=== PATIENT | female | born 1955 | race Caucasian/White ===

== ENCOUNTER → 2017-03-02 | Day surgery (SDC) | payer OTHER ==
[2017-02-10 14:48] VITALS: Ht 156.2 cm; Wt 67.7 kg
[~2017-03-02] VITALS: Ht 156.2 cm; Wt 67.7 kg
[~2017-03-02] MED LIST: ACETAMINOPHEN 325 MG TAB PO PRN; AMVISC PLUS 0.8ML SYRINGE INT OCU ONE; ASPI81TA28 PO; ATROPINE SULFATE 0.1 MG/ML 5ML SYR IV PRN; BUPR-79 PO; CALC625T13 PO; CYAN10005 PO; DEXTROSE 50% 50 ML SYR IV ONE; DONE1TAB11 PO; DTR5 PO; EpHEDrine SULFATE INJ 50 MG/ML AMP IV PRN; EpINEphrine INJ 1MG/ML AMP 1 MG/ML AMP ONE; INSU100I2 SC; INSU3INJ3 PO; LACTATED RINGER'S 1000ML 500 ML IV SCH; LEVO100T PO; LIDOCAINE 3.5% OPH GEL PER APPLICATION CHARGE ONE; LIDOCAINE HCL 1% MPF 2 ML VIAL ONE; LISI-729 PO; METF1TAB53 PO; METO25TA3 PO; MIDAZOLAM HCL 1 MG/ML 2ML VIAL ONE; MULT-580 PO; OCUCOAT 1 ML SOLN IO ONE; POVIDONE-IODINE OP SOLN 30 ML BTL ONE; PRAM1TAB6 PO; PROPARACAINE 0.5% OP SOLN PER DROP CHARGE OPL SCH; PSYL58.618 PO; SIMV10TA2 PO; STERILE IRRIGATING SOLUTION (BSS) 15ML OPL ONE; TOBRAMYCIN/DEXAMETHASONE OPH OINT PER APPLN CHARGE ONE
[2017-03-02] MEDS: PHENYLEPHRINE HCL 2.5% OP SOLN PER DROP CHARGE OPL SCH ×2 (06:34→06:42)
[2017-03-02] MEDS: TROPICAMIDE 1% OP SOLN PER DROP CHARGE OPL SCH ×2 (06:35→06:43)
[2017-03-02] MEDS: CYCLOPENTOLATE HCL 1% OP SOLN PER DROP CHARGE OPL SCH ×2 (06:36→06:44)
[2017-03-02] MEDS: KETOROLAC 0.5% OP SOLN PER DROP CHARGE OPL SCH ×2 (06:37→06:45)
[2017-03-02] MEDS: GATIFLOXACIN OP SOLN PER DROP CHARGE OPL SCH ×2 (06:38→06:53)
--- NOTE | 2017-03-02 07:00 | History & Physical Bridge - [place] ---
H&P Re-Evaluation Bridge Note: I have examined the patient, reviewed the History & Physical and in the interval since the performance of the History & Physical I have noted the following changes of clinical significance: Diagnosis: Left Cataract Procedure: Left Cataract Removal with Lens Implant No changes noted
[2017-03-02 07:22] VITALS: TEMP 36.8
--- NOTE | 2017-03-02 07:22 | Discharge Instructions-SurgCtr ---
Discharge Instructions Date of Service Mar 02, 2017. Visit Reason for Visit: Cataract Left Eye Discharge Discharge Diagnosis / Problem: cataract Discharge Goals Goal(s): Improve function Activity Recommendations Activity Limitations: per Instructions/Follow-up section Anesthesia . Post Anesthesia Instructions: If you have had General Anesthesia or IV Sedation: * Do not drive today. * Resume driving when surgeon permits. * Do not make important decisions or sign legal documents today. * Call surgeon for: 1. Temperature elevations greater than 101 degrees F. 2. Uncontrollable pain. 3. Excessive bleeding. 4. Persistent nausea and vomiting. 5. Medication intolerance (nausea, vomiting or rash). * For nausea and vomiting use only clear liquids such as: tea, soda, bouillon until nausea subsides, then gradually increase diet as tolerated. * If you have any concerns or questions, call your surgeon's office. If physician is unavailable and it is an emergency, call 911 or go to the nearest emergency room. . Instructions / Follow-Up Instructions / Follow-Up ACTIVITY RECOMMENDATIONS: * No strenuous lifting, jogging or running for 4 days * No swimming or yard work for 1 week. * Limited bending is permitted, such as putting on shoes. RETURN TO SCHOOL/WORK: No work until seen by physician in office. MEDICATIONS: Resume previous medications unless instructed otherwise by your surgeon. This includes eye drops for glaucoma. Zymaxid/Gatifloxacin (lin cap) - one drop every 2 hours until bedtime Nevanac/Ilevro/Prolensa/Ketorolac (fabian cap) - one drop every 4 hours until bedtime Prednisolone (white/pink cap, SHAKE WELL) - one drop every 2 hours until bedtime Starting tomorrow - all 3 drops every 4 hours until seen in the office Optive drops - as needed for discomfort SPECIAL CARE INSTRUCTIONS: * Wear eyeshield when sleeping, for four nights. * You may wear your own glasses or sunglasses while awake. * You may read or watch TV * You may shower and wash your face, but be gentle around the eye and pat dry. * Blurry vision and mild irritation are normal. * Call office if pain is more severe or vision becomes dark at . FOLLOW UP VISIT: Follow-up with Dr Mast tomorrow. Diet Recommendations Home Diet: resume previous diet Procedures Procedures Performed: Left Cataract Phacoemulsification With Intraocular Lens Implant Pending Studies Studies pending at discharge: no Medical Emergencies . Who to Call and When: Medical Emergencies: If at any time you feel your situation is an emergency, please call 911 immediately. . Non-Emergent Contact Non-Emergency issues call your: Content Specialist . . "Provider Documentation" section prepared by Jacoby Mast. .
--- NOTE | 2017-03-02 07:23 | [facility] Operative Report ---
Operative Report Date of Service Mar 02, 2017. Operative Report 1. PREOPERATIVE DIAGNOSIS: Cataract of the left eye. 2. POSTOPERATIVE DIAGNOSIS: Same. 3. PROCEDURE: Phacoemulsification with intraocular lens implantation of the left eye. SURGEON: Dr. Jacoby Mast. ANESTHESIA: Topical Lidocaine gel, 1% Non- Preserved intracameral Lidocaine, and monitored intravenous sedation. INDICATIONS FOR THE PROCEDURE: The patient is a 61 - year-old female with a history of cataract of the left eye causing significant visual impairment. The details of the proposed procedure were explained to the patient who asked appropriate questions and following discussion of all risks, benefits and alternatives agreed to have the procedure done. 4. OPERATION AND FINDINGS: DESCRIPTION OF PROCEDURE: After informed consent was obtained, the patient was brought to the Operating Room at the [facility]. The patient was placed in a supine position and then the left eye was prepped and draped in the usual sterile fashion for intraocular surgery. A drop of topical Lidocaine gel was placed in the operative eye. A wire lid speculum was then placed in the fornices. A corneal paracentesis was then created temporally. The Non-Preserved Lidocaine was then instilled into the anterior chamber. The anterior chamber was then pressurized with viscoelastic. A 2.0 mm clear corneal incision was then created temporally. A cystotome was inserted into the anterior chamber and used to create a tear in the anterior lens capsule. This capsular tear was then used to create a small flap and the flap was dragged in a counterclockwise direction in order to create a continuous curvilinear capsulorrhexis. Hydrodissection was accomplished with balanced salt solution. Phacoemulsification of the lens nucleus was then performed in a standard [id number] technique. The phaco time was 20 seconds with an average power of 6 %. The remaining cortical material was removed using irrigation aspiration. The capsular bag was then filled with viscoelastic. A [employer] MI60L +20.0 diopters lens was then loaded into the injector and injected into the capsular bag. The remaining viscoelastic was removed with the irrigation aspiration handpiece. The wound was hydrated and then checked and found to be watertight. The intraocular pressure was checked and found to be adequate. The wire lid speculum was removed and the patient's face was cleaned and dried. TobraDex ointment was placed in the inferior fornix. The patient was discharged to the Recovery Room having tolerated the procedure well. There were no complications. The patient will be seen tomorrow in the office for follow-up. I attest to the content of the Intraoperative Record and any orders documented therein. Any exceptions are noted below.
[2017-03-02 07:42] VITALS: BP 148/71; PULSE 74; O2SAT 99
--- NOTE | 2017-03-02 07:42 | Anesthesia Progress Nt - [facility] ---
Anesthesia Post Op Note Date & Time Mar 02, 2017 at 07:42 Vital Signs Pain Intensity: 0 Vital Signs Past 12 Hours Date Time Temp Pulse Resp B/P (MAP) Pulse Ox O2 Delivery O2 Flow Rate FiO2 03/02/17 07:22 36.8 71 16 136/79 (98) 99 Room Air 03/02/17 06:28 36.8 74 16 150/71 (97) 98 Room Air Notes Mental Status: alert / awake / arousable, participated in evaluation Pt Amnestic to Procedure: Yes Nausea / Vomiting: adequately controlled Pain: adequately controlled Airway Patency, RR, SpO2: stable & adequate BP & HR: stable & adequate Hydration State: stable & adequate Anesthetic Complications: no major complications apparent
== END | disposition home or self-care (01) ==
LOC: X.SURG 06:08
PROVIDERS: ATTEND Ophthalmology
DX: H26.9 Unspecified cataract (principal); I25.10 Atherosclerotic heart disease of native coronary artery without angina pectoris; I25.2 Old myocardial infarction; E11.40 Type 2 diabetes mellitus with diabetic neuropathy, unspecified; E03.9 Hypothyroidism, unspecified; K76.0 Fatty (change of) liver, not elsewhere classified; E83.42 Hypomagnesemia; Z79.4 Long term (current) use of insulin; Z79.82 Long term (current) use of aspirin; Z79.899 Other long term (current) drug therapy

== ENCOUNTER 2017-03-05 19:52 | Emergency (ER) | payer OTHER ==
[~2017-03-05] VITALS: Ht 154.9 cm; Wt 72.0 kg
[~2017-03-05 19:52] MED LIST changes: -ACETAMINOPHEN 325 MG TAB PO PRN; -AMVISC PLUS 0.8ML SYRINGE INT OCU ONE; -ATROPINE SULFATE 0.1 MG/ML 5ML SYR IV PRN; -DEXTROSE 50% 50 ML SYR IV ONE; -EpHEDrine SULFATE INJ 50 MG/ML AMP IV PRN; -EpINEphrine INJ 1MG/ML AMP 1 MG/ML AMP ONE; -LACTATED RINGER'S 1000ML 500 ML IV SCH; -LIDOCAINE 3.5% OPH GEL PER APPLICATION CHARGE ONE; -LIDOCAINE HCL 1% MPF 2 ML VIAL ONE; -MIDAZOLAM HCL 1 MG/ML 2ML VIAL ONE; -OCUCOAT 1 ML SOLN IO ONE; -POVIDONE-IODINE OP SOLN 30 ML BTL ONE; -PROPARACAINE 0.5% OP SOLN PER DROP CHARGE OPL SCH; -STERILE IRRIGATING SOLUTION (BSS) 15ML OPL ONE; -TOBRAMYCIN/DEXAMETHASONE OPH OINT PER APPLN CHARGE ONE
[2017-03-05 20:00] VITALS: TEMP 36.5; Ht 154.9 cm; Wt 72.0 kg
[2017-03-05] MEDS ORDERED: SODIUM CHLORIDE 0.9% 1000ML 1,000 ML IV STA (20:54)
[2017-03-05 21:06] LABS: BASO % 0.3 %; BASO ABS # 0.03 K/uL (0-0.2); COMPLETE YES; EOS % 2.2 %; HEMATOCRIT 46.9 % (37-47); IG% 0.3 %; LYMPH % 18.5 %; LYMPH ABS # 1.93 K/uL (1.2-3.4); MEAN CELL VOLUME 99.4 fL (80-100); MEAN CORPUSCULAR HGB CONC 32.2 g/dl (32-36); MEAN PLATELET VOLUME 10.2 fL (7.4-10.4); MONO % 4.9 %; NEUT % 73.8 %; PLATELET COUNT 241 K/uL (130-400); RED BLOOD COUNT 4.72 M/uL (4.2-5.4); WHITE BLOOD COUNT 10.42 K/uL (4.8-10.8)
[2017-03-05] MEDS ORDERED: ONDANSETRON INJ 2 MG/ML 2 ML VIAL ONE (21:08)
[2017-03-05 21:15] LABS: PROTHROMBIN TIME (PATIENT) 11.2 SECONDS (9.0-12.0)
[2017-03-05 21:18] LABS: ALT/SGPT 56 U/L (12-78); AST/SGOT 47 U/L (15-37); BLOOD UREA NITROGEN 11 mg/dl (7-18); CALCIUM 9.4 mg/dl (8.5-10.1); CARBON DIOXIDE 28 mmol/L (21-32); CHLORIDE 103 mmol/L (98-107); CREATININE 0.75 mg/dl (0.60-1.20); GLUCOSE 105 mg/dl (70-99); SODIUM 141 mmol/L (136-145)
[2017-03-05 21:28] LABS: ALKALINE PHOSPHATASE 93 U/L (45-117)
[2017-03-05 21:45] LABS: URINE APPEARANCE CLEAR (CLEAR); URINE BILIRUBIN NEG (NEG); URINE COLOR YELLOW; URINE EPITHELIAL CELL AUTO >30 /lpf (0-5); URINE NITRITE NEG (NEG); URINE PH 5.5 (4.5-7.5); URINE SPECIFIC GRAVITY 1.007 (1.000-1.030); UROBILINOGEN NEG (NEG)
[2017-03-05 21:57] LABS: MANUAL MICROSCOPIC REQUIRED? NO; REVIEW REQ? NO
[2017-03-05 23:09] VITALS: BP 138/86; PULSE 70; O2SAT 96
--- NOTE | 2017-03-06 00:40 | EMERGENCY ROOM VISIT NOTE ---
History Report prepared by Braxton: Papi Yan Under the Supervision of: Dr. Luis Miguel Guillen M.D. First contact with patient: 19:58 Chief Complaint: HYPOGLYCEMIA Stated Complaint: HYPOGLYCEMIA History of Present Illness The patient is a 61 year old female who presents to the Emergency Room with complaints hypoglycemia starting earlier today. The patient reports that the last two days she has been feeling nauseous, fatigued, and hasn't been eating normally. The patient is accompanied by her son who states that he woke up to find her confused, cold, diaphoretic, and slurring her speech earlier today. The patient states that she is Type 2 diabetic on insulin and usually doesn't feel well when her glucose levels reach 100 mg. Her son reports that she has not been eating today except for a little bit of watermelon. She is currently out of her glucose test strips and he was concerned that she was hypoglycemic. He was unable to test. He states that he gave her glucose and some chicken. When EMS arrived her blood sugar was 72 further measurements and her symptoms were dramatically improved. They did give her oral glucose. She was back to normal. When she arrived in the emergency department her blood glucose was over 106. She states that she recently had a cataract taken out on her left side which caused her left hand to swell. The patient admits the swelling has gone down since. The patient currently complains of cramping in her right leg. The patient denies LOC, headache, fevers, visual changes, neck pain, chest pain , breathing difficulties, vomiting, abdominal pain, back pain, melena, hematochezia, urinary symptoms, numbness, weakness, lymphadenopathy, rash, or other complaints. Source of History: patient, family (son) Onset: earlier today Position: other (global) Timing: worsening Modifying Factors (Relieving): other (glucose) Associated Symptoms: + chills, + diaphoresis, + fatigue Review of Systems See HPI for pertinent positives and negatives. A total of ten systems were reviewed and were otherwise negative. Past Medical & Surgical Medical Problems: (1) Diabetes (2) Hypertension Nos (3) Hypothyroidism Nos (4) Neuropathy In Diabetes Family History FH: HTN (hypertension) FHx: diabetes mellitus Social History Smoking Status: Current Every Day Smoker Alcohol Use: none Marital Status: Housing Status: lives alone Occupation Status: disabled Current/Historical Medications Scheduled Aspirin (Aspirin Ec), 81 MG PO HS Bupropion (Wellbutrin Sr), 150 MG PO BID Calcium Polycarbophil (Fiber Tabs), 1 TAB PO QAM Cyanocobalamin (Vitamin B-12), 1,000 MCG PO QAM Donepezil Hydrochloride (Donepezil Hcl), 1 TAB PO HS Insulin Detemir (Levemir Flextouch), 64 UNITS PO HS Insulin Lispro (Human) (Humalog Kwikpen), 30 UNITS SC TIDM Levothyroxine Sodium (Synthroid), 100 MCG PO QAM Lisinopril (Zestril), 2.5 MG PO QAM Metformin Hcl (Glucophage Ext Rel), 1,000 MG PO BID Metoprolol Succ (Toprol Xl) (Toprol-Xl), 25 MG PO QAM Multiple Vitamins W/ Minerals (Hair/Skin/Nails), 1 TAB PO QAM Oxybutynin Chloride (Oxybutynin Chloride), 1 TAB PO HS Pramipexole Dihydrochloride (Pramipexole Dihydrochlori), 1 TAB PO HS Psyllium (Metamucil [facility] Fib), 1 TSP PO TID Simvastatin (Zocor), 10 MG PO HS Allergies Coded Allergies: No Known Allergies (Unverified , NONE, 03/02/17) Physical Exam Vital Signs Date Time Temp Pulse Resp B/P (MAP) Pulse Ox O2 Delivery O2 Flow Rate FiO2 03/05/17 23:09 70 19 138/86 96 Room Air 03/05/17 21:31 72 17 123/64 93 Room Air 03/05/17 20:00 36.5 72 14 150/71 98 Room Air 03/05/17 19:59 73 Physical Exam GENERAL: Tired appearing, alert, in no distress HENT: Normocephalic, atraumatic. Oropharynx unremarkable. EYES: Normal conjunctiva. Sclera non-icteric. PERRLA. EOMI. NECK: Supple. No nuchal rigidity. FROM. No JVD. RESPIRATORY: Clear to auscultation. CARDIAC: Regular rate, normal rhythm. Extremities warm and well perfused. Pulses equal. ABDOMEN: Soft, non-distended. No tenderness to palpation. No rebound or guarding. No masses. RECTAL: Deferred. MUSCULOSKELETAL: Chest examination reveals no tenderness. The back is symmetrical on inspection without obvious abnormality. There is no CVA tenderness to palpation. No joint edema. LOWER EXTREMITIES: Calves are equal size bilaterally and non-tender. No edema. No discoloration. NEURO: GCS of 15 Normal sensorium. No sensory or motor deficits noted. SKIN: No rash or jaundice noted. Medical Decision & Procedures Laboratory Results 03/05/17 19:39 Red Blood Count 4.72, Mean Corpuscular Volume 99.4, Mean Corpuscular Hemoglobin 32.0, Mean Corpuscular Hemoglobin Concent 32.2, Mean Platelet Volume 10.2, Neutrophils (%) (Auto) 73.8, Lymphocytes (%) (Auto) 18.5, Monocytes (%) (Auto) 4.9, Eosinophils (%) (Auto) 2.2, Basophils (%) (Auto) 0.3, Neutrophils # (Auto) 7.69, Lymphocytes # (Auto) 1.93, Monocytes # (Auto) 0.51, Eosinophils # (Auto) 0.23, Basophils # (Auto) 0.03 03/05/17 19:39 Test 03/05/17 19:39 03/05/17 21:25 03/05/17 22:39 White Blood Count 10.42 K/uL (4.8-10.8) Red Blood Count 4.72 M/uL (4.2-5.4) Hemoglobin 15.1 g/dL (12.0-16.0) Hematocrit 46.9 % (37-47) Mean Corpuscular Volume 99.4 fL (80-100) Mean Corpuscular Hemoglobin 32.0 pg (25-34) Mean Corpuscular Hemoglobin Concent 32.2 g/dl (32-36) Platelet Count 241 K/uL (130-400) Mean Platelet Volume 10.2 fL (7.4-10.4) Neutrophils (%) (Auto) 73.8 % Lymphocytes (%) (Auto) 18.5 % Monocytes (%) (Auto) 4.9 % Eosinophils (%) (Auto) 2.2 % Basophils (%) (Auto) 0.3 % Neutrophils # (Auto) 7.69 K/uL (1.4-6.5) Lymphocytes # (Auto) 1.93 K/uL (1.2-3.4) Monocytes # (Auto) 0.51 K/uL (0.11-0.59) Eosinophils # (Auto) 0.23 K/uL (0-0.5) Basophils # (Auto) 0.03 K/uL (0-0.2) RDW Standard Deviation 48.2 fL (36.4-46.3) RDW Coefficient of Variation 13.2 % (11.5-14.5) Immature Granulocyte % (Auto) 0.3 % Immature Granulocyte # (Auto) 0.03 K/uL (0.00-0.02) Prothrombin Time 11.2 SECONDS (9.0-12.0) Prothromb Time International Ratio 1.0 (0.9-1.1) Activated Partial Thromboplast Time 27.0 SECONDS (21.0-31.0) Partial Thromboplastin Ratio 1.0 Anion Gap 10.0 mmol/L (3-11) Est Creatinine Clear Calc Drug Dose 73.3 ml/min Estimated GFR () 101.1 Estimated GFR (Non- 87.2 BUN/Creatinine Ratio 14.0 (10-20) Calcium Level 9.4 mg/dl (8.5-10.1) Magnesium Level 2.0 mg/dl (1.8-2.4) Total Bilirubin 0.4 mg/dl (0.2-1) Direct Bilirubin 0.1 mg/dl (0-0.2) Aspartate Amino Transf (AST/SGOT) 47 U/L (15-37) Alanine Aminotransferase (ALT/SGPT) 56 U/L (12-78) Alkaline Phosphatase 93 U/L (45-117) Total Creatine Kinase 122 U/L (26-192) Creatine Kinase MB 2.4 ng/ml (0.5-3.6) Creatine Kinase MB Ratio 2.0 (0-3.0) Troponin I < 0.015 ng/ml (0-0.045) Total Protein 8.3 gm/dl (6.4-8.2) Albumin 4.0 gm/dl (3.4-5.0) Thyroid Stimulating Hormone (TSH) 2.610 uIu/ml (0.300-4.500) Urine Color YELLOW Urine Appearance CLEAR (CLEAR) Urine pH 5.5 (4.5-7.5) Urine Specific [place] 1.007 (1.000-1.030) Urine Protein NEG (NEG) Urine Glucose (UA) 2+ (NEG) Urine Ketones NEG (NEG) Urine Occult Blood NEG (NEG) Urine Nitrite NEG (NEG) Urine Bilirubin NEG (NEG) Urine Urobilinogen NEG (NEG) Urine Leukocyte Esterase SMALL (NEG) Urine WBC (Auto) 5-10 /hpf (0-5) Urine RBC (Auto) 0-4 /hpf (0-4) Urine Hyaline Casts (Auto) 0 /lpf (0-5) Urine Epithelial Cells (Auto) >30 /lpf (0-5) Urine Bacteria (Auto) 1+ (NEG) Bedside Glucose 117 mg/dl (70-90) Laboratory results reviewed by me Medications Administered Medications (Trade) Dose Ordered Sig/Gabe Route Start Time Stop Time Status Last Admin Dose Admin Sodium Chloride 1,000 ml @ 125 mls/hr Q8H STAT IV 03/05/17 20:54 03/05/17 23:41 DC 03/05/17 21:23 125 MLS/HR Ondansetron HCl (Zofran Inj) 4 mg STK-MED ONCE .ROUTE 03/05/17 21:08 03/05/17 21:09 DC 03/05/17 21:23 4 MG ECG Indication: other (hypoglycemia) Rate (beats per minute): 73 Rhythm: normal sinus Findings: no acute ischemic change, left axis deviation, no ectopy, other ( poor R wave progression) Comparison ECG Date: 03/04/15 Change: Poor R wave progression is new compared to March 04, 2015, but is similar to February 19, 2015. ED Course Medication Reconciliation: I attest that I have personally reviewed the patient' s current medication list. Patient was found to have a slightly elevated blood pressure due to circumstances. I do not believe that the patient requires hypertension monitoring. 2002: The patient was evaluated in room C01. A complete history and physical exam was performed. 2053: Sodium Chloride 1000 ml @ 125 mls/hr IV. 2107: Zofran Injection 4 mg IV. 2149: I reevaluated the patient and she is doing much better after administration of medication. Her bed side glucose levels showed 117 mg. 2244: I reevaluated the patient. Discussed results and discharge instructions: She verbalized understanding and agreement. The patient is ready for discharge. Medical Decision Triage Nursing notes reviewed. The patient's presentation and history were concerning for altered mental status and probable hypoglycemia. Etiologies such as metabolic, infection, hypo/hyperglycemia, electrolyte abnormalities, cardiac sources, intracerebral event, toxicologic, neurologic, as well as others were entertained. The patient was evaluated. Clinically she was doing well. The patient and family note that she does not do well when her blood sugar gets lower than 120. She starts to feel symptomatic significantly below 100. The patient was acting like hypoglycemia. Her son is EMS. He was unable to test her blood sugar but treated her with sugary grape juice. When EMS arrived the patient was 30 feeling better and her sugar had a measurement of 72. I suspect that as she corrected her altered mental status with oral intake and had a measurement of 72 from EMS that hypoglycemia was a likely cause. The patient had blood work obtained. She had an unremarkable CBC and chemistry panel. Her potassium and magnesium were unremarkable. The patient had negative cardiac markers. The patient's TSH is normal. Urinalysis did not reveal any convincing signs of infection. On reassessment the patient was given completely normal. She was interacting with family. She was working on her Smart phone. The patient was given food and observed. Her ECG was not 100% normal but was not significantly different than prior ECGs. The patient has absolutely no symptoms at this time and has a normal blood glucose. As the history supports hypoglycemia and her other diagnostics are unremarkable, I believe that this is the main issue. I discussed conservative management with the patient and family and they were in agreement. The patient's son was able to obtain some test strips to hold the patient over until her supply arise male which should be any day now. The patient will follow-up closely with her primary physician. If she worsens in any way she will be back.I gave my usual and customary discussion regarding this issue. Impression Primary Impression: Hypoglycemia Additional Impression: Altered mental status Scribe Attestation The scribe's documentation has been prepared under my direction and personally reviewed by me in its entirety. I confirm that the note above accurately reflects all work, treatment, procedures, and medical decision making performed by me. Departure Information Dispostion Home / Self-Care Referrals Jacoby Mast M.D. (PCP) Forms HOME CARE DOCUMENTATION FORM, IMPORTANT VISIT INFORMATION, WORK / SCHOOL INSTRUCTIONS Patient Instructions My [facility] Additional Instructions Continue current medications. Eat a meal when you return home. Monitor blood glucose at least 4 times a day and take these measurements to your follow-up appointment. Follow-up with PCP this week. Return to the ER for worsening sugar problems, any chest pain, difficulty breathing, fevers, vomiting, worsening of your condition, or as needed. Problem Qualifiers
== END 2017-03-05 23:09 | disposition home or self-care (01) ==
LOC: C.EDC 19:52
DX: E11.65 Type 2 diabetes mellitus with hyperglycemia (principal); R41.82 Altered mental status, unspecified; E03.9 Hypothyroidism, unspecified; I10 Essential (primary) hypertension; E11.40 Type 2 diabetes mellitus with diabetic neuropathy, unspecified; F17.200 Nicotine dependence, unspecified, uncomplicated; Z82.49 Family history of ischemic heart disease and other diseases of the circulatory system; Z83.3 Family history of diabetes mellitus; Z79.4 Long term (current) use of insulin; Z79.82 Long term (current) use of aspirin; Z79.84 Long term (current) use of oral hypoglycemic drugs; Z79.899 Other long term (current) drug therapy

== ENCOUNTER → 2017-04-06 | Day surgery (SDC) | payer OTHER ==
[2017-03-15 11:17] VITALS: Ht 156.2 cm; Wt 67.7 kg
[~2017-04-06] VITALS: Ht 156.2 cm; Wt 67.7 kg
[~2017-04-06] MED LIST changes: +500ML BSS 0.3ML EPI 1:1000PF IRRIG ONE; +ACETAMINOPHEN 325 MG TAB PO PRN; +AMVISC PLUS 0.8ML SYRINGE INT OCU ONE; +ATROPINE SULFATE 0.1 MG/ML 5ML SYR IV PRN; +BSS FLUSH ONE; +EpHEDrine SULFATE INJ 50 MG/ML AMP IV PRN; +EpINEphrine INJ 1MG/ML AMP 1 MG/ML AMP ONE; +LACTATED RINGER'S 1000ML 500 ML IV SCH; +LIDOCAINE 3.5% OPH GEL PER APPLICATION CHARGE ONE; +LIDOCAINE HCL 1% MPF 2 ML VIAL ONE; +MIDAZOLAM HCL 1 MG/ML 2ML VIAL ONE; +OCUCOAT 1 ML SOLN IO ONE; +ONDANSETRON INJ 2 MG/ML 2 ML VIAL IV PRN; +POVIDONE-IODINE OP SOLN 30 ML BTL ONE; +PROPARACAINE 0.5% OP SOLN PER DROP CHARGE OPR SCH; +TOBRAMYCIN/DEXAMETHASONE OPH OINT PER APPLN CHARGE ONE
[2017-04-06] MEDS: PHENYLEPHRINE HCL 2.5% OP SOLN PER DROP CHARGE OPR SCH ×2 (09:09→09:14)
[2017-04-06] MEDS: TROPICAMIDE 1% OP SOLN PER DROP CHARGE OPR SCH ×2 (09:10→09:15)
[2017-04-06] MEDS: CYCLOPENTOLATE HCL 1% OP SOLN PER DROP CHARGE OPR SCH ×2 (09:11→09:16)
[2017-04-06] MEDS: KETOROLAC 0.5% OP SOLN PER DROP CHARGE OPR SCH ×2 (09:12→09:17)
[2017-04-06] MEDS: GATIFLOXACIN OP SOLN PER DROP CHARGE OPR SCH ×2 (09:13→09:23)
--- NOTE | 2017-04-06 09:39 | History & Physical Bridge - [place] ---
H&P Re-Evaluation Bridge Note: I have examined the patient, reviewed the History & Physical and in the interval since the performance of the History & Physical I have noted the following changes of clinical significance: No changes noted
--- NOTE | 2017-04-06 10:18 | Discharge Instructions-SurgCtr ---
Discharge Instructions Date of Service Apr 06, 2017. Visit Reason for Visit: Cataract Right Eye Discharge Discharge Diagnosis / Problem: cataract Discharge Goals Goal(s): Improve function Activity Recommendations Activity Limitations: per Instructions/Follow-up section Anesthesia . Post Anesthesia Instructions: If you have had General Anesthesia or IV Sedation: * Do not drive today. * Resume driving when surgeon permits. * Do not make important decisions or sign legal documents today. * Call surgeon for: 1. Temperature elevations greater than 101 degrees F. 2. Uncontrollable pain. 3. Excessive bleeding. 4. Persistent nausea and vomiting. 5. Medication intolerance (nausea, vomiting or rash). * For nausea and vomiting use only clear liquids such as: tea, soda, bouillon until nausea subsides, then gradually increase diet as tolerated. * If you have any concerns or questions, call your surgeon's office. If physician is unavailable and it is an emergency, call 911 or go to the nearest emergency room. . Instructions / Follow-Up Instructions / Follow-Up ACTIVITY RECOMMENDATIONS: * No strenuous lifting, jogging or running for 4 days * No swimming or yard work for 1 week. * Limited bending is permitted, such as putting on shoes. RETURN TO SCHOOL/WORK: No work until seen by physician in office. MEDICATIONS: Resume previous medications unless instructed otherwise by your surgeon. This includes eye drops for glaucoma. Zymaxid/Gatifloxacin (lin cap) - one drop every 2 hours until bedtime Nevanac/Ilevro/Prolensa/Ketorolac (fabian cap) - one drop every 4 hours until bedtime Prednisolone/Durezol (white/pink cap, SHAKE WELL) - one drop every 2 hours until bedtime Starting tomorrow - all 3 drops every 4 hours until seen in the office Optive drops - as needed for discomfort SPECIAL CARE INSTRUCTIONS: * Wear eyeshield when sleeping, for four nights. * You may wear your own glasses or sunglasses while awake. * You may read or watch TV * You may shower and wash your face, but be gentle around the eye and pat dry. * Blurry vision and mild irritation are normal. * Call office if pain is more severe or vision becomes dark at . FOLLOW UP VISIT: Follow-up with Dr Mast tomorrow. Diet Recommendations Home Diet: resume previous diet Procedures Procedures Performed: Right Cataract Phacoemulsification With Intraocular Lens Implant Pending Studies Studies pending at discharge: no Medical Emergencies . Who to Call and When: Medical Emergencies: If at any time you feel your situation is an emergency, please call 911 immediately. . Non-Emergent Contact Non-Emergency issues call your: Veneer Jointer Operator . . "Provider Documentation" section prepared by Jacoby Mast. .
[2017-04-06 10:19] VITALS: TEMP 36.1
--- NOTE | 2017-04-06 10:19 | [facility] Operative Report ---
Operative Report Date of Service Apr 06, 2017. Operative Report 1. PREOPERATIVE DIAGNOSIS: Cataract of the right eye. 2. POSTOPERATIVE DIAGNOSIS: Same. 3. PROCEDURE: Phacoemulsification with intraocular lens implantation of the right eye. SURGEON: Dr. Jacoby Mast. ANESTHESIA: Topical Lidocaine gel, 1% Non- Preserved intracameral Lidocaine, and monitored intravenous sedation. INDICATIONS FOR THE PROCEDURE: The patient is a 61 - year-old female with a history of cataract of the right eye causing significant visual impairment. The details of the proposed procedure were explained to the patient who asked appropriate questions and following discussion of all risks, benefits and alternatives agreed to have the procedure done. 4. OPERATION AND FINDINGS: DESCRIPTION OF PROCEDURE: After informed consent was obtained, the patient was brought to the Operating Room at the [facility]. The patient was placed in a supine position and then the right eye was prepped and draped in the usual sterile fashion for intraocular surgery. A drop of topical Lidocaine gel was placed in the operative eye. A wire lid speculum was then placed in the fornices. A corneal paracentesis was then created temporally. The Non-Preserved Lidocaine was then instilled into the anterior chamber. The anterior chamber was then pressurized with viscoelastic. A 2.0 mm clear corneal incision was then created temporally. A cystotome was inserted into the anterior chamber and used to create a tear in the anterior lens capsule. This capsular tear was then used to create a small flap and the flap was dragged in a counterclockwise direction in order to create a continuous curvilinear capsulorrhexis. Hydrodissection was accomplished with balanced salt solution. Phacoemulsification of the lens nucleus was then performed in a standard [id number] technique. The phaco time was 17 seconds with an average power of 7 %. The remaining cortical material was removed using irrigation aspiration. The capsular bag was then filled with viscoelastic. A [employer] MI60L +21.0 diopters lens was then loaded into the injector and injected into the capsular bag. The remaining viscoelastic was removed with the irrigation aspiration handpiece. The wound was hydrated and then checked and found to be watertight. The intraocular pressure was checked and found to be adequate. The wire lid speculum was removed and the patient's face was cleaned and dried. TobraDex ointment was placed in the inferior fornix. The patient was discharged to the Recovery Room having tolerated the procedure well. There were no complications. The patient will be seen tomorrow in the office for follow-up. I attest to the content of the Intraoperative Record and any orders documented therein. Any exceptions are noted below.
[2017-04-06 10:42] VITALS: BP 133/71; PULSE 76; O2SAT 97
--- NOTE | 2017-04-06 10:50 | Anesthesia Progress Nt - [facility] ---
Anesthesia Post Op Note Date & Time Apr 06, 2017 at 10:50 Vital Signs Pain Intensity: 0 Vital Signs Past 12 Hours Date Time Temp Pulse Resp B/P (MAP) Pulse Ox O2 Delivery O2 Flow Rate FiO2 04/06/17 10:42 76 16 133/71 (91) 97 Room Air 04/06/17 10:19 36.1 70 18 138/77 (97) 99 Room Air 04/06/17 09:02 36.5 71 16 135/72 (93) 95 Room Air Notes Mental Status: alert / awake / arousable, participated in evaluation Pt Amnestic to Procedure: Yes Nausea / Vomiting: adequately controlled Pain: adequately controlled Airway Patency, RR, SpO2: stable & adequate BP & HR: stable & adequate Hydration State: stable & adequate Anesthetic Complications: no major complications apparent
== END | disposition home or self-care (01) ==
LOC: X.SURG 08:22
PROVIDERS: ATTEND Ophthalmology
DX: H26.9 Unspecified cataract (principal); I25.10 Atherosclerotic heart disease of native coronary artery without angina pectoris; M48.06 Spinal stenosis, lumbar region; E03.9 Hypothyroidism, unspecified; E11.9 Type 2 diabetes mellitus without complications; I10 Essential (primary) hypertension; Z82.49 Family history of ischemic heart disease and other diseases of the circulatory system; Z83.3 Family history of diabetes mellitus

== ENCOUNTER → 2017-05-15 | Outpatient (CLI) | payer OTHER ==
[~2017-05-15] MED LIST changes: -500ML BSS 0.3ML EPI 1:1000PF IRRIG ONE; -ACETAMINOPHEN 325 MG TAB PO PRN; -AMVISC PLUS 0.8ML SYRINGE INT OCU ONE; -ATROPINE SULFATE 0.1 MG/ML 5ML SYR IV PRN; -BSS FLUSH ONE; -EpHEDrine SULFATE INJ 50 MG/ML AMP IV PRN; -EpINEphrine INJ 1MG/ML AMP 1 MG/ML AMP ONE; -LACTATED RINGER'S 1000ML 500 ML IV SCH; -LIDOCAINE 3.5% OPH GEL PER APPLICATION CHARGE ONE; -LIDOCAINE HCL 1% MPF 2 ML VIAL ONE; -MIDAZOLAM HCL 1 MG/ML 2ML VIAL ONE; -OCUCOAT 1 ML SOLN IO ONE; -ONDANSETRON INJ 2 MG/ML 2 ML VIAL IV PRN; -POVIDONE-IODINE OP SOLN 30 ML BTL ONE; -PROPARACAINE 0.5% OP SOLN PER DROP CHARGE OPR SCH; -TOBRAMYCIN/DEXAMETHASONE OPH OINT PER APPLN CHARGE ONE
[2017-05-16 15:03] LABS: HEPATITIS B AB NEG
== END | disposition home or self-care (01) ==
LOC: C.LABSPEC 13:36
PROVIDERS: ATTEND Physician Assistant
DX: R79.89 Other specified abnormal findings of blood chemistry (principal)

== ENCOUNTER → 2017-06-01 | Outpatient (CLI) | payer OTHER | END | disposition home or self-care (01) | LOC: C.LABSPEC 16:33 | PROVIDERS: ATTEND Nurse Practitioner Family | DX: R35.0 Frequency of micturition (principal); R39.15 Urgency of urination ==

== ENCOUNTER → 2017-07-04 | Outpatient (CLI) | payer OTHER ==
[2017-07-04 15:48] LABS: ALT/SGPT 60 U/L (12-78); BLOOD UREA NITROGEN 10 mg/dl (7-18); BUN/CREATININE RATIO 16.9 (10-20); CALCIUM 9.9 mg/dl (8.5-10.1); CARBON DIOXIDE 29 mmol/L (21-32); CHLORIDE 105 mmol/L (98-107); CHOLESTEROL 136 mg/dl (0-200); CREATININE 0.59 mg/dl (0.60-1.20); GLUCOSE 196 mg/dl (70-99); POTASSIUM 4.1 mmol/L (3.5-5.1); SODIUM 141 mmol/L (136-145)
[2017-07-04 15:59] LABS: ALKALINE PHOSPHATASE 109 U/L (45-117); AST/SGOT 54 U/L (15-37); CHOLESTEROL/HDL RATIO 2.5; HDL CHOLESTEROL 55 mg/dl; LDL CHOLESTEROL CALCULATED 56 mg/dl; THYROID STIMULATING HORMONE 0.063 uIu/ml (0.300-4.500); TRIGLYCERIDES 123 mg/dl (0-150); VERY LOW DENSITY LIPOPROT CALC 25 mg/dl
[2017-07-04 16:18] LABS: RATIO 22.1 mcg/mg (0-30.0)
[2017-07-05 07:33] LABS: ESTIMATED AVERAGE GLUCOSE 180 mg/dl; HA1C FLAG Normal (Normal)
== END | disposition home or self-care (01) ==
LOC: C.LAB1850 14:00
PROVIDERS: ATTEND Nurse Practitioner Adult Health
DX: I10 Essential (primary) hypertension (principal); E78.00 Pure hypercholesterolemia, unspecified; E03.9 Hypothyroidism, unspecified; E66.3 Overweight; E11.49 Type 2 diabetes mellitus with other diabetic neurological complication

== ENCOUNTER → 2017-11-06 | Outpatient (CLI) | payer OTHER ==
[~2017-11-06] MED LIST changes: -DONE1TAB11 PO; +DONE5TAB26 PO; +PRAM1TAB10 PO; -PRAM1TAB6 PO
--- NOTE | 2017-11-07 12:57 | MAMMOGRAPHY REPORT ---
BILATERAL DIGITAL SCREENING MAMMOGRAM TOMOSYNTHESIS WITH CAD: 11/06/2017 CLINICAL HISTORY: Routine screening. Patient has no complaints. TECHNIQUE: Breast tomosynthesis in addition to standard 2D mammography was performed. Current study was also evaluated with a Computer Aided Detection (CAD) system. COMPARISON: Comparison is made to exams dated: 04/26/2016 mammogram, 11/28/2013 mammogram, 11/28/2011 mamm ogram, 04/01/2010 mammogram - [facility], 09/19/2008, and 05/04/2016 mammogram - [facility]. BREAST COMPOSITION: There are scattered areas of fibroglandular density in both breasts. FINDINGS: There are linear microcalcifications in the 12:00 to 1:00 posterior right breast, warranti ng additional spot magnification views. There are stable postbiopsy changes in the lower inner quadrant of the left breast, with dumbbell-sha ped metallic biopsy marker in place. Other benign-appearing coarse calcifications are scattered bila terally. No other suspicious mass, architectural distortion or cluster of microcalcifications is seen . IMPRESSION: ACR BI-RADS CATEGORY 0: INCOMPLETE EVALUATION: NEED ADDITIONAL IMAGING EVALUATION The linear microcalcifications in the 12:00 to 1:00 right breast need additional evaluation. The patient will be called to schedule an appointment. Approximately 10% of breast cancers are not detected with mammography. A negative mammographic report should not delay biopsy if a clinically suggestive mass is present. Lisa Kim M.D. ay/:11/06/2017 16:09:07 Photographic Spotter: María DUMONT(Laura)(Babak), [facility] letter sent: Addl Imaging 0 BI-RADS Code: ACR BI-RADS Category 0: Incomplete Evaluation: Need Additional Imaging Evaluation
== END | disposition home or self-care (01) ==
LOC: C.MAMM 14:31
PROVIDERS: ATTEND Physician Assistant
DX: Z12.31 Encounter for screening mammogram for malignant neoplasm of breast (principal); R92.0 Mammographic microcalcification found on diagnostic imaging of breast

== ENCOUNTER → 2017-11-21 | Outpatient (CLI) | payer OTHER ==
[~2017-11-21] MED LIST changes: +CHOL100010 PO; +CLBPO15 TOP; +[UNRECOGNIZED DRUG - REMARK] PO
--- NOTE | 2017-11-21 15:16 | MAMMOGRAPHY REPORT ---
UNILATERAL RIGHT DIGITAL DIAGNOSTIC MAMMOGRAM: 11/21/2017 CLINICAL HISTORY: 62-year-old woman called back from screening mammography for microcalcifications in the 12:00 to 1:00 right breast. The patient has a history of left breast stereotactic guided biopsy performed in April 2016 which yielded benign pathology results. TECHNIQUE: Spot magnification right CC and ML views were obtained. COMPARISON: Comparison is made to exams dated: 11/06/2017 mammogram, 05/13/2016 stereotactic biopsy, mammogram, 04/26/2016 mammogram, 11/28/2011 mammogram - [facility], and 2007. BREAST COMPOSITION: There are scattered areas of fibroglandular density in the right breast. FINDINGS: There are grouped rodlike calcifications in the upper inner posterior right breast, extend ing approximately 2 cm in AP dimension. No associated asymmetry, mass or architectural distortion. There are other clearly benign thick rodlike calcifications elsewhere in the right breast. These ninfa rocalcifications appear somewhat similar dating back to at least 2009 although there are minimally in creased in number. Given that length of stability this suggests they represent benign secretory calc ifications although given the slight interval change, a short interval follow-up is recommended to en sure stability and/or coarsening. IMPRESSION: ACR-BI-RADS CATEGORY 3: PROBABLY BENIGN There are linear versus rodlike calcifications extending over 2 cm in the upper inner posterior right breast. Many of the calcifications have been present on prior mammograms dating back to at least 20 10 suggesting benignity, possibly secretory calcifications. These calcifications in the right breast are a different in morphology from the biopsied benign cluster in the posterior left breast. Option s of tissue sampling with a stereotactic biopsy versus close follow-up imaging were discussed with th e patient and we will opt to follow up given the mammographic stability. These results and recommendations were discussed with the patient at the time of the exam. She tenta tively scheduled a follow-up appointment prior to leaving our department. Approximately 10% of breast cancers are not detected with mammography. A negative mammographic report should not delay biopsy if a clinically suggestive mass is present. Lisa Kim M.D. ay/:11/21/2017 11:45:26 Validation Scientist: Sherita DUMONT(Laura)(Babak), [facility] letter sent: Follow Up Recommended 3 BI-RADS Code: ACR-BI-RADS Category 3: Probably Benign
== END | disposition home or self-care (01) ==
LOC: C.MAMM 10:38
PROVIDERS: ATTEND Physician Assistant
DX: R92.0 Mammographic microcalcification found on diagnostic imaging of breast (principal)

== ENCOUNTER 2017-11-26 14:41 | Emergency (ER) | payer OTHER ==
[~2017-11-26] VITALS: Ht 154.9 cm; Wt 71.7 kg
[~2017-11-26 14:41] MED LIST changes: -ASPI81TA28 PO; -BUPR-79 PO; -CHOL100010 PO; -CLBPO15 TOP; -DONE5TAB26 PO; -INSU100I2 SC; -INSU3INJ3 PO; -LISI-729 PO; -METF1TAB53 PO; -METO25TA3 PO; -MULT-580 PO; -PRAM1TAB10 PO; -SIMV10TA2 PO; -[UNRECOGNIZED DRUG - REMARK] PO
[2017-11-26] MEDS ORDERED: MULT-580 PO ×2 (14:43→16:29)
[2017-11-26] MEDS ORDERED: PRAM1TAB10 PO (14:43)
[2017-11-26] MEDS ORDERED: DONE5TAB26 PO (14:43)
[2017-11-26] MEDS ORDERED: METO25TA3 PO (14:43)
[2017-11-26] MEDS ORDERED: LISI-729 PO (14:43)
[2017-11-26] MEDS ORDERED: INSU3INJ3 PO (14:44)
[2017-11-26] MEDS ORDERED: INSU100I2 SC (14:44)
[2017-11-26 14:54] VITALS: TEMP 34.4
[2017-11-26 15:15] LABS: BASO % 0.2 %; BASO ABS # 0.02 K/uL (0-0.2); EOS % 1.8 %; EOS ABS # 0.15 K/uL (0-0.5); HEMATOCRIT 41.4 % (37-47); HEMOGLOBIN 14.5 g/dL (12.0-16.0); IG# 0.02 K/uL (0.00-0.02); LYMPH % 18.1 %; LYMPH ABS # 1.52 K/uL (1.2-3.4); MEAN CELL VOLUME 96.5 fL (80-100); MEAN CORPUSCULAR HEMOGLOBIN 33.8 pg (25-34); MEAN PLATELET VOLUME 9.5 fL (7.4-10.4); MONO % 7.8 %; MONO ABS # 0.65 K/uL (0.11-0.59); NEUT % 71.9 %; NEUT ABS # 6.02 K/uL (1.4-6.5); PLATELET COUNT 157 K/uL (130-400); RED CELL DISTRIBUTION WIDTH CV 13.2 % (11.5-14.5); WHITE BLOOD COUNT 8.38 K/uL (4.8-10.8)
--- NOTE | 2017-11-26 15:26 | EMERGENCY ROOM VISIT NOTE ---
History Report prepared by Braxton: Sylvester Gonzales Under the Supervision of: Dr. Luis Lopez D.O. First contact with patient: 14:38 Stated Complaint: AMS/CONFUSED/ LOW SUGAR History of Present Illness The patient is a 62 year old female who presents to the Emergency Room with complaints of constant altered mental status starting this morning. The patient states that she also has felt like she has had the flu for the past couple days , and her nose is congested. She also notes that she vomited a few days ago. Per the nursing staff, the patient's sugar was 55, and she was answering appropriately but slowly. She was given 250 of D10, and her blood sugar has gone up to 128. The patient states that she ate breakfast this morning, and she took her insulin at 0800. She takes 68 units at night, and she takes 20 units prior to eating, and she has not had any medication changes recently. The patient also has a history of hyperlipidemia, hypothyroid, hypertension, and RLS. The patient denies any chest pain, and she states that she is not currently on blood thinners. Source of History: patient, nursing staff Onset: this morning Position: other (global) Quality: other (confusion) Timing: constant Associated Symptoms: + vomiting, No chest pain Note: Associated symptoms: congested Review of Systems See HPI for pertinent positives & negatives. A total of 10 systems reviewed and were otherwise negative. Past Medical & Surgical Medical Problems: (1) Diabetes (2) Hypertension Nos (3) Hypothyroidism Nos (4) Neuropathy In Diabetes Family History FH: HTN (hypertension) FHx: diabetes mellitus Social History Smoking Status: Current Every Day Smoker Alcohol Use: none Marital Status: Housing Status: lives alone Occupation Status: disabled Current/Historical Medications Scheduled Aspirin (Aspirin Ec), 81 MG PO HS Bupropion (Wellbutrin Sr), 150 MG PO BID Cholecalciferol (Vitamin D), 1 DOSE PO DAILY Cyanocobalamin (Vitamin B-12), 1,000 MCG PO QAM Donepezil Hydrochloride (Donepezil Hcl), 1 TAB PO HS Insulin Detemir (Levemir Flextouch), 68 UNITS PO HS Insulin Lispro (Human) (Humalog Kwikpen), 30 UNITS SC TIDM Levothyroxine Sodium (Synthroid), 100 MCG PO QAM Lisinopril (Zestril), 5 MG PO QAM Metformin Hcl (Glucophage Ext Rel), 1,000 MG PO BID Metoprolol Succ (Toprol Xl) (Toprol-Xl), 25 MG PO QAM Multiple Vitamins W/ Minerals (Hair/Skin/Nails), 1 TAB PO QAM Multiple Vitamins W/ Minerals (Hair/Skin/Nails), 1 TAB PO DAILY Pramipexole Dihydrochloride (Pramipexole Dihydrochlori), 1 TAB PO HS Psyllium (Metamucil [facility] Fib), 1 DOSE PO PRN UD Simvastatin (Zocor), 10 MG PO HS [New Bladder Med], 1 TAB PO DAILY Scheduled PRN Clobetasol Propionate (Clobetasol Propionate), 1 APPLN TOP DAILY PRN for BREAK OUT Allergies Coded Allergies: No Known Allergies (Unverified , NONE, 04/06/17) Physical Exam Vital Signs Date Time Temp Pulse Resp B/P (MAP) Pulse Ox O2 Delivery O2 Flow Rate FiO2 11/26/17 16:54 77 18 122/69 95 Room Air 11/26/17 16:13 80 11/26/17 15:37 96 Room Air 11/26/17 15:00 96 Room Air 11/26/17 14:54 34.4 80 20 134/73 96 Room Air Physical Exam GENERAL: Patient is awake, alert, and in no acute distress. Patient is resting comfortably and showing no signs of anxiety EYES: The conjunctivae are clear. The pupils are round and reactive. EARS, NOSE, MOUTH AND THROAT: The nose is without any evidence of any deformity. Mucous membranes are moist tongue is midline NECK: The neck is nontender and supple. RESPIRATORY: Normal respiratory effort is noted there is no evidence of wheezing rhonchi or rales CARDIOVASCULAR: Regular rate and rhythm noted there no murmurs rubs or gallops normal S1 normal S2 GASTROINTESTINAL: The abdomen is soft. Bowel sounds are present in all quadrants. Abdomen is nontender MUSCULOSKELETAL/EXTREMITIES: There is no evidence of gross deformity full range of motion is noted in the hips and shoulders SKIN: There is trace pedal edema bilaterally. NEUROLOGIC: Patient is awake alert and oriented x3 strength is symmetric patellar reflexes are 2+ bilaterally Medical Decision & Procedures ER Provider Diagnostic Interpretation: Radiology results as stated below per my review and radiologist interpretation: SINGLE VIEW CHEST CLINICAL HISTORY: Weakness. Change in mental status. FINDINGS: An AP, portable, upright chest radiograph is compared to study dated 03/02/2015. The examination is degraded by portable technique and patient rotation. The cardiomediastinal silhouette is unremarkable. There is mild atherosclerotic calcification of the thoracic aorta. The lungs and pleural spaces are clear. No pneumothorax is seen. The skeletal structures are osteopenic. The bony thorax is grossly intact. IMPRESSION: No active disease in the chest. Electronically signed by: Kristofer Wheeler M.D. 11/26/2017 3:34 PM Dictated Date/Time: 11/26/2017 3:33 PM Laboratory Results 11/26/17 15:05 Red Blood Count 4.29, Mean Corpuscular Volume 96.5, Mean Corpuscular Hemoglobin 33.8, Mean Corpuscular Hemoglobin Concent 35.0, Mean Platelet Volume 9.5, Neutrophils (%) (Auto) 71.9, Lymphocytes (%) (Auto) 18.1, Monocytes (%) (Auto) 7.8, Eosinophils (%) (Auto) 1.8, Basophils (%) (Auto) 0.2, Neutrophils # (Auto) 6.02, Lymphocytes # (Auto) 1.52, Monocytes # (Auto) 0.65, Eosinophils # (Auto) 0.15, Basophils # (Auto) 0.02 11/26/17 15:05 Test 11/26/17 15:05 11/26/17 15:40 White Blood Count 8.38 K/uL (4.8-10.8) Red Blood Count 4.29 M/uL (4.2-5.4) Hemoglobin 14.5 g/dL (12.0-16.0) Hematocrit 41.4 % (37-47) Mean Corpuscular Volume 96.5 fL (80-100) Mean Corpuscular Hemoglobin 33.8 pg (25-34) Mean Corpuscular Hemoglobin Concent 35.0 g/dl (32-36) Platelet Count 157 K/uL (130-400) Mean Platelet Volume 9.5 fL (7.4-10.4) Neutrophils (%) (Auto) 71.9 % Lymphocytes (%) (Auto) 18.1 % Monocytes (%) (Auto) 7.8 % Eosinophils (%) (Auto) 1.8 % Basophils (%) (Auto) 0.2 % Neutrophils # (Auto) 6.02 K/uL (1.4-6.5) Lymphocytes # (Auto) 1.52 K/uL (1.2-3.4) Monocytes # (Auto) 0.65 K/uL (0.11-0.59) Eosinophils # (Auto) 0.15 K/uL (0-0.5) Basophils # (Auto) 0.02 K/uL (0-0.2) RDW Standard Deviation 46.0 fL (36.4-46.3) RDW Coefficient of Variation 13.2 % (11.5-14.5) Immature Granulocyte % (Auto) 0.2 % Immature Granulocyte # (Auto) 0.02 K/uL (0.00-0.02) Anion Gap 8.0 mmol/L (3-11) Est Creatinine Clear Calc Drug Dose 79.6 ml/min Estimated GFR () 110.2 Estimated GFR (Non- 95.1 BUN/Creatinine Ratio 17.2 (10-20) Calcium Level 8.8 mg/dl (8.5-10.1) Magnesium Level 1.5 mg/dl (1.8-2.4) Total Bilirubin 0.3 mg/dl (0.2-1) Direct Bilirubin 0.1 mg/dl (0-0.2) Aspartate Amino Transf (AST/SGOT) 42 U/L (15-37) Alanine Aminotransferase (ALT/SGPT) 48 U/L (12-78) Alkaline Phosphatase 98 U/L (45-117) Troponin I < 0.015 ng/ml (0-0.045) Total Protein 7.3 gm/dl (6.4-8.2) Albumin 3.5 gm/dl (3.4-5.0) Thyroid Stimulating Hormone (TSH) 0.930 uIu/ml (0.300-4.500) Influenza Type A Antigen Neg for Influ A (NEG) Influenza Type B Antigen Neg for Influ B (NEG) Laboratory results per my review. Medications Administered Medications (Trade) Dose Ordered Sig/Gabe Route Start Time Stop Time Status Last Admin Dose Admin Magnesium Sulfate (Magnesium Sulfate) 2 gm NOW STAT IV 11/26/17 15:37 11/26/17 15:39 DC 11/26/17 15:55 2 GM Potassium Chloride (Klor-Con M10) 20 meq STK-MED ONCE .ROUTE 11/26/17 15:52 11/26/17 15:53 DC 11/26/17 15:55 20 MEQ ECG Per My Interpretation Indication: altered mental status Rate (beats per minute): 80 Rhythm: normal sinus Findings: other (No PVC. Poor R wave progression noted. Low voltage throughout. ) Comparison ECG Date: 03/05/17 Change: no significant change ED Course 1438: The patient was evaluated in room B9. A complete history and physical examination were performed. 1537: Magnesium Sulfate 2gm IV 1552: Potassium Chloride 20meq PO 1649: Upon reevaluation, the patient is doing well. I discussed the results and treatment plan with her. She verbalized agreement of the treatment plan. She was discharged home. Medical Decision Differential diagnosis: Etiologies such as metabolic, infection, hypoglycemia, electrolyte abnormalities , cardiac sources, intracerebral event, toxicologic, neurologic, as well as others were entertained. Nursing notes reviewed. Additional history is obtained from the patient's family members. The patient is a 62-year-old insulin-dependent diabetic who presented to the emergency department after having hypoglycemia. The patient was treated with oral glucose as well as IV glucose. Upon arrival she was awake alert although her temperature was low. The patient was treated with heated blankets as well as magnesium and potassium replacement in the emergency department. I discussed patient's laboratory and radiographic studies with her. On final reevaluation she was feeling much better. She was encouraged to continue all medications and follow-up with her primary care physician this week. Otherwise she was encouraged to return to the emergency department immediately if symptoms change worsen or the need arises. Medication Reconcilliation Current Medication List: was personally reviewed by me Blood Pressure Screening Patient's blood pressure: Normal blood pressure Impression Primary Impression: Hypoglycemia Additional Impressions: Hypomagnesemia Hypokalemia Altered mental status Scribe Attestation The scribe's documentation has been prepared under my direction and personally reviewed by me in its entirety. I confirm that the note above accurately reflects all work, treatment, procedures, and medical decision making performed by me. Departure Information Dispostion Home / Self-Care Referrals Kelle Carson PA-C (PCP) Forms HOME CARE DOCUMENTATION FORM, IMPORTANT VISIT INFORMATION, WORK / SCHOOL INSTRUCTIONS Patient Instructions Hypoglycemia, My [facility] Additional Instructions Continue all medications as prescribed. Call your family doctor to schedule a follow-up appointment. Continue to monitor your blood sugar. Return to the emergency department immediately if symptoms change worsen or the need arises. Problem Qualifiers Additional Impressions: Altered mental status Altered mental status type: unspecified Qualified Codes: R41.82 - Altered mental status, unspecified
[2017-11-26] MEDS ORDERED: METF1TAB53 PO (15:30)
[2017-11-26 15:34] LABS: ALBUMIN 3.5 gm/dl (3.4-5.0); ALT/SGPT 48 U/L (12-78); BLOOD UREA NITROGEN 12 mg/dl (7-18); CALCIUM 8.8 mg/dl (8.5-10.1); CARBON DIOXIDE 28 mmol/L (21-32); CREATININE 0.68 mg/dl (0.60-1.20); GLUCOSE 93 mg/dl (70-99); POTASSIUM 3.3 mmol/L (3.5-5.1); SODIUM 141 mmol/L (136-145)
[2017-11-26 15:36] VITALS: Ht 154.9 cm; Wt 71.7 kg
--- NOTE | 2017-11-26 15:36 | DIAGNOSTIC IMAGING REPORT ---
SINGLE VIEW CHEST CLINICAL HISTORY: Weakness. Change in mental status. FINDINGS: An AP, portable, upright chest radiograph is compared to study dated 03/02/2015. The examination is degraded by portable technique and patient rotation. The cardiomediastinal silhouette is unremarkable. There is mild atherosclerotic calcification of the thoracic aorta. The lungs and pleural spaces are clear. No pneumothorax is seen. The skeletal structures are osteopenic. The bony thorax is grossly intact. IMPRESSION: No active disease in the chest. Electronically signed by: Kristofer Wheeler M.D. 11/26/2017 3:34 PM Dictated Date/Time: 11/26/2017 3:33 PM
[2017-11-26 15:37] VITALS: O2SAT 96
[2017-11-26] MEDS ORDERED: MAGNESIUM SULFATE 1GM / D5W 1 GM BAG IV STA (15:37)
[2017-11-26] MEDS ORDERED: POTASSIUM CHLORIDE 20 MEQ TABCR PO STA (15:37)
[2017-11-26 15:45] LABS: ALKALINE PHOSPHATASE 98 U/L (45-117); AST/SGOT 42 U/L (15-37); TOTAL PROTEIN 7.3 gm/dl (6.4-8.2)
[2017-11-26] MEDS ORDERED: SIMV10TA2 PO (15:45)
[2017-11-26] MEDS ORDERED: POTASSIUM CHLORIDE 10 MEQ TABCR ONE (15:52)
[2017-11-26] MEDS ORDERED: BUPR-79 PO (15:59)
[2017-11-26] MEDS ORDERED: ASPI81TA28 PO (16:00)
[2017-11-26 16:14] LABS: INFLUENZA B ANTIGEN Neg for Influ B (NEG)
[2017-11-26] MEDS ORDERED: CLBPO15 TOP (16:29)
[2017-11-26] MEDS ORDERED: [UNRECOGNIZED DRUG - REMARK] PO (16:29)
[2017-11-26] MEDS ORDERED: CHOL100010 PO (16:31)
[2017-11-26 18:57] VITALS: BP 128/66; PULSE 68; O2SAT 96
== END 2017-11-26 19:00 | disposition home or self-care (01) ==
LOC: EDBD 14:41 → C.EDB 14:42
DX: E11.649 Type 2 diabetes mellitus with hypoglycemia without coma (principal); E83.42 Hypomagnesemia; E87.6 Hypokalemia; R41.82 Altered mental status, unspecified; I10 Essential (primary) hypertension; E78.5 Hyperlipidemia, unspecified; E03.9 Hypothyroidism, unspecified; E11.40 Type 2 diabetes mellitus with diabetic neuropathy, unspecified; F17.200 Nicotine dependence, unspecified, uncomplicated; Z82.49 Family history of ischemic heart disease and other diseases of the circulatory system; Z83.3 Family history of diabetes mellitus; Z79.4 Long term (current) use of insulin; Z79.82 Long term (current) use of aspirin; Z79.84 Long term (current) use of oral hypoglycemic drugs

== ENCOUNTER 2017-12-01 23:53 | Inpatient (IN) | payer OTHER ==
[~2017-12-01] VITALS: Ht 154.9 cm; Wt 65.8 kg
[~2017-12-01 23:53] MED LIST changes: +ASPI81TA28 PO; +BUPR-79 PO; -CALC625T13 PO; +CHOL100010 PO; +CLBPO15 TOP; +DONE5TAB26 PO; -DTR5 PO; +INSU100I2 SC; +INSU3INJ3 PO; +LISI-729 PO; +METF1TAB53 PO; +METO25TA3 PO; +MULT-580 PO; +PRAM1TAB10 PO; +SIMV10TA2 PO; +[UNRECOGNIZED DRUG - REMARK] PO
--- NOTE | 2017-12-02 00:14 | EMERGENCY ROOM VISIT NOTE ---
History Report prepared by Braxton: Collin Lau Under the Supervision of: Dr. Alonzo Akhtar M.D. First contact with patient: 00:04 Chief Complaint: HYPOGLYCEMIA Stated Complaint: HYPOGLYCEMIA Nursing Triage Summary: Pt presents als for evaluation of hypoglycemia. Pt was found in her car unresponsive. BSG of 25. D25 given IV. History of Present Illness The patient is a 62 year old female who presents to the Emergency Room with complaints of altered mental status that began prior to arrival. The patient went shopping, forgot to eat dinner, and woke up in her car. Per EMS, she was found to be hypoglycemic, unresponsive, and was given D25 IV. She states she has the chills. Her insulin medication was recently changed. She denies any headaches and nausea. 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 A total of 10 systems reviewed and were otherwise negative. Past Medical & Surgical Medical Problems: (1) Cerebrovascular accident (CVA) (2) Diabetes (3) Hypertension Nos (4) Hypothyroidism Nos (5) Neuropathy In Diabetes Family History FH: HTN (hypertension) FHx: diabetes mellitus Social History Smoking Status: Former Smoker Alcohol Use: none Marital Status: Housing Status: lives alone Occupation Status: disabled Current/Historical Medications Scheduled Aspirin (Aspirin Ec), 81 MG PO HS Bupropion (Wellbutrin Sr), 150 MG PO BID Cholecalciferol (Vitamin D), 500 UNIT PO DAILY Cyanocobalamin (Vitamin B-12), 1,000 MCG PO QAM Donepezil Hydrochloride (Donepezil Hcl), 1 TAB PO HS Fesoterodine Fumarate (Toviaz), 8 MG PO DAILY Insulin Detemir (Levemir Flextouch), 68 UNITS PO HS Insulin Lispro (Human) (Humalog Kwikpen), 30 UNITS SC TIDM Levothyroxine Sodium (Levothyroxine Sodium), 88 MCG PO DAILY Lisinopril (Zestril), 5 MG PO QAM Metformin Hcl (Glucophage Ext Rel), 1,000 MG PO BID Metoprolol Succ (Toprol Xl) (Toprol-Xl), 25 MG PO QAM Multiple Vitamins W/ Minerals (Hair/Skin/Nails), 1 TAB PO DAILY Oxybutynin Chloride (Oxybutynin Chloride), 10 MG PO DAILY Pramipexole Dihydrochloride (Pramipexole Dihydrochlori), 1 TAB PO HS Simvastatin (Zocor), 10 MG PO HS Allergies Coded Allergies: No Known Allergies (Unverified , NONE, 12/02/17) Physical Exam Vital Signs Date Time Temp Pulse Resp B/P (MAP) Pulse Ox O2 Delivery O2 Flow Rate FiO2 12/02/17 04:52 76 16 126/79 98 12/02/17 04:16 73 16 120/78 98 Room Air 12/02/17 03:09 71 12/02/17 02:16 36.3 74 18 123/79 99 12/01/17 23:59 75 18 130/63 99 Room Air Physical Exam GENERAL: Patient is tremulous appearing and in no acute distress. EYES: No scleral icterus, unremarkable pupils. ENT: Mucous membranes moist, no nasal congestion. NECK: No masses appreciated, no meningismus, trachea is midline. RESPIRATORY: No dyspnea. Clear to auscultation and equal bilaterally. No wheeze , no rhonchi. CARDIOVASCULAR: Regular rate and rhythm. No murmurs, rubs, gallops appreciated. GASTROINTESTINAL: Abdomen soft, nontender, no peritonitis. Bowel sounds positive. No masses appreciated. BACK: No midline tenderness, no CVA tenderness EXTREMITIES: Normal motion all extremities, no cyanosis, no edema. NEUROLOGIC: Alert and oriented, no acute motor or sensory deficits, no focal weakness, cranial nerves grossly intact. SKIN: No rash, no jaundice, no diaphoresis. Medical Decision & Procedures ER Provider Diagnostic Interpretation: Stat Rad Read: Imaging and Read reviewed by me: CT HEAD: Compared to CT of 03/30/09 and MRI of 06/19/15 1 cm subcortical density to the posterior right frontal lobe as seen on series 2 , image 15. This was not clearly present on prior CT. It also does not have a clear correlate on the MRI either. Possibility of a small infarct in the proper clinical setting. MRI could further assess if warranted. No intracranial hemorrhage or mass effect. Radiologist: Lele Purdy M.D. Laboratory Results 12/02/17 00:15 Red Blood Count 4.43, Mean Corpuscular Volume 97.7, Mean Corpuscular Hemoglobin 34.1, Mean Corpuscular Hemoglobin Concent 34.9, Mean Platelet Volume 10.0, Neutrophils (%) (Auto) 70.2, Lymphocytes (%) (Auto) 20.3, Monocytes (%) (Auto) 7.2, Eosinophils (%) (Auto) 1.9, Basophils (%) (Auto) 0.3, Neutrophils # (Auto) 5.42, Lymphocytes # (Auto) 1.57, Monocytes # (Auto) 0.56, Eosinophils # (Auto) 0.15, Basophils # (Auto) 0.02 12/02/17 00:15 Test 12/02/17 00:15 12/02/17 01:30 12/02/17 02:27 12/02/17 04:44 White Blood Count 7.73 K/uL (4.8-10.8) Red Blood Count 4.43 M/uL (4.2-5.4) Hemoglobin 15.1 g/dL (12.0-16.0) Hematocrit 43.3 % (37-47) Mean Corpuscular Volume 97.7 fL (80-100) Mean Corpuscular Hemoglobin 34.1 pg (25-34) Mean Corpuscular Hemoglobin Concent 34.9 g/dl (32-36) Platelet Count 189 K/uL (130-400) Mean Platelet Volume 10.0 fL (7.4-10.4) Neutrophils (%) (Auto) 70.2 % Lymphocytes (%) (Auto) 20.3 % Monocytes (%) (Auto) 7.2 % Eosinophils (%) (Auto) 1.9 % Basophils (%) (Auto) 0.3 % Neutrophils # (Auto) 5.42 K/uL (1.4-6.5) Lymphocytes # (Auto) 1.57 K/uL (1.2-3.4) Monocytes # (Auto) 0.56 K/uL (0.11-0.59) Eosinophils # (Auto) 0.15 K/uL (0-0.5) Basophils # (Auto) 0.02 K/uL (0-0.2) RDW Standard Deviation 46.3 fL (36.4-46.3) RDW Coefficient of Variation 13.0 % (11.5-14.5) Immature Granulocyte % (Auto) 0.1 % Immature Granulocyte # (Auto) 0.01 K/uL (0.00-0.02) Anion Gap 6.0 mmol/L (3-11) Est Creatinine Clear Calc Drug Dose 77.9 ml/min Estimated GFR () 111.8 Estimated GFR (Non- 96.5 BUN/Creatinine Ratio 16.6 (10-20) Calcium Level 9.5 mg/dl (8.5-10.1) Magnesium Level 1.9 mg/dl (1.8-2.4) Troponin I < 0.015 ng/ml (0-0.045) Chemistry Specimen Hemolysis Urine Color YELLOW Urine Appearance CLEAR (CLEAR) Urine pH 7.0 (4.5-7.5) Urine Specific [place] 1.010 (1.000-1.030) Urine Protein NEG (NEG) Urine Glucose (UA) 1+ (NEG) Urine Ketones NEG (NEG) Urine Occult Blood NEG (NEG) Urine Nitrite NEG (NEG) Urine Bilirubin NEG (NEG) Urine Urobilinogen NEG (NEG) Urine Leukocyte Esterase TRACE (NEG) Urine WBC (Auto) 1-5 /hpf (0-5) Urine RBC (Auto) 0-4 /hpf (0-4) Urine Hyaline Casts (Auto) 1-5 /lpf (0-5) Urine Epithelial Cells (Auto) 20-30 /lpf (0-5) Urine Bacteria (Auto) NEG (NEG) Bedside Glucose 92 mg/dl (70-90) Laboratory results as reviewed by me. Medications Administered Medications (Trade) Dose Ordered Sig/Gabe Route Start Time Stop Time Status Last Admin Dose Admin Dextrose (Dextrose 50% 50ML Syringe) 50 ml [facility] .ROUTE 12/02/17 01:17 12/02/17 01:18 DC 12/02/17 01:17 50 ML ED Course 0004: The patient was evaluated in room B5. A complete history and physical exam was performed. 0120: I checked on the patient and she became further somnolent while eating. Her blood sugar was at 38 and given Dextrose 50%, 50 ml. 0125: I spoke with the patients son, Jacoby, who says the patient has early onset dementia. He notes worsening dementia and confusion over past few weeks. He would like a CT and overnight observation. I discussed the possibility of an MRI. 0251: I checked on the patient and she is still sleepy. Her blood sugar is at 95. Her son notes this is not her normal appearance. 0300: I discussed the patient's case with Dr. Coreas. The patient will be evaluated for further treatment and disposition. 0315: Upon reevaluation, the patient is doing well. Discussed results and treatment plan with the patient. She verbalized understanding and agreement with the treatment plan. The patient will be evaluated for further management. Medical Decision Differential: Toxicological, Infectious, Stroke, SAH, Trauma, Electrolyte Abnormality, Hypoglycemia, Alcohol Intoxication, Drug Intoxication, Cardiac Abnormality, Sepsis, Meningitis/Encephalitis, Trauma, Excited Delirium, Serotonin Syndrome, Psychiatric, amongst other pathologies entertained. 62 yr old female arrives for second time this week with hypoglycemia. Son arrives and notes this is highly unusual for her and she had been good about sugars until just recently when confusion and spacing out episodes started. Today her BSG is in 30s and required several rounds d50 as she is falling asleep just trying to eat. CT head reveal infarct of uncertain age though clearly new compared to previous and I suspect that this is cause of her confusion recently. She was not a TPA candidate given improvement in mental status with D50 and no neuro deficits and length of symptoms. She has no evidence infectious, cardiac, nor other electrolyte abnormalities. Hospitalist consulted for further management. Medication Reconcilliation Current Medication List: was personally reviewed by me Blood Pressure Screening Patient's blood pressure: Normal blood pressure Blood pressure disposition: Did not require urgent referral Consults Time Called: 0250 Consulting Physician: Dr. Coreas Returned Call: 0300 Discussed the patient's case. The patient will be evaluated for further treatment and disposition. Impression Primary Impression: Adult onset persistent hyperinsulinemic hypoglycemia without insulinoma Additional Impressions: Confusion CVA (cerebral vascular accident) Scribe Attestation The scribe's documentation has been prepared under my direction and personally reviewed by me in its entirety. I confirm that the note above accurately reflects all work, treatment, procedures, and medical decision making performed by me. Departure Information Referrals Kelle Carson PA-C (PCP) Patient Instructions My [facility] Stroke History Time Last Known Well Several Weeks ago Stroke t-PA Criteria Reviewed Does NOT meet criteria for t-PA Reason t-PA Not Given Treatment not indicated Strict Exclusion Criteria Normal neurologic examination (other than some somnolence) Problem Qualifiers
[2017-12-02 00:24] LABS: BASO % 0.3 %; BASO ABS # 0.02 K/uL (0-0.2); EOS % 1.9 %; EOS ABS # 0.15 K/uL (0-0.5); HEMATOCRIT 43.3 % (37-47); HEMOGLOBIN 15.1 g/dL (12.0-16.0); IG# 0.01 K/uL (0.00-0.02); LYMPH % 20.3 %; LYMPH ABS # 1.57 K/uL (1.2-3.4); MEAN CELL VOLUME 97.7 fL (80-100); MEAN CORPUSCULAR HEMOGLOBIN 34.1 pg (25-34); MEAN CORPUSCULAR HGB CONC 34.9 g/dl (32-36); MONO % 7.2 %; MONO ABS # 0.56 K/uL (0.11-0.59); NEUT % 70.2 %; NEUT ABS # 5.42 K/uL (1.4-6.5); PLATELET COUNT 189 K/uL (130-400); RED CELL DISTRIBUTION WIDTH SD 46.3 fL (36.4-46.3); WHITE BLOOD COUNT 7.73 K/uL (4.8-10.8)
[2017-12-02] MEDS ORDERED: DTR5 PO (00:42)
[2017-12-02] MEDS ORDERED: LEVO88TA3 PO (00:45)
[2017-12-02] MEDS ORDERED: FESO8TAB PO (00:45)
[2017-12-02] MEDS ORDERED: ERGO500037 PO (00:56)
[2017-12-02] MEDS ORDERED: CHOL1TAB42 PO (00:57)
[2017-12-02 01:04] LABS: BLOOD UREA NITROGEN 11 mg/dl (7-18); CALCIUM 9.5 mg/dl (8.5-10.1); CARBON DIOXIDE 31 mmol/L (21-32); CREATININE 0.65 mg/dl (0.60-1.20); GLUCOSE 79 mg/dl (70-99); POTASSIUM 3.7 mmol/L (3.5-5.1); SODIUM 140 mmol/L (136-145)
[2017-12-02] MEDS ORDERED: DEXTROSE 50% 50 ML SYR IV STA (01:16)
[2017-12-02] MEDS ORDERED: DEXTROSE 50% 50 ML SYR ONE (01:17)
[2017-12-02] MEDS ORDERED: ONDANSETRON INJ 2 MG/ML 2 ML VIAL IV PRN (04:15)
[2017-12-02] MEDS ORDERED: MAGNESIUM HYDROXIDE SUSP 30 ML UDC PO PRN (04:15)
[2017-12-02] MEDS ORDERED: POLYETHYLENE (MIRALAX) 17 GM PACK PO PRN (04:15)
[2017-12-02] MEDS ORDERED: ACETAMINOPHEN 325 MG TAB PO PRN (04:15)
[2017-12-02] MEDS ORDERED: NITROGLYCERIN 0.4 MG SL PER TAB CHARGE SL PRN (04:15)
[2017-12-02] MEDS ORDERED: ALUMINUM/MAGNESIUM/SIMETH (MAALOX MAX) 30 ML UDC PO PRN (04:15)
[2017-12-02] MEDS ORDERED: PHARMACIST DISCHARGE MED REC CONSULT PRN (04:30)
[2017-12-02] MEDS ORDERED: GLUCOSE 10 TABS/TUBE PO PRN (05:00)
[2017-12-02] MEDS ORDERED: GLUCAGON FOR INJ 1 MG VIAL SQ PRN (05:00)
[2017-12-02] MEDS ORDERED: DEXTROSE 50% 50 ML SYR IV PRN (05:00)
[2017-12-02] MEDS ORDERED: GLUCOSE 40% GEL 15 GM TUBE PO PRN (05:00)
[2017-12-02 05:25] VITALS: BP 158/97; PULSE 80; TEMP 36.3; O2SAT 98; Ht 154.9 cm; Wt 65.8 kg
--- NOTE | 2017-12-02 05:50 | DIAGNOSTIC IMAGING REPORT ---
HEAD WITHOUT CONTRAST (CT) CLINICAL HISTORY: 62 years-old Female with Worsening confusion. Acute confusion TECHNIQUE: Multiple axial CT images of the head were obtained without contrast. A dose lowering technique was utilized adhering to the principles of ALARA. CT DOSE: 460.70 mGy.cm COMPARISON: Head CT 03/30/2009, brain MRI 05/28/2013 FINDINGS: No acute intracranial hemorrhage, midline shift, intracranial mass, hydrocephalus, territorial ischemia or abnormal extra-axial collection. Ill-defined areas of low-attenuation within the periventricular and subcortical white matter are again noted suggesting chronic microvascular ischemic changes. The calvarium is intact. The paranasal sinuses, mastoid air cells, and middle ear cavities are clear. IMPRESSION: No acute intracranial abnormality. The above report was generated using voice recognition software. It may contain grammatical, syntax or spelling errors. Electronically signed by: Ronaldo Yin M.D. 12/02/2017 5:49 AM Dictated Date/Time: 12/02/2017 5:47 AM
[2017-12-02] MEDS ORDERED: LEVOTHYROXINE 88 MCG TAB PO SCH (06:00)
--- NOTE | 2017-12-02 06:02 | History and Physical ---
History & Physical Date & Time of Service: Dec 02, 2017 at 05:43 Chief Complaint: Hypoglycemia Primary Care Physician: Kelle Carson PA-C History of Present Illness Source: patient, family (son) This is a pleasant 62 year old female with a history of CAD, DM2, HTN, HLD, HTN , SATINDER, hypothyroidism, Restless Leg Syndrome and Depression who presents to the ED with hypoglycemia. The patient was out shopping. She notes taking her Insulin this morning, but did not eat lunch or dinner. EMS found her in her car in an altered state and provided her with dextrose. This is her second episode of hypoglycemia in one week, which she attributes to not eating her meals. Her son who accompanies her today notes that it not in keeping with her personality to not be on top of her blood sugar measurements. Given her second visit of hypoglycemia, he request imaging be done and a CT of the brain did appear to show a right frontal lobe CVA of indeterminate age, though not present on previous. Her son does note that for the past week she has seemed much more sluggish mentally. Her affect is much flatter and she takes much longer to process thoughts and answer questions which is very unusual. She denies any focal weakness. No difficulty with swallowing. She has occasionally blurring vision though she cannot state if this new or old. No hearing changes. No headaches. No seizures. Currently, her son feels that she is improved from her state on initial arrival to the ED and that she is close to her baseline. Past Medical/Surgical History CAD HTN Type 2 DM HLD Hypothyroid SATINDER Depression Overactive Bladder Restless Syndrome Surgeries - Cataracts, bilateral Family History FH: HTN (hypertension) FHx: diabetes mellitus Social History Smoking Status: Former Smoker Smokeless Tobacco Use: Yes (vaping) Alcohol Use: none Drug Use: none Marital Status: Housing status: lives alone Occupational Status: disabled Immunizations History of Influenza Vaccine: Unknown History of Tetanus Vaccine?: Unknown History of Pneumococcal: Unknown History of Hepatitis B Vaccine: Unknown Multi-Drug Resistant Organisms History of MDRO: No Allergies Coded Allergies: No Known Allergies (Unverified , NONE, 12/02/17) Home Medications Scheduled Bupropion (Wellbutrin Sr), 150 MG PO BID Cholecalciferol (Vitamin D), 500 UNIT PO DAILY Clopidogrel (Plavix), 75 MG PO DAILY Cyanocobalamin (Vitamin B-12), 1,000 MCG PO QAM Donepezil Hydrochloride (Donepezil Hcl), 1 TAB PO HS Fesoterodine Fumarate (Toviaz), 8 MG PO DAILY Insulin Detemir (Levemir), 34 UNIT SQ HS Insulin Human Lispro (Insulin Humalog Pump ), 15 UNIT SQ TIDM Levothyroxine Sodium (Levothyroxine Sodium), 88 MCG PO DAILY Lisinopril (Zestril), 5 MG PO QAM Metformin Hcl (Glucophage Ext Rel), 1,000 MG PO BID Metoprolol Succ (Toprol Xl) (Toprol-Xl), 25 MG PO QAM Multiple Vitamins W/ Minerals (Hair/Skin/Nails), 1 TAB PO DAILY Oxybutynin Chloride (Oxybutynin Chloride), 10 MG PO DAILY Pramipexole Dihydrochloride (Pramipexole Dihydrochlori), 1 TAB PO HS Simvastatin (Zocor), 10 MG PO HS Review of Systems A 10 point review of systems was negative unless stated above. Physical Exam Vital Signs Date Time Temp Pulse Resp B/P (MAP) Pulse Ox O2 Delivery O2 Flow Rate FiO2 12/02/17 04:52 76 16 126/79 98 12/02/17 04:16 73 16 120/78 98 Room Air 12/02/17 03:09 71 12/02/17 02:16 36.3 74 18 123/79 99 12/01/17 23:59 75 18 130/63 99 Room Air General Appearance: WD/WN, no apparent distress Head: normocephalic, atraumatic Eyes: normal inspection, EOMI ENT: hearing grossly normal, pharynx normal Neck: supple, no adenopathy, no JVD Respiratory/Chest: lungs clear, no respiratory distress Cardiovascular: regular rate, rhythm, no gallop, no murmur Abdomen/GI: normal bowel sounds, non tender, soft Extremities/Musculoskelatal: no calf tenderness, no pedal edema 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, no motor/sensory deficits, normal mood/affect, oriented x 3 Skin: normal color, warm/dry, no rash Lymphatic: no adenopathy Diagnostics Laboratory Results Results Past 24 Hours Test 12/02/17 00:05 12/02/17 00:15 12/02/17 01:15 12/02/17 01:30 Range/Units Bedside Glucose 116 38 70-90 mg/dl White Blood Count 7.73 4.8-10.8 K/uL Red Blood Count 4.43 4.2-5.4 M/uL Hemoglobin 15.1 12.0-16.0 g/dL Hematocrit 43.3 37-47 % Mean Corpuscular Volume 97.7 80-100 fL Mean Corpuscular Hemoglobin 34.1 25-34 pg Mean Corpuscular Hemoglobin Concent 34.9 32-36 g/dl Platelet Count 189 130-400 K/uL Mean Platelet Volume 10.0 7.4-10.4 fL Neutrophils (%) (Auto) 70.2 % Lymphocytes (%) (Auto) 20.3 % Monocytes (%) (Auto) 7.2 % Eosinophils (%) (Auto) 1.9 % Basophils (%) (Auto) 0.3 % Neutrophils # (Auto) 5.42 1.4-6.5 K/uL Lymphocytes # (Auto) 1.57 1.2-3.4 K/uL Monocytes # (Auto) 0.56 0.11-0.59 K/uL Eosinophils # (Auto) 0.15 0-0.5 K/uL Basophils # (Auto) 0.02 0-0.2 K/uL RDW Standard Deviation 46.3 36.4-46.3 fL RDW Coefficient of Variation 13.0 11.5-14.5 % Immature Granulocyte % (Auto) 0.1 % Immature Granulocyte # (Auto) 0.01 0.00-0.02 K/uL Sodium Level 140 136-145 mmol/L Potassium Level 3.7 3.5-5.1 mmol/L Chloride Level 103 98-107 mmol/L Carbon Dioxide Level 31 21-32 mmol/L Anion Gap 6.0 3-11 mmol/L Blood Urea Nitrogen 11 7-18 mg/dl Creatinine 0.65 0.60-1.20 mg/dl Est Creatinine Clear Calc Drug Dose 77.9 ml/min Estimated GFR () 111.8 Estimated GFR (Non- 96.5 BUN/Creatinine Ratio 16.6 10-20 Random Glucose 79 70-99 mg/dl Calcium Level 9.5 8.5-10.1 mg/dl Magnesium Level 1.9 1.8-2.4 mg/dl Troponin I < 0.015 0-0.045 ng/ml Chemistry Specimen Hemolysis Urine Color YELLOW Urine Appearance CLEAR CLEAR Urine pH 7.0 4.5-7.5 Urine Specific [place] 1.010 1.000-1.030 Urine Protein NEG NEG Urine Glucose (UA) 1+ NEG Urine Ketones NEG NEG Urine Occult Blood NEG NEG Urine Nitrite NEG NEG Urine Bilirubin NEG NEG Urine Urobilinogen NEG NEG Urine Leukocyte Esterase TRACE NEG Urine WBC (Auto) 1-5 0-5 /hpf Urine RBC (Auto) 0-4 0-4 /hpf Urine Hyaline Casts (Auto) 1-5 0-5 /lpf Urine Epithelial Cells (Auto) 20-30 0-5 /lpf Urine Bacteria (Auto) NEG NEG Test 12/02/17 02:27 12/02/17 04:44 Range/Units Bedside Glucose 92 70-90 mg/dl Diagnostic Radiology Stat Rad reports indicates 1 cm subcortical density on right posterior frontal lobe. EKG Normal sinus rhythm Left axis deviation Low voltage QRS Possible Anterolateral infarct (cited on or before 05-MAR-2017) Abnormal ECG When compared with ECG of 26-NOV-2017 14:53, No significant change was found Impression Assessment and Plan 62 year old female with second episode of hypoglycemia in one week and collateral history noting change in personality. She is being admitted for evaluation of stroke based on CT scan demonstrating new finding in the right frontal lobe in the setting changes in neurological status. Our plan is as follows: Right Frontal CVA - Per overnight stat rad report - Admit to telemetry - MRI brain combo, MRA head without contrast, MRA neck with and without - Consult neurology - Continue ASA; decision to change to alternate per outcome of work-up - Stating changed to Atorvastatin 40 mg Hypoglycemia in the setting of type 2 diabetes - Likely due to taking insulin without adequate intake to counteract - Re-start home Lantus at 30 U HS - Sliding scale AC/HS CAD, with RFs of HTN, Type 2 Diabetes, HLD - Continue ASA, Lisinopril and Metoprolol - Statin increased to Atorvastatin 40 mg SATINDER - Previously on CPAP at home but has not been compliant - CPAP set-up ordered Hypothyroidism - Continue Levothyroxine Depression - Continue Wellbutrin Overactive Bladder - Continue Oxybutynin Restless Leg Syndrome - Continue Pramipexole Dementia - Continue Donezepil DVT Prophylaxis - SCD Knee, [place] Hose - Lovenox 40 mg s.c. daily Code Status - Level I Full Code Disposition - Telemetry - OT and PT evaluations Attending addendum: I have physically seen this patient, have supervised the medical residents activities, and agree with the H&P unless as otherwise noted. Assessment and Plan: Possible right frontal CVA noted on CT/altered mental status-- The patient will be admitted to telemetry for serial cardiac enzymes, serial EKG's, cardiac rhythm monitoring and a 2-D echocardiogram with Dopplers. Order MRI brain combo, MRA neck combo, MRA of head without contrast. Continue aspirin 20 mg daily, if CVA is confirmed, would change to clopidogrel. Consult neurology. Severe recurrent hypoglycemia-- Current insulin dosing for her is excessive based on oral intake. No Lantus tonight, then cut the Lantus 30 units subcu at bedtime beginning tomorrow night. Placed on Accu-Cheks before meals and at bedtime with NovoLog coverage per scale. Other plans as above. Level of Care Telemetry Advanced Directives Existing Advance Directive: No Existing Living Will: No Existing Power of [place]li[place] Mechanic: No Resuscitation Status FULL RESUSCITATION VTE Prophylaxis VTE Risk Assessment Done? Y/N: Yes Risk Level: Moderate Given or contraindicated: Enoxaparin (Lovenox)SQ
[2017-12-02 07:27] LABS: PTT PATIENT 25.4 SECONDS (21.0-31.0)
[2017-12-02 07:47] VITALS: BP 135/72; PULSE 78; TEMP 36.3; O2SAT 96
[2017-12-02] MEDS: INSULIN ASPART 100 UNITS/ML 3 ML PEN SC SCH ×3 (07:48→16:15)
[2017-12-02] MEDS: TOVIAZ - ORDER AWAITING ACTION SCH ×2 (07:49→16:00)
[2017-12-02 08:00] VITALS: O2SAT 97
[2017-12-02] MEDS ORDERED: CHOLECALCIFEROL 1000 INTER.UNIT TAB PO SCH (09:00)
[2017-12-02] MEDS ORDERED: LISINOPRIL 5 MG TAB PO SCH (09:00)
[2017-12-02] MEDS ORDERED: METOPROLOL SUCC 25MG EXT REL TAB PO SCH (09:00)
[2017-12-02] MEDS ORDERED: CEROVITE ADV FORMULA TAB PO SCH (09:00)
[2017-12-02] MEDS ORDERED: OXYBUTYNIN CHLORIDE 5 MG TAB PO SCH (09:00)
[2017-12-02] MEDS ORDERED: ATORVASTATIN 40 MG TAB PO SCH (09:00)
[2017-12-02] MEDS ORDERED: ENOXAPARIN 40 MG/0.4 ML SYR SC SCH (09:00)
[2017-12-02] MEDS ORDERED: CYANOCOBALAMIN 500 MCG TAB (VIT B-12) PO SCH (09:00)
[2017-12-02] MEDS ORDERED: BuPROPion SR 150 MG TABCR PO SCH (09:00)
--- NOTE | 2017-12-02 11:19 | DIAGNOSTIC IMAGING REPORT ---
BRAIN WITHOUT CONTRAST HISTORY: 62 years-old Female reassess hypodenisty read by stat rad acute confusion with concern for possible acute stroke COMPARISON: Head CT of same day, CT head 03/30/2009, brain MRI 04/18/2015 TECHNIQUE: Multiplanar multisequence MRI of the brain was obtained without contrast. FINDINGS: There is no restricted diffusion to suggest acute or subacute infarction. The midline structures including the corpus callosum, brainstem, optic chiasm, pituitary and pineal glands are unremarkable on the sagittal T1 series. No cerebellar tonsillar herniation identified. Degenerative changes are noted involving the imaged cervical spine. There is no acute intracranial hemorrhage, midline shift, abnormal extra-axial collections or hydrocephalus or intracranial mass identified. Scattered multifocal areas of increased T2/FLAIR signal again noted within the subcortical, deep and periventricular white matter of the cerebral hemispheres bilaterally, progressively worsened from study dated 06/19/2015. The major flow voids at the level of the skull base appear patent. Bilateral orbits are unremarkable. Mastoid air cells are clear. Minimal mucosal thickening of the maxillary and ethmoid sinuses. The scalp, calvarium and soft tissues are unremarkable. No pathologic blooming artifact on the T2 star series. IMPRESSION: 1. No acute intracranial abnormality identified, specifically no acute or subacute infarction. 2. Multifocal areas of increased T2/FLAIR signal again noted within the subcortical, deep and periventricular white matter of the cerebral hemispheres bilaterally, progressively worsened from study dated 06/19/2015 suggesting chronic microvascular ischemic changes. The above report was generated using voice recognition software. It may contain grammatical, syntax or spelling errors. Electronically signed by: Ronaldo Yin M.D. 12/02/2017 11:17 AM Dictated Date/Time: 12/02/2017 11:08 AM
[2017-12-02 11:25] VITALS: BP 111/57; PULSE 80; TEMP 36.8; O2SAT 97
--- NOTE | 2017-12-02 12:19 | Neurology Consultation ---
Neurology Consultation Date of Consultation: Dec 02, 2017. Attending Physician: Martín Coreas M.D. Primary Care Physician: Kelle Carson PA-C Reason for Consultation: Consultation for possible frontal stroke History of Present Illness Source: patient, clinic records, hospital records This is a 62-year-old female who presents after being found unresponsive in her car with hypoglycemia. Patient reports that yesterday she had left her friend' s house at about 3 PM. She went shopping and then went to the gas station. She started to feel not well. Mccall dizzy lightheaded, blurred vision, etc. No focal symptoms. Denies any changes with her speech or memory. Denies any focal weakness or numbness. Patient reports that at baseline she is able to manage her own finances and do her own activities of daily living. She reports driving without any incident. Per ER notes there is some concern by her son about her memory progressively getting worse. Patient had been seen in neurology clinic by Dr. Link Gibson R physician education administrative assistant in 2015 and at that time was diagnosed with mild cognitive impairment and put on a low-dose of Aricept. Was also noted at that time to have cerebral small vessel ischemic disease on MRI in 2014 and in 2008 which were unchanged. Patient also had an EEG in [address] of the head due to family concerns about cognition was done in the emergency room and apparently on initial preliminary read there was concern for possible Frontal stroke. Per my review of the images the patient has signs of small vessel ischemic disease but nothing specific for stroke. Patient feels that she is at her neurological baseline this morning. MRI of the brain report and images reviewed by myself. Patient again has signs of subcortical cerebral small vessel ischemic disease. Per my review seems similar to 2015 but may be slightly progressed. No acute or chronic strokes. 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 Reports that she is independent in her activities of daily living. Reports that she is driving without incident. Former tobacco use. Smokeless Tobacco Use: Yes (vaping) Alcohol Use: none Drug Use: none Marital Status: Housing Status: lives alone Occupation Status: disabled Allergies Coded Allergies: No Known Allergies (Unverified , NONE, 12/02/17) Current Inpatient Medications Current Inpatient Medications Medications (Trade) Dose Ordered Sig/Gabe Route Start Time Stop Time Status Last Admin Dose Admin Enoxaparin Sodium (Lovenox Inj) 40 mg Q24H SC 12/02/17 09:00 01/01/18 08:59 12/02/17 08:39 40 MG Acetaminophen (Tylenol Tab) 650 mg Q4H PRN PO 12/02/17 04:15 01/01/18 04:14 Al Hydrox/Mg Hydrox/Simethicone (Maalox Max Susp) 15 ml Q4H PRN PO 12/02/17 04:15 01/01/18 04:14 Magnesium Hydroxide (Milk Of Magnesia Susp) 30 ml Q12H PRN PO 12/02/17 04:15 01/01/18 04:14 Ondansetron HCl (Zofran Inj) 4 mg Q6H PRN IV 12/02/17 04:15 01/01/18 04:14 Nitroglycerin (Nitrostat Tab) 0.4 mg UD PRN SL 12/02/17 04:15 01/01/18 04:14 Polyethylene (Miralax Powder Packet) 17 gm DAILY PRN PO 12/02/17 04:15 01/01/18 04:14 Atorvastatin Calcium (Lipitor Tab) 40 mg QAM PO 12/02/17 09:00 01/01/18 08:59 12/02/17 07:50 40 MG Miscellaneous Information (Pharmacist Discharge Med Rec Consult) 1 ea UD PRN N/A 12/02/17 04:30 01/01/18 04:29 Aspirin (Ecotrin Tab) 81 mg HS PO 12/02/17 21:00 01/01/18 20:59 Bupropion HCl (Wellbutrin-Sr Tab) 150 mg BID PO 12/02/17 09:00 01/01/18 08:59 12/02/17 07:52 150 MG Cyanocobalamin (Vitamin B-12 Tab) 1,000 mcg QAM PO 12/02/17 09:00 01/01/18 08:59 12/02/17 07:51 1,000 MCG Donepezil HCl (Aricept Tab) 5 mg HS PO 12/02/17 21:00 01/01/18 20:59 Insulin Detemir (Levemir Flexpen/ FlexTouch) 30 units HS SQ 12/02/17 21:00 01/01/18 20:59 Insulin Aspart (novoLOG ASPART) ACHS SC 12/02/17 07:00 01/01/18 06:59 12/02/17 11:46 3 UNITS Levothyroxine Sodium (Synthroid Tab) 88 mcg DAILYBB PO 12/02/17 06:00 01/01/18 06:59 12/02/17 06:51 88 MCG Lisinopril (Zestril Tab) 5 mg QAM PO 12/02/17 09:00 01/01/18 08:59 12/02/17 07:53 5 MG Metoprolol Succinate (Toprol Xl Tab) 25 mg QAM PO 12/02/17 09:00 01/01/18 08:59 12/02/17 07:52 25 MG Multivitamins/ Minerals (Multivitamin W/ Minerals Tab) 1 tab DAILY PO 12/02/17 09:00 01/01/18 08:59 12/02/17 07:52 1 TAB Oxybutynin Chloride (Ditropan Tab) 10 mg DAILY PO 12/02/17 09:00 01/01/18 08:59 12/02/17 07:50 10 MG Cholecalciferol (Vitamin D Tab) 500 inter.unit DAILY PO 12/02/17 09:00 01/01/18 08:59 12/02/17 07:51 500 INTER.UNIT Miscellaneous Information (Order Awaiting Action) 1 ea QS N/A 12/02/17 08:00 01/01/18 07:59 Pramipexole Dihydrochloride (miraPEX TAB) 1 mg HS PO 12/02/17 21:00 01/01/18 20:59 Glucose (Glucose 40% Gel) 15-30 GRAMS 15 GRAMS... UD PRN PO 12/02/17 05:00 01/01/18 04:59 Glucose (Glucose Chew Tab) 4-8 Tablets 4 Tabl... UD PRN PO 12/02/17 05:00 01/01/18 04:59 Dextrose (Dextrose 50% 50ML Syringe) 25-50ML OF 50% DW IV FOR... UD PRN IV 12/02/17 05:00 01/01/18 04:59 Glucagon (Glucagon Inj) 1 mg UD PRN SQ 12/02/17 05:00 01/01/18 04:59 Review of Systems Complete review of systems otherwise negative except for the above-noted in HPI Physical Exam Vital Signs (Past 24 Hrs): Date Time Temp Pulse Resp B/P (MAP) Pulse Ox O2 Delivery O2 Flow Rate FiO2 12/02/17 11:25 36.8 80 18 111/57 (75) 97 Room Air 12/02/17 08:00 97 Room Air 12/02/17 07:47 36.3 78 18 135/72 (93) 96 Room Air 12/02/17 05:25 36.3 80 19 158/97 98 Room Air 12/02/17 04:52 76 16 126/79 98 12/02/17 04:16 73 16 120/78 98 Room Air 12/02/17 03:09 71 12/02/17 02:16 36.3 74 18 123/79 99 12/01/17 23:59 75 18 130/63 99 Room Air Gen.: Patient is alert and sitting in bed, in no acute distress. HEENT: Normocephalic /atraumatic, no scleral icterus Heart: Regular rate and rhythm Extremities: No gross deformities or rashes noted Neurological examination: Mental status: Patient is alert and oriented x3. Attention and concentration normal for the situation. Good fund of knowledge. Remote and recent memory intact. Speech is fluent without any dysarthria or aphasia noted Cranial nerve: Funduscopic examination was unremarkable. No papilledema. Pupils equally round and reactive to light. Extraocular muscles intact without nystagmus. No facial asymmetry noted. Facial sensation intact. Tongue is midline. Good palatal elevation. Good shoulder shrug bilaterally. Hearing grossly intact to voice. Strength: 5/5 both proximal and distally in all extremities. There is no arm drift. Tone is normal. Sensation: Grossly intact to light touch in all extremities. Deep tendon reflexes: +1 in bilateral biceps, brachioradialis and patellar. Toes were downgoing to plantar stimulation Coordination: Patient had good finger to nose without dysmetria Station within the bed was normal Laboratory Results Past 24 Hours: 12/02/17 00:15 Red Blood Count 4.43, Mean Corpuscular Volume 97.7, Mean Corpuscular Hemoglobin 34.1, Mean Corpuscular Hemoglobin Concent 34.9, Mean Platelet Volume 10.0, Neutrophils (%) (Auto) 70.2, Lymphocytes (%) (Auto) 20.3, Monocytes (%) (Auto) 7.2, Eosinophils (%) (Auto) 1.9, Basophils (%) (Auto) 0.3, Neutrophils # (Auto) 5.42, Lymphocytes # (Auto) 1.57, Monocytes # (Auto) 0.56, Eosinophils # (Auto) 0.15, Basophils # (Auto) 0.02 12/02/17 00:15 Test 12/02/17 00:15 12/02/17 01:30 12/02/17 06:51 12/02/17 11:14 White Blood Count 7.73 K/uL (4.8-10.8) Red Blood Count 4.43 M/uL (4.2-5.4) Hemoglobin 15.1 g/dL (12.0-16.0) Hematocrit 43.3 % (37-47) Mean Corpuscular Volume 97.7 fL (80-100) Mean Corpuscular Hemoglobin 34.1 pg (25-34) Mean Corpuscular Hemoglobin Concent 34.9 g/dl (32-36) Platelet Count 189 K/uL (130-400) Mean Platelet Volume 10.0 fL (7.4-10.4) Neutrophils (%) (Auto) 70.2 % Lymphocytes (%) (Auto) 20.3 % Monocytes (%) (Auto) 7.2 % Eosinophils (%) (Auto) 1.9 % Basophils (%) (Auto) 0.3 % Neutrophils # (Auto) 5.42 K/uL (1.4-6.5) Lymphocytes # (Auto) 1.57 K/uL (1.2-3.4) Monocytes # (Auto) 0.56 K/uL (0.11-0.59) Eosinophils # (Auto) 0.15 K/uL (0-0.5) Basophils # (Auto) 0.02 K/uL (0-0.2) RDW Standard Deviation 46.3 fL (36.4-46.3) RDW Coefficient of Variation 13.0 % (11.5-14.5) Immature Granulocyte % (Auto) 0.1 % Immature Granulocyte # (Auto) 0.01 K/uL (0.00-0.02) Anion Gap 6.0 mmol/L (3-11) Est Creatinine Clear Calc Drug Dose 77.9 ml/min Estimated GFR () 111.8 Estimated GFR (Non- 96.5 BUN/Creatinine Ratio 16.6 (10-20) Calcium Level 9.5 mg/dl (8.5-10.1) Magnesium Level 1.9 mg/dl (1.8-2.4) Troponin I < 0.015 ng/ml (0-0.045) Chemistry Specimen Hemolysis Urine Color YELLOW Urine Appearance CLEAR (CLEAR) Urine pH 7.0 (4.5-7.5) Urine Specific Center 1.010 (1.000-1.030) Urine Protein NEG (NEG) Urine Glucose (UA) 1+ (NEG) Urine Ketones NEG (NEG) Urine Occult Blood NEG (NEG) Urine Nitrite NEG (NEG) Urine Bilirubin NEG (NEG) Urine Urobilinogen NEG (NEG) Urine Leukocyte Esterase TRACE (NEG) Urine WBC (Auto) 1-5 /hpf (0-5) Urine RBC (Auto) 0-4 /hpf (0-4) Urine Hyaline Casts (Auto) 1-5 /lpf (0-5) Urine Epithelial Cells (Auto) 20-30 /lpf (0-5) Urine Bacteria (Auto) NEG (NEG) Prothrombin Time 10.9 SECONDS (9.0-12.0) Prothromb Time International Ratio 1.0 (0.9-1.1) Activated Partial Thromboplast Time 25.4 SECONDS (21.0-31.0) Partial Thromboplastin Ratio 1.0 Hepatitis C Antibody Screen NEG (NEG) Bedside Glucose 166 mg/dl (70-90) Imaging As noted above in HPI Impression This is a 62-year-old female who presented with symptoms of dizziness, not feeling well, and unresponsiveness that appears to be attributed to hypoglycemia. There is no acute or chronic stroke on MRI. Patient does have some mild progression of cerebral small vessel ischemic disease on MRI compared to 2015 MRI. This could cause mild worsening of cognition. Risk factors for progressive cerebral small vessel ischemic disease include diabetes, hypertension, and dyslipidemia. Plan Recommend switching aspirin to Plavix 75 mg daily due to signs of progressive cerebral small vessel ischemic disease on MRI. Stroke risk factor modifications and recommendations: Blood pressure recommendations 130/80-110/70 Total cholesterol goal 100- 200 and LDL goal less than 70 Hemoglobin A1c goal less than 7 Encourage cardiovascular exercise at least 3 times a week for 30 minutes. Thank you for allowing me to participate in this patient's care. If there is any questions or concerns, feel free to call/page me. If there is any desire for cognitive re-evaluation, can follow-up in neurology clinic.
[2017-12-02] MEDS ORDERED: CLOP1TAB15 PO (13:46)
--- NOTE | 2017-12-02 14:01 | Discharge Instructions ---
Discharge Instructions Date of Service Dec 02, 2017. Admission Reason for Admission: Cva, Hypoglycemia Discharge Discharge Diagnosis / Problem: Hypoglycemia Discharge Goals Goal(s): Improve disease control, Diagnostic testing, Therapeutic intervention Activity Recommendations Activity Limitations: resume your previous activity . Instructions / Follow-Up Instructions / Follow-Up You were admitted to the hospital for the evaluation of your significantly low and recurrent blood sugars as well as changes on the CT head which were inconclusive for changes concerning for a stroke. We completed and MRI of the brain in order to truly assess for any changes that would be reflective of an acute/ subacute stroke. There was no changes on the MRI which showed signs of an "acute" stroke however there was progressive CHRONIC changes in the MRI reflecting microvascular changes. As discussed by the neurologist Dr Rajan the best thing to do to prevent progression is optimizing lifestyle changes such as good control of your sugar ( low or high), better cholesterol control, healthy food choices ( lots of fruits and veggies!) as well as trying to keep up at least 30 minutes of exercise most days of the week.... Keep up the good work walking a mile a day and keep working toward your goal of 2 miles! Part of lifestyle changes is remembering to remember about your mental health as well! It can be difficult with the transition of having your son live with you to being alone and learning how to cook for one. Keep working on new recipes and maybe making a specific night a week your "night" to have dinner together. We worry about your sugars because you were eating more regularly since you were cooking for your son but if you are skipping meals you may need to lower insulin doses while you creat a new schedule/ flow for your daily life. We recommend: 1. Please start Plavix INSTEAD of aspirin for prevention of stroke 2. We recommend a follow up with your PCP in the next week to revisit sugars/ cholesterol medication/ mood 3. Decrease your levemir dose to 34 units at night time 4. Decrease your dose of Humalog to 15 units with large meals, if you are not eating DO NOT USE 5. REMEMBER, if you are feeling depressed/ sad to discuss with your PCP We wish you beck Shaffer Current Hospital Diet Patient's current hospital diet: AHA Diet (Heart Healthy), Diabetes Type 2 Diet Discharge Diet Recommended Diet: Diabetes Type 2 Diet Pending Studies Studies pending at discharge: no Laboratory Results Results Past 24 Hours Test 12/02/17 00:05 12/02/17 00:15 12/02/17 01:15 12/02/17 01:30 Range/Units Bedside Glucose 116 38 70-90 mg/dl White Blood Count 7.73 4.8-10.8 K/uL Red Blood Count 4.43 4.2-5.4 M/uL Hemoglobin 15.1 12.0-16.0 g/dL Hematocrit 43.3 37-47 % Mean Corpuscular Volume 97.7 80-100 fL Mean Corpuscular Hemoglobin 34.1 25-34 pg Mean Corpuscular Hemoglobin Concent 34.9 32-36 g/dl Platelet Count 189 130-400 K/uL Mean Platelet Volume 10.0 7.4-10.4 fL Neutrophils (%) (Auto) 70.2 % Lymphocytes (%) (Auto) 20.3 % Monocytes (%) (Auto) 7.2 % Eosinophils (%) (Auto) 1.9 % Basophils (%) (Auto) 0.3 % Neutrophils # (Auto) 5.42 1.4-6.5 K/uL Lymphocytes # (Auto) 1.57 1.2-3.4 K/uL Monocytes # (Auto) 0.56 0.11-0.59 K/uL Eosinophils # (Auto) 0.15 0-0.5 K/uL Basophils # (Auto) 0.02 0-0.2 K/uL RDW Standard Deviation 46.3 36.4-46.3 fL RDW Coefficient of Variation 13.0 11.5-14.5 % Immature Granulocyte % (Auto) 0.1 % Immature Granulocyte # (Auto) 0.01 0.00-0.02 K/uL Sodium Level 140 136-145 mmol/L Potassium Level 3.7 3.5-5.1 mmol/L Chloride Level 103 98-107 mmol/L Carbon Dioxide Level 31 21-32 mmol/L Anion Gap 6.0 3-11 mmol/L Blood Urea Nitrogen 11 7-18 mg/dl Creatinine 0.65 0.60-1.20 mg/dl Est Creatinine Clear Calc Drug Dose 77.9 ml/min Estimated GFR () 111.8 Estimated GFR (Non- 96.5 BUN/Creatinine Ratio 16.6 10-20 Random Glucose 79 70-99 mg/dl Calcium Level 9.5 8.5-10.1 mg/dl Magnesium Level 1.9 1.8-2.4 mg/dl Troponin I < 0.015 0-0.045 ng/ml Chemistry Specimen Hemolysis Urine Color YELLOW Urine Appearance CLEAR CLEAR Urine pH 7.0 4.5-7.5 Urine Specific [place] 1.010 1.000-1.030 Urine Protein NEG NEG Urine Glucose (UA) 1+ NEG Urine Ketones NEG NEG Urine Occult Blood NEG NEG Urine Nitrite NEG NEG Urine Bilirubin NEG NEG Urine Urobilinogen NEG NEG Urine Leukocyte Esterase TRACE NEG Urine WBC (Auto) 1-5 0-5 /hpf Urine RBC (Auto) 0-4 0-4 /hpf Urine Hyaline Casts (Auto) 1-5 0-5 /lpf Urine Epithelial Cells (Auto) 20-30 0-5 /lpf Urine Bacteria (Auto) NEG NEG Test 12/02/17 02:27 12/02/17 06:10 12/02/17 06:51 12/02/17 11:14 Range/Units Bedside Glucose 92 103 166 70-90 mg/dl Prothrombin Time 10.9 9.0-12.0 SECONDS Prothromb Time International Ratio 1.0 0.9-1.1 Activated Partial Thromboplast Time 25.4 21.0-31.0 SECONDS Partial Thromboplastin Ratio 1.0 Hepatitis C Antibody Screen NEG NEG Medical Emergencies . Who to Call and When: Medical Emergencies: If at any time you feel your situation is an emergency, please call 911 immediately. . Non-Emergent Contact Non-Emergency issues call your: Primary Care Provider . . "Provider Documentation" section prepared by Nancy Shaffer. .
--- NOTE | 2017-12-02 14:13 | Discharge Summary ---
Discharge Summary Date of Service Dec 02, 2017. Discharge Summary Admission Date: Dec 02, 2017 at 04:20 Discharge Date: Dec 02, 2017 Discharge Disposition: Home Principal Diagnosis: Hypoglycemia Problems/Secondary Diagnoses: DMII Neurogenic bladder mild cognitive decline RLS HLD HTN Chronic microvascular changes MRI SATINDER Hypothyroidism Depression Consultations: Dr Fisher Medication Reconciliation New Medications: Clopidogrel (Plavix) 75 Mg Tab 75 MG PO DAILY for 30 Days, #30 TAB Continued Medications: Bupropion (Wellbutrin Sr) 150 Mg Ertab 150 MG PO BID, TAB Cholecalciferol (Vitamin D) 5,000 Unit Tab 500 UNIT PO DAILY Cyanocobalamin (Vitamin B-12) 1,000 Mcg Tab 1000 MCG PO QAM Donepezil Hydrochloride (Donepezil Hcl) 5 Mg Tab 1 TAB PO HS Fesoterodine Fumarate (Toviaz) 8 Mg Tab 8 MG PO DAILY Levothyroxine Sodium (Levothyroxine Sodium) 88 Mcg Tab 88 MCG PO DAILY Lisinopril (Zestril) 5 Mg Tab 5 MG PO QAM Metformin Hcl (Glucophage Ext Rel) 1,000 Mg Tab 1000 MG PO BID Metoprolol Succ (Toprol Xl) (Toprol-Xl) 25 Mg Tabcr 25 MG PO QAM Multiple Vitamins W/ Minerals (Hair/Skin/Nails) 1 Tab Tab 1 TAB PO DAILY Oxybutynin Chloride (Oxybutynin Chloride) 5 Mg Tab 10 MG PO DAILY Pramipexole Dihydrochloride (Pramipexole Dihydrochlori) 1 Mg Tab 1 TAB PO HS Simvastatin (Zocor) 10 Mg Tab 10 MG PO HS Discontinued Medications: Aspirin (Aspirin Ec) 81 Mg Tab 81 MG PO HS Insulin Detemir (Levemir Flextouch) 100 Unit/Ml Inj 68 UNITS PO HS Insulin Lispro (Human) (Humalog Kwikpen) 100 Unit/Ml Inj 30 UNITS SC TIDM Discharge Exam Patient states that her son had moved out approx 2-3 months prior and she has had a hard time transitioning and is skipping multiple meals because she is not cooking for someone regularly. She did get quite tearful when we discussed this but denies a depressed mood, "Im just lonely" Review of Systems: Constitutional: No fever, No chills, No sweats Eyes: No worsening of vision ENT: No hearing loss Respiratory: No cough, No sputum, No wheezing, No shortness of breath, No dyspnea on exertion, No dyspnea at rest Cardiovascular: No chest pain Abdomen: No pain, No nausea, No vomiting, No diarrhea, No constipation Musculoskeletal: No joint pain, No muscle pain Genitourinary - Female: No dysuria, No hematuria Neurologic: No weakness, No numbness/tingling, No balance problems Psychiatric: + depression symptoms, No anxiety Endocrine: No fatigue Hematologic / Lymphatic: No abnormal bleeding/bruising Integumentary: No rash Physical Exam: General Appearance: no apparent distress Eyes: normal inspection ENT: normal ENT inspection Neck: supple Respiratory/Chest: normal breath sounds, no respiratory distress, no accessory muscle use Cardiovascular: regular rate, rhythm, no murmur, normal peripheral pulses Abdomen / GI: normal bowel sounds, non tender, soft Extremities: no calf tenderness, no pedal edema, normal range of motion Neurologic/Psychiatric: cloud security architect II-XII nml as tested, no motor/sensory deficits , alert, normal mood/affect, normal reflexes, oriented x 3 Skin: normal color, warm/dry, no rash Lymphatic: no adenopathy Hospital Course 62 year old female with second episode of hypoglycemia in one week and during a CT head in the ED there was concern for a hypodense region per stat rad however the radiologist in house did not note this. Patient was admitted for stroke rule out and MRI brain was completed. No sign of acute/subacute stroke only chronic microvascular changes. Neurology recommendations for switching ASA to plavix and then to optimize lifestyle modifications. The patient had a recent change in her life at home and she is still adjusting to this change, her insulin most likely needs to follow this change and she is most likely hypoglycemic because her needs are different. Insulin was adjusted with close follow up with PCP. Hypoglycemia most likely secondary to decreased need/ change in lifestyle in DMII - Very low insulin requirement in the hospital - Levemir decreased to 34 Units HS and Humalog 15 units only WITH meals, to not administer if she is skipping a meal - follow up with PCP in one week Chronic microvascular changes MRI head - no FLP/ HBA1C in house completed, recommend repeat - ASA changed to plavix 75 mg daily - continued Simvastatin 10 mg daily however with DM and microvascular changes at least a mod- high intensity statin would be recommended if tolerated SATINDER - Has not been compliant with CPAP at home DVT Prophylaxis - SCD Knee, MADISON Hose - Lovenox 40 mg s.c. daily Code Status - Level I Full Code Resident Physician Supervision Note: I interviewed and examined the patient. Discussed with Dr. Shaffer and agree with findings and plan as documented in the note. Any exceptions or clarifications are listed here: None Patient presented in altered state hypoglycemic, initial CT was read by Grace to be concern for possible changes in the brain, it was reread by our in-house radiologist as not containing any acute changes. An MRI of the brain was pursued and also reconfirmed there were no acute changes on MRI of the brain. Patient did discuss that she frequently has not been eating as of recent changes in her home lifestyle despite this fact she has been taking her usual insulin dosing Dr. Shaffer and I spent time with the patient and educated her on her chest upcoming changes in her insulin regimen and encourage her to have close outpatient follow-up with her family physician she understands these changes in voice them back to us She is awake alert appropriate no focal deficits seen on neurological testing of facial droops ulnar drift or weakness of arms or legs her glucose this morning is 103 her vital signs are stable 36 3 pulse 80 respiration 19 BP 150/97 Patient be discharged home after having some somatic hypoglycemia from taking insulin and not eating her insulin doses are amended as listed above she will close follow-up with her family physician maintaining medications for secondary risk prevention for cerebrovascular disease as there was some concern of microvascular change which could only be slowed by aggressive attention to secondary risk prevention and lifestyle modification Documented By: Lex Yanes Total Time Spent: Greater than 30 minutes This includes examination of the patient, discharge planning, medication reconciliation, and communication with other providers. Discharge Instructions Please refer to the electronic Patient Visit Report (Discharge Instructions) for additional information. Additional Copies To Kelle Carson PA-C
[2017-12-02] MEDS ORDERED: LVMI SQ (14:34)
[2017-12-02] MEDS ORDERED: INSPMPHMLG SQ (14:34)
[2017-12-02 14:42] VITALS: BP 111/57; PULSE 80; TEMP 36.8; O2SAT 97
[2017-12-02] MEDS ORDERED: DONEPEZIL HCL 5 MG TAB PO SCH (21:00)
[2017-12-02] MEDS ORDERED: INSULIN DETEMIR FLEXPEN/FLEX TOUCH 100 UNITS/ML 3ML SQ SCH (21:00)
[2017-12-02] MEDS ORDERED: ASPIRIN 81 MG ECTAB PO SCH (21:00)
[2017-12-02] MEDS ORDERED: PRAMIPEXOLE DIHYDROCHLORIDE 0.5 MG TAB PO SCH (21:00)
== END 2017-12-02 17:01 | disposition home or self-care (01) | DRG 639 ==
LOC: EDBD 23:53 → C.EDB 23:54 → C.2E 12-02 04:20 → EDBEDREQ 12-02 04:23 → ENRESERV 12-02 04:34
PROVIDERS: ADMIT Student in an Organized Health Care Education/Training Program; ATTEND Hospitalist
DX: E11.649 Type 2 diabetes mellitus with hypoglycemia without coma (principal); I67.82 Cerebral ischemia; R41.81 Age-related cognitive decline; E11.40 Type 2 diabetes mellitus with diabetic neuropathy, unspecified; I11.9 Hypertensive heart disease without heart failure; I25.10 Atherosclerotic heart disease of native coronary artery without angina pectoris; E03.9 Hypothyroidism, unspecified; G25.81 Restless legs syndrome; N32.81 Overactive bladder; F32.9 Major depressive disorder, single episode, unspecified; G47.33 Obstructive sleep apnea (adult) (pediatric); E78.5 Hyperlipidemia, unspecified; F03.90 Unspecified dementia, unspecified severity, without behavioral disturbance, psychotic disturbance, mood disturbance, and anxiety; F17.290 Nicotine dependence, other tobacco product, uncomplicated; Z51.81 Encounter for therapeutic drug level monitoring; Z79.899 Other long term (current) drug therapy; Z79.4 Long term (current) use of insulin; Z79.82 Long term (current) use of aspirin; Z87.891 Personal history of nicotine dependence; Z83.3 Family history of diabetes mellitus; Z82.49 Family history of ischemic heart disease and other diseases of the circulatory system

== ENCOUNTER → 2018-01-08 | Outpatient (CLI) | payer OTHER ==
[~2018-01-08] MED LIST changes: -ASPI81TA28 PO; -CHOL100010 PO; +CHOL1TAB42 PO; -CLBPO15 TOP; +DTR5 PO; +FESO8TAB PO; -INSU100I2 SC; -INSU3INJ3 PO; -LEVO100T PO; +LEVO88TA3 PO; +LVMI SQ; -PSYL58.618 PO; -[UNRECOGNIZED DRUG - REMARK] PO
[2018-01-09 05:57] LABS: HEMOGLOBIN A1C 7.7 % (4.5-5.6)
== END | disposition home or self-care (01) ==
LOC: C.LAB1850 14:18
PROVIDERS: ATTEND Nurse Practitioner Adult Health
DX: E03.9 Hypothyroidism, unspecified (principal); E11.49 Type 2 diabetes mellitus with other diabetic neurological complication; E55.9 Vitamin D deficiency, unspecified

== ENCOUNTER → 2018-05-09 | Outpatient (CLI) | payer OTHER ==
--- NOTE | 2018-05-09 14:58 | DIAGNOSTIC IMAGING REPORT ---
CT LUNG SCREENING CHEST, LOW DOSE WITH COMPUTER-AIDED DETECTION (CAD) CLINICAL HISTORY: 62 years-old Female presenting with nicotine dependence, lung cancer screening, history of smoking now stopped. CT DOSE (mGy.cm): The estimated cumulative dose is 69.36 mGy.cm. TECHNIQUE: Multidetector CT imaging of the chest was performed without the use of intravenous contrast. IV contrast: None. A dose lowering technique was used consistent with the principles of ALARA (as low as reasonably achievable). Additional postprocessing was performed on a separate [employer] workstation by the radiologist for computer-aided detection and 3-D volumetric segmentation of pulmonary nodules. COMPARISON: None. FINDINGS: Strap Maker topogram: Unremarkable. On soft tissue windows, normal thyroid and thoracic inlet. No axillary, supraclavicular, or mediastinal lymphadenopathy. Evaluation of the josh limited without intravenous contrast. Atherosclerosis of the aorta. Normal heart size. Mild three-vessel coronary artery calcification. No pericardial or pleural effusion. Upper abdomen normal. On lung windows, no focal infiltrate or nodule. Airways patent. No pneumothorax. On bone windows, normal osseous structures. CAD FINDINGS: Overall Lung RADS Category: 1 Lung RADS Management Recommendation: Continue annual lung cancer screening. Lung RADS Follow Up Date: 2019-05-09 Lung RADS Nodule ID: IMPRESSION: 1. No pulmonary nodule. Continue annual lung cancer screening. Electronically signed by: Riaz Vidal M.D. 05/09/2018 2:56 PM Dictated Date/Time: 05/09/2018 2:48 PM
== END | disposition home or self-care (01) ==
LOC: C.CTS 13:28
PROVIDERS: ATTEND Physician Assistant
DX: Z87.891 Personal history of nicotine dependence (principal); Z12.2 Encounter for screening for malignant neoplasm of respiratory organs

== ENCOUNTER 2022-03-31 03:57 | Observation (INO) ==
--- NOTE | 2022-03-31 04:14 | Emergency Department Note ---
History of Present Illness General Chief complaint: Hypoglycemia Time Seen by Provider: 03/31/22 03:58 History of Present Illness This 66-year-old type II diabetic presents to the ER complaining of hypoglycemic episode Location: Generalized Quality: Altered Severity: Moderate Duration: Tonight Timing: Tonight Context: Son checked on his mother and noticed the blood sugar was low and summoned EMS Modifying factors: better with dextrose; worse with nothing Patient states she is unsure of how much insulin she took yesterday. Patient states she seems somewhat confused yesterday. Patient denies chest pain, dyspnea, fevers, flulike illness. Home Medications Medication Instructions Recorded Confirmed Type clopidogrel 75 mg tablet 75 mg PO DAILY tab 05/24/19 06/16/21 History lisinopril 10 mg tablet 10 mg PO DAILY #30 tab 05/24/19 06/16/21 History metoprolol succinate 25 mg 25 mg PO DAILY tab 05/24/19 06/16/21 History tablet,extended release 24 hr atorvastatin 20 mg tablet 20 mg PO DAILY 07/26/19 06/16/21 History pen needle, diabetic 31 gauge x #360 ea 12/24/19 06/16/21 Rx 1/4" (Comfort EZ Pen [place]) levothyroxine 88 mcg tablet See Rx Instructions .ROUTE 02/20/20 06/16/21 Rx .COMPLEX #100 tablet blood sugar diagnostic (OneTouch #10 ea 02/15/21 06/16/21 History Verio test strips) hydrochlorothiazide 12.5 mg tablet 12.5 mg PO DAILY 02/15/21 06/16/21 History insulin aspart U-100 100 unit/mL 40 unit SQ TID ml 02/15/21 06/16/21 History subcutaneous solution (Novolog U-100 Insulin aspart) solifenacin 5 mg tablet 5 mg PO DAILY 02/15/21 06/16/21 History dulaglutide 0.75 mg/0.5 mL 0.75 mg SUBCUT .weekly ml 03/16/21 06/16/21 History subcutaneous pen injector (Trulicity) donepezil 5 mg tablet (Aricept) 5 mg PO HS #90 tab 06/16/21 06/16/21 Rx pramipexole 1 mg tablet 1 mg PO .COMPLEX #90 tab 06/16/21 06/16/21 Rx pregabalin 75 mg capsule (Lyrica) 75 mg PO BID 30 Days #60 cap 06/16/21 06/16/21 Rx Allergies Allergy/AdvReac Type Severity Reaction Status Date / Time No Known Drug Allergies Allergy Verified 06/16/21 14:50 Past Med/Surg History Medical History Alzheimer disease Degenerative disc disease Depression Diabetes mellitus, type 2 Fatty liver disease, nonalcoholic Heartburn OCC WITH CERTAIN DIETARY INTAKE/DENIES REFLUX/NO MEDS Hyperlipidemia Hypertension Hypothyroidism Lichen sclerosus Myocardial Infarction 2014--"mild heart attack" 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 2014--per pt reason for plavix Syncope Surgical History History of bilateral cataract extraction History of carpal tunnel release bilt History of colonoscopy History of colonoscopy with polypectomy History of dilatation and curettage History of left breast biopsy benign History of right breast biopsy BENIGN History of surgical procedure on eye proper using laser right and left History of tooth extraction wisdom teeth History of tooth extraction all upper teeth Family History Father Family history of diabetes mellitus Brother Family history of diabetes mellitus 2 Mother Family history of diabetes mellitus Family history of breast cancer Social History Smoking Status: Current some day smoker Tobacco Type: Cigarettes Cigarettes Per Day: 40; Second Hand Exposure: Yes; Hx Alcohol Use: No Hx Substance Use: No Preferred Language: Dominican Communication Ability: Effective Zinc Chloride Operator Required: No Beliefs That Will Affect Care: None Current Living Situation: Alone Feels Safe at Home: Yes Assistive Devices: None Review of Systems A total of 10 systems reviewed and were otherwise negative Physical Exam Vital Signs Vital Signs - 24 hr 03/31/22 04:21 03/31/22 04:23 03/31/22 04:26 Temperature 34.0 C L 34.0 C L Temperature Source Rectal Rectal Pulse Rate 87 77 Pulse Rate [Apical] 87 Pulse Rhythm Regular Regular Pulse Rhythm [Apical] Regular Pulse Strength Normal Pulse Strength [Apical] Normal Respiratory Rate 20 20 18 Respiratory Effort / Characteristics Non-Labored Spontaneous Non-Labored Spontaneous Respiratory Depth Normal Normal Respiratory Pattern Regular Regular Blood Pressure 141/91 H Blood Pressure [Right Arm] 141/91 H Blood Pressure Mean 107 Blood Pressure Mean [Right Arm] 107 Blood Pressure Position Semi-fowlers Blood Pressure Position [Right Arm] Lying Pulse Oximetry 98 98 96 Oxygen Delivery Method Room Air Room Air Room Air Sepsis Recent Fever Within 48 Hours No Sepsis New/Unexplained Change in Mental Status No Sepsis Action Taken by Nursing No Action Required 03/31/22 06:00 03/31/22 06:20 03/31/22 06:50 Temperature 34.9 C L 34.9 C L Temperature Source Rectal Rectal Pulse Rate 77 Pulse Rate [Apical] 79 Pulse Rhythm Pulse Rhythm [Apical] Regular Pulse Strength Pulse Strength [Apical] Normal Respiratory Rate 18 16 Respiratory Effort / Characteristics Non-Labored Spontaneous Respiratory Depth Normal Respiratory Pattern Regular Blood Pressure 113/61 Blood Pressure [Right Arm] 128/74 Blood Pressure Mean Blood Pressure Mean [Right Arm] 92 Blood Pressure Position Blood Pressure Position [Right Arm] Semi-fowlers Pulse Oximetry 96 95 Oxygen Delivery Method Room Air Room Air Sepsis Recent Fever Within 48 Hours Sepsis New/Unexplained Change in Mental Status Sepsis Action Taken by Nursing VITALS: Vitals are noted on the nurse's note and reviewed by myself. Vital signs were reviewed and bear hugger was placed GENERAL: Pleasant female slow to respond to answers, in no acute distress, nondiaphoretic, well-developed well-nourished. SKIN: The skin was without rashes, erythema, edema, or bruising. There is no tenting of the skin. Capillary reflex less than 2 seconds. HEAD: Normocephalic atraumatic. EARS: External auditory canals clear, tympanic membranes pearly fabian without erythema or effusion bilaterally. EYES: Pupils equal round and reactive to light and accommodation. Conjunctivae without injection, sclerae without icterus. Extraocular movements intact. NOSE: Patent, turbinates without inflammation or discharge. MOUTH: Mucous membranes moist. Pharynx without erythema or exudate. Uvula midline. Airway patent. Tongue does not deviate. NECK: Supple without nuchal rigidity. No lymphadenopathy. No thyromegaly. Cervical spine is nontender. No JVD. HEART: Regular rate and rhythm LUNGS: Clear to auscultation bilaterally without wheezes, rales or rhonchi. No retractions or accessory muscle use. ABDOMEN: Positive bowel sounds x 4. Normal tympanic percussion. Soft, nontender, without masses or organomegaly. Forman sign negative. No guarding or rebound tenderness. No CVA tenderness MUSCULOSKELETAL: No muscle atrophy, erythema, or edema noted. NEURO: Patient was alert and oriented to person place and time. Normal sensation to light and sharp touch. No focal neurological deficits. Course Administered Medications Discontinued Medications Dextrose (Dextrose 50% 50 Ml Syringe) 25 ml IV NOW ONE Stop: 03/31/22 06:18 Last Admin: 03/31/22 06:23 Dose: 25 ml Documented by: [id number] Sodium Chloride (Nss) 500 mls @ 999 mls/hr IV .Q31M MARVIN Stop: 03/31/22 04:45 Last Admin: 03/31/22 05:34 Dose: 999 mls/hr Documented by: [id number] Potassium Chloride (Potassium Chloride Crtab 20 Meq Tabcr) 40 meq PO NOW STA Stop: 03/31/22 05:44 Last Admin: 03/31/22 05:56 Dose: 40 meq Documented by: [id number] Medical Decision Making Medical Records Attestation: I reviewed the patient's medical records. Home Medications Current Medication List: was personally reviewed by me Laboratory Data Attestation: I reviewed the patient's lab results. Result diagrams: 03/31/22 04:23 03/31/22 04:23 Lab Results 03/31/22 03/31/22 03/31/22 Range/Units 04:07 04:23 04:23 WBC 8.36 (4.8-10.8) K/ul RBC 4.29 (3.93-5.22) M/uL Hgb 14.4 (12.0-16.0) g/dl Hct 41.0 (34.1-44.9) % MCV 95.6 (80.0-100.0) fL MCH 33.6 (25.0-34.0) pg MCHC 35.1 (32.0-36.0) g/dL RDW Std Deviation 45.4 (36.4-46.3) fL RDW Coeff of Leny 13.1 (11.5-14.5) % Plt Count 225 (130-400) K/uL MPV 9.4 (9.4-12.3) fL Immature Gran % (Auto) 0.4 % Neut % (Auto) 74.4 % Lymph % (Auto) 16.3 % [place] % (Auto) 7.5 % Eos % (Auto) 0.8 % Baso % (Auto) 0.6 % Neut # (Auto) 6.22 (1.4-6.5) K/uL Lymph # (Auto) 1.36 (1.2-3.4) K/uL [place] # (Auto) 0.63 (0.24-0.82) K/uL Eos # (Auto) 0.07 (0-0.50) K/uL Baso # (Auto) 0.05 (0-0.2) K/uL Immature Gran # (Auto) 0.03 H (0.00-0.02) K/uL Sodium 141 (136-145) mmol/L Potassium 3.3 L (3.5-5.1) mmol/L Chloride 106 (98-107) mmol/L Carbon Dioxide 26 (21-32) mmol/L Anion Gap 9 (3-11) BUN 19 (6-23) mg/dl Creatinine 0.65 (0.6-1.2) mg/dl Est Cr Clr Drug Dosing 73.8 ml/min Est GFR ( Amer) 108.7 ml/min Est GFR (Non-Af Amer) 93.8 ml/min BUN/Creatinine Ratio 29.2 H (10-20) Glucose 91 (70-99(Fasting)) mg/dl POC Glucose 117 H (70-99) mg/dl Lactate (0.4-2.0) mmol/L Calcium 9.6 (8.5-10.1) mg/dl Magnesium 1.7 (1.7-2.4) mg/dl Total Bilirubin 0.5 (0.2-1.0) mg/dl AST 20 (13-39) U/L ALT 20 (7-52) U/L Alkaline Phosphatase 99 (34-104) U/L Troponin I High Sens 3.7 (0-14) pg/ml Total Protein 6.9 (6.0-8.3) gm/dl Albumin 4.0 (3.4-5.0) gm/dl Globulin 2.9 (2.5-4.0) gm/dl Albumin/Globulin Ratio 1.4 (0.9-2) Procalcitonin (0-0.5) ng/ml TSH (0.300-4.500) uIu/ml SARS-CoV-2, RNA, NAAT (NEGATIVE) 03/31/22 03/31/22 03/31/22 Range/Units 04:23 04:23 04:50 WBC (4.8-10.8) K/ul RBC (3.93-5.22) M/uL Hgb (12.0-16.0) g/dl Hct (34.1-44.9) % MCV (80.0-100.0) fL MCH (25.0-34.0) pg MCHC (32.0-36.0) g/dL RDW Std Deviation (36.4-46.3) fL RDW Coeff of Leny (11.5-14.5) % Plt Count (130-400) K/uL MPV (9.4-12.3) fL Immature Gran % (Auto) % Neut % (Auto) % Lymph % (Auto) % [place] % (Auto) % Eos % (Auto) % Baso % (Auto) % Neut # (Auto) (1.4-6.5) K/uL Lymph # (Auto) (1.2-3.4) K/uL [place] # (Auto) (0.24-0.82) K/uL Eos # (Auto) (0-0.50) K/uL Baso # (Auto) (0-0.2) K/uL Immature Gran # (Auto) (0.00-0.02) K/uL Sodium (136-145) mmol/L Potassium (3.5-5.1) mmol/L Chloride (98-107) mmol/L Carbon Dioxide (21-32) mmol/L Anion Gap (3-11) BUN (6-23) mg/dl Creatinine (0.6-1.2) mg/dl Est Cr Clr Drug Dosing ml/min Est GFR ( Amer) ml/min Est GFR (Non-Af Amer) ml/min BUN/Creatinine Ratio (10-20) Glucose (70-99(Fasting)) mg/dl POC Glucose (70-99) mg/dl Lactate (0.4-2.0) mmol/L Calcium (8.5-10.1) mg/dl Magnesium (1.7-2.4) mg/dl Total Bilirubin (0.2-1.0) mg/dl AST (13-39) U/L ALT (7-52) U/L Alkaline Phosphatase (34-104) U/L Troponin I High Sens (0-14) pg/ml Total Protein (6.0-8.3) gm/dl Albumin (3.4-5.0) gm/dl Globulin (2.5-4.0) gm/dl Albumin/Globulin Ratio (0.9-2) Procalcitonin < 0.05 (0-0.5) ng/ml TSH 0.699 (0.300-4.500) uIu/ml SARS-CoV-2, RNA, NAAT NEGATIVE (NEGATIVE) 03/31/22 03/31/22 03/31/22 Range/Units 05:22 06:16 06:40 WBC (4.8-10.8) K/ul RBC (3.93-5.22) M/uL Hgb (12.0-16.0) g/dl Hct (34.1-44.9) % MCV (80.0-100.0) fL MCH (25.0-34.0) pg MCHC (32.0-36.0) g/dL RDW Std Deviation (36.4-46.3) fL RDW Coeff of Leny (11.5-14.5) % Plt Count (130-400) K/uL MPV (9.4-12.3) fL Immature Gran % (Auto) % Neut % (Auto) % Lymph % (Auto) % [place] % (Auto) % Eos % (Auto) % Baso % (Auto) % Neut # (Auto) (1.4-6.5) K/uL Lymph # (Auto) (1.2-3.4) K/uL [place] # (Auto) (0.24-0.82) K/uL Eos # (Auto) (0-0.50) K/uL Baso # (Auto) (0-0.2) K/uL Immature Gran # (Auto) (0.00-0.02) K/uL Sodium (136-145) mmol/L Potassium (3.5-5.1) mmol/L Chloride (98-107) mmol/L Carbon Dioxide (21-32) mmol/L Anion Gap (3-11) BUN (6-23) mg/dl Creatinine (0.6-1.2) mg/dl Est Cr Clr Drug Dosing ml/min Est GFR ( Amer) ml/min Est GFR (Non-Af Amer) ml/min BUN/Creatinine Ratio (10-20) Glucose (70-99(Fasting)) mg/dl POC Glucose 58 L* 135 H (70-99) mg/dl Lactate 1.7 (0.4-2.0) mmol/L Calcium (8.5-10.1) mg/dl Magnesium (1.7-2.4) mg/dl Total Bilirubin (0.2-1.0) mg/dl AST (13-39) U/L ALT (7-52) U/L Alkaline Phosphatase (34-104) U/L Troponin I High Sens (0-14) pg/ml Total Protein (6.0-8.3) gm/dl Albumin (3.4-5.0) gm/dl Globulin (2.5-4.0) gm/dl Albumin/Globulin Ratio (0.9-2) Procalcitonin (0-0.5) ng/ml TSH (0.300-4.500) uIu/ml SARS-CoV-2, RNA, NAAT (NEGATIVE) Imaging Data Attestation: I personally reviewed and interpreted this imaging study as follows: MDM Narrative Prior records/ancillary studies reviewed and summarized above. Nursing notes reviewed. Additional history obtained from EMS and family The patient's history was concerning for hypoglycemic episode. Differential diagnosis: Etiologies such as metabolic, infection, hypo/hyperglycemia, electrolyte abnormalities, cardiac sources, intracerebral event, toxicologic, neurologic, as well as others were entertained. Physical examination: As above. ER treatment provided: IV Lock An order was placed for continuous cardiac monitoring. The monitor shows a rate of 60-1 50 with a sinus rhythm. IV fluids yoli hugger for hypothermia was placed On reassessment the patient felt better. Diagnostics interpretation by me: ECG: Ordered for weakness EKG: Poor baseline, normal sinus, left axis, Q waves in inferior leads. Impression normal sinus rhythm with a left axis interpreted by myself I think arrhythmia is unlikely. EKG shows normal sinus rhythm with no interval abnormalities such as QT prolongation or WPW. There are no findings to suggest Brugada syndrome. Cardiac monitoring in the emergency department reveals no tachycardic or bradycardic dysrhythmia. Hypertrophic cardiomyopathy was considered but there are no clear historical elements pointing toward this. EKG is not suggestive. The QRS voltage is not extremely large The labs revealed euthyroid No worrisome leukocytosis Imaging studies: Chest x-ray with no acute consolidation, pneumothorax or free air interpretation Preliminary Findings Only See Final Report For Complete Findings CT HEAD: No acute intracranial hemorrhage. No midline shift or mass effect. The territorial fabian-white matter differentiation is maintained throughout. Age-related cerebral volume loss. Periventricular and subcortical white matter hypoattenuation, consistent with chronic microangiopathy. Radiologist: Anton Paredes MD Consultation: A consultation was placed with the hospitalist. The case was discussed and d iagnostics were reviewed. The patient was evaluated in the ER for further treatment. Exam and history seem consistent with hypoglycemic episode with hypothermia Patient states she feels confused with her medications she is taking. She is unsure of how much insulin she should take. EMS gave dextrose. Her blood sugar was less than 20. Repeat is improved. Medicine was consulted. She will be evaluated for admission. By the evaluation outlined above emergent etiologies such as infection, electrolyte abnormalities, cardiac sources, intracerebral event, toxologic, neurologic, metabolic, as well as others were deemed relatively unlikely. The pt informed about the findings as listed above. All questions were answered and pleased with the treatment. The chart was completed utilizing [employer] Speech voice recognition software. Grammatical errors, random word insertions, pronoun errors, and incomplete sentences are an occassional consequence of this system due to software limitations, ambient noise, and hardware issues. Any formal questions or concerns about the content, text, or information contained within the body of this dictation should be directly addressed to the physician delivery assistant for clarification. Impression & Plan Hypoglycemia, Hypothermia Discharge Plan Visit Data Chief Complaint: Hypoglycemia ED Provider: Saleem Noel ED Midlevel Provider: Molly Rahman Discharge Problem: Hypoglycemia, Hypothermia Patient Disposition: Being Evaluated by Hospitalist Condition: Good Discharge Instructions Interventions: ED Discharge Assessment Last Done: 03/31/22 06:50 Forms Stand Alone Forms: [email or web address] Prescriptions Prescriptions: No Action levothyroxine 88 mcg tablet See Rx Instructions .ROUTE .COMPLEX Qty: 100 RF: 3 solifenacin 5 mg tablet 5 mg PO DAILY RF: 0 hydrochlorothiazide 12.5 mg tablet 12.5 mg PO DAILY RF: 0 (DME) OneTouch Verio test strips Strip See Rx Instructions .ROUTE .MEDSUPPLY Qty: 10 RF: 0 Trulicity 0.75 mg/0.5 mL pen injector 0.75 mg subcut .weekly RF: 0 lisinopril 10 mg tablet 10 mg PO DAILY Qty: 30 RF: 0 Novolog U-100 Insulin aspart 100 unit/mL solution 40 unit SQ TID RF: 0 atorvastatin 20 mg tablet 20 mg PO DAILY RF: 0 (DME) pen needle, diabetic [Comfort EZ Pen [place]] 31 gauge x 1/4" needle See Rx Instructions .ROUTE .MEDSUPPLY Qty: 360 RF: 3 pregabalin [Lyrica] 75 mg capsule 75 mg PO BID 30 Days Qty: 60 RF: 5 donepezil [Aricept] 5 mg tablet 5 mg PO HS Qty: 90 RF: 3 pramipexole 1 mg tablet 1 mg PO .COMPLEX Qty: 90 RF: 3 clopidogrel 75 mg tablet 75 mg PO DAILY RF: 0 metoprolol succinate 25 mg tablet extended release 24 hr 25 mg PO DAILY RF: 0 Referrals Referrals: Asuncion Suarez DO [Primary Care Provider] -
[2022-03-31] MEDS ORDERED: SODIUM CHLORIDE 0.9% 500 ML IV SCH (04:15)
[2022-03-31 05:02] LABS: Basophils # (auto) 0.05 K/uL (0-0.2); Basophils % (auto) 0.6 %; Eosinophils # (auto) 0.07 K/uL (0-0.50); Eosinophils % (auto) 0.8 %; Hemoglobin 14.4 g/dl (12.0-16.0); Immature Granulocytes # (auto) 0.03 K/uL (0.00-0.02); Immature Granulocytes % (auto) 0.4 %; Lymphocytes # (auto) 1.36 K/uL (1.2-3.4); Lymphocytes % (auto) 16.3 %; Mean Corpuscular Hemoglobin 33.6 pg (25.0-34.0); Mean Corpuscular Hgb Conc 35.1 g/dL (32.0-36.0); Mean Corpuscular Volume 95.6 fL (80.0-100.0); Mean Platelet Volume 9.4 fL (9.4-12.3); Monocytes # (auto) 0.63 K/uL (0.24-0.82); Monocytes % (auto) 7.5 %; Neutrophils # (auto) 6.22 K/uL (1.4-6.5); Neutrophils % (auto) 74.4 %; Platelet Count 225 K/uL (130-400); RDW Coefficient of Variation 13.1 % (11.5-14.5); RDW Standard Deviation 45.4 fL (36.4-46.3); Red Blood Count 4.29 M/uL (3.93-5.22); White Blood Count 8.36 K/ul (4.8-10.8)
--- NOTE | 2022-03-31 05:35 | History & Physical Report ---
Date of Service March 31, 2022 Assessment & Plan (1) Hypoglycemia: Plan: Suboptimal control as of recent outpatient hemoglobin A1c of 9.8 last October 2021 Patient noncompliant with regimen prescribed by outpatient providers. Patient stopped Levemir 3 months ago. Has been using NovoLog TID with meals have a goals she determined on her own for blood sugar control hx CAD as per records hypertension, slight elevated hypothyroidism, euthyroid as of today's TSH mild cognitive impairment as per records ongoing tobacco abuse OBS Medical telemetry Accu-Cheks every 2 hours until BSG greater than 140, hypoglycemia protocol [place] insulin sliding scale and some basal insulin once BSG greater than 140 Update hemoglobin A1c May benefit from pharmacy glycemic control consultation DM education PT OT eval Nicotine replacement therapy. DVT prophylaxis. Lovenox subcu Full code Patient son requesting updates from providers. Mr. Jacoby Loja, contact #[phone]. Text document was generated using [employer] voice recognition software. It may contain grammatical or spelling errors. Kindly contact undersigned for clarification of any documentation item in question. History of Present Illness Chief Complaint: Hypoglycemia, unresponsiveness Primary Care Provider: Asuncion Suarez, History obtained from patient, family, and records. Medical history significant for CAD as per records, hypertension, hyperlipidemia, DM2 insulin requiring, hypothyroidism, neurogenic bladder as per records, mild cognitive impairment as per records, ongoing tobacco abuse. Last 2017 for hypoglycemia. 3 months ago, patient stopped her Levemir because she felt she was taking too much insulin. Patient using NovoLog 40 units 3 times daily with meals to control her blood sugars. Outpatient providers and patient's family not notified of change. Blood sugars well controlled at home with range between 100-200s as per patient. After washing dishes last night, patient decided to lie down on a recliner at home. Patient found unresponsive by family in early a.m. Diaphoretic, shallow breathing. No witnessed seizures. Patient's son who happens to be an EMT checked her blood sugar. BSG noted to be less than 20. EMS alerted. Patient subsequently given D10 infusion. Patient subsequently woke up. Denies headache, chest pain, shortness of breath, abdominal pain. Patient brought to the ER for evaluation. Medical History as above Surgical History : Carpal tunnel surgery, D&C, bladder cyst removal, left breast biopsy, eye surgeries, dental surgery Family History : Breast cancer, DM, heart disease Personal/Social history : E-cigarette today, no EtOH intake, retired [employer] Allergies Allergy/AdvReac Type Severity Reaction Status Date / Time No Known Drug Allergies Allergy Verified 06/16/21 14:50 Home Medications Medication Instructions Recorded Confirmed Type clopidogrel 75 mg tablet 75 mg PO DAILY tab 05/24/19 06/16/21 History lisinopril 10 mg tablet 10 mg PO DAILY #30 tab 05/24/19 06/16/21 History metoprolol succinate 25 mg 25 mg PO DAILY tab 05/24/19 06/16/21 History tablet,extended release 24 hr atorvastatin 20 mg tablet 20 mg PO DAILY 07/26/19 06/16/21 History pen needle, diabetic 31 gauge x #360 ea 12/24/19 06/16/21 Rx 1/" (Comfort EZ Pen Donnellson) levothyroxine 88 mcg tablet See Rx Instructions .ROUTE 02/20/20 06/16/21 Rx .COMPLEX #100 tablet blood sugar diagnostic (OneTouch #10 ea 02/15/21 06/16/21 History Verio test strips) hydrochlorothiazide 12.5 mg tablet 12.5 mg PO DAILY 02/15/21 06/16/21 History insulin aspart U-100 100 unit/mL 40 unit SQ TID ml 02/15/21 06/16/21 History subcutaneous solution (Novolog U-100 Insulin aspart) solifenacin 5 mg tablet 5 mg PO DAILY 02/15/21 06/16/21 History dulaglutide 0.75 mg/0.5 mL 0.75 mg SUBCUT .weekly ml 03/16/21 06/16/21 History subcutaneous pen injector (Trulicity) donepezil 5 mg tablet (Aricept) 5 mg PO HS #90 tab 06/16/21 06/16/21 Rx pramipexole 1 mg tablet 1 mg PO .COMPLEX #90 tab 06/16/21 06/16/21 Rx pregabalin 75 mg capsule (Lyrica) 75 mg PO BID 30 Days #60 cap 06/16/21 06/16/21 Rx Past Med/Surg History Medical History Alzheimer disease Degenerative disc disease Depression Diabetes mellitus, type 2 Fatty liver disease, nonalcoholic Heartburn OCC WITH CERTAIN DIETARY INTAKE/DENIES REFLUX/NO MEDS Hyperlipidemia Hypertension Hypothyroidism Lichen sclerosus Myocardial Infarction 2014--"mild heart attack" no recovery assistant On anticoagulant therapy on plavix Restless leg syndrome Sleep apnea cpap--was not using, planning to re-start use Stroke ? 2014--per pt reason for plavix Syncope Surgical History History of bilateral cataract extraction History of carpal tunnel release bilt History of colonoscopy History of colonoscopy with polypectomy History of dilatation and curettage History of left breast biopsy benign History of right breast biopsy BENIGN History of surgical procedure on eye proper using laser right and left History of tooth extraction wisdom teeth History of tooth extraction all upper teeth Family History Father Family history of diabetes mellitus Brother Family history of diabetes mellitus 2 Mother Family history of diabetes mellitus Family history of breast cancer Social History Smoking Status: Current every day smoker Tobacco Type: Cigarettes Cigarettes Per Day: 4; Second Hand Exposure: Yes; Hx Alcohol Use: No Hx Substance Use: No Preferred Language: Guamanian Communication Ability: Effective Bell Clerk Required: No Beliefs That Will Affect Care: None Current Living Situation: Family Other Information That Helps Us Care for You: No Feels Safe at Home: Yes Safety Concerns: Feels Safe At This Time Assistive Devices: Denture - Upper Review of Systems Review of Systems: As per HPI, all other systems reviewed and negative Physical Exam Physical Exam: GENERAL: Comfortable, pleasant, no respiratory distress SKIN: Normal color, warm HEENT: [place] palpebral conjunctivae, no ptosis, dry buccal mucosa NECK : Supple, no tenderness CHEST : CTA, no tenderness HEART : RRR, no obvious murmurs ABDOMEN: Some distention, nontender EXTREMITIES : No LE swelling/tenderness, no other conspicuous deformities noted NEUROLOGIC : Coherent, no facial asymmetry, no other gross focality Results & Data Results & Data ([facility]) Vital Signs (Past 12 Hours) Vital Signs Temp Pulse Pulse Resp BP BP Pulse Ox 03/31/22 04:26 34.0 C L 77 18 141/91 H 96 03/31/22 04:23 34.0 C L 87 20 141/91 H 98 07/07/22 04:21 87 20 98 Laboratory Results Laboratory Results WBC 8.36 K/ul (4.8-10.8) 03/31/22 04:23 RBC 4.29 M/uL (3.93-5.22) 03/31/22 04:23 Hgb 14.4 g/dl (12.0-16.0) 03/31/22 04:23 Hct 41.0 % (34.1-44.9) 03/31/22 04:23 MCV 95.6 fL (80.0-100.0) 03/31/22 04:23 MCH 33.6 pg (25.0-34.0) 03/31/22 04:23 MCHC 35.1 g/dL (32.0-36.0) 03/31/22 04:23 RDW Std Deviation 45.4 fL (36.4-46.3) 03/31/22 04:23 RDW Coeff of Leny 13.1 % (11.5-14.5) 03/31/22 04:23 Plt Count 225 K/uL (130-400) 03/31/22 04:23 MPV 9.4 fL (9.4-12.3) 03/31/22 04:23 Immature Gran % (Auto) 0.4 % 03/31/22 04:23 Neut % (Auto) 74.4 % 03/31/22 04:23 Lymph % (Auto) 16.3 % 03/31/22 04:23 [place] % (Auto) 7.5 % 03/31/22 04:23 Eos % (Auto) 0.8 % 03/31/22 04:23 Baso % (Auto) 0.6 % 03/31/22 04:23 Neut # (Auto) 6.22 K/uL (1.4-6.5) 03/31/22 04:23 Lymph # (Auto) 1.36 K/uL (1.2-3.4) 03/31/22 04:23 [place] # (Auto) 0.63 K/uL (0.24-0.82) 03/31/22 04:23 Eos # (Auto) 0.07 K/uL (0-0.50) 03/31/22 04:23 Baso # (Auto) 0.05 K/uL (0-0.2) 03/31/22 04:23 Immature Gran # (Auto) 0.03 K/uL (0.00-0.02) H 03/31/22 04:23 POC Glucose 117 mg/dl (70-99) H 03/31/22 04:07 SARS-CoV-2, RNA, NAAT NEGATIVE (NEGATIVE) 03/31/22 04:50 Diagnostic Findings Laboratory Results WBC 8.36 K/ul (4.8-10.8) 03/31/22 04:23 RBC 4.29 M/uL (3.93-5.22) 03/31/22 04:23 Hgb 14.4 g/dl (12.0-16.0) 03/31/22 04:23 Hct 41.0 % (34.1-44.9) 03/31/22 04:23 MCV 95.6 fL (80.0-100.0) 03/31/22 04:23 MCH 33.6 pg (25.0-34.0) 03/31/22 04:23 MCHC 35.1 g/dL (32.0-36.0) 03/31/22 04:23 RDW Std Deviation 45.4 fL (36.4-46.3) 03/31/22 04:23 RDW Coeff of Leny 13.1 % (11.5-14.5) 03/31/22 04:23 Plt Count 225 K/uL (130-400) 03/31/22 04:23 MPV 9.4 fL (9.4-12.3) 03/31/22 04:23 Immature Gran % (Auto) 0.4 % 03/31/22 04:23 Neut % (Auto) 74.4 % 03/31/22 04:23 Lymph % (Auto) 16.3 % 03/31/22 04:23 [place] % (Auto) 7.5 % 03/31/22 04:23 Eos % (Auto) 0.8 % 03/31/22 04:23 Baso % (Auto) 0.6 % 03/31/22 04:23 Neut # (Auto) 6.22 K/uL (1.4-6.5) 03/31/22 04:23 Lymph # (Auto) 1.36 K/uL (1.2-3.4) 03/31/22 04:23 [place] # (Auto) 0.63 K/uL (0.24-0.82) 03/31/22 04:23 Eos # (Auto) 0.07 K/uL (0-0.50) 03/31/22 04:23 Baso # (Auto) 0.05 K/uL (0-0.2) 03/31/22 04:23 Immature Gran # (Auto) 0.03 K/uL (0.00-0.02) H 03/31/22 04:23 Sodium 141 mmol/L (136-145) 03/31/22 04:23 Potassium 3.3 mmol/L (3.5-5.1) L 03/31/22 04:23 Chloride 106 mmol/L (98-107) 03/31/22 04:23 Carbon Dioxide 26 mmol/L (21-32) 03/31/22 04:23 Anion Gap 9 (3-11) 03/31/22 04:23 BUN 19 mg/dl (6-23) 03/31/22 04:23 Creatinine 0.65 mg/dl (0.6-1.2) 03/31/22 04:23 Est Cr Clr Drug Dosing 73.8 ml/min 03/31/22 04:23 Est GFR ( Amer) 108.7 ml/min 03/31/22 04:23 Est GFR (Non-Af Amer) 93.8 ml/min 03/31/22 04:23 BUN/Creatinine Ratio 29.2 (10-20) H 03/31/22 04:23 Glucose 91 mg/dl (70-99(Fasting)) 03/31/22 04:23 POC Glucose 93 mg/dl (70-99) 03/31/22 07:59 Estimat Average Glucose 200 mg/dl 03/31/22 04:23 Hemoglobin A1c 8.6 % (4.5-5.6) H 03/31/22 04:23 Lactate 1.7 mmol/L (0.4-2.0) 03/31/22 05:22 Calcium 9.6 mg/dl (8.5-10.1) 03/31/22 04:23 Magnesium 1.7 mg/dl (1.7-2.4) 03/31/22 04:23 Total Bilirubin 0.5 mg/dl (0.2-1.0) 03/31/22 04:23 AST 20 U/L (13-39) 03/31/22 04:23 ALT 20 U/L (7-52) 03/31/22 04:23 Alkaline Phosphatase 99 U/L (34-104) 03/31/22 04:23 Troponin I High Sens 3.7 pg/ml (0-14) 03/31/22 04:23 Total Protein 6.9 gm/dl (6.0-8.3) 03/31/22 04:23 Albumin 4.0 gm/dl (3.4-5.0) 03/31/22 04:23 Globulin 2.9 gm/dl (2.5-4.0) 03/31/22 04:23 Albumin/Globulin Ratio 1.4 (0.9-2) 03/31/22 04:23 Procalcitonin < 0.05 ng/ml (0-0.5) 03/31/22 04:23 TSH 0.699 uIu/ml (0.300-4.500) 03/31/22 04:23 SARS-CoV-2, RNA, NAAT NEGATIVE (NEGATIVE) 03/31/22 04:50 Impressions Chest X-Ray 03/31/22 04:07 XR chest 1V portable HISTORY: 66 years-old Female weakness acute weakness COMPARISON: CT abdomen pelvis 04/14/2021, thoracic spine radiographs 04/27/2021 TECHNIQUE: Portable AP view of the chest FINDINGS: Cardiomediastinal and hilar silhouettes are within normal limits. Atherosclerosis of the thoracic aorta. No pneumothorax, pleural effusion, airspace consolidation or overt pulmonary edema. Probable chronic nondisplaced fracture of the posterior medial right third rib. Degenerative changes of the shoulders and spine. IMPRESSION: No acute process. ACT 112: Negative or not required by law. The above report was generated using voice recognition software. It may contain grammatical, syntax or spelling errors. Electronically signed by: Christian Yin M.D. 03/31/2022 7:[address] 03/31/22 04:[address] DOSE: 537.48 mGy.cm HISTORY: confusion TECHNIQUE: Multiaxial CT images of the head were performed without the use of intravenous contrast. Automated exposure control was utilized for this study. A dose lowering technique was utilized adhering to the principles of ALARA. Comparison: Head CT 04/14/2021. Findings: The paranasal sinuses and mastoid air cells are clear. The calvarium and skull base are intact. There is no mass, hematoma, midline shift, acute infarct. White matter hypodensity is nonspecific but suggestive of microvascular ischemic change. The ventricles and sulci demonstrate mild age-related involutional changes. Impression: No significant change compared to the prior study. No acute intracranial abnormality. ACT 112: Negative or not required by law. Electronically signed by: Juno Greenberg M.D. 03/31/2022 7:08 AM Medications Administered EKG as per my interpretation: Rate 85, NSR, LAD, LAFB, T wave flattening inferior leads
[2022-03-31 05:40] LABS: Albumin Globulin Ratio 1.4 (0.9-2); BUN Creatinine Ratio 29.2 (10-20); Bilirubin,Total 0.5 mg/dl (0.2-1.0); Calcium 9.6 mg/dl (8.5-10.1); Creatinine Clr Calc Pharmacy 73.8 ml/min; Est GFR (African American) 108.7 ml/min; Est GFR (Non-African American) 93.8 ml/min; Globulin 2.9 gm/dl (2.5-4.0); Magnesium 1.7 mg/dl (1.7-2.4); Potassium 3.3 mmol/L (3.5-5.1); Total Protein 6.9 gm/dl (6.0-8.3)
[2022-03-31] MEDS ORDERED: PROMETHAZINE HCL 12.5 MG in SODIUM CHLORIDE 0.9% 50 ML IV PRN (05:41)
[2022-03-31 05:42] LABS: Troponin I High Sensitivity 3.7 pg/ml (0-14)
[2022-03-31] MEDS ORDERED: POTASSIUM CHLORIDE CRTAB 20 MEQ TABCR PO STA (05:43)
[2022-03-31] MEDS ORDERED: DEXTROSE 50% 50 ML SYRINGE IV ONE (06:17)
--- NOTE | 2022-03-31 07:10 | CT Scan Report ---
HEAD CT NONCONTRAST CT DOSE: 537.48 mGy.cm HISTORY: confusion TECHNIQUE: Multiaxial CT images of the head were performed without the use of intravenous contrast. A utomated exposure control was utilized for this study. A dose lowering technique was utilized adheri ng to the principles of ALARA. Comparison: Head CT 04/14/2021. Findings: The paranasal sinuses and mastoid air cells are clear. The calvarium and skull base are int act. There is no mass, hematoma, midline shift, acute infarct. White matter hypodensity is nonspecifi c but suggestive of microvascular ischemic change. The ventricles and sulci demonstrate mild age-rela erin involutional changes. Impression: No significant change compared to the prior study. No acute intracranial abnormality. ACT 112: Negative or not required by law. Electronically signed by: Juno Greenberg M.D. 03/31/2022 7:08 AM
[2022-03-31] MEDS ORDERED: GLUCOSE 40% GEL 15 GM TUBE PO PRN ×2 (07:23→11:21)
[2022-03-31] MEDS ORDERED: DEXTROSE 50% 50 ML SYRINGE IV PRN ×2 (07:23→11:21)
[2022-03-31] MEDS ORDERED: ACETAMINOPHEN 325 MG TAB PO PRN (07:23)
[2022-03-31] MEDS ORDERED: GLUCOSE 10 TABS/TUBE PO PRN ×2 (07:23→11:21)
[2022-03-31] MEDS ORDERED: GLUCAGON FOR INJ 1 MG VIAL SQ PRN ×2 (07:23→11:21)
--- NOTE | 2022-03-31 07:29 | XRay Report ---
XR chest 1V portable HISTORY: 66 years-old Female weakness acute weakness COMPARISON: CT abdomen pelvis 04/14/2021, thoracic spine radiographs 04/27/2021 TECHNIQUE: Portable AP view of the chest FINDINGS: Cardiomediastinal and hilar silhouettes are within normal limits. Atherosclerosis of the thoracic aor ta. No pneumothorax, pleural effusion, airspace consolidation or overt pulmonary edema. Probable rewards consultant samantha nondisplaced fracture of the posterior medial right third rib. Degenerative changes of the should ers and spine. IMPRESSION: No acute process. ACT 112: Negative or not required by law. The above report was generated using voice recognition software. It may contain grammatical, syntax o r spelling errors. Electronically signed by: Christian Yin M.D. 03/31/2022 7:28 AM
[2022-03-31] MEDS ORDERED: CARBOHYDRATES FOR HYPOGLYCEMIA PO PRN ×2 (07:30→11:21)
[2022-03-31 07:37] LABS: Estimated Average Glucose 200 mg/dl; Hemoglobin A1C 8.6 % (4.5-5.6)
[2022-03-31] MEDS ORDERED: CLOPIDOGREL BISULFATE 75 MG TAB PO SCH (09:00)
[2022-03-31] MEDS ORDERED: ATORVASTATIN 20 MG TAB PO SCH (09:00)
[2022-03-31] MEDS ORDERED: ENOXAPARIN INJ 40 MG/0.4 ML SYR SQ SCH (09:00)
[2022-03-31] MEDS ORDERED: METOPROLOL SUCC 25MG EXT REL TAB PO SCH (09:00)
[2022-03-31] MEDS ORDERED: PANTOprazole 40 MG TAB PO SCH (09:00)
[2022-03-31] MEDS ORDERED: LEVOTHYROXINE SODIUM 88 MCG TABLET PO SCH (09:00)
[2022-03-31] MEDS ORDERED: lisinopril 10 MG TAB PO SCH (09:00)
[2022-03-31] MEDS ORDERED: ERGOCALCIFEROL 50,000 UNITS 1250 MCG CAP PO SCH (11:30)
[2022-03-31] MEDS ORDERED: INSULIN ASPART PER UNIT SC SCH (11:30)
--- NOTE | 2022-03-31 15:40 | Discharge Summary ---
Date of Service March 31, 2022 Admission HPI Per Admitting Provider History obtained from patient, family, and records. Medical history significant for CAD as per records, hypertension, hyperlipidemia, DM2 insulin requiring, hypothyroidism, neurogenic bladder as per records, mild cognitive impairment as per records, ongoing tobacco abuse. Last confinement 2017 for hypoglycemia. 3 months ago, patient stopped her Levemir because she felt she was taking too much insulin. Patient using NovoLog 40 units 3 times daily with meals to control her blood sugars. Outpatient providers and patient's family not notified of change. Blood sugars well controlled at home with range between 10 0-200s as per patient. After washing dishes last night, patient decided to lie down on a recliner at home. Patient found unresponsive by family in early a.m. Diaphoretic, shallow breathing. No witnessed seizures. Patient's son who happens to be an EMT checked her blood sugar. BSG noted to be less than 20. EMS alerted. Patient subsequently given D10 infusion. Patient subsequently woke up. Denies headache, chest pain, shortness of breath, abdominal pain. Patient brought to the ER for evaluation. 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 Admission Exam Per Admitting Provider GENERAL: Comfortable, pleasant, no respiratory distress SKIN: Normal color, warm HEENT: [place] palpebral conjunctivae, no ptosis, dry buccal mucosa NECK : Supple, no tenderness CHEST : CTA, no tenderness HEART : RRR, no obvious murmurs ABDOMEN: Some distention, nontender EXTREMITIES : No LE swelling/tenderness, no other conspicuous deformities noted NEUROLOGIC : Coherent, no facial asymmetry, no other gross focality Principal Diagnosis Hypoglycemia with unresponsiveness, Insulin dependent diabetes mellitus Discharge Exam General:Sitting comfortably in bed, not in distress, on room air HEENT: EOMI, MATEUSZ, MMM Chest: Clear breath sounds bilaterally, no wheezes or crackles CVS: Regular rate and rhythm, normal heart sounds, no murmur Abdomen: Soft, non tender, not distended, normal bowel sounds Neuro: Awake, alert, oriented, conversing well, non focal Extremities: No cyanosis, clubbing or edema Discharge Data Allergies Allergy/AdvReac Type Severity Reaction Status Date / Time No Known Drug Allergies Allergy Verified 06/16/21 14:50 Consultations 03/31/22 05:43 ED Decision to Admit Stat Ordered Studies 03/31/22 04:14 CT head/brain wo con Stat Laboratory Results WBC 8.36 K/ul (4.8-10.8) 03/31/22 04:23 RBC 4.29 M/uL (3.93-5.22) 03/31/22 04:23 Hgb 14.4 g/dl (12.0-16.0) 03/31/22 04:23 Hct 41.0 % (34.1-44.9) 03/31/22 04:23 MCV 95.6 fL (80.0-100.0) 03/31/22 04:23 MCH 33.6 pg (25.0-34.0) 03/31/22 04:23 MCHC 35.1 g/dL (32.0-36.0) 03/31/22 04:23 RDW Std Deviation 45.4 fL (36.4-46.3) 03/31/22 04:23 RDW Coeff of Leny 13.1 % (11.5-14.5) 03/31/22 04:23 Plt Count 225 K/uL (130-400) 03/31/22 04:23 MPV 9.4 fL (9.4-12.3) 03/31/22 04:23 Immature Gran % (Auto) 0.4 % 03/31/22 04:23 Neut % (Auto) 74.4 % 03/31/22 04:23 Lymph % (Auto) 16.3 % 03/31/22 04:23 Dare % (Auto) 7.5 % 03/31/22 04:23 Eos % (Auto) 0.8 % 03/31/22 04:23 Baso % (Auto) 0.6 % 03/31/22 04:23 Neut # (Auto) 6.22 K/uL (1.4-6.5) 03/31/22 04:23 Lymph # (Auto) 1.36 K/uL (1.2-3.4) 03/31/22 04:23 Dare # (Auto) 0.63 K/uL (0.24-0.82) 03/31/22 04:23 Eos # (Auto) 0.07 K/uL (0-0.50) 03/31/22 04:23 Baso # (Auto) 0.05 K/uL (0-0.2) 03/31/22 04:23 Immature Gran # (Auto) 0.03 K/uL (0.00-0.02) H 03/31/22 04:23 Sodium 141 mmol/L (136-145) 03/31/22 04:23 Potassium 3.3 mmol/L (3.5-5.1) L 03/31/22 04:23 Chloride 106 mmol/L (98-107) 03/31/22 04:23 Carbon Dioxide 26 mmol/L (21-32) 03/31/22 04:23 Anion Gap 9 (3-11) 03/31/22 04:23 BUN 19 mg/dl (6-23) 03/31/22 04:23 Creatinine 0.65 mg/dl (0.6-1.2) 03/31/22 04:23 Est Cr Clr Drug Dosing 73.8 ml/min 03/31/22 04:23 Est GFR ( Amer) 108.7 ml/min 03/31/22 04:23 Est GFR (Non-Af Amer) 93.8 ml/min 03/31/22 04:23 BUN/Creatinine Ratio 29.2 (10-20) H 03/31/22 04:23 Glucose 91 mg/dl (70-99(Fasting)) 03/31/22 04:23 POC Glucose 192 mg/dl (70-99) H 03/31/22 11:47 Estimat Average Glucose 200 mg/dl 03/31/22 04:23 Hemoglobin A1c 8.6 % (4.5-5.6) H 03/31/22 04:23 Lactate 1.7 mmol/L (0.4-2.0) 03/31/22 05:22 Calcium 9.6 mg/dl (8.5-10.1) 03/31/22 04:23 Magnesium 1.7 mg/dl (1.7-2.4) 03/31/22 04:23 Total Bilirubin 0.5 mg/dl (0.2-1.0) 03/31/22 04:23 AST 20 U/L (13-39) 03/31/22 04:23 ALT 20 U/L (7-52) 03/31/22 04:23 Alkaline Phosphatase 99 U/L (34-104) 03/31/22 04:23 Troponin I High Sens 3.7 pg/ml (0-14) 03/31/22 04:23 Total Protein 6.9 gm/dl (6.0-8.3) 03/31/22 04:23 Albumin 4.0 gm/dl (3.4-5.0) 03/31/22 04:23 Globulin 2.9 gm/dl (2.5-4.0) 03/31/22 04:23 Albumin/Globulin Ratio 1.4 (0.9-2) 03/31/22 04:23 Procalcitonin < 0.05 ng/ml (0-0.5) 03/31/22 04:23 TSH 0.699 uIu/ml (0.300-4.500) 03/31/22 04:23 SARS-CoV-2, RNA, NAAT NEGATIVE (NEGATIVE) 03/31/22 04:50 Impressions Chest X-Ray 03/31/22 04:07 XR chest 1V portable HISTORY: 66 years-old Female weakness acute weakness COMPARISON: CT abdomen pelvis 04/14/2021, thoracic spine radiographs 04/27/2021 TECHNIQUE: Portable AP view of the chest FINDINGS: Cardiomediastinal and hilar silhouettes are within normal limits. Atherosclerosis of the thoracic aorta. No pneumothorax, pleural effusion, airspace consolidation or overt pulmonary edema. Probable chronic nondisplaced fracture of the posterior medial right third rib. Degenerative changes of the shoulders and spine. IMPRESSION: No acute process. ACT 112: Negative or not required by law. The above report was generated using voice recognition software. It may contain grammatical, syntax or spelling errors. Electronically signed by: Christian Yin M.D. 03/31/2022 7:[address] 03/31/22 04:[address] DOSE: 537.48 mGy.cm HISTORY: confusion TECHNIQUE: Multiaxial CT images of the head were performed without the use of intravenous contrast. Automated exposure control was utilized for this study. A dose lowering technique was utilized adhering to the principles of ALARA. Comparison: Head CT 04/14/2021. Findings: The paranasal sinuses and mastoid air cells are clear. The calvarium and skull base are intact. There is no mass, hematoma, midline shift, acute infarct. White matter hypodensity is nonspecific but suggestive of microvascular ischemic change. The ventricles and sulci demonstrate mild age-related involutional changes. Impression: No significant change compared to the prior study. No acute intracranial abnormality. ACT 112: Negative or not required by law. Electronically signed by: Juno Greenberg M.D. 03/31/2022 7:08 AM Hospital Course (1) Hypoglycemia: 66 year old female with diabetes mellitus on insulin presented to the ED overnight with hypoglycemia with unresponsiveness. After washing dishes last night, she decided to lie down on a recliner at home and was found unresponsive by her son early am. Her son lives with him. BG was noted to be <20. EMS arrived and was given D10 after which she woke up and was brought to ED for evaluation. A1c 8.6%. Since presentation, she has had no more hypoglycemia. She is AAOx3. She was seen by coil strapper in my presence and we went through her diabetic history and insulin regimen. She takes trulicity 0.75 on and now taking novolog 40 U tid with meals but inconsistent with food intake. She stopped her levemir 3 months back on her own (she was taking 40 U qam in the morning)- she thought she had too much insulin and hence stopped it and increased her novolog on her own. She checks her BG twice daily and denies frequent hypoglycemic episodes but I am concerned she might have hypoglycemia unawareness given the pattern of her insulin and food intake and her not checking BG frequently. Her PCP has been managing her insulin and she does have upcoming appointment with [facility] diabetic pharmacist on 04/12. She feels perfectly fine and is requesting to be discharged. Reviewed in detail regarding the insulin instructions and diabetes management- some of which are stopping novolog, resuming levemir 20 U bid and trulicity, maintaining blood glucose log while checking her BG 4 times a day at least for the next few weeks to know the pattern. Given the concern for hypoglycemia unawareness, will let the blood sugar run high for a while to let her body accustomed to low blood sugar readi ngs, with target of <200 for now for next couple weeks. She will reach out to her family for further instructions based on the blood glucose readings if persistently elevated >250. Also prescribed glucagon kit for emergency use, in case hypoglycemia coma happens in future again. Recommend uptitrating trulicity and levemir as indicated for hyperglycemia while avoiding hypoglycemia- recommend follow up with PCP/[facility] clinic for the same. She is comfortable and stable for discharge. Total Time Total Time Spent Total Time Spent (In Minutes): 50 Discharge Plan Discharge Items Patient Disposition: Home - Self-Care Reason For Visit: UNRESPONSIVENESS, HYPOGLYCEMIA Discharge Diagnosis: Hypoglycemia with unresponsiveness; Insulin dependent diabetes mellitus Condition on Discharge: Good Activity: Resume your previous activity Non-emergency contact: Primary Care Provider Call non-emergency contact if: you have any medication questions and your symptoms worsen Follow-up/Referrals: [facility] [Other] (Date & Time 04/12/2022 2:50 PM Provider [facility], [facility] ) Asuncion Suarez, DO [Primary Care Provider] - (Date & Time 04/06/2022 3:00 PM Provider Adria Danielson MD Department [facility] ) Diet: Carb Consistent or DM2 Addtl Attending Provider Instructions: STOP YOUR NOVOLOG Continue your trulicity. Your doctor may decide to increase the dose of trulicity without need for novolog. Resume levemir 20 U twice daily. If your blood sugar in the morning or at bedtime is <100, skip the subsequent dose of levemir. Continue checking your blood sugar- 4 times a day- before every meals and at bedtime and as needed for signs or symptoms of hypoglycemia- Maintain a blood sugar log and take it to your family doctor or the [facility] pharmacist for them to review for better management of your insulin For now, we would recommend keeping the blood sugar on a higher level 100-200 so that your body develops hypoglycemia awareness. If your blood sugar is consistently >250, call your family doctor for adjustment of your levemir or trulicity If you pass out or become unconscious because of low blood sugar, inject with the glucagon kit. Review the information attached. Pending Studies at Discharge: No Stand-Alone Forms: [employer], Smoking Cessation Medications and DC Order Prescriptions: New Levemir FlexTouch U-100 Insuln 100 unit/mL (3 mL) insulin pen 20 unit subcut BID Qty: 15 RF: 0 glucagon 1 mg/0.2 mL auto-injector 1 mg subcut UD PRN (Reason: hypoglycemic coma/unresponsivenss ) Qty: 0.2 RF: 0 Continued levothyroxine 88 mcg tablet See Rx Instructions .ROUTE .COMPLEX Qty: 100 RF: 3 solifenacin 5 mg tablet 5 mg PO DAILY RF: 0 hydrochlorothiazide 12.5 mg tablet 12.5 mg PO DAILY RF: 0 (DME) OneTouch Verio test strips Strip See Rx Instructions .ROUTE .MEDSUPPLY Qty: 10 RF: 0 Trulicity 0.75 mg/0.5 mL pen injector 0.75 mg subcut .weekly RF: 0 lisinopril 10 mg tablet 10 mg PO DAILY Qty: 30 RF: 0 atorvastatin 20 mg tablet 20 mg PO DAILY RF: 0 (DME) pen needle, diabetic [Comfort EZ Pen [place]] 31 gauge x 1/4" needle See Rx Instructions .ROUTE .MEDSUPPLY Qty: 360 RF: 3 pregabalin [Lyrica] 75 mg capsule 75 mg PO BID 30 Days Qty: 60 RF: 5 donepezil [Aricept] 5 mg tablet 5 mg PO HS Qty: 90 RF: 3 pramipexole 1 mg tablet 1 mg PO .COMPLEX Qty: 90 RF: 3 clopidogrel 75 mg tablet 75 mg PO DAILY RF: 0 metoprolol succinate 25 mg tablet extended release 24 hr 25 mg PO DAILY RF: 0 Discontinued Novolog U-100 Insulin aspart 100 unit/mL solution 40 unit SQ TID RF: 0 Discharge Orders: Discharge Order (Routine); Ordered 03/31/22 Ordered By: Don Zapata/Other Patient Handouts: Hypoglycemia (Low Blood Sugar), Managing Type 2 Diabetes, Diabetes: Activity Tips, Diabetes: Meal Planning, Hypoglycemia Tx Steps Admission Data Admit Date/Time: 03/31/22 05:40 Attending Provider: Don Carter Admit Provider: Myron Pantoja Primary Care Provider: Asuncion Suarez Other Providers: Myron Pantoja
[2022-03-31 16:03] LABS: Appearance Urine Clear (Clear); Bacteria Urine Automated Negative (Negative); Bilirubin Urine Negative (Negative); Blood Urine Negative (Negative); Color Urine Yellow; Glucose Urine UA 3+ (Negative); Ketones Urine Negative (Negative); Leukocyte Esterase Urine 2+ (Negative); Nitrite Urine Negative (Negative); Protein Urine Negative (Negative); RBC Urine Automated 0-4 /hpf (0-4); Urobilinogen Urine Negative (Negative); WBC Urine Automated >30 /hpf (0-5)
[2022-03-31] MEDS ORDERED: PRAMIPEXOLE DIHYDROCHLO 0.5 MG TAB PO SCH (19:00)
[2022-03-31] MEDS ORDERED: LANTUS PER UNIT CHARGE SQ SCH (21:00)
[2022-03-31] MEDS ORDERED: DONEPEZIL HCL 5 MG TAB PO SCH (21:00)
--- NOTE | 2022-04-01 05:52 | Electrocardiogram Report ---
Test Reason : Blood Pressure : / mmHG Vent. Rate : 083 BPM Atrial Rate : 083 BPM P-R Int : 126 ms QRS Dur : 072 ms QT Int : 406 ms P-R-T Axes : 053 -31 010 degrees QTc Int : 477 ms Poor data quality, interpretation may be adversely affected Normal sinus rhythm Left axis deviation Inferior infarct , age undetermined Cannot rule out Anterior infarct (cited on or before 05-MAR-2017) Abnormal ECG When compared with ECG of 14-APR-2021 13:55, Questionable change in initial forces of Lateral leads T wave amplitude has increased in Anterior leads Confirmed by Hardy Su ([id number]) on 04/01/2022 5:52:06 AM Referred By: REFERRED SELF Confirmed By:Hardy Su
[2022-04-03] MEDS ORDERED: LEVOTHYROXINE SODIUM 88 MCG TABLET PO SCH (09:00)
== END 2022-03-31 16:25 | disposition home or self-care (01) ==
LOC: ED 03:57 → 2S 03:57

== ENCOUNTER 2022-07-31 17:12 | Observation (INO) ==
[2022-07-31 18:02] LABS: Basophils # (auto) 0.06 K/uL (0-0.2); Basophils % (auto) 0.6 %; Eosinophils # (auto) 0.27 K/uL (0-0.50); Eosinophils % (auto) 2.9 %; Hematocrit (blood only) 45.3 % (34.1-44.9); Hemoglobin 16.3 g/dl (12.0-16.0); Immature Granulocytes # (auto) 0.03 K/uL (0.00-0.02); Immature Granulocytes % (auto) 0.3 %; Lymphocytes % (auto) 20.2 %; Mean Corpuscular Volume 94.6 fL (80.0-100.0); Monocytes # (auto) 0.65 K/uL (0.24-0.82); Monocytes % (auto) 6.9 %; Neutrophils # (auto) 6.49 K/uL (1.4-6.5); Neutrophils % (auto) 69.1 %; Platelet Count 234 K/uL (130-400); RDW Coefficient of Variation 12.3 % (11.5-14.5); Red Blood Count 4.79 M/uL (3.93-5.22)
--- NOTE | 2022-07-31 18:44 | Emergency Department Note ---
Impression & Plan Spell of altered consciousness, Left arm weakness ED Provider Note Provider: Chapincito Sandoval MD DATE OF SERVICE: 07/31/2022 CHIEF COMPLAINT: Unresponsive episode HISTORY OF PRESENT ILLNESS: Patient is a 66-year-old female history of diabetes, restless leg syndrome, and mild cognitive impairment presenting with family today after an episode at home. Just this afternoon was in the kitchen with family. Suddenly grabbed the stove and stared for about a minute and there was some trembling reported by family. She does not remember this. Does not remove any prodromal symptoms. Family states she then became unsafe and they assisted her to a chair and she was slurring her speech some. Did not notice any facial droop or significant weakness in the arms or legs. Patient states she does remember some of them talking to her at this point. This lasted about 5 minutes and then her symptoms fully resolved. No incontinence reported. No palpitations, chest pain, shortness of breath, nausea or vomiting reported. Did have some episode of vomiting early this afternoon. Did have a brief episode of chest pain yesterday. REVIEW OF SYSTEMS: A total of 10 review of systems was obtained and negative except as stated above in the HPI. PAST MEDICAL HISTORY: As noted above MEDICATIONS: Reviewed home medications includes Plavix SOCIAL HISTORY: Resides at home with family, patient does not currently drive PHYSICAL EXAM: GENERAL: alert and oriented in no acute distress on stretcher Head: normocephalic and atraumatic EYES: No injection, discharge or icterus. PERRL, EOMI. NECK: Trachea midline. Supple. ENT: Mucous membranes pink and moist. LUNGS: Airway patent. No retractions. Breath sounds clear HEART: Regular rate and rhythm. No chest wall tenderness ABDOMEN: Soft and non-tender, without guarding or rebound. SKIN: Acyanotic, warm, dry, without rashes EXTREMITIES: Without swelling, tenderness or deformity NEUROLOGICAL: No focal deficits. No aphasia. No facial droop or slurred speech. Tongue midline. Normal strength and tone in the extremities. Sensation to gross touch normal. EK bpm normal sinus rhythm. No PVC or PAC. No acute ST segment elevation or depression with a QTC of 416. Left axis noted. CONTINUOUS CARDIAC MONITORING: was ordered and showed a heart rate of 70s-80s bpm in normal sinus rhythm Patient's laboratory studies and imaging reviewed. Differential includes Vasovagal event, dehydration, infection, hypoglycemia, electrolyte abnormalities, cardiac sources, intracerebral event, pulmonary embolism, seizure, toxicologic, neurologic, as well as other pathologies. IMPRESSION/MEDICAL DECISION MAKING: Patient now back at baseline. No incontinence. Questionably some tremor and may be seizure activity. Denies any palpitations. History of TIA reported. Maybe some slurred speech earlier but not now. Blood glucose checked at home was not significantly low at just over 100. No recent fevers or other trauma. No history of seizures reported. Prolactin sent not significantly elevated. Seems to lean against a true seizure. No significant leukocytosis or anemia on blood work. CT scan completed of the head and neck. No acute occlusions or intracranial abnormality noted. Pulmonary nodule noted and some stenosis of the right carotid. Patient on reevaluation updated with family at bedside. She does question now whether she has some slight left arm weakness. Again not clear that this was seizure. Be somewhat of an odd presentation of stroke but given some possible weakness by her report of the left arm which is very hard to appreciate on exam will bring in for further neurological evaluation. Urinalysis not impressive for infection. Would not use thrombolytics in this patient with minimal to no deficits. Patient and family in agreement and hospitalist contacted. DIAGNOSIS: Staring spell, left-sided weakness DISPOSITION: Hospitalist will evaluate Patient was agreeable with this plan. Past Med/Surg History Medical History Alzheimer disease Degenerative disc disease Depression Diabetes mellitus, type 2 Fatty liver disease, nonalcoholic Heartburn Hyperlipidemia Hypertension Hypothyroidism Lichen sclerosus Myocardial Infarction On anticoagulant therapy Restless leg syndrome Sleep apnea Stroke Syncope Surgical History History of bilateral cataract extraction History of carpal tunnel release History of colonoscopy History of colonoscopy with polypectomy History of dilatation and curettage History of left breast biopsy History of right breast biopsy History of surgical procedure on eye proper using laser History of tooth extraction History of tooth extraction Family History Father Family history of diabetes mellitus Brother Family history of diabetes mellitus 2 Mother Family history of diabetes mellitus Family history of breast cancer Social History Smoking Status: Current every day smoker Tobacco Type: Cigarettes Cigarettes Per Day: 4; Second Hand Exposure: Yes; Hx Alcohol Use: No Hx Substance Use: No Preferred Language: Wolof Communication Ability: Effective 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 Pan Operator Required: No Beliefs That Will Affect Care: None Current Living Situation: Family How many Children do You have: 1 Feels Safe at Home: Yes Assistive Devices: CPAP Allergies Allergies Allergy/AdvReac Type Severity Reaction Status Date / Time No Known Drug Allergies Allergy Unknown Verified 07/31/22 17:46 Home Meds Home Medications Medication Instructions Recorded Confirmed clopidogrel 75 mg tablet 75 mg PO DAILY 05/24/19 07/31/22 lisinopril 10 mg tablet 10 mg PO DAILY #30 tabs 05/24/19 07/31/22 metoprolol succinate 25 mg 25 mg PO QAM 05/24/19 07/31/22 tablet,extended release 24 hr atorvastatin 20 mg tablet 20 mg PO DAILY 07/26/19 07/31/22 blood sugar diagnostic (OneTouch #10 ea 02/15/21 07/31/22 Verio test strips) hydrochlorothiazide 12.5 mg tablet 12.5 mg PO DAILY 02/15/21 07/31/22 solifenacin 5 mg tablet 5 mg PO DAILY 02/15/21 07/31/22 dulaglutide 3 mg/0.5 mL 3 mg subcut WK 07/31/22 07/31/22 subcutaneous pen injector (Trulicity) insulin detemir U-100 100 unit/mL 40 unit subcut HS 07/31/22 07/31/22 (3 mL) subcutaneous pen (Levemir FlexTouch U-100 Insulin) omeprazole 20 mg capsule,delayed 20 mg PO QAM 07/31/22 07/31/22 release Previous Rx's Medication Instructions Recorded pen needle, diabetic 31 gauge x #360 ea 12/24/19 1" (Comfort EZ Pen [place]) levothyroxine 88 mcg tablet See Rx Instructions .Route 02/20/20 .COMPLEX #100 tabs glucagon 1 mg/0.2 mL subcutaneous 1 mg (0.2 mL) subcut UD PRN 03/31/22 auto-injector hypoglycemic coma/unresponsivenss #0.2 mL donepezil 5 mg tablet (Aricept) 5 mg PO HS #90 tabs 07/18/22 pramipexole 1 mg tablet 1 mg PO .COMPLEX #90 tabs 07/18/22 Results & Data (ED) Vital Signs Vital Signs - 24 hr 07/31/22 17:15 07/31/22 17:32 07/31/22 17:29 Temperature 36.6 C Temperature Source Oral Pulse Rate 82 77 Pulse Rate from SpO2 Sensor 77 Respiratory Rate 16 18 Respiratory Effort / Characteristics Non-Labored Spontaneous Respiratory Depth Normal Respiratory Pattern Regular Blood Pressure 113/66 Blood Pressure Mean 81 Blood Pressure Position Sitting Pulse Oximetry 99 98 99 Oxygen Delivery Method Room Air Room Air Sepsis Recent Fever Within 48 Hours No Sepsis New/Unexplained Change in Mental Status No Sepsis Action Taken by Nursing No Action Required 07/31/22 17:30 07/31/22 17:32 07/31/22 17:33 Temperature Temperature Source Pulse Rate 81 77 Pulse Rate from SpO2 Sensor 83 76 Respiratory Rate 19 15 Respiratory Effort / Characteristics Respiratory Depth Respiratory Pattern Blood Pressure 112/68 Blood Pressure Mean 82 Blood Pressure Position Pulse Oximetry 99 98 Oxygen Delivery Method Sepsis Recent Fever Within 48 Hours Sepsis New/Unexplained Change in Mental Status Sepsis Action Taken by Nursing 07/31/22 17:33 07/31/22 18:00 07/31/22 18:32 Temperature Temperature Source Pulse Rate 82 74 74 Pulse Rate from SpO2 Sensor 80 74 74 Respiratory Rate 17 22 14 Respiratory Effort / Characteristics Respiratory Depth Respiratory Pattern Blood Pressure 125/74 106/69 106/69 Blood Pressure Mean 91 81 81 Blood Pressure Position Pulse Oximetry 99 96 99 Oxygen Delivery Method Sepsis Recent Fever Within 48 Hours Sepsis New/Unexplained Change in Mental Status Sepsis Action Taken by Nursing 07/31/22 19:11 07/31/22 20:02 Temperature Temperature Source Pulse Rate 81 76 Pulse Rate from SpO2 Sensor 82 76 Respiratory Rate 18 23 Respiratory Effort / Characteristics Respiratory Depth Respiratory Pattern Blood Pressure 105/62 105/60 Blood Pressure Mean 76 75 Blood Pressure Position Pulse Oximetry 98 96 Oxygen Delivery Method Room Air Room Air Sepsis Recent Fever Within 48 Hours Sepsis New/Unexplained Change in Mental Status Sepsis Action Taken by Nursing Laboratory Data Result diagrams: 07/31/22 17:32 07/31/22 20:37 Lab Results 07/31/22 07/31/22 07/31/22 Range/Units 17:32 17:32 17:32 WBC 9.40 (4.8-10.8) K/ul RBC 4.79 (3.93-5.22) M/uL Hgb 16.3 H (12.0-16.0) g/dl Hct 45.3 H (34.1-44.9) % MCV 94.6 (80.0-100.0) fL MCH 34.0 (25.0-34.0) pg MCHC 36.0 (32.0-36.0) g/dL RDW Std Deviation 43.0 (36.4-46.3) fL RDW Coeff of Leny 12.3 (11.5-14.5) % Plt Count 234 (130-400) K/uL MPV 10.0 (9.4-12.3) fL Immature Gran % (Auto) 0.3 % Neut % (Auto) 69.1 % Lymph % (Auto) 20.2 % Baker % (Auto) 6.9 % Eos % (Auto) 2.9 % Baso % (Auto) 0.6 % Neut # (Auto) 6.49 (1.4-6.5) K/uL Lymph # (Auto) 1.90 (1.2-3.4) K/uL Baker # (Auto) 0.65 (0.24-0.82) K/uL Eos # (Auto) 0.27 (0-0.50) K/uL Baso # (Auto) 0.06 (0-0.2) K/uL Immature Gran # (Auto) 0.03 H (0.00-0.02) K/uL PT Cancelled INR Cancelled APTT Cancelled PTT Ratio Cancelled Sodium 136 (136-145) mmol/L Potassium TNP Chloride 100 (98-107) mmol/L Carbon Dioxide 29 (21-32) mmol/L Anion Gap 7 (3-11) BUN 21 (6-23) mg/dl Creatinine 0.80 (0.6-1.2) mg/dl Est Cr Clr Drug Dosing 53.6 ml/min Est GFR ( Amer) 90.3 ml/min Est GFR (Non-Af Amer) 77.9 ml/min BUN/Creatinine Ratio 26.3 H (10-20) Glucose 95 (70-99(Fasting)) mg/dl Calcium 10.2 H (8.5-10.1) mg/dl Magnesium 1.7 (1.7-2.4) mg/dl Total Bilirubin 0.8 (0.2-1.0) mg/dl AST TNP ALT 33 (7-52) U/L Alkaline Phosphatase 97 (34-104) U/L Troponin I High Sens 3.5 (0-14) pg/ml Total Protein 7.6 (6.0-8.3) gm/dl Albumin 4.4 (3.4-5.0) gm/dl Globulin 3.2 (2.5-4.0) gm/dl Albumin/Globulin Ratio 1.4 (0.9-2) TSH (0.300-4.500) uIu/ml Prolactin ng/ml Urine Color Urine Appearance (Clear) Urine pH (4.5-7.5) Ur Specific [place] (1.000-1.030) Urine Protein (Negative) Urine Glucose (UA) (Negative) Urine Ketones (Negative) Urine Blood (Negative) Urine Nitrite (Negative) Urine Bilirubin (Negative) Urine Urobilinogen (Negative) Ur Leukocyte Esterase (Negative) Urine WBC (Auto) (0-5) /hpf Urine RBC (Auto) (0-4) /hpf U Hyaline Cast (Auto) (0-5) /lpf U Epithel Cells (Auto) (0-5) /lpf Urine Bacteria (Auto) (Negative) SARS-CoV-2, RNA, NAAT (NEGATIVE) 07/31/22 07/31/22 07/31/22 Range/Units 17:32 18:30 19:10 WBC (4.8-10.8) K/ul RBC (3.93-5.22) M/uL Hgb (12.0-16.0) g/dl Hct (34.1-44.9) % MCV (80.0-100.0) fL MCH (25.0-34.0) pg MCHC (32.0-36.0) g/dL RDW Std Deviation (36.4-46.3) fL RDW Coeff of Leny (11.5-14.5) % Plt Count (130-400) K/uL MPV (9.4-12.3) fL Immature Gran % (Auto) % Neut % (Auto) % Lymph % (Auto) % Baker % (Auto) % Eos % (Auto) % Baso % (Auto) % Neut # (Auto) (1.4-6.5) K/uL Lymph # (Auto) (1.2-3.4) K/uL Baker # (Auto) (0.24-0.82) K/uL Eos # (Auto) (0-0.50) K/uL Baso # (Auto) (0-0.2) K/uL Immature Gran # (Auto) (0.00-0.02) K/uL PT INR APTT PTT Ratio Sodium (136-145) mmol/L Potassium Chloride (98-107) mmol/L Carbon Dioxide (21-32) mmol/L Anion Gap (3-11) BUN (6-23) mg/dl Creatinine (0.6-1.2) mg/dl Est Cr Clr Drug Dosing ml/min Est GFR ( Amer) ml/min Est GFR (Non-Af Amer) ml/min BUN/Creatinine Ratio (10-20) Glucose (70-99(Fasting)) mg/dl Calcium (8.5-10.1) mg/dl Magnesium (1.7-2.4) mg/dl Total Bilirubin (0.2-1.0) mg/dl AST ALT (7-52) U/L Alkaline Phosphatase (34-104) U/L Troponin I High Sens (0-14) pg/ml Total Protein (6.0-8.3) gm/dl Albumin (3.4-5.0) gm/dl Globulin (2.5-4.0) gm/dl Albumin/Globulin Ratio (0.9-2) TSH (0.300-4.500) uIu/ml Prolactin 3.03 ng/ml Urine Color Yellow Urine Appearance Clear (Clear) Urine pH 7.5 (4.5-7.5) Ur Specific [place] 1.013 (1.000-1.030) Urine Protein Negative (Negative) Urine Glucose (UA) Negative (Negative) Urine Ketones Negative (Negative) Urine Blood Negative (Negative) Urine Nitrite Negative (Negative) Urine Bilirubin Negative (Negative) Urine Urobilinogen Negative (Negative) Ur Leukocyte Esterase 1+ H (Negative) Urine WBC (Auto) 5-10 H (0-5) /hpf Urine RBC (Auto) 0-4 (0-4) /hpf U Hyaline Cast (Auto) 0 (0-5) /lpf U Epithel Cells (Auto) 5-10 H (0-5) /lpf Urine Bacteria (Auto) Negative (Negative) SARS-CoV-2, RNA, NAAT NEGATIVE (NEGATIVE) 07/31/22 07/31/22 07/31/22 Range/Units 20:37 20:37 20:37 WBC (4.8-10.8) K/ul RBC (3.93-5.22) M/uL Hgb (12.0-16.0) g/dl Hct (34.1-44.9) % MCV (80.0-100.0) fL MCH (25.0-34.0) pg MCHC (32.0-36.0) g/dL RDW Std Deviation (36.4-46.3) fL RDW Coeff of Leny (11.5-14.5) % Plt Count (130-400) K/uL MPV (9.4-12.3) fL Immature Gran % (Auto) % Neut % (Auto) % Lymph % (Auto) % Baker % (Auto) % Eos % (Auto) % Baso % (Auto) % Neut # (Auto) (1.4-6.5) K/uL Lymph # (Auto) (1.2-3.4) K/uL Baker # (Auto) (0.24-0.82) K/uL Eos # (Auto) (0-0.50) K/uL Baso # (Auto) (0-0.2) K/uL Immature Gran # (Auto) (0.00-0.02) K/uL PT 11.0 INR 1.0 APTT 25.1 PTT Ratio 0.9 Sodium (136-145) mmol/L Potassium 4.1 Chloride (98-107) mmol/L Carbon Dioxide (21-32) mmol/L Anion Gap (3-11) BUN (6-23) mg/dl Creatinine (0.6-1.2) mg/dl Est Cr Clr Drug Dosing ml/min Est GFR ( Amer) ml/min Est GFR (Non-Af Amer) ml/min BUN/Creatinine Ratio (10-20) Glucose (70-99(Fasting)) mg/dl Calcium (8.5-10.1) mg/dl Magnesium (1.7-2.4) mg/dl Total Bilirubin (0.2-1.0) mg/dl AST 22 ALT (7-52) U/L Alkaline Phosphatase (34-104) U/L Troponin I High Sens (0-14) pg/ml Total Protein (6.0-8.3) gm/dl Albumin (3.4-5.0) gm/dl Globulin (2.5-4.0) gm/dl Albumin/Globulin Ratio (0.9-2) TSH 0.422 (0.300-4.500) uIu/ml Prolactin ng/ml Urine Color Urine Appearance (Clear) Urine pH (4.5-7.5) Ur Specific [place] (1.000-1.030) Urine Protein (Negative) Urine Glucose (UA) (Negative) Urine Ketones (Negative) Urine Blood (Negative) Urine Nitrite (Negative) Urine Bilirubin (Negative) Urine Urobilinogen (Negative) Ur Leukocyte Esterase (Negative) Urine WBC (Auto) (0-5) /hpf Urine RBC (Auto) (0-4) /hpf U Hyaline Cast (Auto) (0-5) /lpf U Epithel Cells (Auto) (0-5) /lpf Urine Bacteria (Auto) (Negative) SARS-CoV-2, RNA, NAAT (NEGATIVE) Administered Medications Sodium Chloride (Nss 1000ml) 1,000 mls @ 500 mls/hr IV .Q2H ONE Stop: 07/31/22 22:20 Last Admin: 07/31/22 21:33 Dose: 500 mls/hr Documented By: GUSTAVO Discontinued Medications Ceftriaxone Sodium (Rocephin) 2,000 mg in 70 mls @ 140 mls/hr IV NOW STA Stop: 07/31/22 21:41 Last Admin: 07/31/22 21:33 Dose: 140 mls/hr Documented By: GUSTAVO Ioversol (Optiray 320 500ml) 120 ml IV ONCE ONE Stop: 07/31/22 19:03 Last Admin: 07/31/22 19:03 Dose: 120 ml Documented By: EDK Imaging Data Radiologist's Impression: Head CT 07/31/22 17:43 CT OF THE HEAD WITHOUT CONTRAST CLINICAL HISTORY: ?seizure, starring episode COMPARISON STUDY: MRI of the brain April 29, [address] March 31, 2022. TECHNIQUE: Helical axial images of the head were obtained without IV contrast. Automated exposure control was utilized for the study. A dose lowering technique was utilized adhering to the principles of ALARA. FINDINGS: No acute intracranial hemorrhage, midline shift or mass effect is present. White matter hypodensities are unchanged. These favor small vessel disease. The appearance of the brain is unchanged. The ventricular system is unremarkable. The basal cisterns are patent. No extra-axial collections are present. There are no findings to suggest acute dural sinus thrombosis or acute territorial infarct. No significant calvarial abnormalities are present. Visualized portions of the sinuses and mastoid air cells are clear. IMPRESSION: No acute intracranial findings. No change since prior head CT. ACT 112: Negative or not required by law. Electronically signed by: Franklin Dash M.D. 07/31/2022 7:10 PM Head CTA 07/31/22 17:43 CTA ANGIOGRAPHY OF THE HEAD CLINICAL HISTORY: ?seizure, starring episode COMPARISON STUDY: CTA of the head April 19, 2019. TECHNIQUE: Helical axial images of the head were obtained following uneventful intravenous administration of 120 cc of Optiray. Sagittal and coronal reconstructions were viewed as well as maximal intensity projections on an independent 3-D workstation. Automated exposure control was utilized for the study. A dose lowering technique was utilized adhering to the principles of ALARA. CT DOSE: 952.04 mGy.cm FINDINGS: Please note that the head CT will be reported separately. No acute intracranial hemorrhage, midline shift or mass effect is present. Ventricular sy stem is normal. There is extensive plaque within the right cavernous carotid which results in moderate stenosis of this vessel. There is moderate plaque within the left cavernous carotid without stenosis. There is no intracranial aneurysm. There is no central vessel occlusion. Posterior circulation is intact. IMPRESSION: 1. No central vessel occlusion. No intracranial aneurysm. 2. Moderate stenosis of the right cavernous carotid due to extensive calcified plaque. ACT 112: Negative or not required by law. Electronically signed by: Franklin Dash M.D. 07/31/2022 7:28 PM Neck CTA 07/31/22 17:43 CT ANGIOGRAPHY OF THE NECK WITH CONTRAST CLINICAL HISTORY: ?seizure, starring episode COMPARISON STUDY: CTA of the neck April 19, 2019. Technique: CT angiography of the carotid and vertebral arteries was obtained using Optiray and 3D reconstruction on an independent workstation. NASCET criteria was utilized. Automated exposure control was utilized for the study. A dose lowering technique was utilized adhering to the principles of ALARA. Findings: A 4 mm left upper lobe nodule on image 47 of 344 has slightly increased in size since CT of April 19, 2019. There is no cervical lymphadenopathy. No acute cervical spine fracture is present. The bilateral common carotid, cervical internal carotid and vertebral arteries are patent. No dissection or significant stenosis is identified within these vessels. There is mild plaque within the proximal right internal carotid artery. This does not result in significant stenosis. IMPRESSION: 1. No stenosis or dissection within the bilateral common carotid, cervical internal carotid or vertebral arteries. 2. Slight increase in size of a 4 mm left upper lobe pulmonary nodule. A follow- up chest CT in 6 months is recommended. ACT 112: Negative or not required by law. Electronically signed by: Franklin Dash M.D. 07/31/2022 7:17 PM Discharge Plan Visit Data Chief Complaint: Neuro Symptoms/Deficit Stated Complaint: POSSIBLE TIA OR SEIZURE ED Provider: Chapincito Sandoval Discharge Problem: Spell of altered consciousness, Left arm weakness Patient Disposition: Being Evaluated by Hospitalist Forms Stand Alone Forms: [facility] Prescriptions Prescriptions: No Action levothyroxine 88 mcg tablet See Rx Instructions .ROUTE .COMPLEX Qty: 100 3RF Dose Instruction: TAKE 1 TABLET by mouth Monday through Monday and 2 TABS ON Monday Rx Instructions: TAKE 1 TABLET by mouth Monday through Monday and 2 TABS ON Monday solifenacin 5 mg tablet 5 mg PO DAILY hydrochlorothiazide 12.5 mg tablet 12.5 mg PO DAILY (DME) OneTouch Verio test strips Strip See Rx Instructions .ROUTE .MEDSUPPLY Qty: 10 Rx Instructions: Test blood sugar four times daily donepezil [Aricept] 5 mg tablet 5 mg PO HS Qty: 90 3RF pramipexole 1 mg tablet 1 mg PO .COMPLEX Qty: 90 3RF Rx Instructions: 1 mg PO 2 hours before bedtime; lisinopril 10 mg tablet 10 mg PO DAILY Qty: 30 atorvastatin 20 mg tablet 20 mg PO DAILY (DME) pen needle, diabetic [Comfort EZ Pen [place]] 31 gauge x 1/4" needle See Rx Instructions .ROUTE .MEDSUPPLY Qty: 360 3RF Rx Instructions: Change new pen needle after each use 4x a day clopidogrel 75 mg tablet 75 mg PO DAILY metoprolol succinate 25 mg tablet extended release 24 hr 25 mg PO QAM Trulicity 3 mg/0.5 mL pen injector 3 mg SUBCUT WK omeprazole 20 mg capsule,delayed release(DR/EC) 20 mg PO QAM Levemir FlexTouch U-100 Insuln 100 unit/mL (3 mL) insulin pen 40 unit subcut HS glucagon 1 mg/0.2 mL auto-injector 1 mg subcut UD PRN (Reason: hypoglycemic coma/unresponsivenss ) Qty: 0.2 0RF Referrals Referrals: Asuncion Suarez DO [Primary Care Provider] -
[2022-07-31 18:46] LABS: Alanine Aminotransferase 33 U/L (7-52); Albumin Globulin Ratio 1.4 (0.9-2); Albumin Level 4.4 gm/dl (3.4-5.0); Alkaline Phosphatase 97 U/L (34-104); Anion Gap 7 (3-11); BUN Creatinine Ratio 26.3 (10-20); Bilirubin,Total 0.8 mg/dl (0.2-1.0); Blood Urea Nitrogen 21 mg/dl (6-23); Calcium 10.2 mg/dl (8.5-10.1); Carbon Dioxide 29 mmol/L (21-32); Chloride 100 mmol/L (98-107); Creatinine Clr Calc Pharmacy 53.6 ml/min; Est GFR (African American) 90.3 ml/min; Est GFR (Non-African American) 77.9 ml/min; Globulin 3.2 gm/dl (2.5-4.0); Glucose 95 mg/dl (70-99(Fasting)); Magnesium 1.7 mg/dl (1.7-2.4); Sodium 136 mmol/L (136-145); Total Protein 7.6 gm/dl (6.0-8.3); Troponin I High Sensitivity 3.5 pg/ml (0-14)
[2022-07-31] MEDS ORDERED: OPTIRAY 320 500ml IV ONE (19:02)
--- NOTE | 2022-07-31 19:12 | CT Scan Report ---
CT OF THE HEAD WITHOUT CONTRAST CLINICAL HISTORY: ?seizure, starring episode COMPARISON STUDY: MRI of the brain April 29, [address] March 31, 2022. TECHNIQUE: Helical axial images of the head were obtained without IV contrast. Automated exposure con trol was utilized for the study. A dose lowering technique was utilized adhering to the principles o f ALARA. FINDINGS: No acute intracranial hemorrhage, midline shift or mass effect is present. White matter hyp odensities are unchanged. These favor small vessel disease. The appearance of the brain is unchanged. The ventricular system is unremarkable. The basal cisterns are patent. No extra-axial collections ar e present. There are no findings to suggest acute dural sinus thrombosis or acute territorial infarct . No significant calvarial abnormalities are present. Visualized portions of the sinuses and mastoid air cells are clear. IMPRESSION: No acute intracranial findings. No change since prior head CT. ACT 112: Negative or not required by law. Electronically signed by: Franklin Dash M.D. 07/31/2022 7:10 PM
--- NOTE | 2022-07-31 19:20 | CT Scan Report ---
CT ANGIOGRAPHY OF THE NECK WITH CONTRAST CLINICAL HISTORY: ?seizure, starring episode COMPARISON STUDY: CTA of the neck April 19, 2019. Technique: CT angiography of the carotid and vertebral arteries was obtained using Optiray and 3D rec onstruction on an independent workstation. NASCET criteria was utilized. Automated exposure control was utilized for the study. A dose lowering technique was utilized adhering to the principles of ALA RA. Findings: A 4 mm left upper lobe nodule on image 47 of 344 has slightly increased in size since CT of April 19, 2019. There is no cervical lymphadenopathy. No acute cervical spine fracture is present. Th e bilateral common carotid, cervical internal carotid and vertebral arteries are patent. No dissectio n or significant stenosis is identified within these vessels. There is mild plaque within the proxima l right internal carotid artery. This does not result in significant stenosis. IMPRESSION: 1. No stenosis or dissection within the bilateral common carotid, cervical internal carotid or verteb ral arteries. 2. Slight increase in size of a 4 mm left upper lobe pulmonary nodule. A follow-up chest CT in 6 belen hs is recommended. ACT 112: Negative or not required by law. Electronically signed by: Franklin Dash M.D. 07/31/2022 7:17 PM
--- NOTE | 2022-07-31 19:29 | CT Scan Report ---
CTA ANGIOGRAPHY OF THE HEAD CLINICAL HISTORY: ?seizure, starring episode COMPARISON STUDY: CTA of the head April 19, 2019. TECHNIQUE: Helical axial images of the head were obtained following uneventful intravenous administr ation of 120 cc of Optiray. Sagittal and coronal reconstructions were viewed as well as maximal inten sity projections on an independent 3-D workstation. Automated exposure control was utilized for the study. A dose lowering technique was utilized adhering to the principles of ALARA. CT DOSE: 952.04 mGy.cm FINDINGS: Please note that the head CT will be reported separately. No acute intracranial hemorrhage, midline shift or mass effect is present. Ventricular system is normal. There is extensive plaque wit hin the right cavernous carotid which results in moderate stenosis of this vessel. There is moderate plaque within the left cavernous carotid without stenosis. There is no intracranial aneurysm. There i s no central vessel occlusion. Posterior circulation is intact. IMPRESSION: 1. No central vessel occlusion. No intracranial aneurysm. 2. Moderate stenosis of the right cavernous carotid due to extensive calcified plaque. ACT 112: Negative or not required by law. Electronically signed by: Franklin Dash M.D. 07/31/2022 7:28 PM
[2022-07-31 19:38] LABS: Appearance Urine Clear (Clear); Bacteria Urine Automated Negative (Negative); Bilirubin Urine Negative (Negative); Blood Urine Negative (Negative); Cast Urine Automated 0 /lpf (0-5); Color Urine Yellow; Glucose Urine UA Negative (Negative); Ketones Urine Negative (Negative); Leukocyte Esterase Urine 1+ (Negative); Nitrite Urine Negative (Negative); Protein Urine Negative (Negative); RBC Urine Automated 0-4 /hpf (0-4); Specific Gravity Urine 1.013 (1.000-1.030); Urobilinogen Urine Negative (Negative); pH Urine 7.5 (4.5-7.5)
[2022-07-31] MEDS ORDERED: SODIUM CHLORIDE 0.9% 1000ML 1,000 ML IV ONE (20:21)
[2022-07-31 21:10] LABS: Partial Thromboplastin Ratio 0.9; Partial Thromboplastin Time 25.1 Seconds (21.0-31.0)
[2022-07-31] MEDS ORDERED: cefTRIAXone SODIUM 2,000 MG/70 ML BAG IV STA (21:12)
[2022-07-31 21:18] LABS: Potassium 4.1 mmol/L (3.5-5.1)
[2022-07-31] MEDS ORDERED: DEXTROSE 50% 50 ML SYRINGE IV PRN (22:15)
[2022-07-31] MEDS ORDERED: GLUCOSE 10 TAB/TUBE PO PRN (22:15)
[2022-07-31] MEDS ORDERED: ACETAMINOPHEN 325 MG TAB PO PRN (22:15)
[2022-07-31] MEDS ORDERED: oxyCODONE HCL IR 5 MG TAB (IMMEDIATE RELEASE) PO PRN (22:15)
[2022-07-31] MEDS ORDERED: PROMETHAZINE HCL 12.5 MG in SODIUM CHLORIDE 0.9% 50 ML IV PRN (22:15)
[2022-07-31] MEDS ORDERED: GLUCOSE 40% GEL 15 GM TUBE PO PRN (22:15)
[2022-07-31] MEDS ORDERED: LORazepam 1 MG/1 ML SYR IV PRN (22:15)
[2022-07-31] MEDS ORDERED: GLUCAGON FOR INJ 1 MG VIAL SQ PRN (22:15)
[2022-07-31] MEDS ORDERED: PRAMIPEXOLE DIHYDROCHLORIDE 1 MG TAB PO SCH (22:15)
[2022-07-31] MEDS ORDERED: CARBOHYDRATES FOR HYPOGLYCEMIA PO PRN (22:15)
[2022-07-31] MEDS ORDERED: LORazepam 1 MG in SYRINGE 0 ML IV PRN (22:34)
[2022-07-31] MEDS: INSULIN ASPART PER UNIT SC SCH (22:57)
[2022-07-31] MEDS ORDERED: FLUARIX QUADRIVALENT 0.5 ML SYR IM ONE (23:01)
[2022-07-31] MEDS ORDERED: GADOBUTROL 65ML VIAL IV ONE (23:35)
[2022-08-01] MEDS: PRAMIPEXOLE DIHYDROCHLO 0.5 MG TAB PO SCH ×2 (00:29→18:06)
[2022-08-01] MEDS ORDERED: LANTUS PER UNIT CHARGE SQ STA (01:14)
[2022-08-01] MEDS ORDERED: SODIUM CHLORIDE 0.9% 1000ML 1,000 ML IV ONE ×2 (01:15→06:30)
[2022-08-01] MEDS: LEVOTHYROXINE SODIUM 88 MCG TABLET PO SCH (05:41)
[2022-08-01 07:20] LABS: Estimated Average Glucose 171 mg/dl; Hemoglobin A1C 7.6 % (4.5-5.6)
[2022-08-01 07:21] LABS: Basophils # (auto) 0.05 K/uL (0-0.2); Basophils % (auto) 0.6 %; Eosinophils # (auto) 0.36 K/uL (0-0.50); Eosinophils % (auto) 4.5 %; Hematocrit (blood only) 38.5 % (34.1-44.9); Hemoglobin 13.8 g/dl (12.0-16.0); Immature Granulocytes # (auto) 0.02 K/uL (0.00-0.02); Immature Granulocytes % (auto) 0.3 %; Lymphocytes % (auto) 35.2 %; Mean Corpuscular Hemoglobin 34.6 pg (25.0-34.0); Mean Corpuscular Hgb Conc 35.8 g/dL (32.0-36.0); Mean Corpuscular Volume 96.5 fL (80.0-100.0); Mean Platelet Volume 9.7 fL (9.4-12.3); Monocytes % (auto) 7.5 %; Neutrophils # (auto) 4.13 K/uL (1.4-6.5); Neutrophils % (auto) 51.9 %; Platelet Count 186 K/uL (130-400); RDW Coefficient of Variation 12.2 % (11.5-14.5); RDW Standard Deviation 43.3 fL (36.4-46.3); Red Blood Count 3.99 M/uL (3.93-5.22); White Blood Count 7.96 K/ul (4.8-10.8)
[2022-08-01 07:59] LABS: Chol HDL Ratio 3.1 (0-5); Creatinine Clr Calc Pharmacy 68.1 ml/min; Est GFR (African American) 109.9 ml/min; Est GFR (Non-African American) 94.8 ml/min; Potassium 3.7 mmol/L (3.5-5.1)
[2022-08-01] MEDS: INSULIN ASPART PER UNIT SC SCH ×4 (08:04→20:03)
--- NOTE | 2022-08-01 08:20 | Electrocardiogram Report ---
Test Reason : Blood Pressure : / mmHG Vent. Rate : 076 BPM Atrial Rate : 076 BPM P-R Int : 134 ms QRS Dur : 072 ms QT Int : 370 ms P-R-T Axes : 019 -36 016 degrees QTc Int : 416 ms Normal sinus rhythm Left axis deviation Low voltage QRS Abnormal ECG When compared with ECG of 31-MAR-2022 04:10, No significant change Confirmed by Dilan Carrington ([id number]) on 08/01/2022 8:20:05 AM Referred By: REFERRED SELF Confirmed By:Dilan Carrington
--- NOTE | 2022-08-01 08:43 | Magnetic Resonance Report ---
MRI OF THE BRAIN COMBO CLINICAL HISTORY: Seizure. COMPARISON STUDY: CT of the brain dated 07/31/2022. TECHNIQUE: MRI of the brain was performed utilizing various T1 and T2-weighted sequences in the axial , sagittal, and coronal planes. Contrast-enhanced sequences were acquired following the administratio n of 5.5 cc of Gadavist. The examination is performed using the seizure protocol. FINDINGS: Brain parenchyma: There is age-related involutional change noting mild subcortical and periventricula r microangiopathic disease. There is no hemorrhage or mass effect. There is no restricted diffusion t o suggest acute ischemia. No enhancing mass lesion is identified on the postcontrast images. Levi-whi te matter differentiation is preserved. No extra-axial fluid collection is seen. The cerebellar tonsi ls are normal in configuration. The hippocampi are normal and symmetric. Ventricles, sulci, and cisterns: Prominent secondary to involutional change. Pituitary and sella: Unremarkable. Intracranial vasculature: Normal flow voids are maintained at the skull base. Orbits: The bony orbits are grossly intact. Orbital contents are normal in appearance noting bilatera l ocular lens implants. Sinuses and mastoids: Clear. Calvarium: Unremarkable. Cervical cord: Partially visualized cervical spinal cord is normal in morphology and signal intensity . IMPRESSION: No acute intracranial abnormality. ACT 112: Negative or not required by law. Electronically signed by: Kristofer Wheeler M.D. 08/01/2022 8:42 AM
--- NOTE | 2022-08-01 08:51 | History & Physical Report ---
Date of Service July 31, 2022 (late entry) Assessment & Plan (1) Unresponsiveness: Plan: Transient unresponsiveness with slurred speech symptoms Seizures versus TIA (history questionable stroke as per records) versus orthostasis Complicated UTI,, no overt sepsis for now Left-sided chest pain from from yesterday Rule out ACS, history of old myocardial infarction as per outpatient records hypertension, BP on the lower side hypothyroidism, euthyroid as of today's TSH mild cognitive impairment as per records Solitary pulmonary nodule left, slight increase in size on CT today Painful subcutaneous tissue nodule over the sacrum, possible neuroma ongoing tobacco abuse OBS PCU Neurochecks Continue patient's home Plavix for CAD/CVA prevention. EEG, MRI brain for possible seizure work-up Seizure precautions, Ativan as needed active seizures TIA work-up MRI, TTE Check orthostatic vitals Urine CS, Ceftriaxone Cardiology consult in a.m. Re: Left-sided chest pain, history of myocardial infarction as per records (Patient known to [facility] N.p.o. until patient seen by cardiology in a.m. in anticipation of ischemic work-up. Outpatient follow-up CT chest imaging for pulmonary nodule after 6 months. Outpatient surgery consultation for sacral nodule. PT OT eval Basal bolus insulin adjusted for n.p.o. status, ISS BG goal 1 10-1 40, update hemoglobin A1c DVT prophylaxis. Lovenox subcu Full code Patient son requesting updates from providers. Mr. Jacoby Loja, contact #[phone]. Text document was generated using [employer] voice recognition software. It may contain grammatical or spelling errors. Kindly contact undersigned for clarification of any documentation item in question. Admission and Anticipated Discharge Date Admission Date: July 31, 2022 History of Present Illness Chief Complaint: Transient unresponsiveness, slurred speech Primary Care Provider: Asuncion Suarez DO History obtained from patient, family, and records. Medical history significant for old myocardial infarction/questionable stroke as per records, hypertension, hyperlipidemia, DM2 insulin requiring, hypothyroidism, neurogenic bladder as per records, mild cognitive impairment as per records, RLS/peripheral neuropathy, ongoing tobacco abuse. Last confinement March 2022 for unresponsiveness secondary to hypoglycemia. Patient experienced achy left-sided chest pain symptoms going to the arm yesterday. No consultations done. Patient had an episode of emesis yesterday morning without abdominal pain complaints. Fever, no chills, no dysuria symptoms. Persistent small bump on her tailbone the last 3 months. Emesis attributed to high sugars as per patient. Patient was in the kitchen with her family this afternoon. Patient suddenly became unresponsive, grabbing at the stove, blank stare for about a minute with trembling as per family account. No witnessed generalized tonic-clonic seizures, tongue biting, or incontinence. Patient laid on the recliner. Patient more awake after a couple of minutes. Transient slurred speech post unresponsive episode as per son happens to be an EMT. Patient denies chest pain, SOB. 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 Allergies Allergies Allergy/AdvReac Type Severity Reaction Status Date / Time No Known Drug Allergies Allergy Unknown Verified 07/31/22 17:46 Home Medications Medication Instructions Recorded Confirmed Type clopidogrel 75 mg tablet 75 mg PO DAILY 05/24/19 07/31/22 History lisinopril 10 mg tablet 10 mg PO DAILY #30 tabs 05/24/19 07/31/22 History metoprolol succinate 25 mg 25 mg PO QAM 05/24/19 07/31/22 History tablet,extended release 24 hr atorvastatin 20 mg tablet 20 mg PO DAILY 07/26/19 07/31/22 History pen needle, diabetic 31 gauge x #360 ea 12/24/19 07/31/22 Rx 1/4" (Comfort EZ Pen [place]) levothyroxine 88 mcg tablet See Rx Instructions .Route 02/20/20 07/31/22 Rx .COMPLEX #100 tabs blood sugar diagnostic (OneTouch #10 ea 02/15/21 07/31/22 History Verio test strips) hydrochlorothiazide 12.5 mg tablet 12.5 mg PO DAILY 02/15/21 07/31/22 History solifenacin 5 mg tablet 5 mg PO DAILY 02/15/21 07/31/22 History glucagon 1 mg/0.2 mL subcutaneous 1 mg (0.2 mL) subcut UD PRN 03/31/22 07/31/22 Rx auto-injector hypoglycemic coma/unresponsivenss #0.2 mL donepezil 5 mg tablet (Aricept) 5 mg PO HS #90 tabs 07/18/22 07/31/22 Rx pramipexole 1 mg tablet 1 mg PO .COMPLEX #90 tabs 07/18/22 07/31/22 Rx dulaglutide 3 mg/0.5 mL 3 mg subcut WK 07/31/22 07/31/22 History subcutaneous pen injector (Trulicity) insulin detemir U-100 100 unit/mL 40 unit subcut HS 07/31/22 07/31/22 History (3 mL) subcutaneous pen (Levemir FlexTouch U-100 Insulin) omeprazole 20 mg capsule,delayed 20 mg PO QAM 07/31/22 07/31/22 History release Past Med/Surg History Medical History Alzheimer disease Degenerative disc disease Depression Diabetes mellitus, type 2 Fatty liver disease, nonalcoholic Heartburn Hyperlipidemia Hypertension Hypothyroidism Lichen sclerosus Myocardial Infarction On anticoagulant therapy Restless leg syndrome Sleep apnea Stroke Syncope Surgical History History of bilateral cataract extraction History of carpal tunnel release History of colonoscopy History of colonoscopy with polypectomy History of dilatation and curettage History of left breast biopsy History of right breast biopsy History of surgical procedure on eye proper using laser History of tooth extraction History of tooth extraction Family History Father Family history of diabetes mellitus Brother Family history of diabetes mellitus 2 Mother Family history of diabetes mellitus Family history of breast cancer Social History Smoking Status: Current every day smoker Tobacco Type: Cigarettes Cigarettes Per Day: 4; Second Hand Exposure: Yes; Hx Alcohol Use: No Hx Substance Use: No Preferred Language: Cymro Communication Ability: Effective Needle Loom Setter Required: No Beliefs That Will Affect Care: None Current Living Situation: Family How many Children do You have: 1 Feels Safe at Home: Yes Safety Concerns: Feels Safe At This Time Assistive Devices: Denture - Upper Assistive Devices Comment: denture not here,at home Review of Systems Review of Systems: As per HPI, all other systems reviewed and negative Physical Exam Physical Exam: GENERAL: Comfortable, pleasant, no respiratory distress SKIN: Normal color, warm HEENT: [place] palpebral conjunctivae, no ptosis, dry buccal mucosa NECK : Supple, no tenderness CHEST : CTA, no tenderness HEART : RRR, no obvious murmurs ABDOMEN: Some distention, nontender EXTREMITIES : No LE swelling/tenderness, no other conspicuous deformities noted NEUROLOGIC : Coherent, no facial asymmetry, gait and stance not assessed Results & Data Results & Data ([facility]) Vital Signs (Past 12 Hours) Vital Signs Temp Pulse Pulse Resp BP BP BP 08/01/22 07:52 36.7 C 84 18 107/70 08/01/22 07:00 78 08/01/22 04:50 82 99/55 L 08/01/22 03:34 36.9 C 73 16 08/01/22 01:38 79 07/31/22 22:15 07/31/22 22:35 37.0 C 83 20 123/59 L 123/59 L 07/31/22 22:00 83 15 115/69 07/31/22 21:00 79 18 137/73 Pulse Ox Pulse Ox O2 Del Method O2 Del Method 08/01/22 07:52 97 Room Air 08/01/22 07:00 08/01/22 04:50 08/01/22 03:34 94 Room Air 08/01/22 01:38 07/31/22 22:15 97 Room Air 07/31/22 22:35 96 07/31/22 22:00 95 Room Air 07/31/22 21:00 99 Room Air Laboratory Results Vital Signs - 24 hr 07/31/22 17:15 07/31/22 17:32 07/31/22 17:29 Temperature 36.6 C Temperature Source Oral Pulse Rate 82 77 Pulse Rate from SpO2 Sensor 77 Respiratory Rate 16 18 Respiratory Effort / Characteristics Non-Labored Spontaneous Respiratory Depth Normal Respiratory Pattern Regular Blood Pressure 113/66 Blood Pressure Mean 81 Blood Pressure Position Sitting Pulse Oximetry 99 98 99 Oxygen Delivery Method Room Air Room Air Sepsis Recent Fever Within 48 Hours No Sepsis New/Unexplained Change in Mental Status No Sepsis Action Taken by Nursing No Action Required 07/31/22 17:30 07/31/22 17:32 07/31/22 17:33 Temperature Temperature Source Pulse Rate 81 77 Pulse Rate from SpO2 Sensor 83 76 Respiratory Rate 19 15 Respiratory Effort / Characteristics Respiratory Depth Respiratory Pattern Blood Pressure 112/68 Blood Pressure Mean 82 Blood Pressure Position Pulse Oximetry 99 98 Oxygen Delivery Method Sepsis Recent Fever Within 48 Hours Sepsis New/Unexplained Change in Mental Status Sepsis Action Taken by Nursing B 07/31/22 17:33 07/31/22 18:00 07/31/22 18:32 Temperature Temperature Source B Pulse Rate 82 74 74 Pulse Rate from SpO2 Sensor 80 74 74 Respiratory Rate 17 22 14 Respiratory Effort / Characteristics Respiratory Depth Respiratory Pattern Blood Pressure 125/74 106/69 106/69 Blood Pressure Mean 91 81 81 Blood Pressure Position Pulse Oximetry 99 96 99 Oxygen Delivery Method Sepsis Recent Fever Within 48 Hours Sepsis New/Unexplained Change in Mental Status Sepsis Action Taken by Nursing 07/31/22 19:11 07/31/22 20:02 Temperature Temperature Source Pulse Rate 81 76 Pulse Rate from SpO2 Sensor 82 76 Respiratory Rate 18 23 Respiratory Effort / Characteristics Respiratory Depth Respiratory Pattern Blood Pressure 105/62 105/60 Blood Pressure Mean 76 75 Blood Pressure Position Pulse Oximetry 98 96 Oxygen Delivery Method Room Air Room Air Sepsis Recent Fever Within 48 Hours Sepsis New/Unexplained Change in Mental Status Sepsis Action Taken by Nursing Laboratory Data Result diagrams: 07/31/22 17:32 07/31/22 20:37 Lab Results 07/31/22 07/31/22 07/31/22 Range/Units 17:32 17:32 17:32 WBC 9.40 (4.8-10.8) K/ul RBC 4.79 (3.93-5.22) M/uL Hgb 16.3 H (12.0-16.0) g/dl Hct 45.3 H (34.1-44.9) % MCV 94.6 (80.0-100.0) fL MCH 34.0 (25.0-34.0) pg MCHC 36.0 (32.0-36.0) g/dL RDW Std Deviation 43.0 (36.4-46.3) fL RDW Coeff of Leny 12.3 (11.5-14.5) % Plt Count 234 (130-400) K/uL MPV 10.0 (9.4-12.3) fL Immature Gran % (Auto) 0.3 % Neut % (Auto) 69.1 % Lymph % (Auto) 20.2 % [place] % (Auto) 6.9 % Eos % (Auto) 2.9 % Baso % (Auto) 0.6 % Neut # (Auto) 6.49 (1.4-6.5) K/uL Lymph # (Auto) 1.90 (1.2-3.4) K/uL [place] # (Auto) 0.65B (0.24-0.82) K/uL Eos # (Auto) 0.27 (0-0.50) K/uL Baso # (Auto) 0.06 (0-0.2) K/uL Immature Gran # (Auto) 0.03 H (0.00-0.02) K/uL PT Cancelled INR Cancelled APTT Cancelled PTT Ratio Cancelled Sodium 136 (136-145) mmol/L Potassium TNP Chloride 100 (98-107) mmol/L Carbon Dioxide 29 (21-32) mmol/L Anion Gap 7 (3-11) BUN 21 (6-23) mg/dl Creatinine 0.80 (0.6-1.2) mg/dl Est Cr Clr Drug Dosing 53.6 ml/min Est GFR ( Amer) 90.3 ml/min Est GFR (Non-Af Amer) 77.9 ml/min BUN/Creatinine Ratio 26.3 H (10-20) Glucose 95 (70-99(Fasting)) mg/dl Calcium 10.2 H (8.5-10.1) mg/dl Magnesium 1.7 (1.7-2.4) mg/dl Total Bilirubin 0.8 (0.2-1.0) mg/dl AST TNP ALT 33 (7-52) U/L Alkaline Phosphatase 97 (34-104) U/L Troponin I High Sens 3.5 (0-14) pg/ml Total Protein 7.6 (6.0-8.3) gm/dl Albumin 4.4 (3.4-5.0) gm/dl Globulin 3.2 (2.5-4.0) gm/dl Albumin/Globulin Ratio 1.4 (0.9-2) TSH (0.300-4.500) uIu/ml Prolactin ng/ml Urine Color Urine Appearance (Clear) Urine pH (4.5-7.5) Ur Specific [place] (1.000-1.030) Urine Protein (Negative) Urine Glucose (UA) (Negative) Urine Ketones (Negative) Urine Blood (Negative) Urine Nitrite (Negative) Urine Bilirubin (Negative) Urine Urobilinogen (Negative) Ur Leukocyte Esterase (Negative) Urine WBC (Auto) (0-5) /hpf Urine RBC (Auto) (0-4) /hpf U Hyaline Cast (Auto) (0-5) /lpf U Epithel Cells (Auto) (0-5) /lpf Urine Bacteria (Auto) (Negative) SARS-CoV-2, RNA, NAAT (NEGATIVE) 07/31/22 07/31/22 07/31/22 Range/Units 17:32 18:30 19:10 WBC (4.8-10.8) K/ul RBC (3.93-5.22) M/uL Hgb B (12.0-16.0) g/dl Hct (34.1-44.9) % MCV (80.0-100.0) fL MCH (25.0-34.0) pg MCHC (32.0-36.0) g/dL RDW Std Deviation (36.4-46.3) fL RDW Coeff of Leny (11.5-14.5) % Plt Count (130-400) K/uL MPV (9.4-12.3) fL Immature Gran % (Auto) % Neut % (Auto) % Lymph % (Auto) % [place] % (Auto) B % Eos % (Auto) % Baso % (Auto) % Neut # (Auto) (1.4-6.5) K/uL Lymph # (Auto) (1.2-3.4) K/uL [place] # (Auto) (0.24-0.82) K/uL Eos # (Auto) (0-0.50) K/uL Baso # (Auto) (0-0.2) K/uL Immature Gran # (Auto) (0.00-0.02) K/uL PT INR APTT PTT Ratio Sodium (136-145) mmol/L Potassium Chloride (98-107) mmol/L Carbon Dioxide (21-32) mmol/L Anion Gap (3-11) BUN (6-23) mg/dl Creatinine (0.6-1.2) mg/dl Est Cr Clr Drug Dosing ml/min Est GFR ( Amer) ml/min Est GFR (Non-Af Amer) ml/min BUN/Creatinine Ratio (10-20) Glucose (70-99(Fasting)) mg/dl Calcium (8.5-10.1) mg/dl Magnesium (1.7-2.4) mg/dl Total Bilirubin (0.2-1.0) mg/dl AST ALT (7-52) U/L Alkaline Phosphatase (34-104) U/L Troponin I High Sens (0-14) pg/ml Total Protein (6.0-8.3) gm/dl Albumin (3.4-5.0) gm/dl Globulin (2.5-4.0) gm/dl Albumin/Globulin Ratio (0.9-2) TSH B (0.300-4.500) uIu/ml Prolactin 3.03 ng/ml Urine Color Yellow Urine Appearance Clear (Clear) Urine pH 7.5 (4.5-7.5) Ur Specific [place] 1.013 (1.000-1.030) Urine Protein Negative (Negative) Urine Glucose (UA) Negative (Negative) Urine Ketones Negative (Negative) Urine Blood Negative (Negative) Urine Nitrite Negative (Negative) Urine Bilirubin Negative (Negative) Urine Urobilinogen Negative (Negative) Ur Leukocyte Esterase 1+ H (Negative) Urine WBC (Auto) 5-10 H (0-5) /hpf Urine RBC (Auto) 0-4 (0-4) /hpf U Hyaline Cast (Auto) 0 (0-5) /lpf U Epithel Cells (Auto) 5-10 H (0-5) /lpf Urine Bacteria (Auto) Negative (Negative) SARS-CoV-2, RNA, NAAT NEGATIVE (NEGATIVE) 07/31/22 07/31/22 07/31/22 Range/Units 20:37 20:37 20:37 WBC (4.8-10.8) K/ul RBC (3.93-5.22) M/uL Hgb (12.0-16.0) g/dl Hct (34.1-44.9) % MCV (80.0-100.0) fL MCH (25.0-34.0) pg MCHC (32.0-36.0) g/dL RDW Std Deviation (36.4-46.3) fL RDW Coeff of Leny (11.5-14.5) % Plt Count (130-400) K/uL MPV (9.4-12.3) fL Immature Gran % (Auto) % Neut % (Auto) % Lymph % (Auto) % [place] % (Auto) % Eos % (Auto) % Baso % (Auto) % Neut # (Auto) B (1.4-6.5) K/uL Lymph # (Auto) (1.2-3.4) K/uL [place] # (Auto) (0.24-0.82) K/uL Eos # (Auto) (0-0.50) K/uL Baso # (Auto) (0-0.2) K/uL Immature Gran # (Auto) (0.00-0.02) K/uL PT 11.0 INR 1.0 APTT 25.1 PTT Ratio 0.9 Sodium (136-145) mmol/L Potassium 4.1 Chloride (98-107) mmol/L Carbon Dioxide (21-32) mmol/L Anion Gap (3-11) BUN (6-23) mg/dl Creatinine (0.6-1.2) mg/dl Est Cr Clr Drug Dosing ml/min Est GFR ( Amer) ml/min Est GFR (Non-Af Amer) ml/min BUN/Creatinine Ratio (10-20) Glucose (70-99(Fasting)) mg/dl Calcium (8.5-10.1) mg/dl Magnesium (1.7-2.4) mg/dl Total Bilirubin (0.2-1.0) mg/dl AST 22 ALT (7-52) U/L Alkaline Phosphatase (34-104) U/L Troponin I High Sens (0-14) pg/ml Total Protein (6.0-8.3) gm/dl Albumin (3.4-5.0) gm/dl Globulin (2.5-4.0) gm/dl Albumin/Globulin Ratio (0.9-2) TSH 0.422 (0.300-4.500) uIu/ml Prolactin ng/ml Urine Color Urine Appearance (Clear) Urine pH (4.5-7.5) Ur Specific [place] (1.000-1.030) Urine Protein (Negative) Urine Glucose (UA) (Negative) Urine Ketones (Negative) Urine Blood (Negative) Urine Nitrite (Negative) Urine Bilirubin (Negative) Urine Urobilinogen (Negative) Ur Leukocyte Esterase (Negative) Urine WBC (Auto) (0-5) /hpf Urine RBC (Auto) (0-4) /hpf U Hyaline Cast (Auto) (0-5) /lpf U Epithel Cells (Auto) (0-5) /lpf Urine Bacteria (Auto) (Negative) SARS-CoV-2, RNA, NAAT (NEGATIVE) Administered Medications Sodium Chloride (Nss 1000ml) 1,000 mls @ 500 mls/hr IV .Q2H ONE Stop: 07/31/22 22:20 Last Admin: 07/31/22 21:33 Dose: 500 mls/hr Documented By: GUSTAVO Discontinued Medications Ceftriaxone Sodium (Rocephin) 2,000 mg in 70 mls @ 140 mls/hr IV NOW STA Stop: 07/31/22 21:41 Last Admin: 07/31/22 21:33 Dose: 140 mls/hr Documented By: GUSTAVO Ioversol (Optiray 320 500ml) 120 ml IV ONCE ONE Stop: 07/31/22 19:03 Last Admin: 07/31/22 19:03 Dose: 120 ml Documented By: EDK Imaging Data Radiologist's Impression: Head CT 07/31/22 17:43 CT OF THE HEAD WITHOUT CONTRAST CLINICAL HISTORY: ?seizure, starring episode COMPARISON STUDY: MRI of the brain April 29, [address] March 31, 2022. TECHNIQUE: Helical axial images of the head were obtained without IV contrast. Automated exposure control was utilized for the study. A dose lowering technique was utilized adhering to the principles of ALARA. FINDINGS: No acute intracranial hemorrhage, midline shift or mass effect is present. White matter hypodensities are unchanged. These favor small vessel disease. The appearance of the brain is unchanged. The ventricular system is unremarkable. The basal cisterns are patent. No extra-axial collections are present. There are no findings to suggest acute dural sinus thrombosis or acute territorial infarct. No significant calvarial abnormalities are present. Visualized portions of the sinuses and mastoid air cells are clear. IMPRESSION: No acute intracranial findings. No change since prior head CT. ACT 112: Negative or not required by law. Electronically signed by: Franklin Dash M.D. 07/31/2022 7:10 PM Head CTA 07/31/22 17:43 CTA ANGIOGRAPHY OF THE HEAD CLINICAL HISTORY: ?seizure, starring episode COMPARISON STUDY: CTA of the head April 19, 2019. TECHNIQUE: Helical axial images of the head were obtained following uneventful intravenous administration of 120 cc of Optiray. Sagittal and coronal reconstructions were viewed as well as maximal intensity projections on an independent 3-D workstation. Automated exposure control was utilized for the study. A dose lowering technique was utilized adhering to the principles of ALARA. CT DOSE: 952.04 mGy.cm FINDINGS: Please note that the head CT will be reported separately. No acute intracranial hemorrhage, midline shift or mass effect is present. Ventricular system is normal. There is extensive plaque within the right cavernous carotid which results in moderate stenosis of this vessel. There is moderate plaque within the left cavernous carotid without stenosis. There is no intracranial aneurysm. There is no central vessel occlusion. Posterior circulation is intact. IMPRESSION: 1. No central vessel occlusion. No intracranial aneurysm. 2. Moderate stenosis of the right cavernous carotid due to extensive calcified plaque. ACT 112: Negative or not required by law. Electronically signed by: Franklin Dash M.D. 07/31/2022 7:28 PM Neck CTA 07/31/22 17:43 CT ANGIOGRAPHY OF THE NECK WITH CONTRAST CLINICAL HISTORY: ?seizure, starring episode COMPARISON STUDY: CTA of the neck April 19, 2019. Technique: CT angiography of the carotid and vertebral arteries was obtained using Optiray and 3D reconstruction on an independent workstation. NASCET criteria was utilized. Automated exposure control was utilized for the study. A dose lowering technique was utilized adhering to the principles of ALARA. Findings: A 4 mm left upper lobe nodule on image 47 of 344 has slightly increased in size since CT of April 19, 2019. There is no cervical lymphadenopathy. No acute cervical spine fracture is present. The bilateral common carotid, cervical internal carotid and vertebral arteries are patent. No dissection or significant stenosis is identified within these vessels. There is mild plaque within the proximal right internal carotid artery. This does not result in significant stenosis. IMPRESSION: 1. No stenosis or dissection within the bilateral common carotid, cervical internal carotid or vertebral arteries. 2. Slight increase in size of a 4 mm left upper lobe pulmonary nodule. A follow- up chest CT in 6 months is recommended. ACT 112: Negative or not required by law. Electronically signed by: Franklin Dash M.D. 07/31/2022 7:17 PM Diagnostic Findings EKG as per my interpretation :Rate 75, NSR, LAD, LAFB, T wave flattening inferior leads Code Status & VTE Plan VTE Prophylaxis Plan VTE Prophylaxis will be ordered: Yes
[2022-08-01] MEDS: ATORVASTATIN 20 MG TAB PO SCH (09:11)
[2022-08-01] MEDS: CLOPIDOGREL BISULFATE 75 MG TAB PO SCH (09:11)
[2022-08-01] MEDS: PANTOprazole 40 MG TAB PO SCH (09:11)
[2022-08-01] MEDS: ENOXAPARIN INJ 40 MG/0.4 ML SYR SQ SCH (09:12)
[2022-08-01] MEDS: METOPROLOL SUCC 25MG EXT REL TAB PO SCH (09:13)
--- NOTE | 2022-08-01 10:59 | XCELERA ---
[id number]
--- NOTE | 2022-08-01 11:36 | Cardiology Consultation ---
Date of Consultation August 01, 2022 Assessment & Plan (1) Arm paresthesia, left: (2) Spell of altered consciousness: (3) Uncontrolled type 2 diabetes mellitus with insulin therapy: Plan 66-year-old woman with diabetes mellitus and other vascular risk factors but no documented history of CAD who was admitted after an unresponsive episode, which had been preceded by a very transient (lasting seconds) left arm/chest episode of paresthesia a day earlier. She denies any chest or arm pain or paresthesias since or before. Isolated episode of atypical symptoms in patient with unremarkable ECG and negative enzymes, no evidence of acute cardiac event. Her unresponsive episode seems to be separate and perhaps similar to prior episodes which had a hypoglycemic component. She is certainly at risk of vascular disease and should be continued on atorvastatin and either aspirin or clopidogrel (defer to neurology) as well as her antihypertensive regimen (hydrochlorothiazide and lisinopril). No need for inpatient ischemic evaluation, in the absence of recurrent symptoms would focus on risk factor prevention, if she does have progressive or more typical symptoms suggestive of myocardial ischemia she could be considered for a stress study in the future. Will sign off, please contact if further potential cardiac issues arise. History of Present Illness Reason for Consultation: Chest pain Requesting Physician: Myron Wei MD Attending Physician: David Stearns MD History of Present Illness 66-year-old woman with diabetes mellitus, recurrent hypoglycemia, and chronic cerebral ischemia who was admitted today (08/01/2022) after she had an episode yesterday of transient unresponsiveness while standing at the kitchen stove. Although her records suggest prior evidence of CAD and CVA, as detailed below neither of these is a confirmed diagnosis. Of note, she was seen in 2014 for a mild troponin elevation after syncopal episode which involved several episodes of vomiting, she had a positive Lyme titer which was felt to be contributing factor, she was thought to have had demand ischemia rather than myocardial event and a subsequent stress echocardiogram later that year showed no evidence of infarct or ischemia at fatiguing workload and 77% maximum predicted heart rate. In 2017, she was seen in the emergency department for flulike symptoms, nausea and vomiting, and altered mental status which ultimately was felt due to hypoglycemia. There was concern about a possible CVA, but neurologic consultation felt that there was only evidence of microvascular disease without any apparent acute or subacute CVA identified. She was admitted March 2022 with an unresponsive episode ultimately felt due to hypoglycemia as well. Several days ago she noted some "tingling" left upper chest and left arm shoulder to elbow discomfort at rest lasting only a matter of seconds occurring with no associated symptoms. At the time of her unresponsive episode yesterday, she did not note any chest or arm discomfort. She did have several episodes of vomiting over the past several days. She does note a chronic achy left shoulder pain ever since an injury this summer which was of a different character and occurs only with certain position changes/activities. At the time of my evaluation, she was comfortable and denied any chest pain, dyspnea, palpitations, or other complaints. She does not note routine chest or arm discomfort, only the recent transient atypical episode. Allergies Allergy/AdvReac Type Severity Reaction Status Date / Time No Known Drug Allergies Allergy Unknown Verified 07/31/22 17:46 Home Medications Medication Instructions Recorded Confirmed Type clopidogrel 75 mg tablet 75 mg PO DAILY 05/24/19 07/31/22 History lisinopril 10 mg tablet 10 mg PO DAILY #30 tabs 05/24/19 07/31/22 History metoprolol succinate 25 mg 25 mg PO QAM 05/24/19 07/31/22 History tablet,extended release 24 hr atorvastatin 20 mg tablet 20 mg PO DAILY 07/26/19 07/31/22 History pen needle, diabetic 31 gauge x #360 ea 12/24/19 07/31/22 Rx 1/4" (Comfort EZ Pen [place]) levothyroxine 88 mcg tablet See Rx Instructions .Route 02/20/20 07/31/22 Rx .COMPLEX #100 tabs blood sugar diagnostic (OneTouch #10 ea 02/15/21 07/31/22 History Verio test strips) hydrochlorothiazide 12.5 mg tablet 12.5 mg PO DAILY 02/15/21 07/31/22 History solifenacin 5 mg tablet 5 mg PO DAILY 02/15/21 07/31/22 History glucagon 1 mg/0.2 mL subcutaneous 1 mg (0.2 mL) subcut UD PRN 03/31/22 07/31/22 Rx auto-injector hypoglycemic coma/unresponsivenss #0.2 mL donepezil 5 mg tablet (Aricept) 5 mg PO HS #90 tabs 07/18/22 07/31/22 Rx pramipexole 1 mg tablet 1 mg PO .COMPLEX #90 tabs 07/18/22 07/31/22 Rx dulaglutide 3 mg/0.5 mL 3 mg subcut WK 07/31/22 07/31/22 History subcutaneous pen injector (Trulicity) insulin detemir U-100 100 unit/mL 40 unit subcut HS 07/31/22 07/31/22 History (3 mL) subcutaneous pen (Levemir FlexTouch U-100 Insulin) omeprazole 20 mg capsule,delayed 20 mg PO QAM 07/31/22 07/31/22 History release Patient History Medical History (Updated 08/01/22 @ 11:56 by Dilan Carrington MD) Adult ADHD Alzheimer disease Carpal tunnel syndrome Cervical radiculopathy at C5 Chronic cerebral ischemia Degenerative disc disease Depression Diabetes mellitus, type 2 Elevated troponin (2014) Fatty liver Fatty liver disease, nonalcoholic Heartburn OCC WITH CERTAIN DIETARY INTAKE/DENIES REFLUX/NO MEDS Hyperlipidemia Hypertension Hypothyroidism Lichen sclerosus Memory loss Obstructive sleep apnea On anticoagulant therapy on plavix Restless leg syndrome Sleep apnea cpap--was not using, planning to re-start use Syncope Surgical History History of bilateral cataract extraction History of carpal tunnel release bilt History of colonoscopy History of colonoscopy with polypectomy History of dilatation and curettage History of left breast biopsy benign History of right breast biopsy BENIGN History of surgical procedure on eye proper using laser right and left History of tooth extraction wisdom teeth History of tooth extraction all upper teeth Family History Father Family history of diabetes mellitus Brother Family history of diabetes mellitus 2 Mother Family history of diabetes mellitus Family history of breast cancer Social History Smoking Status: Current every day smoker Tobacco Type: Cigarettes Cigarettes Per Day: 4; Second Hand Exposure: Yes; Hx Alcohol Use: No Hx Substance Use: No Preferred Language: Uzbek Communication Ability: Effective Glove Former Required: No Beliefs That Will Affect Care: None Current Living Situation: Family How many Children do You have: 1 Feels Safe at Home: Yes Safety Concerns: Feels Safe At This Time Assistive Devices: Denture - Upper Assistive Devices Comment: denture not here,at home Physical Exam Physical Exam: Normal habitus adult white female in no distress. Afebrile. Normotensive Pulse 84 bpm and regular. Skin: no ecchymoses or generalized lesions. HEENT: unremarkable. Neck: no JVD or carotid bruits. Lungs: clear. Cardiac: regular rhythm, normal S1 and S2 no murmur or gallop. Abdomen: benign. Extremities: no edema, pulses intact. Left arm and shoulder with no pain on pushing against resistance. Neurologic: normal affect, nonfocal. Results & Data ([facility]) Vital Signs (Past 12 Hours) Vital Signs Temp Pulse Pulse Resp BP Pulse Ox O2 Del Method 08/01/22 07:52 98.1 F 84 18 107/70 97 Room Air 08/01/22 07:00 78 08/01/22 04:50 82 99/55 L 08/01/22 03:34 98.4 F 73 16 94 Room Air 08/01/22 01:38 79 Laboratory Results Troponin negative x2. Normal electrolytes, BUN 12, creatinine 0.63. Diagnostic Findings ECG showed sinus rhythm with left axis deviation low voltage QRS at 76 bpm. Compared with March 2022, no significant change. Echocardiogram showed normal systolic function with no wall motion abnormalities, normal LV wall thickness with grade 1 diastolic dysfunction, no significant valvular disease. No significant change compared with 2014. Chest x-ray showed no acute process. Telemetry showed sinus rhythm at 80 to 100 bpm with no significant ectopy or dysrhythmias. PG Care Time/CCT Total # of Minutes Spent Total Time Spent with Patient: Total time spent is greater than 50% in coordination of care (as documented) at patient's floor/unit and/or counseling patient: Coding Level of Care Code 38873 Inpt Consult Level 4 Diagnoses Arm paresthesia, left R20.2 Spell of altered consciousness R40.4 Uncontrolled type 2 diabetes mellitus with insulin therapy E11.65; Z79.4
--- NOTE | 2022-08-01 13:23 | Neurology Consultation ---
Date of Consultation August 01, 2022 Assessment & Plan (1) Spell of altered consciousness: (2) Mild cognitive impairment: (3) Restless leg syndrome: (4) Polyneuropathy: (5) Hypotension: Plan patient had an episode of altered responsiveness on July 31. Judging by the story and the fact that her blood pressure is low ( and even overtly orthostatic earlier this morning) I suspect that her issue was hypotension with decreased cerebral perfusion resulting in possibly some secondary seizure activity. I do not believe she has a primary seizure disorder. On exam she is back to baseline with no focal findings, meningeal signs, or encephalopathy. She did have some left upper extremity tenderness and pain stemming from a fall the summer where she landed on her upper arm. There are no neurologic deficits however. MRI showed some mild old small vessel ischemic disease but no stroke. I do not believe this event was a TIA either. 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 There is restless leg syndrome and polyneuropathy which is likely secondary to diabetes. Recommendations: 1. I see no need for additional neurologic testing at this time. There is also no indication to initiate an anticonvulsant at this time or to obtain an EEG. 2. Increase fluid intake to support blood pressure. We may need to decrease her blood pressure medications some as she is likely over corrected. 3. Continue donepezil 5 mg in the evening for her cognitive issues and pramipexole 1 mg each evening for the restless legs syndrome. 4. continue Plavix 75 mg daily. I see no need to add aspirin or make any changes to this. 5. please contact me if I can be of further assistance in this case otherwise follow up with Dr. Maza as an outpatient. Overall, I spent a total of 90 minutes with this case including review of records, review of MRI films, direct evaluation the patient at bedside, and discussion of the case with the patient and RN at bedside, and Dr. Stearns, including differential diagnosis and treatment options. History of Present Illness Reason for Consultation: Patient is a 66-year-old, who was asked to see at the request of Dr. Pantoja, for neurologic consultation regarding possible seizure Requesting Physician: Dr. Pantoja Attending Physician: David Stearns MD History of Present Illness the patient has a history of generalized polyneuropathy involving predominantly sensory fibers, restless leg syndrome, and mild cognitive impairment. Her memory issues have been going on for probably 3 or 4 years.She has a history of diabetes for 20 years and has issues with hypoglycemia. She has had syncopal episodes in the past with normal EEGs and MRIs, most recently in April of 2019. she has been on Plavix 75 mg a day and carries a diagnosis of mild old small vessel ischemic changes. She has also been on donepezil 5 mg a day and pramipexole 1 mg in the evening. She has never had a seizure before. In March of this year she was admitted for acute confusion which was likely s econdary to hypoglycemia and a CT scan of the head was unremarkable. she last saw Dr. Maza on July 18 of this year. She was stable. The patient was in her usual state of health When on July 31 she was sitting on the couch in the afternoon and was called to the kitchen by her son who needs something. She reached up and pulled a container down from the cabinet and then suddenly had the onset of some slurred speech and the inability to respond or talk (although she could hear ), became "stiff" holding her head up and her eyes open. She remembers this. Her body felt numb intense "all over". She still there and apparently was going to fall but her son caught her from falling. In a few minutes she was back to baseline. She arrived to the emergency room at 5:15 p.m. on July 31 with a temperature of 36.6, pulse 82 and regular, respiratory rate 16, blood pressure 113/66, and O2 saturation 99%. She was described as having a normal neurologic examination. CT scan of the head was unremarkable. CT angiography of the head and neck were unremarkable except for some moderate stenosis in the right cavernous carotid area. A pulmonary nodule looks a little bit bigger compared to a previous study. CBC and Chem profile were unremarkable except for glucose of 251. Hemoglobin A1c was 7.6. TSH and prolactin were normal. Total cholesterol was 145 Echocardiogram was unremarkable. MRI of the brain was unremarkable with no stroke although but with some mild old nonspecific small vessel ischemic changes , similar to the previous study. I reviewed these films. Today the patient feels back to baseline. She has no speech issues, pain or headache, vision problems, weakness, numbness, speech issues, lightheadedness or other problems. At 0300 today blood pressure lying was 94/54 with a pulse of 73. blood pressure sitting was 69/42 with a pulse of 85. Blood pressure standing was 50/34 with a pulse of 88. Allergies Allergy/AdvReac Type Severity Reaction Status Date / Time No Known Drug Allergies Allergy Unknown Verified 07/31/22 17:46 Home Medications Medication Instructions Recorded Confirmed Type clopidogrel 75 mg tablet 75 mg PO DAILY 05/24/19 07/31/22 History lisinopril 10 mg tablet 10 mg PO DAILY #30 tabs 05/24/19 07/31/22 History metoprolol succinate 25 mg 25 mg PO QAM 05/24/19 07/31/22 History tablet,extended release 24 hr atorvastatin 20 mg tablet 20 mg PO DAILY 07/26/19 07/31/22 History pen needle, diabetic 31 gauge x #360 ea 12/24/19 07/31/22 Rx 1/4" (Comfort EZ Pen [place]) levothyroxine 88 mcg tablet See Rx Instructions .Route 02/20/20 07/31/22 Rx .COMPLEX #100 tabs blood sugar diagnostic (OneTouch #10 ea 02/15/21 07/31/22 History Verio test strips) hydrochlorothiazide 12.5 mg tablet 12.5 mg PO DAILY 02/15/21 07/31/22 History solifenacin 5 mg tablet 5 mg PO DAILY 02/15/21 07/31/22 History glucagon 1 mg/0.2 mL subcutaneous 1 mg (0.2 mL) subcut UD PRN 03/31/22 07/31/22 Rx auto-injector hypoglycemic coma/unresponsivenss #0.2 mL donepezil 5 mg tablet (Aricept) 5 mg PO HS #90 tabs 07/18/22 07/31/22 Rx pramipexole 1 mg tablet 1 mg PO .COMPLEX #90 tabs 07/18/22 07/31/22 Rx dulaglutide 3 mg/0.5 mL 3 mg subcut WK 07/31/22 07/31/22 History subcutaneous pen injector (Trulicity) insulin detemir U-100 100 unit/mL 40 unit subcut HS 07/31/22 07/31/22 History (3 mL) subcutaneous pen (Levemir FlexTouch U-100 Insulin) omeprazole 20 mg capsule,delayed 20 mg PO QAM 07/31/22 07/31/22 History release Patient History Medical History Adult ADHD Alzheimer disease Carpal tunnel syndrome Cervical radiculopathy at C5 Chronic cerebral ischemia Degenerative disc disease Depression Diabetes mellitus, type 2 Elevated troponin (2014) Fatty liver Fatty liver disease, nonalcoholic Heartburn OCC WITH CERTAIN DIETARY INTAKE/DENIES REFLUX/NO MEDS Hyperlipidemia Hypertension Hypothyroidism Lichen sclerosus Memory loss Obstructive sleep apnea On anticoagulant therapy on plavix Restless leg syndrome Sleep apnea cpap--was not using, planning to re-start use Syncope Surgical History History of bilateral cataract extraction History of carpal tunnel release bilt History of colonoscopy History of colonoscopy with polypectomy History of dilatation and curettage History of left breast biopsy benign History of right breast biopsy BENIGN History of surgical procedure on eye proper using laser right and left History of tooth extraction wisdom teeth History of tooth extraction all upper teeth Family History Father , age 80 Family history of diabetes mellitus Heart disease Brother Family history of diabetes mellitus 2 Mother , age 79 of a blood infection Family history of diabetes mellitus Family history of breast cancer Social History (Updated 08/01/22 @ 13:13 by Redd Godoy MD) Smoking Status: Former smoker Tobacco Type: Cigarettes Age Quit Using Tobacco: 62; Cigarettes Per Day: 4; Number of Years Since Quit: 4; Second Hand Exposure: Yes; Hx Alcohol Use: No Hx Substance Use: No Preferred Language: Latvian Communication Ability: Effective Jig Filler Required: No Beliefs That Will Affect Care: None Current Living Situation: Family Current Living Situation Comment: son lives with her. 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 How many Children do You have: 1 Feels Safe at Home: Yes Safety Concerns: Feels Safe At This Time Assistive Devices: Denture - Upper Assistive Devices Comment: denture not here,at home Review of Systems Constitutional: + weight loss; no fever, no fatigue and no weakness Eyes: no diplopia, no eye pain and no worsening vision Ear, Nose, Mouth, Throat: no ear pain, no tinnitus, no hearing loss, no dizziness, no snoring, no hoarseness and no dysphagia Respiratory: no cough and no dyspnea Cardiovascular: no chest pain, no palpitations and no lightheadedness Gastrointestinal: no abdominal pain, no nausea and no vomiting Genitourinary: no dysuria, no urinary frequency and no urinary incontinence Musculoskeletal: no back pain, no neck pain, no radicular pain, no joint pain and no myalgia Integumentary: no rash and no lesions Neurologic: + memory loss; no gait abnormality, no localized weakness, no generalized weakness, no tingling, no numbness, no tremor(s), no abnormal movements, no headache(s), no abnormal speech and no confusion Psychiatric: no depression, no irritability, no anxiety, no difficulty concentrating, no confusion and no hallucinations Endocrine: no fatigue and no flushing Hematologic / Lymphatic: no easy bleeding and no easy bruising Allergy / Immunological: no urticaria and no problem reported Exam (Neuro) Physical Exam: The patient is right-handed. The patient is awake, alert, and attentive. Speech is normal without any aphasia or dysarthria. The patient can name objects, repeat phrases, and has normal spontaneous speech. Mentation and thought processes are intact, with orientation to person, place and time, and normal fund of knowledge. Attention and concentration are normal. Mood and affect are normal and appropriate. General appearance and grooming are normal. Short and long-term memory are intact to conversation. Pupils are 4 mm bilaterally and reactive to light. Extraocular eye muscles are intact without nystagmus. Visual acuity and visual mcmahon seem normal grossly to confrontation. There are no deficits to sensation in the face in all 3 distributions of the fifth cranial nerve bilaterally. Corneal reflexes are positive bilaterally. Facial strength and symmetry was normal bilaterally. Hearing seems normal bilaterally. Palate moves well without asymmetry. There is normal sternocleidomastoid and trapezius (shoulder shrug) strength bilaterally. Tongue is midline with good strength bilaterally. Neck has a full range of motion without discomfort. There are no cervical bruits bilaterally. There are no cranial or ocular bruits. Heart is without murmur. There is a regular rhythm and rate. Cervical, thoracic, and lumbar spine are nontender to palpation. Gait is not tested but stance sitting up is quite normal. With outstretched arms there is no drift. There are no resting, postural, or action tremors. There is no ataxia with finger to nose testing. There is good facility in the hands. No other abnormal involuntary movements are noted. Motor strength is 5/5 diffusely in the arms bilaterally including deltoids, biceps, triceps, brachioradialis, wrist flexors and extensors, art installer, and intrinsic hand muscles. Motor strength is 5/5 diffusely in the legs bilaterally including hip flexors, quadriceps, hamstrings, gastrocnemius, tibialis anterior, tibialis posterior, and Peroneii muscles. Toe extensors are normal and there is good bulk in the extensor digitorum brevis muscles bilaterally. The limbs have good tone without rigidity or spasticity. There is no atrophy noted in the muscles. Muscle bulk is normal, there is no tenderness to palpation, no myotonia to percussion, and no fasciculations seen. Sensory examination Reveals some decreased sensation to pin and touch in the feet bilaterally. Reflexes are 1/4 in the biceps, triceps, brachioradialis, and quadriceps tendons bilaterally. Achilles tendon reflexes are absent bilaterally. There is no clonus bilaterally. Toes are downgoing with plantar stimulation bilaterally. Peripheral pulses are present and of normal quality distally in all 4 limbs. There is no peripheral edema noted in the limbs. Results & Data ([facility]) Vital Signs (Past 12 Hours) Vital Signs Temp Pulse Pulse Resp BP Pulse Ox O2 Del Method 08/01/22 11:48 36.7 C 80 17 108/49 L 96 Room Air 08/01/22 07:52 36.7 C 84 18 107/70 97 Room Air 08/01/22 07:00 78 08/01/22 04:50 82 99/55 L 08/01/22 03:34 36.9 C 73 16 94 Room Air 08/01/22 01:38 79 PG Care Time/CCT Total # of Minutes Spent Total Time Spent with Patient: Total time spent is greater than 50% in coordination of care (as documented) at patient's floor/unit and/or counseling patient: Coding Level of Care Code INT OBSERVATION CARE 70M LVL 3 Diagnoses Spell of altered consciousness R40.4 Mild cognitive impairment G31.84 Restless leg syndrome G25.81 Polyneuropathy G62.9 Hypotension I95.9 Time Spent (min) 90
[2022-08-01] MEDS ORDERED: LANTUS PER UNIT CHARGE SQ SCH (21:00)
[2022-08-01] MEDS ORDERED: DONEPEZIL HCL 5 MG TAB PO SCH (21:00)
[2022-08-01] MEDS ORDERED: cefTRIAXone SODIUM 2,000 MG in DEXTROSE 5% 50 ML IV SCH (22:00)
--- NOTE | 2022-08-02 01:09 | Hospitalist Progress Note ---
Date of Service August 01, 2022 Assessment & Plan (1) Spell of altered consciousness: Plan: Present on admission with questionable brief seizure-like activity and slurred speech CT head negative for acute intracranial abnormality MRI head showed no acute intracranial abnormality. CTA head/neck showed no stenosis or dissection within the bilateral common carotid, cervical internal carotid or vertebral arteries. Neuro consulted No focoal neuro deficit on exam no need for additional neurologic testing at this time as per neuro No indication to initiate an anticonvulsant at this time or to obtain an EEG from neurology standpoint Continue Plavix and statin Follow up with neurology outpatient Chest pain Denies any chest pain currently Troponin negative on admission EKG showed no acute ischemic changes no evidence of acute cardiac event. Echo showed normal LV wall motion abnormality with ejection fraction 60 to 65% As per cardiology No need for inpatient ischemic evaluation, in the absence of recurrent symptoms would focus on risk factor prevention, if she does have progressive or more typical symptoms suggestive of myocardial ischemia she could be considered for a stress study in the future. Continue plavix, statin, lisinopril and metoprolol Abnormal UA Pt denies any urinary symptoms Currently on Ceftriaxone Urine cx pending Levothyroxine TSH wnl Continue levothyroxine DM type 2 Most recent Hba1c 7.6 Continue Lantus and insulin sliding scale Continue monitor BS Mild cognitive impairment Continue Dopenezil Follow-up with neurology outpatient Tobacco abuse Counseling on smoking cessation Lung nodule CT showed Slight increase in size of a 4 mm left upper lobe pulmonary nodule. A follow-up chest CT in 6 months is recommended. DVT prophylaxis on Lovenox subcu CODE STATUS full code Admission and Anticipated Discharge Date Admission Date: July 31, 2022 Subjective Patient was seen and examined for follow-up of seizure-like activity Lying in bed with no acute distress watching TV Patient said that she feels fine I spoke to family at bedside to update and answered all questions Denies any chest pain, palpitation, dizziness, shortness of breath. Review of Systems Review of Systems: All systems reviewed & are unremarkable except as noted in Subjective Physical Exam Physical Exam: General- No acute distress Head- atraumatic Eyes- PERRL, EOMI, ENT- oropharynx clear Neck- supple, no JVD Lungs- clear to auscultation Heart- regular rhythm; no murmur Abdomen- normal bowel sounds, soft, nontender Extremities- no calf tenderness Neuro- alert, oriented x 3; PERRL, EOMI; no facial palsy; no dysarthria Skin- warm & dry Results & Data Results & Data ([facility]) Vital Signs (Past 12 Hours) Vital Signs Temp Pulse Pulse Resp BP Pulse Ox O2 Del Method 08/02/22 00:34 36.4 C L 78 18 125/69 96 Room Air 08/01/22 23:52 70 08/01/22 19:45 36.7 C 80 16 105/60 98 Room Air 08/01/22 15:46 36.7 C 88 18 102/60 99 Room Air 08/01/22 15:21 87
[2022-08-02] MEDS: LEVOTHYROXINE SODIUM 88 MCG TABLET PO SCH (05:39)
[2022-08-02] MEDS: INSULIN ASPART PER UNIT SC SCH ×2 (07:29→11:46)
[2022-08-02] MEDS: ENOXAPARIN INJ 40 MG/0.4 ML SYR SQ SCH (08:00)
[2022-08-02] MEDS: ATORVASTATIN 20 MG TAB PO SCH (08:01)
[2022-08-02] MEDS: PANTOprazole 40 MG TAB PO SCH (08:01)
[2022-08-02] MEDS: CLOPIDOGREL BISULFATE 75 MG TAB PO SCH (08:01)
[2022-08-02] MEDS: METOPROLOL SUCC 25MG EXT REL TAB PO SCH (08:01)
--- NOTE | 2022-08-02 09:50 | Neurology Progress Note ---
Date of Service August 02, 2022 Assessment & Plan (1) Spell of altered consciousness: (2) Mild cognitive impairment: (3) Restless leg syndrome: (4) Polyneuropathy: (5) Hypotension: Plan Patient had an episode of altered responsiveness on July 31. Judging by the story and the fact that her blood pressure was low (overtly orthostatic earlier in the morning of August 01), I suspect that her issue was hypotension with decreased cerebral perfusion, resulting in possibly some secondary seizure activity. I do not believe she has a primary seizure disorder. On exam she is back to baseline with no focal findings, meningeal signs, or encephalopathy. She does have some left upper extremity tenderness and pain stemming from a fall the summer where she landed on her upper arm. There are no neurologic deficits however. MRI showed some mild old small vessel ischemic disease but no stroke. I do not believe this event was a TIA either. 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 There is restless leg syndrome and polyneuropathy which is likely secondary to diabetes. Recommendations: 1.I see no need for additional neurologic testing at this time. There is also no indication to initiate an anticonvulsant at this time or to obtain an EEG. 2. Increase fluid intake to support blood pressure. today her blood pressure is quite good on medication. 3. Continue donepezil 5 mg in the evening for her cognitive issues and pram ipexole 1 mg each evening for the restless legs syndrome. 4. Continue Plavix 75 mg daily. I see no need to add aspirin or make any changes to this. 5. I have no further recommendations to make at this time and please contact me if I can be of further assistance in this case 6. Otherwise follow up with Dr. Maza as an outpatient. we could consider an EMG of the left upper extremity or other testing as an outpatient. Overall, I spent a total of 25 minutes with this case including review of records, direct evaluation the patient at bedside, and discussion the case with the patient RN at bedside. Admission and Anticipated Discharge Date Admission Date: July 31, 2022 Subjective the patient feels well with no leftover symptoms except for her chronic left shoulder pain stemming back from March of this year. She has no headache, vision problems, weakness, or numbness. Blood pressure is 140/77, doing much better on lowered antihypertensives. she is afebrile. Nursing reports no new issues. Results & Data ([facility]) Vital Signs (Past 12 Hours) Vital Signs Temp Pulse Pulse Resp BP Pulse Ox O2 Del Method 08/02/22 07:54 36.8 C 87 18 140/77 96 Room Air 08/02/22 07:00 78 08/02/22 03:30 37.2 C 85 18 100/59 L 96 Room Air 08/02/22 00:34 36.4 C L 78 18 125/69 96 Room Air 08/01/22 23:52 70 Exam (Neuro) Physical Exam: Patient is awake and alert. Speech is without aphasia or dysarthria. Mood seems normal affect is appropriate. Thought processes are intact conversation. the extraocular eye muscles are intact without nystagmus. There is no facial droop. Coordination is normal in the arms and strength seems symmetrical. Stance sitting is normal. PG Care Time/CCT Total # of Minutes Spent Total Time Spent with Patient: Total time spent is greater than 50% in coordination of care (as documented) at patient's floor/unit and/or counseling patient: Coding Level of Care Code 44268 Subseq Hosp Care Lvl 2 Diagnoses Spell of altered consciousness R40.4 Mild cognitive impairment G31.84 Restless leg syndrome G25.81 Polyneuropathy G62.9 Hypotension I95.9 Time Spent (min) 25
[2022-08-02] MEDS ORDERED: cefTRIAXone SODIUM 2,000 MG in DEXTROSE 5% 50 ML IV ONE (15:30)
--- NOTE | 2022-08-03 01:54 | Discharge Summary ---
Date of Service August 02, 2022 Admission HPI Per Admitting Provider History obtained from patient, family, and records. Medical history significant for old myocardial infarction/questionable stroke as per records, hypertension, hyperlipidemia, DM2 insulin requiring, hypothyroidism, neurogenic bladder as per records, mild cognitive impairment as per records, RLS/peripheral neuropathy, ongoing tobacco abuse. Last confinement March 2022 for unresponsiveness secondary to hypoglycemia. Patient experienced achy left-sided chest pain symptoms going to the arm yesterday. No consultations done. Patient had an episode of emesis yesterday morning without abdominal pain complaints. Fever, no chills, no dysuria symptoms. Persistent small bump on her tailbone the last 3 months. Emesis attributed to high sugars as per patient. Patient was in the kitchen with her family this afternoon. Patient suddenly became unresponsive, grabbing at the stove, blank stare for about a minute with trembling as per family account. No witnessed generalized tonic-clonic seizures, tongue biting, or incontinence. Patient laid on the recliner. Patient more awake after a couple of minutes. Transient slurred speech post unresponsive episode as per son happens to be an EMT. Patient denies chest pain, SOB. 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 Allergies Admission Exam Per Admitting Provider GENERAL: Comfortable, pleasant, no respiratory distress SKIN: Normal color, warm HEENT: [place] palpebral conjunctivae, no ptosis, dry buccal mucosa NECK : Supple, no tenderness CHEST : CTA, no tenderness HEART : RRR, no obvious murmurs ABDOMEN: Some distention, nontender EXTREMITIES : No LE swelling/tenderness, no other conspicuous deformities noted NEUROLOGIC : Coherent, no facial asymmetry, gait and stance not assessed Principal Diagnosis Spell of altered consciousness: Chest pain Abnormal Urine Hypothyroidism Diabetes Mild cognitive impairment Tobacco abuse Discharge Exam General- No acute distress Head- atraumatic Eyes- PERRL, EOMI, ENT- oropharynx clear Neck- supple, no JVD Lungs- clear to auscultation Heart- regular rhythm; no murmur Abdomen- normal bowel sounds, soft, nontender Extremities- no calf tenderness Neuro- alert, oriented x 3; PERRL, EOMI; no facial palsy; no dysarthria Skin- warm & dry Discharge Data Allergies Allergy/AdvReac Type Severity Reaction Status Date / Time No Known Drug Allergies Allergy Unknown Verified 07/31/22 17:46 Consultations 07/31/22 19:53 ED Decision to Admit Stat 07/31/22 21:29 Consult Cardiology Routine Consult Neurology Routine Ordered Studies 07/31/22 17:43 CT angio head w con Stat CT angio neck with con Stat CT head/brain wo con Stat 07/31/22 21:13 MRI Brain [MR brain seizure wo/w con] Stat Laboratory Results WBC 7.96 K/ul (4.8-10.8) 08/01/22 06:56 RBC 3.99 M/uL (3.93-5.22) 08/01/22 06:56 Hgb 13.8 g/dl (12.0-16.0) 08/01/22 06:56 Hct 38.5 % (34.1-44.9) 08/01/22 06:56 MCV 96.5 fL (80.0-100.0) 08/01/22 06:56 MCH 34.6 pg (25.0-34.0) H 08/01/22 06:56 MCHC 35.8 g/dL (32.0-36.0) 08/01/22 06:56 RDW Std Deviation 43.3 fL (36.4-46.3) 08/01/22 06:56 RDW Coeff of [place] 12.2 % (11.5-14.5) 08/01/22 06:56 Plt Count 186 K/uL (130-400) 08/01/22 06:56 MPV 9.7 fL (9.4-12.3) 08/01/22 06:56 Immature Gran % (Auto) 0.3 % 08/01/22 06:56 Neut % (Auto) 51.9 % 08/01/22 06:56 Lymph % (Auto) 35.2 % 08/01/22 06:56 [place] % (Auto) 7.5 % 08/01/22 06:56 Eos % (Auto) 4.5 % 08/01/22 06:56 Baso % (Auto) 0.6 % 08/01/22 06:56 Neut # (Auto) 4.13 K/uL (1.4-6.5) 08/01/22 06:56 Lymph # (Auto) 2.80 K/uL (1.2-3.4) 08/01/22 06:56 [place] # (Auto) 0.60 K/uL (0.24-0.82) 08/01/22 06:56 Eos # (Auto) 0.36 K/uL (0-0.50) 08/01/22 06:56 Baso # (Auto) 0.05 K/uL (0-0.2) 08/01/22 06:56 Immature Gran # (Auto) 0.02 K/uL (0.00-0.02) 08/01/22 06:56 PT 11.0 Seconds (9.0-12.0) 07/31/22 20:37 INR 1.0 (0.9-1.1) 07/31/22 20:37 APTT 25.1 Seconds (21.0-31.0) 07/31/22 20:37 PTT Ratio 0.9 07/31/22 20:37 Sodium 141 mmol/L (136-145) 08/01/22 06:56 Potassium 3.7 mmol/L (3.5-5.1) 08/01/22 06:56 Chloride 105 mmol/L (98-107) 08/01/22 06:56 Carbon Dioxide 30 mmol/L (21-32) 08/01/22 06:56 Anion Gap 6 (3-11) 08/01/22 06:56 BUN 12 mg/dl (6-23) 08/01/22 06:56 Creatinine 0.63 mg/dl (0.6-1.2) 08/01/22 06:56 Est Cr Clr Drug Dosing 68.1 ml/min 08/01/22 06:56 Est GFR ( Amer) 109.9 ml/min 08/01/22 06:56 Est GFR (Non-Af Amer) 94.8 ml/min 08/01/22 06:56 BUN/Creatinine Ratio 19.0 (10-20) 08/01/22 06:56 Glucose 102 mg/dl (70-99(Fasting)) H 08/01/22 06:56 POC Glucose 151 mg/dl (70-99) H 08/02/22 11:13 Estimat Average Glucose 171 mg/dl 11/07/22 00:31 Hemoglobin A1c 7.6 % (4.5-5.6) H 08/01/22 00:31 Calcium 9.0 mg/dl (8.5-10.1) 08/01/22 06:56 Magnesium 1.7 mg/dl (1.7-2.4) 07/31/22 17:32 Total Bilirubin 0.8 mg/dl (0.2-1.0) 07/31/22 17:32 AST 22 U/L (13-39) 07/31/22 20:37 ALT 33 U/L (7-52) 07/31/22 17:32 Alkaline Phosphatase 97 U/L (34-104) 07/31/22 17:32 Troponin I High Sens 3.5 pg/ml (0-14) 07/31/22 17:32 Total Protein 7.6 gm/dl (6.0-8.3) 07/31/22 17:32 Albumin 4.4 gm/dl (3.4-5.0) 07/31/22 17:32 Globulin 3.2 gm/dl (2.5-4.0) 07/31/22 17:32 Albumin/Globulin Ratio 1.4 (0.9-2) 07/31/22 17:32 Triglycerides 93 mg/dl (0-150) 08/01/22 06:56 Cholesterol 145 mg/dl (0-200) 08/01/22 06:56 LDL Cholesterol, Calc 79 mg/dl 08/01/22 06:56 VLDL Cholesterol, Calc 19 mg/dl (0-30) 08/01/22 06:56 HDL Cholesterol 47 mg/dl 08/01/22 06:56 Cholesterol/HDL Ratio 3.1 (0-5) 08/01/22 06:56 TSH 0.422 uIu/ml (0.300-4.500) 07/31/22 20:37 Prolactin 3.03 ng/ml 07/31/22 17:32 Urine Color Yellow 07/31/22 19:10 Urine Appearance Clear (Clear) 07/31/22 19:10 Urine pH 7.5 (4.5-7.5) 07/31/22 19:10 Ur Specific [place] 1.013 (1.000-1.030) 07/31/22 19:10 Urine Protein Negative (Negative) 07/31/22 19:10 Urine Glucose (UA) Negative (Negative) 07/31/22 19:10 Urine Ketones Negative (Negative) 07/31/22 19:10 Urine Blood Negative (Negative) 07/31/22 19:10 Urine Nitrite Negative (Negative) 07/31/22 19:10 Urine Bilirubin Negative (Negative) 07/31/22 19:10 Urine Urobilinogen Negative (Negative) 07/31/22 19:10 Ur Leukocyte Esterase 1+ (Negative) H 07/31/22 19:10 Urine WBC (Auto) 5-10 /hpf (0-5) H 07/31/22 19:10 Urine RBC (Auto) 0-4 /hpf (0-4) 07/31/22 19:10 U Hyaline Cast (Auto) 0 /lpf (0-5) 07/31/22 19:10 U Epithel Cells (Auto) 5-10 /lpf (0-5) H 07/31/22 19:10 Urine Bacteria (Auto) Negative (Negative) 07/31/22 19:10 SARS-CoV-2, RNA, NAAT NEGATIVE (NEGATIVE) 07/31/22 18:[address] 07/31/22 17:43 CT OF THE HEAD WITHOUT CONTRAST CLINICAL HISTORY: ?seizure, starring episode COMPARISON STUDY: MRI of the brain April 29, [address] March 31, 2022. TECHNIQUE: Helical axial images of the head were obtained without IV contrast. Automated exposure control was utilized for the study. A dose lowering technique was utilized adhering to the principles of ALARA. FINDINGS: No acute intracranial hemorrhage, midline shift or mass effect is present. White matter hypodensities are unchanged. These favor small vessel disease. The appearance of the brain is unchanged. The ventricular system is unremarkable. The basal cisterns are patent. No extra-axial collections are present. There are no findings to suggest acute dural sinus thrombosis or acute territorial infarct. No significant calvarial abnormalities are present. Visualized portions of the sinuses and mastoid air cells are clear. IMPRESSION: No acute intracranial findings. No change since prior head CT. ACT 112: Negative or not required by law. Electronically signed by: Franklin Dash M.D. 07/31/2022 7:10 PM Head CTA 07/31/22 17:43 CTA ANGIOGRAPHY OF THE HEAD CLINICAL HISTORY: ?seizure, starring episode COMPARISON STUDY: CTA of the head April 19, 2019. TECHNIQUE: Helical axial images of the head were obtained following uneventful intravenous administration of 120 cc of Optiray. Sagittal and coronal reconstructions were viewed as well as maximal intensity projections on an independent 3-D workstation. Automated exposure control was utilized for the study. A dose lowering technique was utilized adhering to the principles of ALARA. CT DOSE: 952.04 mGy.cm FINDINGS: Please note that the head CT will be reported separately. No acute intracranial hemorrhage, midline shift or mass effect is present. Ventricular system is normal. There is extensive plaque within the right cavernous carotid which results in moderate stenosis of this vessel. There is moderate plaque within the left cavernous carotid without stenosis. There is no intracranial aneurysm. There is no central vessel occlusion. Posterior circulation is intact. IMPRESSION: 1. No central vessel occlusion. No intracranial aneurysm. 2. Moderate stenosis of the right cavernous carotid due to extensive calcified plaque. ACT 112: Negative or not required by law. Electronically signed by: Franklin Dash M.D. 07/31/2022 7:28 PM Neck CTA 07/31/22 17:43 CT ANGIOGRAPHY OF THE NECK WITH CONTRAST CLINICAL HISTORY: ?seizure, starring episode COMPARISON STUDY: CTA of the neck April 19, 2019. Technique: CT angiography of the carotid and vertebral arteries was obtained using Optiray and 3D reconstruction on an independent workstation. NASCET criteria was utilized. Automated exposure control was utilized for the study. A dose lowering technique was utilized adhering to the principles of ALARA. Findings: A 4 mm left upper lobe nodule on image 47 of 344 has slightly increased in size since CT of April 19, 2019. There is no cervical lymphadenopathy. No acute cervical spine fracture is present. The bilateral common carotid, cervical internal carotid and vertebral arteries are patent. No dissection or significant stenosis is identified within these vessels. There is mild plaque within the proximal right internal carotid artery. This does not result in significant stenosis. IMPRESSION: 1. No stenosis or dissection within the bilateral common carotid, cervical internal carotid or vertebral arteries. 2. Slight increase in size of a 4 mm left upper lobe pulmonary nodule. A follow- up chest CT in 6 months is recommended. ACT 112: Negative or not required by law. Electronically signed by: Franklin Dash M.D. 07/31/2022 7:17 PM Brain MRI 07/31/22 21:13 MRI OF THE BRAIN COMBO CLINICAL HISTORY: Seizure. COMPARISON STUDY: CT of the brain dated 07/31/2022. TECHNIQUE: MRI of the brain was performed utilizing various T1 and T2-weighted sequences in the axial, sagittal, and coronal planes. Contrast-enhanced sequences were acquired following the administration of 5.5 cc of Gadavist. The examination is performed using the seizure protocol. FINDINGS: Brain parenchyma: There is age-related involutional change noting mild subcortical and periventricular microangiopathic disease. There is no hemorrhage or mass effect. There is no restricted diffusion to suggest acute ischemia. No enhancing mass lesion is identified on the postcontrast images. Levi-white matter differentiation is preserved. No extra-axial fluid collection is seen. The cerebellar tonsils are normal in configuration. The hippocampi are normal and symmetric. Ventricles, sulci, and cisterns: Prominent secondary to involutional change. Pituitary and sella: Unremarkable. Intracranial vasculature: Normal flow voids are maintained at the skull base. Orbits: The bony orbits are grossly intact. Orbital contents are normal in appearance noting bilateral ocular lens implants. Sinuses and mastoids: Clear. Calvarium: Unremarkable. Cervical cord: Partially visualized cervical spinal cord is normal in morphology and signal intensity. IMPRESSION: No acute intracranial abnormality. ACT 112: Negative or not required by law. Electronically signed by: Kristofer Wheeler M.D. 08/01/2022 8:42 AM Hospital Course (1) Spell of altered consciousness: Present on admission with questionable brief seizure-like activity and slurred speech CT head negative for acute intracranial abnormality MRI head showed no acute intracranial abnormality. CTA head/neck showed no stenosis or dissection within the bilateral common carotid, cervical internal carotid or vertebral arteries. Neuro consulted No focoal neuro deficit on exam no need for additional neurologic testing at this time as per neuro No indication to initiate an anticonvulsant at this time or to obtain an EEG from neurology standpoint Continue Plavix and statin Follow up with neurology outpatient Chest pain Denies any chest pain currently Troponin negative on admission EKG showed no acute ischemic changes no evidence of acute cardiac event. Echo showed normal LV wall motion abnormality with ejection fraction 60 to 65% As per cardiology No need for inpatient ischemic evaluation, in the absence of recurrent symptoms would focus on risk factor prevention, if she does have progressive or more typical symptoms suggestive of myocardial ischemia she could be considered for a stress study in the future. Continue plavix, statin, lisinopril and metoprolol Abnormal UA Pt denies any urinary symptoms Completed Ceftriaxone x 3 days Urine cx grew pinpoint, will continue follow Levothyroxine TSH wnl Continue levothyroxine DM type 2 Most recent Hba1c 7.6 Continue Lantus and insulin sliding scale Continue monitor BS Mild cognitive impairment Continue Dopenezil Follow-up with neurology outpatient Tobacco abuse Counseling on smoking cessation Lung nodule CT showed Slight increase in size of a 4 mm left upper lobe pulmonary nodule. A follow-up chest CT in 6 months is recommended. DVT prophylaxis on Lovenox subcu CODE STATUS full code Total Time Total Time Spent Total Time Spent (In Minutes): 35 minutes Discharge Plan Discharge Items Patient Disposition: Home - Self-Care Reason For Visit: CHEST PAIN Discharge Diagnosis: Spell of altered consciousness: Chest pain Abnormal Urine Hypothyroidism Diabetes Mild cognitive impairment Tobacco abuse Activity: Resume your previous activity Non-emergency contact: Primary Care Provider Call non-emergency contact if: you have any medication questions and your symptoms worsen Follow-up/Referrals: Asuncion Suarez, [Primary Care Provider] - (Date & Time 08/09/2022 1:40 PM Provider Monse Gonzalez PA-C [facility] ) Diet: Carb Consistent or DM2 Addtl Attending Provider Instructions: Follow up with your primary care provider 08/09/2022 @1:40 PM Monse Gonzalez PA-C [facility] Follow up with your neurology Dr. Maza (please call to arrange for the appointment) Continue monitor your blood pressure and bring your blood pressure log at your next follow up appointment with your provider Seek medical attention if you develop any urinary symptoms or fever Counseling on tobacco cessation Fall precaution Pending Studies at Discharge: Yes Studies:: Urine culture pending Stand-Alone Forms: My [facility], Smoking Cessation Medications and DC Order Prescriptions: Continued levothyroxine 88 mcg tablet See Rx Instructions .ROUTE .COMPLEX Qty: 100 3RF Dose Instruction: TAKE 1 TABLET by mouth Monday through Monday and 2 TABS ON Monday Rx Instructions: TAKE 1 TABLET by mouth Monday through Monday and 2 TABS ON Monday solifenacin 5 mg tablet 5 mg PO DAILY hydrochlorothiazide 12.5 mg tablet 12.5 mg PO DAILY (DME) OneTouch Verio test strips Strip See Rx Instructions .ROUTE .MEDSUPPLY Qty: 10 Rx Instructions: Test blood sugar four times daily donepezil [Aricept] 5 mg tablet 5 mg PO HS Qty: 90 3RF pramipexole 1 mg tablet 1 mg PO .COMPLEX Qty: 90 3RF Rx Instructions: 1 mg PO 2 hours before bedtime; lisinopril 10 mg tablet 10 mg PO DAILY Qty: 30 atorvastatin 20 mg tablet 20 mg PO DAILY (DME) pen needle, diabetic [Comfort EZ Pen [place]] 31 gauge x 1/4" needle See Rx Instructions .ROUTE .MEDSUPPLY Qty: 360 3RF Rx Instructions: Change new pen needle after each use 4x a day clopidogrel 75 mg tablet 75 mg PO DAILY metoprolol succinate 25 mg tablet extended release 24 hr 25 mg PO QAM Trulicity 3 mg/0.5 mL pen injector 3 mg SUBCUT WK omeprazole 20 mg capsule,delayed release(DR/EC) 20 mg PO QAM Levemir FlexTouch U-100 Insuln 100 unit/mL (3 mL) insulin pen 40 unit subcut HS glucagon 1 mg/0.2 mL auto-injector 1 mg subcut UD PRN (Reason: hypoglycemic coma/unresponsivenss ) Qty: 0.2 0RF Discharge Orders: Discharge Order (Routine); Ordered 08/02/22 Ordered By: David Zapata/Other Patient Handouts: Managing Type 2 Diabetes Admission Data Admit Date/Time: 07/31/22 21:16 Attending Provider: David Stearns Admit Provider: Myron Pantoja Primary Care Provider: Asuncion Suarez Other Providers: Myron Pantoja ; Dilan Carrington ; Redd Godoy Other Interventions: Discharge Summary Assessment (RN) Last Done: 08/02/22 16:12
[2022-08-07] MEDS ORDERED: LEVOTHYROXINE SODIUM 88 MCG TABLET PO SCH (06:30)
== END 2022-08-02 16:20 | disposition home or self-care (01) ==
LOC: ED 17:12 → 2E 17:12
DX: G31.84 Mild cognitive impairment of uncertain or unknown etiology; R40.4 Transient alteration of awareness; E11.65 Type 2 diabetes mellitus with hyperglycemia; R20.2 Paresthesia of skin; G25.81 Restless legs syndrome; Z87.891 Personal history of nicotine dependence; Z79.4 Long term (current) use of insulin; G62.9 Polyneuropathy, unspecified; Z79.02 Long term (current) use of antithrombotics/antiplatelets; R07.9 Chest pain, unspecified; Z79.899 Other long term (current) drug therapy; I95.9 Hypotension, unspecified

== ENCOUNTER 2023-02-05 19:59 | Observation (INO) ==
[2023-02-05] MEDS ORDERED: SODIUM CHLORIDE 0.9% 1000ML 1,000 ML IV SCH (20:15)
[2023-02-05] MEDS ORDERED: SODIUM CHLORIDE 0.9% 500 ML IV SCH (20:15)
[2023-02-05 20:34] LABS: Basophils # (auto) 0.05 K/uL (0-0.2); Basophils % (auto) 0.8 %; Eosinophils # (auto) 0.19 K/uL (0-0.50); Eosinophils % (auto) 2.9 %; Hemoglobin 13.6 g/dl (12.0-16.0); Immature Granulocytes # (auto) 0.01 K/uL (0.01-0.20); Immature Granulocytes % (auto) 0.2 %; Lymphocytes # (auto) 2.08 K/uL (1.2-3.4); Lymphocytes % (auto) 31.8 %; Mean Corpuscular Hemoglobin 34.1 pg (25.0-34.0); Mean Corpuscular Hgb Conc 35.8 g/dL (32.0-36.0); Mean Corpuscular Volume 95.2 fL (80.0-100.0); Mean Platelet Volume 9.4 fL (9.4-12.4); Monocytes # (auto) 0.44 K/uL (0.11-0.59); Monocytes % (auto) 6.7 %; Neutrophils # (auto) 3.78 K/uL (1.40-6.50); Neutrophils % (auto) 57.6 %; Platelet Count 208 K/uL (130-400); RDW Coefficient of Variation 12.4 % (11.5-14.5); RDW Standard Deviation 42.8 fL (36.4-46.3); Red Blood Count 3.99 M/uL (4.20-5.40); White Blood Count 6.55 K/ul (4.8-10.8)
[2023-02-05 20:50] LABS: Albumin Globulin Ratio 1.4 (0.9-2); Albumin Level 3.9 gm/dl (3.4-5.0); BUN Creatinine Ratio 23.5 (10-20); Bilirubin,Total 0.8 mg/dl (0.2-1.0); Calcium 9.2 mg/dl (8.6-10.3); Creatinine Clr Calc Pharmacy 54.8 ml/min; Est GFR (African American) 88.3 ml/min; Est GFR (Non-African American) 76.2 ml/min; Globulin 2.7 gm/dl (2.5-4.0); Magnesium 1.6 mg/dl (1.7-2.4); Potassium 4.2 mmol/L (3.5-5.1); Total Protein 6.6 gm/dl (6.0-8.3)
[2023-02-05 20:57] LABS: Troponin I High Sensitivity 4.5 pg/ml (0-14)
[2023-02-05] MEDS ORDERED: SODIUM CHLORIDE 0.9% 1000ML 500 ML IV ONE (21:26)
--- NOTE | 2023-02-05 21:47 | Emergency Department Note ---
Impression & Plan Near syncope, Acute hypotension, Acute dehydration, Diarrhea ED Provider Note INFORMANT: Patient ED PROVIDER(S): Luis Miguel Guillen MD CHIEF COMPLAINT: Near syncope PLAN: Disposition: Admitted Condition: Good Outpatient prescription management: none Referral: None MEDICAL DECISION MAKING: Patient presented because of a near syncopal episode. She has not been feeling well this week. Stool studies ordered due to diarrhea but patient had not provided a sample. Her blood work did reveal mild dehydration. Patient's CBC revealed no leukocytosis. Troponin was negative. Magnesium and TSH negative. Patient's urinalysis was positive and culture sent. ECG did not reveal any acute ischemic change. Patient did receive IV hydration with normal saline. She also received IV Rocephin. In light of the near syncopal episodes and low blood pressure I discussed further management in the hospital with the patient and family. They were in agreement. Consultation was made with Dr. Myron Pantoja, [facility] hospitalist service. Patient was evaluated in the ER for further management. Discussed with the safety manager After review of the information above and other included data, I feel the patient requires admission. Triage Nursing notes reviewed and agree them. Vital Signs: reviewed and remarkable for mild hypotension Prior /Outside records reviewed: none Differential diagnosis: Vasovagal event, dehydration, infection, hypoglycemia, electrolyte abnormalities, cardiac sources, intracerebral event, pulmonary embolism, seizure, toxicologic, neurologic, as well as other pathologies. Diagnostics, as interpreted by me: ECG: Twelve-lead ECG reveals a normal sinus rhythm at 75 bpm. Low voltage QRS. Poor R wave progression anteriorly. When compared to 31 July 2022 there is borderline criteria for anterior infarct Cardiac Monitoring: Cardiac monitoring ordered by me: The patient was placed on continuous cardiac monitoring and observed. It revealed a normal sinus rhythm at 85 beats per minute without ectopy or evidence of dysrhythmia. Medical decision rules: none Imaging studies: Chest x-ray. Findings: A chest x-ray was performed and revealed no pneumothorax, effusion, infiltrate, pulmonary edema, free air under the diaphragm, or wide mediastinum. Impression: No acute disease. HPI: The patient is a 67year old female who presents to the Emergency Room with complaints of near syncope. This started last week and is intermittent. Patient felt worse today. EMS was summoned. She was mildly hypotensive in the 90s.. The patient also notes the following associated symptoms, diarrhea, feeling weak, poor p.o. intake.. The patient has taken no medication for relieving factors. Current pain is rated as 0/10. Pt denies LOC, headache, fevers, chills, diaphoresis, visual changes, neck pain, chest pain, breathing difficulties, nausea, vomiting, abdominal pain, back pain, melena, hematochezia, urinary symptoms, numbness, lymphadenopathy, rash, or other complaints. Patient notes blood sugars have been running mostly 150-200. Patient has had 1 or 2 episodes or higher and lower. PAST MEDICAL HISTORY: See Below, hypothyroidism, diabetes PAST SURGICAL HISTORY: See Below, SOCIAL HISTORY: See Below, former smoker HOME MEDICATIONS: See Below ALLERGIES: See Below VITALS: See Below PHYSICAL EXAMINATION: GENERAL: Awake, alert, nontoxic-appearing, in no distress HENT: Normocephalic, atraumatic. Oropharynx unremarkable. EYES: Normal conjunctiva. Sclera non-icteric. NECK: Inspection normal. Non-tender. Supple. No nuchal rigidity. FROM. No masses. RESPIRATORY: Clear to auscultation. No wheezes. No rales. Normal respiratory effort. CARDIAC: Normal rate. Normal rhythm. No murmurs. No rubs. Extremities warm and well perfused. Pulses equal. No JVD. GI: Soft, non-distended. No tenderness to palpation. No rebound or guarding. No masses. RECTAL: Deferred. MUSCULOSKELETAL: Atraumatic. Chest examination reveals no tenderness. The back is symmetrical on inspection without obvious abnormality. There is no CVA tenderness to palpation. No joint edema. LOWER EXTREMITIES: Calves are equal size bilaterally and non-tender. No edema. No discoloration. NEURO: Normal sensorium. No sensory or motor deficits noted. SKIN: No rash or jaundice noted. Past Med/Surg History Medical History Adult ADHD Alzheimer disease Carpal tunnel syndrome Cervical radiculopathy at C5 Chronic cerebral ischemia Degenerative disc disease Depression Diabetes mellitus, type 2 Elevated troponin (2014) Fatty liver Fatty liver disease, nonalcoholic Heartburn OCC WITH CERTAIN DIETARY INTAKE/DENIES REFLUX/NO MEDS Hyperlipidemia Hypertension Hypothyroidism Lichen sclerosus Memory loss Obstructive sleep apnea On anticoagulant therapy on plavix Restless leg syndrome Sleep apnea cpap--was not using, planning to re-start use Syncope Surgical History History of bilateral cataract extraction History of carpal tunnel release bilt History of colonoscopy History of colonoscopy with polypectomy History of dilatation and curettage History of left breast biopsy benign History of right breast biopsy BENIGN History of surgical procedure on eye proper using laser right and left History of tooth extraction wisdom teeth History of tooth extraction all upper teeth Family History Father , age 80 Family history of diabetes mellitus Heart disease Brother Family history of diabetes mellitus 2 Mother , age 79 of a blood infection Family history of diabetes mellitus Family history of breast cancer Social History (Updated 08/01/22 @ 13:13 by Redd Godoy MD) Smoking Status: Former smoker Tobacco Type: Cigarettes Age Quit Using Tobacco: 62; Cigarettes Per Day: 4; Second Hand Exposure: Yes; Do You Dip or Chew Tobacco: No; Hx Alcohol Use: No Hx Substance Use: No Preferred Language: Tajik Communication Ability: Effective Senior Planning Manager Required: No Beliefs That Will Affect Care: None Current Living Situation: Family Current Living Situation Comment: son lives with her. 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 How many Children do You have: 1 Feels Safe at Home: Yes Assistive Devices: CPAP Allergies Allergies Allergy/AdvReac Type Severity Reaction Status Date / Time No Known Drug Allergies Allergy Unknown Verified 07/31/22 17:46 Home Meds Home Medications Medication Instructions Recorded Confirmed clopidogrel 75 mg tablet 75 mg PO QAM 05/24/19 02/05/23 metoprolol succinate 25 mg 25 mg PO QAM 05/24/19 02/05/23 tablet,extended release 24 hr atorvastatin 20 mg tablet 20 mg PO QAM 07/26/19 02/05/23 blood sugar diagnostic (OneTouch #10 ea 02/15/21 02/05/23 Verio test strips) hydrochlorothiazide 12.5 mg tablet 12.5 mg PO QAM 02/15/21 02/05/23 solifenacin 5 mg tablet 5 mg PO QAM 02/15/21 02/05/23 omeprazole 20 mg capsule,delayed 20 mg PO QAM 07/31/22 02/05/23 release biotin 1 mg capsule 1 mg PO TID 02/05/23 02/05/23 cholecalciferol (vitamin D3) 25 25 mcg PO DAILY 02/05/23 02/05/23 mcg (1,000 unit) tablet (Vitamin D3) donepezil 5 mg tablet (Aricept) 5 mg PO QAM 02/05/23 02/05/23 dulaglutide 4.5 mg/0.5 mL 4.5 mg subcut WK 02/05/23 02/05/23 subcutaneous pen injector (Trulicity) ferrous sulfate 325 mg (65 mg 325 mg PO DAILY 02/05/23 02/05/23 iron) tablet (iron) insulin aspart U-100 100 unit/mL 1 sliding scale dose subcut 02/05/23 02/05/23 (3 mL) subcutaneous pen (Novolog USEASDIRECTD PRN Hyperglycemia FlexPen U-100 Insulin aspart) lisinopril 5 mg tablet 5 mg PO QAM 02/05/23 02/05/23 magnesium oxide 400 mg PO QAM 02/05/23 02/05/23 potassium bicarbonate-citric acid 10 meq PO UD 02/05/23 02/05/23 10 mEq effervescent tablet pramipexole 1 mg tablet 1 mg PO QAM 02/05/23 02/05/23 Previous Rx's Medication Instructions Recorded pen needle, diabetic 31 gauge x #360 ea 12/24/1909/28" (Comfort EZ Pen [place]) levothyroxine 88 mcg tablet See Rx Instructions .Route 02/20/20 .COMPLEX #100 tabs glucagon 1 mg/0.2 mL subcutaneous 1 mg (0.2 mL) subcut UD PRN 03/31/22 auto-injector hypoglycemic coma/unresponsivenss #0.2 mL Results & Data (ED) Vital Signs Vital Signs - 24 hr 02/05/23 20:05 02/05/23 21:29 02/05/23 21:31 Temperature 36.7 C Temperature Source Oral Pulse Rate - Lying 70 Pulse Rate - Sitting 74 Pulse Rate - Standing 82 Pulse Rate 81 Pulse Rate [Apical] 78 Pulse Rhythm [Apical] Regular Pulse Strength [Apical] Normal Respiratory Rate 18 19 Respiratory Effort / Characteristics Non-Labored Spontaneous Non-Labored Spontaneous Respiratory Depth Normal Normal Respiratory Pattern Regular Regular Blood Pressure - Lying 113/59 L Blood Pressure - Sitting 118/76 Blood Pressure- Standing 97/63 L Blood Pressure 94/61 L Blood Pressure [Right Arm] 111/64 Blood Pressure Mean 72 Blood Pressure Mean [Right Arm] 79 Blood Pressure Position Semi-fowlers Blood Pressure Position [Right Arm] Semi-fowlers Pulse Oximetry 98 97 Oxygen Delivery Method Room Air Room Air Sepsis Recent Fever Within 48 Hours No Sepsis New/Unexplained Change in Mental Status N/A Sepsis Action Taken by Nursing No Action Required 02/05/23 20:55 Temperature Temperature Source Pulse Rate - Lying Pulse Rate - Sitting Pulse Rate - Standing Pulse Rate 77 Pulse Rate [Apical] Pulse Rhythm [Apical] Pulse Strength [Apical] Respiratory Rate Respiratory Effort / Characteristics Respiratory Depth Respiratory Pattern Blood Pressure - Lying Blood Pressure - Sitting Blood Pressure- Standing Blood Pressure Blood Pressure [Right Arm] Blood Pressure Mean Blood Pressure Mean [Right Arm] Blood Pressure Position Blood Pressure Position [Right Arm] Pulse Oximetry Oxygen Delivery Method Sepsis Recent Fever Within 48 Hours Sepsis New/Unexplained Change in Mental Status Sepsis Action Taken by Nursing Laboratory Data 02/05/23 20:12 02/05/23 20:12 Lab Results 02/05/23 02/05/23 02/05/23 Range/Units 20:12 20:12 20:12 WBC 6.55 (4.8-10.8) K/ul RBC 3.99 L (4.20-5.40) M/uL Hgb 13.6 (12.0-16.0) g/dl Hct 38.0 (37.0-47.0) % MCV 95.2 (80.0-100.0) fL MCH 34.1 H (25.0-34.0) pg MCHC 35.8 (32.0-36.0) g/dL RDW Std Deviation 42.8 (36.4-46.3) fL RDW Coeff of Len[place] 12.4 (11.5-14.5) % Plt Count 208 (130-400) K/uL MPV 9.4 (9.4-12.4) fL Immature Gran % (Auto) 0.2 % Neut % (Auto) 57.6 % Lymph % (Auto) 31.8 % [place] % (Auto) 6.7 % Eos % (Auto) 2.9 % Baso % (Auto) 0.8 % Neut # (Auto) 3.78 (1.40-6.50) K/uL Lymph # (Auto) 2.08 (1.2-3.4) K/uL [place] # (Auto) 0.44 (0.11-0.59) K/uL Eos # (Auto) 0.19 (0-0.50) K/uL Baso # (Auto) 0.05 (0-0.2) K/uL Immature Gran # (Auto) 0.01 (0.01-0.20) K/uL Sodium 136 (136-145) mmol/L Potassium 4.2 (3.5-5.1) mmol/L Chloride 100 (98-107) mmol/L Carbon Dioxide 29 (21-32) mmol/L Anion Gap 7 (3-11) BUN 19 (6-23) mg/dl Creatinine 0.81 (0.6-1.2) mg/dl Est Cr Clr Drug Dosing 54.8 ml/min Est GFR ( Amer) 88.3 ml/min Est GFR (Non-Af Amer) 76.2 ml/min BUN/Creatinine Ratio 23.5 H (10-20) Glucose 186 H (70-99(Fasting)) mg/dl Lactate (0.4-2.0) mmol/L Calcium 9.2 (8.6-10.3) mg/dl Magnesium 1.6 L (1.7-2.4) mg/dl Total Bilirubin 0.8 (0.2-1.0) mg/dl AST 19 (13-39) U/L ALT 18 (7-52) U/L Alkaline Phosphatase 74 (34-104) U/L Troponin I High Sens 4.5 (0-14) pg/ml Total Protein 6.6 (6.0-8.3) gm/dl Albumin 3.9 (3.4-5.0) gm/dl Globulin 2.7 (2.5-4.0) gm/dl Albumin/Globulin Ratio 1.4 (0.9-2) TSH 1.500 (0.300-4.500) uIu/ml Urine Color Urine Appearance (Clear) Urine pH (4.5-7.5) Ur Specific [place] (1.000-1.030) Urine Protein (Negative) Urine Glucose (UA) (Negative) Urine Ketones (Negative) Urine Blood (Negative) Urine Nitrite (Negative) Urine Bilirubin (Negative) Urine Urobilinogen (Negative) Ur Leukocyte Esterase (Negative) Urine WBC (Auto) (0-5) /hpf Urine RBC (Auto) (0-4) /hpf U Hyaline Cast (Auto) (0-5) /lpf U Epithel Cells (Auto) (0-5) /lpf Urine Bacteria (Auto) (Negative) Urine Crystals Calcium Oxalate Crystal (None Prsent) SARS-CoV-2, RNA, NAAT (NEGATIVE) 02/05/23 02/05/23 02/05/23 Range/Units 20:24 21:38 22:34 WBC (4.8-10.8) K/ul RBC (4.20-5.40) M/uL Hgb (12.0-16.0) g/dl Hct (37.0-47.0) % MCV (80.0-100.0) fL MCH (25.0-34.0) pg MCHC (32.0-36.0) g/dL RDW Std Deviation (36.4-46.3) fL RDW Coeff of Leny (11.5-14.5) % Plt Count (130-400) K/uL MPV (9.4-12.4) fL Immature Gran % (Auto) % Neut % (Auto) % Lymph % (Auto) % [place] % (Auto) % Eos % (Auto) % Baso % (Auto) % Neut # (Auto) (1.40-6.50) K/uL Lymph # (Auto) (1.2-3.4) K/uL [place] # (Auto) (0.11-0.59) K/uL Eos # (Auto) (0-0.50) K/uL Baso # (Auto) (0-0.2) K/uL Immature Gran # (Auto) (0.01-0.20) K/uL Sodium (136-145) mmol/L Potassium (3.5-5.1) mmol/L Chloride (98-107) mmol/L Carbon Dioxide (21-32) mmol/L Anion Gap (3-11) BUN (6-23) mg/dl Creatinine (0.6-1.2) mg/dl Est Cr Clr Drug Dosing ml/min Est GFR ( Amer) ml/min Est GFR (Non-Af Amer) ml/min BUN/Creatinine Ratio (10-20) Glucose (70-99(Fasting)) mg/dl Lactate 1.2 (0.4-2.0) mmol/L Calcium (8.6-10.3) mg/dl Magnesium (1.7-2.4) mg/dl Total Bilirubin (0.2-1.0) mg/dl AST (13-39) U/L ALT (7-52) U/L Alkaline Phosphatase (34-104) U/L Troponin I High Sens (0-14) pg/ml Total Protein (6.0-8.3) gm/dl Albumin (3.4-5.0) gm/dl Globulin (2.5-4.0) gm/dl Albumin/Globulin Ratio (0.9-2) TSH (0.300-4.500) uIu/ml Urine Color Yellow Urine Appearance Clear (Clear) Urine pH 7.0 (4.5-7.5) Ur Specific [place] 1.007 (1.000-1.030) Urine Protein Negative (Negative) Urine Glucose (UA) Negative (Negative) Urine Ketones Trace H (Negative) Urine Blood Negative (Negative) Urine Nitrite Negative (Negative) Urine Bilirubin Negative (Negative) Urine Urobilinogen Negative (Negative) Ur Leukocyte Esterase 3+ H (Negative) Urine WBC (Auto) >30 H (0-5) /hpf Urine RBC (Auto) 0-4 (0-4) /hpf U Hyaline Cast (Auto) 1-5 (0-5) /lpf U Epithel Cells (Auto) 10-20 H (0-5) /lpf Urine Bacteria (Auto) 1+ H (Negative) Urine Crystals Not Reportable Calcium Oxalate Crystal Present A (None Prsent) SARS-CoV-2, RNA, NAAT NEGATIVE (NEGATIVE) Administered Medications Discontinued Medications Sodium Chloride (Nss) 500 mls @ 999 mls/hr IV .Q31M MARVIN Stop: 02/05/23 20:45 Last Infusion: 02/05/23 21:25 Dose: 0 mls/hr Documented By: Admin: 02/05/23 20:32 Dose: 999 mls/hr Documented By: AB Sodium Chloride (Nss 1000ml) 1,000 mls @ 125 mls/hr IV .Q8H MARVIN Stop: 02/06/23 04:14 Last Admin: 02/05/23 20:35 Dose: 125 mls/hr Documented By: Sodium Chloride (Nss 1000ml) 500 mls @ 999 mls/hr IV .Q31M ONE Stop: 02/05/23 21:56 Last Infusion: 02/05/23 22:58 Dose: 0 mls/hr Documented By: Admin: 02/05/23 21:59 Dose: 999 mls/hr Documented By: Ceftriaxone Sodium (Rocephin) 2,000 mg in 70 mls @ 140 mls/hr IV NOW STA Stop: 02/05/23 23:02 Last Admin: 02/05/23 22:57 Dose: Not Given Documented By: Magnesium Sulfate/Dextrose (Magnesium Sulfate / D5w) 1 gm in 100 mls @ 50 mls/hr IV ONE ONE Stop: 02/06/23 00:50 Last Admin: 02/06/23 00:06 Dose: 50 mls/hr Documented By: CODY Cefepime HCl (Maxipime) 2,000 mg in 20 mls @ 5 mls/min IV NOW STA; Protocol Stop: 02/05/23 22:59 Last Admin: 02/06/23 00:00 Dose: 5 mls/min Documented By: CODY Discharge Plan Visit Data Chief Complaint: Syncope (Near Syncope) Stated Complaint: NEAR SYNCOPAL/DIZZINESS ED Provider: Luis Miguel Guillen Discharge Problem: Near syncope, Acute hypotension, Acute dehydration, Diarrhea Forms Stand Alone Forms: My [facility] Prescriptions Prescriptions: No Action levothyroxine 88 mcg tablet See Rx Instructions .ROUTE .COMPLEX Qty: 100 3RF Dose Instruction: TAKE 1 TABLET by mouth Monday through Monday and 2 TABS ON Monday Rx Instructions: TAKE 1 TABLET by mouth Monday through Monday and 2 TABS ON Monday take daily before breakfast solifenacin 5 mg tablet 5 mg PO QAM hydrochlorothiazide 12.5 mg tablet 12.5 mg PO QAM (DME) OneTouch Verio test strips Strip See Rx Instructions .ROUTE .MEDSUPPLY Qty: 10 Rx Instructions: Test blood sugar four times daily atorvastatin 20 mg tablet 20 mg PO QAM (DME) pen needle, diabetic [Comfort EZ Pen [place]] 31 gauge x 1/4" needle See Rx Instructions .ROUTE .MEDSUPPLY Qty: 360 3RF Rx Instructions: Change new pen needle after each use 4x a day clopidogrel 75 mg tablet 75 mg PO QAM metoprolol succinate 25 mg tablet extended release 24 hr 25 mg PO QAM omeprazole 20 mg capsule,delayed release(DR/EC) 20 mg PO QAM glucagon 1 mg/0.2 mL auto-injector 1 mg subcut UD PRN (Reason: hypoglycemic coma/unresponsivenss ) Qty: 0.2 0RF donepezil [Aricept] 5 mg tablet 5 mg PO QAM pramipexole 1 mg tablet 1 mg PO QAM magnesium oxide 400 mg magnesium Capsule 400 mg PO QAM lisinopril 5 mg Tablet 5 mg PO QAM ferrous sulfate [iron] 325 mg (65 mg iron) Tablet 325 mg PO DAILY cholecalciferol (vitamin D3) [Vitamin D3] 25 mcg (1,000 unit) Tablet 25 mcg PO DAILY Trulicity 4.5 mg/0.5 mL Pen Injector 4.5 mg SUBCUT WK potassium bicarb-citric acid 10 mEq Tablet, Effervescent 10 meq PO UD biotin 1 mg Capsule 1 mg PO TID Rx Instructions: morning,noon and before bedtime insulin aspart U-100 [Novolog FlexPen U-100 Insulin] 100 unit/mL (3 mL) Insulin Pen 1 sliding scale dose SUBCUT USEASDIRECTD PRN (Reason: Hyperglycemia) Rx Instructions: 0-20 units as needed for high sugar Referrals Referrals: Asuncion Suarez DO [Primary Care Provider] -
[2023-02-05 22:13] LABS: Appearance Urine Clear (Clear); Bilirubin Urine Negative (Negative); Blood Urine Negative (Negative); Color Urine Yellow; Glucose Urine UA Negative (Negative); Ketones Urine Trace (Negative); Leukocyte Esterase Urine 3+ (Negative); Nitrite Urine Negative (Negative); Protein Urine Negative (Negative); RBC Urine Automated 0-4 /hpf (0-4); Specific Gravity Urine 1.007 (1.000-1.030); Urobilinogen Urine Negative (Negative); WBC Urine Automated >30 /hpf (0-5)
[2023-02-05 22:25] LABS: Bacteria Urine Automated 1+ (Negative); Calcium Oxalate Crystals Urine Present (None Prsent)
[2023-02-05] MEDS ORDERED: cefTRIAXone SODIUM 2,000 MG/70 ML BAG IV STA (22:33)
[2023-02-05] MEDS ORDERED: MAGNESIUM SULFATE / D5W 1 GM/100 ML BAG IV ONE (22:51)
[2023-02-05] MEDS ORDERED: CEFEPIME 2,000 MG/20 ML VIAL IV STA (22:56)
--- NOTE | 2023-02-06 02:08 | History & Physical Report ---
Date of Service February 06, 2023 Assessment & Plan (1) Dizziness: Plan: Multifactorial: Orthostasis secondary to diarrheal illness likely viral illness (rule out infectious bacterial causes which may warrant antibiotic Rx), Aricept contributory to diarrhea Concomitant BPPV hx old myocardial infarction/questionable stroke as per records DM2 insulin requiring, reasonable control as of recent hemoglobin A1c of 7.31 Jan 2023 hypothyroidism, euthyroid as of today's is anxious neurogenic bladder as per records mild cognitive impairment RLS/peripheral neuropathy SPN, L, patient due for outpatient follow-up CT imaging Asymptomatic pyuria, contaminated specimen, patient not septic past tobacco abuse OBS Medical telemetry IVF Hold home diuretic and lisinopril for now given borderline BP Stool CS, C. difficile Hold Aricept for now until diarrhea symptoms resolved. Symptomatic management for BPPV, PT eval if persistent, may benefit from Stevenson maneuver Basal bolus insulin adjusted for n.p.o. status, ISS BG goal 1 10-1 40, carb count coverage Outpatient follow-up CT imaging for SPN left Following urine CS, hold off on additional antibiotics for now for asymptomatic pyuria DVT prophylaxis. Lovenox subcu Full code Patient requests for son to be given updates on plan of care. Mr. Jacoby Loja, contact #[phone]. Text document was generated using [employer] voice recognition software. It may contain grammatical or spelling errors. Kindly contact undersigned for clarification of any documentation item in question. History of Present Illness Chief Complaint: Near syncope, spinning sensation Primary Care Provider: Asuncion Suarez DO History obtained from patient and records. Medical history significant for old myocardial infarction/questionable stroke as per records, hypertension, hyperlipidemia, DM2 insulin requiring, hypothyroidism, neurogenic bladder as per records, mild cognitive impairment as per records, RLS/peripheral neuropathy, past tobacco abuse. Last confinement July 2022 for spells of altered consciousness and transient chest pain. No concern for primary seizure disorder as per Neurology. EF 60 to 65% on TTE. Left solitary pulmonary nodule noted as incidental finding on CT. Follow-up surveillance study recommended after 6 months. The last 2 days, patient noted dizziness described as lightheadedness/near syncope. Patient also gives description of transient spinning sensation somewhat aggravated by motion. No hearing loss or tinnitus. No head trauma. No chest pain, no SOB. Diarrheal symptoms without abdominal pain. Patient denies urinary symptoms symptoms. SBP 90s upon arrival at the ER. IV cefepime administered at the ER for possible UTI. 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 Allergies Allergy/AdvReac Type Severity Reaction Status Date / Time No Known Drug Allergies Allergy Unknown Verified 07/31/22 17:46 Home Medications Medication Instructions Recorded Confirmed Type clopidogrel 75 mg tablet 75 mg PO QAM 05/24/19 02/05/23 History metoprolol succinate 25 mg 25 mg PO QAM 05/24/19 02/05/23 History tablet,extended release 24 hr atorvastatin 20 mg tablet 20 mg PO QAM 07/26/19 02/05/23 History pen needle, diabetic 31 gauge x #360 ea 12/24/19 02/05/23 Rx 1/4" (Comfort EZ Pen [place]) levothyroxine 88 mcg tablet See Rx Instructions .Route 02/20/20 02/05/23 Rx .COMPLEX #100 tabs blood sugar diagnostic (OneTouch #10 ea 02/15/21 02/05/23 History Verio test strips) hydrochlorothiazide 12.5 mg tablet 12.5 mg PO QAM 02/15/21 02/05/23 History solifenacin 5 mg tablet 5 mg PO QAM 02/15/21 02/05/23 History glucagon 1 mg/0.2 mL subcutaneous 1 mg (0.2 mL) subcut UD PRN 03/31/22 02/05/23 Rx auto-injector hypoglycemic coma/unresponsivenss #0.2 mL omeprazole 20 mg capsule,delayed 20 mg PO QAM 07/31/22 02/05/23 History release biotin 1 mg capsule 1 mg PO TID 02/05/23 02/05/23 History cholecalciferol (vitamin D3) 25 25 mcg PO DAILY 02/05/23 02/05/23 History mcg (1,000 unit) tablet (Vitamin D3) donepezil 5 mg tablet (Aricept) 5 mg PO QAM 02/05/23 02/05/23 History dulaglutide 4.5 mg/0.5 mL 4.5 mg subcut WK 02/05/23 02/05/23 History subcutaneous pen injector (Trulicity) ferrous sulfate 325 mg (65 mg 325 mg PO DAILY 02/05/23 02/05/23 History iron) tablet (iron) insulin aspart U-100 100 unit/mL 1 sliding scale dose subcut 02/05/23 02/05/23 History (3 mL) subcutaneous pen (Novolog USEASDIRECTD PRN Hyperglycemia FlexPen U-100 Insulin aspart) lisinopril 5 mg tablet 5 mg PO QAM 02/05/23 02/05/23 History magnesium oxide 400 mg PO QAM 02/05/23 02/05/23 History potassium bicarbonate-citric acid 10 meq PO UD 02/05/23 02/05/23 History 10 mEq effervescent tablet pramipexole 1 mg tablet 1 mg PO QAM 02/05/23 02/05/23 History Past Med/Surg History Medical History Adult ADHD Alzheimer disease Carpal tunnel syndrome Cervical radiculopathy at C5 Chronic cerebral ischemia Degenerative disc disease Depression Diabetes mellitus, type 2 Elevated troponin (2014) Fatty liver Fatty liver disease, nonalcoholic Heartburn OCC WITH CERTAIN DIETARY INTAKE/DENIES REFLUX/NO MEDS Hyperlipidemia Hypertension Hypothyroidism Lichen sclerosus Memory loss Obstructive sleep apnea On anticoagulant therapy on plavix Restless leg syndrome Sleep apnea cpap--was not using, planning to re-start use Syncope Surgical History History of bilateral cataract extraction History of carpal tunnel release bilt History of colonoscopy History of colonoscopy with polypectomy History of dilatation and curettage History of left breast biopsy benign History of right breast biopsy BENIGN History of surgical procedure on eye proper using laser right and left History of tooth extraction wisdom teeth History of tooth extraction all upper teeth Family History Father , age 80 Family history of diabetes mellitus Heart disease Brother Family history of diabetes mellitus 2 Mother , age 79 of a blood infection Family history of diabetes mellitus Family history of breast cancer Social History (Updated 08/01/22 @ 13:13 by Redd Godoy MD) Smoking Status: Former smoker Tobacco Type: Cigarettes Age Quit Using Tobacco: 62; Cigarettes Per Day: 4; Second Hand Exposure: Yes; Do You Dip or Chew Tobacco: No; Hx Alcohol Use: No Hx Substance Use: No Preferred Language: Portuguese Communication Ability: Effective Dietetics Teacher Required: No Beliefs That Will Affect Care: None Current Living Situation: Family Current Living Situation Comment: son lives with her. 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 How many Children do You have: 1 Feels Safe at Home: Yes Assistive Devices: CPAP Review of Systems Review of Systems: As per HPI, all other systems reviewed and negative Physical Exam Physical Exam: GENERAL: Comfortable, pleasant, no respiratory distress SKIN: Normal color, warm HEENT: [place] palpebral conjunctivae, no ptosis, dry buccal mucosa NECK : Supple, no tenderness CHEST : CTA, no tenderness HEART : RRR, no obvious murmurs ABDOMEN: Some distention, nontender EXTREMITIES : No LE swelling/tenderness, no other conspicuous deformities noted NEUROLOGIC : Coherent, no facial asymmetry, no other gross focality Results & Data Results & Data Vital Signs (Past 12 Hours) Vital Signs Temp Pulse Pulse Resp BP BP Pulse Ox 02/05/23 21:29 78 19 111/64 97 02/05/23 20:05 36.7 C 81 18 94/61 L 98 O2 Del Method 02/05/23 21:29 Room Air 02/05/23 20:05 Room Air Laboratory Results Laboratory Results WBC 6.55 K/ul (4.8-10.8) 02/05/23 20:12 RBC 3.99 M/uL (4.20-5.40) L 02/05/23 20:12 Hgb 13.6 g/dl (12.0-16.0) 02/05/23 20:12 Hct 38.0 % (37.0-47.0) 02/05/23 20:12 MCV 95.2 fL (80.0-100.0) 02/05/23 20:12 MCH 34.1 pg (25.0-34.0) H 02/05/23 20:12 MCHC 35.8 g/dL (32.0-36.0) 02/05/23 20:12 RDW Std Deviation 42.8 fL (36.4-46.3) 02/05/23 20:12 RDW Coeff of [place]y 12.4 % (11.5-14.5) 02/05/23 20:12 Plt Count 208 K/uL (130-400) 02/05/23 20:12 MPV 9.4 fL (9.4-12.4) 02/05/23 20:12 Immature Gran % (Auto) 0.2 % 02/05/23 20:12 Neut % (Auto) 57.6 % 02/05/23 20:12 Lymph % (Auto) 31.8 % 02/05/23 20:12 [place] % (Auto) 6.7 % 02/05/23 20:12 Eos % (Auto) 2.9 % 02/05/23 20:12 Baso % (Auto) 0.8 % 02/05/23 20:12 Neut # (Auto) 3.78 K/uL (1.40-6.50) 02/05/23 20:12 Lymph # (Auto) 2.08 K/uL (1.2-3.4) 02/05/23 20:12 [place] # (Auto) 0.44 K/uL (0.11-0.59) 02/05/23 20:12 Eos # (Auto) 0.19 K/uL (0-0.50) 02/05/23 20:12 Baso # (Auto) 0.05 K/uL (0-0.2) 02/05/23 20:12 Immature Gran # (Auto) 0.01 K/uL (0.01-0.20) 02/05/23 20:12 Sodium 136 mmol/L (136-145) 02/05/23 20:12 Potassium 4.2 mmol/L (3.5-5.1) 02/05/23 20:12 Chloride 100 mmol/L (98-107) 02/05/23 20:12 Carbon Dioxide 29 mmol/L (21-32) 02/05/23 20:12 Anion Gap 7 (3-11) 02/05/23 20:12 BUN 19 mg/dl (6-23) 02/05/23 20:12 Creatinine 0.81 mg/dl (0.6-1.2) 02/05/23 20:12 Est Cr Clr Drug Dosing 54.8 ml/min 02/05/23 20:12 Est GFR ( Amer) 88.3 ml/min 02/05/23 20:12 Est GFR (Non-Af Amer) 76.2 ml/min 02/05/23 20:12 BUN/Creatinine Ratio 23.5 (10-20) H 02/05/23 20:12 Glucose 186 mg/dl (70-99(Fasting)) H 02/05/23 20:12 Lactate 1.2 mmol/L (0.4-2.0) 02/05/23 22:34 Calcium 9.2 mg/dl (8.6-10.3) 02/05/23 20:12 Magnesium 1.6 mg/dl (1.7-2.4) L 02/05/23 20:12 Total Bilirubin 0.8 mg/dl (0.2-1.0) 02/05/23 20:12 AST 19 U/L (13-39) 02/05/23 20:12 ALT 18 U/L (7-52) 02/05/23 20:12 Alkaline Phosphatase 74 U/L (34-104) 02/05/23 20:12 Troponin I High Sens 4.5 pg/ml (0-14) 02/05/23 20:12 Total Protein 6.6 gm/dl (6.0-8.3) 02/05/23 20:12 Albumin 3.9 gm/dl (3.4-5.0) 02/05/23 20:12 Globulin 2.7 gm/dl (2.5-4.0) 02/05/23 20:12 Albumin/Globulin Ratio 1.4 (0.9-2) 02/05/23 20:12 TSH 1.500 uIu/ml (0.300-4.500) 02/05/23 20:12 Urine Color Yellow 02/05/23 21:38 Urine Appearance Clear (Clear) 02/05/23 21:38 Urine pH 7.0 (4.5-7.5) 02/05/23 21:38 Ur Specific [place] 1.007 (1.000-1.030) 02/05/23 21:38 Urine Protein Negative (Negative) 02/05/23 21:38 Urine Glucose (UA) Negative (Negative) 02/05/23 21:38 Urine Ketones Trace (Negative) H 02/05/23 21:38 Urine Blood Negative (Negative) 02/05/23 21:38 Urine Nitrite Negative (Negative) 02/05/23 21:38 Urine Bilirubin Negative (Negative) 02/05/23 21:38 Urine Urobilinogen Negative (Negative) 02/05/23 21:38 Ur Leukocyte Esterase 3+ (Negative) H 02/05/23 21:38 Urine WBC (Auto) >30 /hpf (0-5) H 02/05/23 21:38 Urine RBC (Auto) 0-4 /hpf (0-4) 02/05/23 21:38 U Hyaline Cast (Auto) 1-5 /lpf (0-5) 02/05/23 21:38 U Epithel Cells (Auto) 10-20 /lpf (0-5) H 02/05/23 21:38 Urine Bacteria (Auto) 1+ (Negative) H 02/05/23 21:38 Urine Crystals Not Reportable 02/05/23 21:38 Calcium Oxalate Crystal Present (None Prsent) A 02/05/23 21:38 SARS-CoV-2, RNA, NAAT NEGATIVE (NEGATIVE) 02/05/23 20:24 Diagnostic Findings Chest x-ray as per my interpretation atelectasis EKG as per my interpretation : Rate 75, NSR, LAD, LSB, T wave abnormalities inferior leads, low voltage
[2023-02-06] MEDS ORDERED: SODIUM CHLORIDE 0.9% 1000ML 1,000 ML IV ONE (02:13)
[2023-02-06] MEDS ORDERED: MECLIZINE 12.5 MG TAB PO PRN (02:13)
[2023-02-06] MEDS ORDERED: CARBOHYDRATES FOR HYPOGLYCEMIA PO PRN (05:45)
[2023-02-06] MEDS ORDERED: ACETAMINOPHEN 325 MG TAB PO PRN (05:45)
[2023-02-06] MEDS ORDERED: GLUCOSE 10 TAB/TUBE PO PRN (05:45)
[2023-02-06] MEDS ORDERED: GLUCOSE 40% GEL 15 GM TUBE PO PRN (05:45)
[2023-02-06] MEDS ORDERED: PROMETHAZINE HCL 6.25 MG in SODIUM CHLORIDE 0.9% 50 ML IV PRN (05:45)
[2023-02-06] MEDS ORDERED: DEXTROSE 50% 50 ML SYRINGE IV PRN (05:45)
[2023-02-06] MEDS ORDERED: GLUCAGON FOR INJ 1 MG VIAL SQ PRN (05:45)
[2023-02-06] MEDS: INSULIN ASPART PER UNIT CHARGE SC SCH ×4 (06:50→21:14)
[2023-02-06] MEDS: LEVOTHYROXINE SODIUM 88 MCG TABLET PO SCH (06:51)
[2023-02-06 07:12] LABS: Basophils # (auto) 0.05 K/uL (0-0.2); Basophils % (auto) 0.7 %; Eosinophils # (auto) 0.27 K/uL (0-0.50); Eosinophils % (auto) 3.9 %; Hemoglobin 12.7 g/dl (12.0-16.0); Immature Granulocytes # (auto) 0.01 K/uL (0.01-0.20); Immature Granulocytes % (auto) 0.1 %; Lymphocytes # (auto) 3.43 K/uL (1.2-3.4); Lymphocytes % (auto) 49.6 %; Mean Corpuscular Hgb Conc 35.3 g/dL (32.0-36.0); Mean Corpuscular Volume 96.3 fL (80.0-100.0); Mean Platelet Volume 9.4 fL (9.4-12.4); Monocytes # (auto) 0.47 K/uL (0.11-0.59); Monocytes % (auto) 6.8 %; Neutrophils # (auto) 2.68 K/uL (1.40-6.50); Neutrophils % (auto) 38.9 %; Platelet Count 211 K/uL (130-400); RDW Coefficient of Variation 12.3 % (11.5-14.5); RDW Standard Deviation 42.5 fL (36.4-46.3); Red Blood Count 3.74 M/uL (4.20-5.40); White Blood Count 6.91 K/ul (4.8-10.8)
[2023-02-06 07:31] LABS: BUN Creatinine Ratio 19.4 (10-20); Creatinine Clr Calc Pharmacy 71.5 ml/min; Est GFR (African American) 109.7 ml/min; Est GFR (Non-African American) 94.6 ml/min; Magnesium 1.8 mg/dl (1.7-2.4); Potassium 3.4 mmol/L (3.5-5.1)
--- NOTE | 2023-02-06 07:42 | XRay Report ---
SINGLE VIEW CHEST CLINICAL HISTORY: Near syncope. Hypotension. FINDINGS: An AP, portable, upright chest radiograph is compared to study dated 03/31/2022 and correlate d with chest CT dated 05/09/2019. The cardiomediastinal silhouette is unremarkable noting atherosclero tic calcification of the thoracic aorta. Chronic interstitial thickening is similar to previous. The lungs and pleural spaces are clear noting mild bibasilar scarring/atelectasis. No pneumothorax is see n. The skeletal structures are osteopenic. The bony thorax is grossly intact. Calcific tendinopathy i s noted in the right shoulder. IMPRESSION: No active disease in the chest. ACT 112: Negative or not required by law. Electronically signed by: Kristofer Wheeler M.D. 02/06/2023 7:40 AM
[2023-02-06] MEDS: METOPROLOL SUCC 25MG EXT REL TAB PO SCH (08:20)
[2023-02-06] MEDS: PANTOprazole 40 MG TAB PO SCH (08:20)
[2023-02-06] MEDS: CLOPIDOGREL BISULFATE 75 MG TAB PO SCH (08:20)
[2023-02-06] MEDS: ATORVASTATIN 20 MG TAB PO SCH (08:20)
[2023-02-06] MEDS: FERROUS SULFATE 325 MG TAB PO SCH (08:20)
[2023-02-06] MEDS: ENOXAPARIN INJ 40 MG/0.4 ML SYR SQ SCH (08:20)
[2023-02-06] MEDS: PRAMIPEXOLE DIHYDROCHLO 0.5 MG TAB PO SCH (08:21)
--- NOTE | 2023-02-06 08:40 | Electrocardiogram Report ---
Test Reason : Blood Pressure : / mmHG Vent. Rate : 075 BPM Atrial Rate : 075 BPM P-R Int : 126 ms QRS Dur : 070 ms QT Int : 394 ms P-R-T Axes : 006 -23 011 degrees QTc Int : 439 ms Normal sinus rhythm Low voltage QRS Poor R wave progression, consider anterior WI vs. lead placement vs. LVH Abnormal ECG When compared with ECG of 31-JUL-2022 17:25, Borderline criteria for Anterior infarct are now Present Borderline criteria for Anterolateral infarct are now Present Nonspecific T wave abnormality now evident in Anterior leads Confirmed by Tariq Mcfarland ([id number]) on 02/06/2023 8:40:21 AM Referred By: REFERRED SELF Confirmed By:Hari Mcfarland
--- NOTE | 2023-02-06 11:30 | Communication Note ---
Date of Service: February 06, 2023 Patient seen and examined Reports chronic intermittent dizziness that has worsened recently, associated with 'spinning sensation' Can be precipitated on getting up from recliner. Denied any hearing deficits/ear pain/discharge Denied headache. Reported some vomiting some days ago, poor appetite Reported some loose stool sometime ago Denied fever, chills, nausea, vomiting Check orthostatic vitals PT/OT eval Declined antivert for now SBP running 90s Continue IVF Other plans as detailed in H/P this AM
[2023-02-06] MEDS ORDERED: POLYETHYLENE (MIRALAX) 17 GM PACK PO PRN (17:09)
[2023-02-06] MEDS: SENNA 8.6 MG TAB PO SCH (21:47)
[2023-02-07] MEDS: LEVOTHYROXINE SODIUM 88 MCG TABLET PO SCH (05:28)
[2023-02-07] MEDS ORDERED: DICLOFENAC SOD 1% GEL 100 GM TUBE EXT PRN (05:35)
[2023-02-07 07:23] LABS: Hematocrit (blood only) 36.2 % (37.0-47.0); Hemoglobin 12.9 g/dl (12.0-16.0); Mean Corpuscular Hemoglobin 34.5 pg (25.0-34.0); Mean Corpuscular Hgb Conc 35.6 g/dL (32.0-36.0); Mean Corpuscular Volume 96.8 fL (80.0-100.0); Mean Platelet Volume 9.5 fL (9.4-12.4); Platelet Count 204 K/uL (130-400); RDW Coefficient of Variation 12.5 % (11.5-14.5); Red Blood Count 3.74 M/uL (4.20-5.40); White Blood Count 7.13 K/ul (4.8-10.8)
[2023-02-07 07:37] LABS: BUN Creatinine Ratio 14.5 (10-20); Calcium 9.5 mg/dl (8.6-10.3); Creatinine Clr Calc Pharmacy 64.3 ml/min; Est GFR (African American) 105.9 ml/min; Est GFR (Non-African American) 91.4 ml/min; Magnesium 1.7 mg/dl (1.7-2.4); Phosphorus 3.3 mg/dl (2.5-4.9); Potassium 3.9 mmol/L (3.5-5.1)
[2023-02-07] MEDS: ENOXAPARIN INJ 40 MG/0.4 ML SYR SQ SCH (07:45)
[2023-02-07] MEDS: ATORVASTATIN 20 MG TAB PO SCH (07:45)
[2023-02-07] MEDS: CLOPIDOGREL BISULFATE 75 MG TAB PO SCH (07:45)
[2023-02-07] MEDS: PANTOprazole 40 MG TAB PO SCH (07:46)
[2023-02-07] MEDS: METOPROLOL SUCC 25MG EXT REL TAB PO SCH (07:46)
[2023-02-07] MEDS: FERROUS SULFATE 325 MG TAB PO SCH (07:46)
[2023-02-07] MEDS: PRAMIPEXOLE DIHYDROCHLO 0.5 MG TAB PO SCH (07:47)
[2023-02-07] MEDS: INSULIN ASPART PER UNIT CHARGE SC SCH ×2 (08:40→12:54)
--- NOTE | 2023-02-07 11:26 | Discharge Summary ---
Date of Service February 07, 2023 Admission HPI Per Admitting Provider History obtained from patient and records. Medical history significant for old myocardial infarction/questionable stroke as per records, hypertension, hyperlipidemia, DM2 insulin requiring, hypothyroidism, neurogenic bladder as per records, mild cognitive impairment as per records, RLS/peripheral neuropathy, past tobacco abuse. Last confinement July 2022 for spells of altered consciousness and transient chest pain. No concern for primary seizure disorder as per Neurology. EF 60 to 65% on TTE. Left solitary pulmonary nodule noted as incidental finding on CT. Follow-up surveillance study recommended after 6 months. The last 2 days, patient noted dizziness described as lightheadedness/near syncope. Patient also gives description of transient spinning sensation somewhat aggravated by motion. No hearing loss or tinnitus. No head trauma. No chest pain, no SOB. Diarrheal symptoms without abdominal pain. Patient denies urinary symptoms symptoms. SBP 90s upon arrival at the ER. IV cefepime administered at the ER for possible UTI. 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 Admission Exam Per Admitting Provider GENERAL: Comfortable, pleasant, no respiratory distress SKIN: Normal color, warm HEENT: [place] palpebral conjunctivae, no ptosis, dry buccal mucosa NECK : Supple, no tenderness CHEST : CTA, no tenderness HEART : RRR, no obvious murmurs ABDOMEN: Some distention, nontender EXTREMITIES : No LE swelling/tenderness, no other conspicuous deformities noted NEUROLOGIC : Coherent, no facial asymmetry, no other gross focality Principal Diagnosis Near syncope Orthostatic dizziness Discharge Exam Constitutional + well hydrated; no acute distress Eyes PERRL, conjunctivae normal, anicteric sclerae ENMT external ear and nose normal, oropharynx normal Respiratory normal respiratory effort, lungs clear to auscultation Cardiovascular Rate/Rhythm: regular rate and regular rhythm S1 S2 Gastrointestinal (Abdomen) normal bowel sounds, soft, nontender, no hepatosplenomegaly Musculoskeletal no cyanosis or clubbing, extremities motor strength 5/5 Neurologic PERRL, EOMI, accommodation nl, no face palsy, no dysarthria Psychiatric A+Ox3, euthymic affect Discharge Data Allergies Allergy/AdvReac Type Severity Reaction Status Date / Time No Known Drug Allergies Allergy Unknown Verified 07/31/22 17:46 Consultations 02/05/23 23:04 ED Decision to Admit Stat Hospital Course (1) Dizziness: Dizziness likely multifactorial Has orthostatic dizziness. Also reports poor oral intake, some vomiting and loo se stool recently Patient's SBP was running 88-100s while inpatient Patient's lisinopril stopped for now. BP has been stable today Symptoms resolved She stated she has a BP machine at home. Advised to keep a BP log daily for PCP until follow up within 1 week PT/OT evaluated Advised to get up slowly Other medical problems include: History of old myocardial infarction/questionable stroke as per records DM2 insulin requiring, reasonable control as of recent hemoglobin A1c of 7.31 Jan 2023 Hypothyroidism, euthyroid Mild cognitive impairment RLS/peripheral neuropathy SPN, L, patient due for outpatient follow-up CT imaging Total Time Total Time Spent Total Time Spent (In Minutes): 45 Total Time Includes: Examination of the Patient, Discharge Planning and Medication Reconciliation Discharge Plan Discharge Items Patient Disposition: Home - Self-Care Reason For Visit: DIZZINESS Discharge Diagnosis: Near syncope Orthostatic dizziness Activity: Resume your previous activity Non-emergency contact: Primary Care Provider Call non-emergency contact if: you have any medication questions Follow-up/Referrals: Asuncion Suarez, [Primary Care Provider] - (Date & Time 02/13/2023 9:00 AM Provider Kim Calvo MD [facility] ) Diet: Carb Consistent or DM2 and Heart Healthy Addtl Attending Provider Instructions: Mrs Mas. You came to the hospital complaining of worsening of your dizziness. You were evaluated. Your blood pressure was noted to be running low. Please stop taking your Lisinopril for now. Please keep a record of your home blood pressure measurements as we discussed for your Primary Doctor. Please get up slowly as we discussed. Please ensure follow up with your Primary Doctor. It was a pleasure taking care of you. Pending Studies at Discharge: No Stand-Alone Forms: [employer], Smoking Cessation Medications and DC Order Prescriptions: Continued levothyroxine 88 mcg tablet See Rx Instructions .ROUTE .COMPLEX Qty: 100 3RF Dose Instruction: TAKE 1 TABLET by mouth Monday through Monday and 2 TABS ON Monday Rx Instructions: TAKE 1 TABLET by mouth Monday through Monday and 2 TABS ON Monday take daily before breakfast solifenacin 5 mg tablet 5 mg PO QAM hydrochlorothiazide 12.5 mg tablet 12.5 mg PO QAM (DME) OneTouch Verio test strips Strip See Rx Instructions .ROUTE .MEDSUPPLY Qty: 10 Rx Instructions: Test blood sugar four times daily atorvastatin 20 mg tablet 20 mg PO QAM (DME) pen needle, diabetic [Comfort EZ Pen [place]] 31 gauge x 1/4" needle See Rx Instructions .ROUTE .MEDSUPPLY Qty: 360 3RF Rx Instructions: Change new pen needle after each use 4x a day clopidogrel 75 mg tablet 75 mg PO QAM metoprolol succinate 25 mg tablet extended release 24 hr 25 mg PO QAM omeprazole 20 mg capsule,delayed release(DR/EC) 20 mg PO QAM glucagon 1 mg/0.2 mL auto-injector 1 mg subcut UD PRN (Reason: hypoglycemic coma/unresponsivenss ) Qty: 0.2 0RF donepezil [Aricept] 5 mg tablet 5 mg PO QAM pramipexole 1 mg tablet 1 mg PO QAM magnesium oxide 400 mg magnesium Capsule 400 mg PO QAM ferrous sulfate [iron] 325 mg (65 mg iron) Tablet 325 mg PO DAILY cholecalciferol (vitamin D3) [Vitamin D3] 25 mcg (1,000 unit) Tablet 25 mcg PO DAILY Trulicity 4.5 mg/0.5 mL Pen Injector 4.5 mg SUBCUT WK potassium bicarb-citric acid 10 mEq Tablet, Effervescent 10 meq PO UD biotin 1 mg Capsule 1 mg PO TID Rx Instructions: morning,noon and before bedtime insulin aspart U-100 [Novolog FlexPen U-100 Insulin] 100 unit/mL (3 mL) Insulin Pen 1 sliding scale dose SUBCUT USEASDIRECTD PRN (Reason: Hyperglycemia) Rx Instructions: 0-20 units as needed for high sugar Discontinued lisinopril 5 mg Tablet 5 mg PO QAM Discharge Orders: Discharge Order (Routine); Ordered 02/07/23 Ordered By: Roselia Medina Admission Data Admit Date/Time: 02/06/23 02:10 Attending Provider: Roselia Medina I. Admit Provider: Myron Pantoja Primary Care Provider: Asuncion Suarez Other Providers: Myron Pantoja Other Interventions: Discharge Summary Assessment (RN) Last Done: 02/07/23 14:21
[2023-02-07] MEDS: SENNA 8.6 MG TAB PO SCH (12:52)
[2023-02-07] MEDS ORDERED: NYSTATIN OINT 15 GM TUBE EXT SCH (21:00)
[2023-02-12] MEDS ORDERED: LEVOTHYROXINE SODIUM 88 MCG TABLET PO SCH ×2 (06:30)
== END 2023-02-07 14:39 | disposition home or self-care (01) ==
LOC: ED 19:59 → EDINP 19:59 → 2W 02-06 05:46

== ENCOUNTER 2024-02-12 13:43 | Inpatient (IN) ==
--- NOTE | 2024-02-12 14:10 | Emergency Department Note ---
Impression & Plan Acute appendicitis, Abdominal pain, Leukocytosis ED Provider Note NAME: MARSHALL MONCADA AGE: 68 SEX: F : 1955 ARRIVES VIA: Ambulance INFORMANT: Patient ED PROVIDER(S): Yaya Okeefe DO CHIEF COMPLAINT: abdominal pain HPI: Patient is a 68-year-old female who presents to the ER with a past medical history of diabetes, dizziness, altered mental status, for right lower quadrant abdominal pain radiating across her belly. Started earlier today. Associated with nausea but no vomiting. Denies any headache or change in vision. No chest pain or shortness of breath. No dysuria, urgency, or frequency. No other exacerbating or remitting factors. ADDITIONAL HISTORY OBTAINED: Per HPI Chronic Medical/Social Conditions Affecting Care: Per HPI PAST MEDICAL HISTORY:See Below PAST SURGICAL HISTORY:See Below FAMILY HISTORY:See Below SOCIAL HISTORY:See Below HOME MEDICATIONS:See Below ALLERGIES:See Below VITALS:See Below PHYSICAL EXAMINATION: GENERAL: Sitting up in bed, alert, well appearing, well nourished, no distress, non-toxic EYE EXAM: normal conjunctiva. OROPHARYNX:mucous membranes are moist NECK: supple, no nuchal rigidity, no adenopathy, non-tender LUNGS: Clear to auscultation. Normal chest wall mechanics HEART: no murmurs, S1 normal and S2 normal ABDOMEN: abdomen soft, TTP in RLQ, normo-active bowel sounds, no masses, no rebound or guarding. UPPER EXTREMITIES: upper extremities are grossly normal. LOWER EXTREMITIES: No pitting edema. NEURO EXAM: Normal sensorium, cranial nerves II-XII grossly intact, normal speech, no gross weakness of arms, no gross weakness of legs. MEDICAL DECISION MAKING: Patient is a 68-year-old female who presents ER for right lower quadrant abdominal pain. IV was established blood work was obtained. Labs show leukocytosis of 13,000. No significant anemia. BMP is fairly unremarkable. LFTs bilirubin and lipase is unremarkable. CT abdomen pelvis confirms acute appendicitis. Patient was given IV morphine fluids Zofran and 2 g of cefoxitin. Discussed case with Dr. Sandoval and patient was admitted to general surgery and taken to the OR for acute appendicitis. Consults/Care Managements Discussions: Per [facility] Triage Nursing notes reviewed. Limited review of prior medical records performed Vital Signs: reviewed and remarkable for no significant abnormalities Differential diagnosis: Differential diagnoses includes but is not limited to gastritis, peptic ulcer disease, GERD, gallbladder disease, pancreatitis, small bowel obstruction, appendicitis, diverticulitis, hernia, urinary tract infection, torsion, perforation, trauma, infectious. ER treatment provided: See below Diagnostics interpreted by me include EKG and cardiac monitoring as listed below: -Cardiac Monitoring: An order was placed for continuous cardiac monitoring. The monitor shows a rate of 95 with sinus rhythm. -ECG: none -Laboratory studies:Interpreted by me as stated above in MDM and shown below. Imaging studies: Xrays: As interpreted by me:none CTs show: CT abdomen pelvis per my preliminary read showed no obvious bowel obstruction CT abdomen pelvis per radiology showed acute appendicitis Procedures:none Critical Care: None Past Med/Surg History Problem List (Updated 02/12/24 @ 16:50 by Yaya Okeefe DO) Leukocytosis (Acute) Abdominal pain (Acute) Acute appendicitis (Acute) Acute appendicitis Near syncope (Acute) Acute hypotension (Acute) Acute dehydration (Acute) Diarrhea (Acute) Hypoglycemia Diabetes (Chronic) Dizziness (Acute) Nausea (Acute) Nausea (Acute) Dehydration (Acute) Hypomagnesemia (Acute) Altered mental status (Acute) Hypothyroidism Encounter for pre-operative examination Bright red blood per rectum Change in bowel habit Numbness Dyslipidemia Vitamin D deficiency Elevated transaminase level Medical History Hypotension Polyneuropathy Arm paresthesia, left Obstructive sleep apnea Memory loss Fatty liver Chronic cerebral ischemia Cervical radiculopathy at C5 Carpal tunnel syndrome Adult ADHD Unresponsiveness Left arm weakness Spell of altered consciousness Restless leg syndrome Uncontrolled type 2 diabetes mellitus with insulin therapy Mild cognitive impairment Heartburn OCC WITH CERTAIN DIETARY INTAKE/DENIES REFLUX/NO MEDS On anticoagulant therapy on plavix Degenerative disc disease Fatty liver disease, nonalcoholic Lichen sclerosus Diabetes mellitus, type 2 Depression Hyperlipidemia Hypertension Sleep apnea cpap--was not using, planning to re-start use Alzheimer disease Restless leg syndrome Elevated troponin (2014) Surgical History History of colonoscopy with polypectomy History of colonoscopy History of tooth extraction all upper teeth History of left breast biopsy benign History of right breast biopsy BENIGN History of dilatation and curettage History of tooth extraction wisdom teeth History of carpal tunnel release bilt History of surgical procedure on eye proper using laser right and left History of bilateral cataract extraction Family History Father , age 80 Family history of diabetes mellitus Heart disease Brother Family history of diabetes mellitus 2 Mother , age 79 of a blood infection Family history of diabetes mellitus Family history of breast cancer Social History Smoking Status: Current every day smoker Tobacco Type: E-cigarettes / Vaping Age Quit Using Tobacco: 62; Cigarettes Per Day: 4; Second Hand Exposure: No; Do You Dip or Chew Tobacco: No; Hx Alcohol Use: No Hx Substance Use: No Preferred Language: French Communication Ability: Effective 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 How many Children do You have: 1 Feels Safe at Home: Yes Assistive Devices: Denture - Upper and Glasses Allergies Allergies Allergy/AdvReac Type Severity Reaction Status Date / Time No Known Drug Allergies Allergy Unknown Verified 02/12/24 16:22 Home Meds Home Medications Medication Instructions Recorded Confirmed clopidogrel 75 mg tablet 75 mg PO QAM 05/24/19 02/12/24 metoprolol succinate 25 mg 25 mg PO QAM 05/24/19 02/12/24 tablet,extended release 24 hr atorvastatin 20 mg tablet 20 mg PO QAM 07/26/19 02/12/24 blood sugar diagnostic (OneTouch #10 ea 02/15/21 02/12/24 Verio test strips) hydrochlorothiazide 12.5 mg tablet 12.5 mg PO QAM 02/15/21 02/12/24 solifenacin 5 mg tablet 5 mg PO QAM 02/15/21 02/12/24 omeprazole 20 mg capsule,delayed 20 mg PO QAM 07/31/22 02/12/24 release biotin 1 mg capsule 1 mg PO TID 02/05/23 02/12/24 cholecalciferol (vitamin D3) 25 25 mcg PO DAILY 02/05/23 02/12/24 mcg (1,000 unit) tablet (Vitamin D3) donepezil 5 mg tablet (Aricept) 5 mg PO QAM 02/05/23 02/12/24 dulaglutide 4.5 mg/0.5 mL 4.5 mg subcut WK 02/05/23 02/12/24 subcutaneous pen injector (Trulicity) ferrous sulfate 325 mg (65 mg 325 mg PO DAILY 02/05/23 02/12/24 iron) tablet (iron) insulin aspart U-100 100 unit/mL 1 sliding scale dose subcut 02/05/23 02/12/24 (3 mL) subcutaneous pen (Novolog USEASDIRECTD PRN Hyperglycemia FlexPen U-100 Insulin aspart) magnesium oxide 400 mg PO QAM 02/05/23 02/12/24 potassium bicarbonate-citric acid 10 meq PO DAILY 02/05/23 02/12/24 10 mEq effervescent tablet clobetasol 0.05 % topical cream 1 applic topical BID 02/12/24 02/12/24 diclofenac sodium 1 % topical gel 4 g topical QID 02/12/24 02/12/24 insulin glargine 100 unit/mL (3 16 unit subcut QPM 02/12/24 02/12/24 mL) subcutaneous pen (Lantus Solostar U-100 Insulin) lisinopril 5 mg tablet 5 mg PO DAILY 02/12/24 02/12/24 trazodone 50 mg tablet 50 mg PO HS 02/12/24 02/12/24 Previous Rx's Medication Instructions Recorded pen needle, diabetic 31 gauge x #360 ea 12/24/19 1/" (Comfort EZ Pen [place]) levothyroxine 88 mcg tablet See Rx Instructions .Route 02/20/20 .COMPLEX #100 tabs Results & Data (ED) Vital Signs Vital Signs - 24 hr 02/12/24 13:58 02/12/24 13:58 02/12/24 13:58 Temperature 36.9 C Temperature Source Oral Pulse Rate 98 H Pulse Rate [Left Finger] Pulse Rate from SpO2 Sensor Respiratory Rate 18 22 Respiratory Effort / Characteristics Non-Labored Non-Labored Respiratory Depth Normal Normal Blood Pressure 123/63 Blood Pressure [Right Arm] Blood Pressure Mean 83 Blood Pressure Mean [Right Arm] Blood Pressure Position [Right Arm] Pulse Oximetry 97 Oxygen Delivery Method Room Air Room Air Sepsis Recent Fever Within 48 Hours No Sepsis New/Unexplained Change in Mental Status No Sepsis Action Taken by Nursing No Action Required 02/12/24 14:19 02/12/24 15:25 02/12/24 16:30 Temperature 37.7 C H Temperature Source Oral Pulse Rate 100 H 103 H Pulse Rate [Left Finger] 97 H Pulse Rate from SpO2 Sensor 103 H Respiratory Rate 14 16 Respiratory Effort / Characteristics Non-Labored Respiratory Depth Normal Blood Pressure 88/53 L Blood Pressure [Right Arm] 103/55 L Blood Pressure Mean 64 Blood Pressure Mean [Right Arm] 71 Blood Pressure Position [Right Arm] Semi-fowlers Pulse Oximetry 96 99 Oxygen Delivery Method Room Air Room Air Sepsis Recent Fever Within 48 Hours Sepsis New/Unexplained Change in Mental Status Sepsis Action Taken by Nursing Laboratory Data 02/12/24 13:55 02/12/24 15:17 Lab Results 02/12/24 02/12/24 02/12/24 Range/Units 13:55 14:01 15:17 WBC 13.97 H (4.8-10.8) K/ul RBC 4.40 (4.20-5.40) M/uL Hgb 14.6 (12.0-16.0) g/dl POC Hgb 14.6 (12.0-16.0) g/dl Hct 41.4 (37.0-47.0) % POC Hct 43 (37-47) % MCV 94.1 (80.0-100.0) fL MCH 33.2 (25.0-34.0) pg MCHC 35.3 (32.0-36.0) g/dL RDW Std Deviation 43.9 (36.4-46.3) fL RDW Coeff of Leny 12.9 (11.5-14.5) % Plt Count 272 (130-400) K/uL MPV 10.4 (9.4-12.4) fL Immature Gran % (Auto) 0.4 % Neut % (Auto) 85.4 % Lymph % (Auto) 6.0 % Spencer % (Auto) 7.2 % Eos % (Auto) 0.6 % Baso % (Auto) 0.4 % Neut # (Auto) 11.93 H (1.40-6.50) K/uL Lymph # (Auto) 0.84 L (1.20-3.40) K/uL Spencer # (Auto) 1.01 H (0.11-0.59) K/uL Eos # (Auto) 0.09 (0.00-0.50) K/uL Baso # (Auto) 0.05 (0.00-0.20) K/uL Immature Gran # (Auto) 0.05 (0.01-0.20) K/uL POC Sodium 136 (135-144) mmol/L Sodium Cancelled 135 L POC Potassium 5.2 H (3.3-5.0) mmol/L Potassium Cancelled 4.7 POC Chloride 100 L (101-112) mmol/L Chloride Cancelled 100 Carbon Dioxide Cancelled 28 POC Total CO2 27 (24-31) mmol/L Anion Gap Cancelled 7 POC Anion Gap 15.0 L (16-25) mmol/L POC BUN 23 H (7-18) mg/dl BUN Cancelled 18 Creatinine Cancelled 0.80 POC Creatinine 0.7 (0.6-1.3) mg/dl Est Cr Clr Drug Dosing Cancelled 59.8 Est GFR ( Amer) Cancelled 89.0 Est GFR (Non-Af Amer) Cancelled 76.8 BUN/Creatinine Ratio Cancelled 22.5 H Glucose Cancelled 229 H POC Glucose (other) 208 H (70-99) mg/dl Calcium Cancelled 9.6 POC Ioniz Calcium Angela 1.13 (1.12-1.32) mmol/l Total Bilirubin Cancelled 0.9 AST Cancelled 18 ALT Cancelled 17 Alkaline Phosphatase Cancelled 111 H Total Protein Cancelled 6.6 Albumin Cancelled 3.6 Globulin Cancelled 3.0 Albumin/Globulin Ratio Cancelled 1.2 Lipase Cancelled 18 Administered Medications Lactated Ringer's (Lr) 1,000 mls @ 15 mls/hr IV .Q24H [id number] Stop: 03/13/24 16:14 Last Admin: 02/12/24 16:39 Dose: 15 mls/hr Documented By: KLR Discontinued Medications Cefoxitin Sodium (Mefoxin) 2,000 mg in 60 mls @ 100 mls/hr IV NOW STA Stop: 02/12/24 15:41 Last Admin: 02/12/24 15:17 Dose: 100 mls/hr [place]ed [place]: [facility] [place]oversol (Optiray 320 100ml) 88 ml IV ONCE ONE Stop: 02/12/24 14:21 Last Admin: 02/12/24 14:22 Dose: 88 ml Documented By: EMMA Morphine Sulfate (Morphine Sulfate 4 Mg/Ml 1 Ml Carp\\Vial) 4 mg IV NOW STA Stop: 02/12/24 15:07 Last Admin: 02/12/24 15:19 Dose: 4 mg Documented By: [facility] [place] Data Radiologist's Impression: Abdomen/Pelvis CT 02/12/24 13:46 CT abd pelvis IV con only CLINICAL HISTORY: abd pain TECHNIQUE: Helical axial images of the abdomen and pelvis were obtained and displayed. Automated dose lowering techniques and/or adjustment according to patient size were utilized for this exam. This exam was performed with intravenous contrast. CT DOSE: 903.12 mGy.cm COMPARISON: Comparison is made to CT abdomen pelvis 04/14/2021 FINDINGS: Lower chest: No acute abnormality. Liver: Unremarkable. No focal lesions are seen. Gallbladder and biliary tree: No calcified gallstones. Normal caliber wall. No intra- or extrahepatic biliary ductal dilation. Pancreas: Unremarkable, no focal lesions. Spleen: Unremarkable. Adrenals: Unremarkable. Kidneys and ureters: Unremarkable. Bladder: Unremarkable. Reproductive organs: Unremarkable. Bowel: Appendix is dilated to 15 mm with appendicolith noted. Lymph nodes Retroperitoneal: Unremarkable. Pelvic: Unremarkable. Mesenteric: Unremarkable. Peritoneum: Minimal fat stranding is seen about the pancreas. No fluid collection or pneumoperitoneum is seen. Vessels: Unremarkable. Abdominal wall: Unremarkable. Bones: Degenerative changes in the visualized spine. Minimal anterolisthesis of L4-L5 is again seen. IMPRESSION: Findings compatible with acute appendicitis without evidence of rupture or abscess formation. ACT 112: Negative or not required by law. Electronically signed by: Adrian Carrasco M.D. 02/12/2024 2:52 PM Discharge Plan Visit Data Chief Complaint: Abdominal Pain ED Provider: Yaya Okeefe Discharge Problem: Acute appendicitis, Abdominal pain, Leukocytosis Discharge Instructions Interventions: ED Discharge Assessment Last Done: 02/12/24 16:18 Discharge Problem: Acute appendicitis Qualifiers: Acute appendicitis type: with localized peritonitis Appendicitis gangrene presence: unspecified whether gangrene present Appendicitis perforation presence: unspecified whether perforation present Appendicitis abscess presence: unspecified whether abscess present Qualified Code(s): K35.30 - Acute appendicitis with localized peritonitis, without perforation or gangrene Abdominal pain Qualifiers: Abdominal location: unspecified location Qualified Code(s): R10.9 - Unspecified abdominal pain Leukocytosis Qualifiers: Leukocytosis type: unspecified Qualified Code(s): D72.829 - Elevated white blood cell count, unspecified
[2024-02-12] MEDS: OPTIRAY 320 100ml IV ONE (14:22)
[2024-02-12 14:33] LABS: iSTAT Creatinine 0.7 mg/dl (0.6-1.3); iSTAT Hemoglobin 14.6 g/dl (12.0-16.0); iSTAT Ionized Calcium 1.13 mmol/l (1.12-1.32); iSTAT Potassium 5.2 mmol/L (3.3-5.0)
[2024-02-12 14:42] LABS: Basophils # (auto) 0.05 K/uL (0.00-0.20); Basophils % (auto) 0.4 %; Eosinophils # (auto) 0.09 K/uL (0.00-0.50); Eosinophils % (auto) 0.6 %; Hematocrit (blood only) 41.4 % (37.0-47.0); Hemoglobin 14.6 g/dl (12.0-16.0); Immature Granulocytes # (auto) 0.05 K/uL (0.01-0.20); Immature Granulocytes % (auto) 0.4 %; Lymphocytes # (auto) 0.84 K/uL (1.20-3.40); Mean Corpuscular Hemoglobin 33.2 pg (25.0-34.0); Mean Corpuscular Hgb Conc 35.3 g/dL (32.0-36.0); Mean Corpuscular Volume 94.1 fL (80.0-100.0); Mean Platelet Volume 10.4 fL (9.4-12.4); Monocytes # (auto) 1.01 K/uL (0.11-0.59); Monocytes % (auto) 7.2 %; Neutrophils # (auto) 11.93 K/uL (1.40-6.50); Neutrophils % (auto) 85.4 %; Platelet Count 272 K/uL (130-400); RDW Coefficient of Variation 12.9 % (11.5-14.5); RDW Standard Deviation 43.9 fL (36.4-46.3); White Blood Count 13.97 K/ul (4.8-10.8)
--- NOTE | 2024-02-12 14:54 | CT Scan Report ---
CT abd pelvis IV con only CLINICAL HISTORY: abd pain TECHNIQUE: Helical axial images of the abdomen and pelvis were obtained and displayed. Automated dose lowering techniques and/or adjustment according to patient size were utilized for this exam. This e xam was performed with intravenous contrast. CT DOSE: 903.12 mGy.cm COMPARISON: Comparison is made to CT abdomen pelvis 04/14/2021 FINDINGS: Lower chest: No acute abnormality. Liver: Unremarkable. No focal lesions are seen. Gallbladder and biliary tree: No calcified gallstones. Normal caliber wall. No intra- or extrahepatic biliary ductal dilation. Pancreas: Unremarkable, no focal lesions. Spleen: Unremarkable. Adrenals: Unremarkable. Kidneys and ureters: Unremarkable. Bladder: Unremarkable. Reproductive organs: Unremarkable. Bowel: Appendix is dilated to 15 mm with appendicolith noted. Lymph nodes Retroperitoneal: Unremarkable. Pelvic: Unremarkable. Mesenteric: Unremarkable. Peritoneum: Minimal fat stranding is seen about the pancreas. No fluid collection or pneumoperitoneum is seen. Vessels: Unremarkable. Abdominal wall: Unremarkable. Bones: Degenerative changes in the visualized spine. Minimal anterolisthesis of L4-L5 is again seen. IMPRESSION: Findings compatible with acute appendicitis without evidence of rupture or abscess formation. ACT 112: Negative or not required by law. Electronically signed by: Adrian Carrasco M.D. 02/12/2024 2:52 PM
[2024-02-12] MEDS: cefOXitin 2,000 MG/60 ML BAG IV STA (15:17)
[2024-02-12] MEDS: MoRPHine SULFATE 4 MG/ML 1 ML CARP\\VIAL IV STA (15:19)
--- NOTE | 2024-02-12 15:44 | History & Physical Report ---
Date of Service February 12, 2024 Assessment & Plan (1) Acute appendicitis: Plan: six 8-year-old woman with acute appendicitis. We discussed the risks and benefits of a laparoscopic appendectomy. We discussed the postoperative course and recovery. All questions were answered. She is agreeable to proceed and has signed consent. Will take her to the operating room at the earliest convenience. History of Present Illness Primary Care Provider: Asuncion Suarez DO 68-year-old woman presents with 1 day history of right lower quadrant abdominal pain. This started this morning and was accompanied by nausea. She denies vomiting. She denies fevers or chills. She denies other complaints. She does not appear to have any prior abdominal surgery. CT scan demonstrates acute appendicitis with appendicolith in the appendix. Allergies Allergy/AdvReac Type Severity Reaction Status Date / Time No Known Drug Allergies Allergy Unknown Verified 07/31/22 17:46 Home Medications Medication Instructions Recorded Confirmed Type clopidogrel 75 mg tablet 75 mg PO QAM 05/24/19 02/05/23 History metoprolol succinate 25 mg 25 mg PO QAM 05/24/19 02/05/23 History tablet,extended release 24 hr atorvastatin 20 mg tablet 20 mg PO QAM 07/26/19 02/05/23 History pen needle, diabetic 31 gauge x #360 ea 12/24/19 02/05/23 Rx 1/4" (Comfort EZ Pen [place]) levothyroxine 88 mcg tablet See Rx Instructions .Route 02/20/20 02/05/23 Rx .COMPLEX #100 tabs blood sugar diagnostic (OneTouch #10 ea 02/15/21 02/05/23 History Verio test strips) hydrochlorothiazide 12.5 mg tablet 12.5 mg PO QAM 02/15/21 02/05/23 History solifenacin 5 mg tablet 5 mg PO QAM 02/15/21 02/05/23 History glucagon 1 mg/0.2 mL subcutaneous 1 mg (0.2 mL) subcut UD PRN 03/31/22 02/05/23 Rx auto-injector hypoglycemic coma/unresponsivenss #0.2 mL omeprazole 20 mg capsule,delayed 20 mg PO QAM 07/31/22 02/05/23 History release biotin 1 mg capsule 1 mg PO TID 02/05/23 02/05/23 History cholecalciferol (vitamin D3) 25 25 mcg PO DAILY 02/05/23 02/05/23 History mcg (1,000 unit) tablet (Vitamin D3) donepezil 5 mg tablet (Aricept) 5 mg PO QAM 02/05/23 02/05/23 History dulaglutide 4.5 mg/0.5 mL 4.5 mg subcut WK 02/05/23 02/05/23 History subcutaneous pen injector (Trulicity) ferrous sulfate 325 mg (65 mg 325 mg PO DAILY 02/05/23 02/05/23 History iron) tablet (iron) insulin aspart U-100 100 unit/mL 1 sliding scale dose subcut 02/05/23 02/05/23 History (3 mL) subcutaneous pen (Novolog USEASDIRECTD PRN Hyperglycemia FlexPen U-100 Insulin aspart) magnesium oxide 400 mg PO QAM 02/05/23 02/05/23 History potassium bicarbonate-citric acid 10 meq PO UD 02/05/23 02/05/23 History 10 mEq effervescent tablet pramipexole 1 mg tablet 1 mg PO QAM 02/05/23 02/05/23 History Past Med/Surg History Problem List (Updated 02/12/24 @ 15:45 by Maco Sandoval MD) Acute appendicitis Near syncope (Acute) Acute hypotension (Acute) Acute dehydration (Acute) Diarrhea (Acute) Hypoglycemia Diabetes (Chronic) Dizziness (Acute) Nausea (Acute) Nausea (Acute) Dehydration (Acute) Hypomagnesemia (Acute) Altered mental status (Acute) Hypothyroidism Encounter for pre-operative examination Bright red blood per rectum Change in bowel habit Numbness Dyslipidemia Vitamin D deficiency Elevated transaminase level Medical History Hypotension Polyneuropathy Arm paresthesia, left Obstructive sleep apnea Memory loss Fatty liver Chronic cerebral ischemia Cervical radiculopathy at C5 Carpal tunnel syndrome Adult ADHD Unresponsiveness Left arm weakness Spell of altered consciousness Restless leg syndrome Uncontrolled type 2 diabetes mellitus with insulin therapy Mild cognitive impairment Heartburn OCC WITH CERTAIN DIETARY INTAKE/DENIES REFLUX/NO MEDS On anticoagulant therapy on plavix Degenerative disc disease Fatty liver disease, nonalcoholic Lichen sclerosus Diabetes mellitus, type 2 Depression Hyperlipidemia Hypertension Sleep apnea cpap--was not using, planning to re-start use Alzheimer disease Restless leg syndrome Elevated troponin (2014) Surgical History History of colonoscopy with polypectomy History of colonoscopy History of tooth extraction all upper teeth History of left breast biopsy benign History of right breast biopsy BENIGN History of dilatation and curettage History of tooth extraction wisdom teeth History of carpal tunnel release bilt History of surgical procedure on eye proper using laser right and left History of bilateral cataract extraction Family History Father , age 80 Family history of diabetes mellitus Heart disease Brother Family history of diabetes mellitus 2 Mother , age 79 of a blood infection Family history of diabetes mellitus Family history of breast cancer Social History Smoking Status: Current every day smoker Tobacco Type: E-cigarettes / Vaping Age Quit Using Tobacco: 62; Cigarettes Per Day: 4; Second Hand Exposure: No; Do You Dip or Chew Tobacco: No; Hx Alcohol Use: No Hx Substance Use: No Preferred Language: Yoruba Communication Ability: Effective Craniologist Required: No Beliefs That Will Affect Care: None Current Living Situation: Family Current Living Situation Comment: son lives with her. 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 How many Children do You have: 1 Feels Safe at Home: Yes Assistive Devices: Denture - Upper and Glasses Review of Systems Review of Systems: All systems reviewed & are unremarkable except as noted in HPI & below Physical Exam Constitutional: WD/WN, vitals as above Eyes: PERRL, conjunctivae normal, anicteric sclerae Neck: trachea midline, no thyromegaly Respiratory: normal respiratory effort; no respiratory distress and no labored breathing Cardiovascular: RRR, no murmur, no edema Gastrointestinal (Abdomen): Inspection/Auscultation: abdomen normal to inspection; abdomen not distended and + abnormal bowel sounds Percussion/Palpation: + abdomen tender ( RLQ) and abdomen soft; no guarding and abdomen not rigid Skin: no rashes, warm and dry Psychiatric: A+Ox3, euthymic affect Results & Data Results & Data Vital Signs (Past 12 Hours) Vital Signs Temp Pulse Resp BP Pulse Ox O2 Del Method 02/12/24 15:25 103 H 14 88/53 L 96 Room Air 02/12/24 14:19 100 H 02/12/24 13:58 Room Air 02/12/24 13:58 22 02/12/24 13:58 36.9 C 98 H 18 123/63 97 Room Air Laboratory Results 02/12/24 02/12/24 02/12/24 Range/Units 15:17 14:01 13:55 WBC 13.97 H (4.8-10.8) K/ul RBC 4.40 (4.20-5.40) M/uL Hgb 14.6 (12.0-16.0) g/dl POC Hgb 14.6 (12.0-16.0) g/dl Hct 41.4 (37.0-47.0) % POC Hct 43 (37-47) % MCV 94.1 (80.0-100.0) fL MCH 33.2 (25.0-34.0) pg MCHC 35.3 (32.0-36.0) g/dL RDW Std Deviation 43.9 (36.4-46.3) fL RDW Coeff of [place] 12.9 (11.5-14.5) % Plt Count 272 (130-400) K/uL MPV 10.4 (9.4-12.4) fL Immature Gran % (Auto) 0.4 % Neut % (Auto) 85.4 % Lymph % (Auto) 6.0 % [place] % (Auto) 7.2 % Eos % (Auto) 0.6 % Baso % (Auto) 0.4 % Neut # (Auto) 11.93 H (1.40-6.50) K/uL Lymph # (Auto) 0.84 L (1.20-3.40) K/uL [place] # (Auto) 1.01 H (0.11-0.59) K/uL Eos # (Auto) 0.09 (0.00-0.50) K/uL Baso # (Auto) 0.05 (0.00-0.20) K/uL Immature Gran # (Auto) 0.05 (0.01-0.20) K/uL POC Sodium 136 (135-144) mmol/L Sodium Pending Cancelled POC Potassium 5.2 H (3.3-5.0) mmol/L Potassium Pending Cancelled POC Chloride 100 L (101-112) mmol/L Chloride Pending Cancelled Carbon Dioxide Pending Cancelled POC Total CO2 27 (24-31) mmol/L Anion Gap Pending Cancelled POC Anion Gap 15.0 L (16-25) mmol/L POC BUN 23 H (7-18) mg/dl BUN Pending Cancelled Creatinine Pending Cancelled POC Creatinine 0.7 (0.6-1.3) mg/dl Est Cr Clr Drug Dosing Pending Cancelled Est GFR ( Amer) Pending Cancelled Est GFR (Non-Af Amer) Pending Cancelled BUN/Creatinine Ratio Pending Cancelled Glucose Pending Cancelled POC Glucose (other) 208 H (70-99) mg/dl Calcium Pending Cancelled POC Ioniz Calcium Angela 1.13 (1.12-1.32) mmol/l Total Bilirubin Pending Cancelled AST Pending Cancelled ALT Pending Cancelled Alkaline Phosphatase Pending Cancelled Total Protein Pending Cancelled Albumin Pending Cancelled Globulin Pending Cancelled Albumin/Globulin Ratio Pending Cancelled Lipase Pending Cancelled Diagnostic Findings CT abd pelvis IV con only CLINICAL HISTORY: abd pain TECHNIQUE: Helical axial images of the abdomen and pelvis were obtained and displayed. Automated dose lowering techniques and/or adjustment according to patient size were utilized for this exam. This exam was performed with intravenous contrast. CT DOSE: 903.12 mGy.cm COMPARISON: Comparison is made to CT abdomen pelvis 04/14/2021 FINDINGS: Lower chest: No acute abnormality. Liver: Unremarkable. No focal lesions are seen. Gallbladder and biliary tree: No calcified gallstones. Normal caliber wall. No intra- or extrahepatic biliary ductal dilation. Pancreas: Unremarkable, no focal lesions. Spleen: Unremarkable. Adrenals: Unremarkable. Kidneys and ureters: Unremarkable. Bladder: Unremarkable. Reproductive organs: Unremarkable. Bowel: Appendix is dilated to 15 mm with appendicolith noted. Lymph nodes Retroperitoneal: Unremarkable. Pelvic: Unremarkable. Mesenteric: Unremarkable. Peritoneum: Minimal fat stranding is seen about the pancreas. No fluid collection or pneumoperitoneum is seen. Vessels: Unremarkable. Abdominal wall: Unremarkable. Bones: Degenerative changes in the visualized spine. Minimal anterolisthesis of L4-L5 is again seen. IMPRESSION: Findings compatible with acute appendicitis without evidence of rupture or abscess formation. ACT 112: Negative or not required by law. (1) Acute appendicitis Acute appendicitis type: with localized peritonitis Appendicitis gangrene presence: without gangrene Appendicitis perforation presence: without perforation Appendicitis abscess presence: without abscess Qualified Code(s): K35.30 - Acute appendicitis with localized peritonitis, without perforation or gangrene
[2024-02-12 15:54] LABS: Albumin Globulin Ratio 1.2 (0.9-2); Albumin Level 3.6 gm/dl (3.4-5.0); BUN Creatinine Ratio 22.5 (10-20); Bilirubin,Total 0.9 mg/dl (0.2-1.0); Calcium 9.6 mg/dl (8.6-10.3); Creatinine Clr Calc Pharmacy 59.8 ml/min; Est GFR (Non-African American) 76.8 ml/min; Potassium 4.7 mmol/L (3.5-5.1); Total Protein 6.6 gm/dl (6.0-8.3)
[2024-02-12] MEDS ORDERED: LIDOCAINE 2% 2 ML VIAL/AMP(20MG/ML) INFIL ONE (16:25)
[2024-02-12] MEDS ORDERED: fentaNYL citrate PF 100 MCG/2 ML VIAL ONE ×2 (16:25→17:14)
[2024-02-12] MEDS ORDERED: DEXAMETHASONE SOD INJ 4 MG/ML VIAL ONE (16:25)
[2024-02-12] MEDS ORDERED: PROPOFOL IV EMULSION 10 MG/ML 20 ML VIAL IV ONE (16:25)
[2024-02-12] MEDS ORDERED: ONDANSETRON INJ 2 MG/ML 2 ML VIAL ONE (16:25)
[2024-02-12] MEDS ORDERED: MIDAZOLAM HCL 1 MG/ML 2ML VIAL ONE (16:26)
[2024-02-12] MEDS ORDERED: ROCURONIUM BROMIDE 10 MG/ML 5 ML VIAL IV ONE ×5 (16:26)
[2024-02-12] MEDS: LACTATED RINGER'S 1,000 ML IV SCH (16:39)
[2024-02-12] MEDS ORDERED: SUGAMMADEX SODIUM 200 MG/2 ML VIAL IV ONE (17:09)
[2024-02-12] MEDS: BUPIVACAINE/EPINEPHRINE 0.5% MPF 1:200,000 30 ML VIAL ONE (17:22)
--- NOTE | 2024-02-12 17:24 | Operative Report ---
Post Operative Report Pre & Post Diagnosis Operation Date: 02/12/24 15:45 Pre-Op Diagnosis: Acute appendicitis Post-Op Diagnosis: Acute appendicitis I identified the patient and participated in the time-out.: Yes Procedure Operation Date: 02/12/24 15:45 Actual Procedures p Laparoscopic Appendectomy(Not Applicable) - Maco Sandoval MD Surgeon Maco Sandoval MD Canvas Baster Jumpbasting SANDRA Kaur assisted with tissue retraction, camera op, closure Estimated Blood Loss 5 Findings Consistent with Post-Op Diagnosis acute appendicitis, no evidence of perforation Specimens appendix Drains none Anesthesia Type General Complications none Description of Procedure the patient was taken to the operating room, and placed supine on the operating table. A timeout was performed, perioperative antibiotics were administered, SCD boots were placed. After adequate anesthesia and analgesia was obtained, the abdomen was prepped and draped in the normal sterile fashion. A 1 cm incision was made in the supraumbilical region and carried down to the level of the fascia. A trach hook was used to grasp the fascia and elevated and a varies needle was used to enter the abdominal cavity. The abdomen was insufflated to a pressure of 15 mmHg, and a 5 mm trocar was placed in this location. A 5 mm 30 degree laparoscope was placed into the abdominal cavity, and the abdomen was surveyed. The patient was placed in Trendelenburg and slightly to the left. One 5 mm trocar was placed in the right upper quadrant, and one 12 mm trocar was placed in the left lower quadrant under direct visualization. The right colon was identified and traced down to the cecum. The appendix was identified and elevated anteriorly and medially. A window was created at the base of the appendix with a [place] dissector. The Endo STEPH stapler was used to transect the appendix at its base through noninflamed tissue, and subsequently the mesoappendix. The appendix was placed in an Endo Catch bag, and removed via the left lower quadrant port site. Attention was turned to hemostasis, which was excellent. The abdomen was copiously irrigated and suctioned free, and again hemostasis was found to be excellent. All trochars removed under direct visualization. The abdomen was desufflated. The fascia in the 12 mm port site was closed with a 0 Vicryl suture. The skin was closed with a running 4-0 Monocryl subcuticular stitch. Dermabond was applied. The patient tolerated the procedure without complication, and was transferred in stable condition to the PACU. All instrument, needle, and sponge counts were correct at the end of the case. My land surveyor assistant was necessary throughout the procedure for tissue retraction, possible camera operation, and closure of the wounds. I understand that section 1842(b)(7)(D) of the Social Security act generally prohibits Medicare physician fee schedule payment for the services of assistants at surgery in teaching hospitals when qualified residents are available to furnish such services. I certify that the services for which payment is claimed were medically necessary and that no qualified resident was available to perform the services. I further understand that these services are subject to postpayment review by the Medicare carrier. I attest to the content of the Intraoperative Record and any orders documented therein. Any exceptions are noted below.
--- NOTE | 2024-02-12 18:02 | Hospitalist Consultation ---
<Statement entered by Hung Rivas, DO - 02/12/24 20:30> I have seen and examined the patient and have discussed the case with the provider above. I have reviewed the advanced practitioner's documentation, and I agree with, and take responsibility for that plan of care. Patient seen and examined with ANSHUL at bedside. Son at bedside as well. Patient is recovering well after surgery. Reports that her pain is controlled Plan of care and orders reviewed with ANSHUL and as outlined below Date of Consultation February 12, 2024 Assessment & Plan (1) Acute appendicitis: Presented with right lower quadrant abdominal pain x [address] ABD/pelvis demonstrated signs of acute appendicitis. POD#[address] Sandoval WBC 13.9 K, hemodynamically stable Received cefoxitin preoperatively Clear liquids, pain and nausea control Further management as per general surgery (2) Diabetes mellitus, type 2: hgb a1c 7.8 01/2024 Lantus and Novolog per protocol while hospitalized (3) CVD (cerebrovascular disease): Holding Plavix for now, resume at the discretion of general surgery Continue statin (4) Hypertension: BP borderline low Holding HCTZ and Lisinopril, resume as able. Noted mild hyperkalemia on today's labs, K+5.2 (5) Hypothyroidism: Continue levothyroxine (6) Mild vascular dementia: Continue donepezil DVT PROPHYLAXIS SCDs as per general surgery Patient seen in collaboration with Dr. Rivas. Thank you for this consultation. We will follow the patient with you during their hospital stay. You can reach a member of the [facility] via the [facility] role in [place] Text. History of Present Illness Reason for Consultation: Post Op Medical Management Requesting Physician: Dr. Maco Sandoval Attending Physician: Maco Sandoval MD History of Present Illness 68 year old female with PMH DM type II, HLD, hypothyroidism, HTN, remote hx NH, cerebrovascular disease, mild vascular dementia, and other problems listed below who presented to the ED for evaluation of right lower quadrant abdominal pain. Patient reports her pain began this morning and progressively worsened. She reports associated nausea however no vomiting. Reports feeling feverish however did not take her temperature. No diarrhea. In the ED, CT ABD/pelvis showed signs of acute appendicitis. Patient was taken to the OR with general surgery for laparoscopic appendectomy. Patient was seen postoperatively in her inpatient room. Postoperatively she is doing well. She reports her pain is well-controlled. No further nausea. She is hemodynamically stable. Allergies Allergy/AdvReac Type Severity Reaction Status Date / Time No Known Drug Allergies Allergy Unknown Verified 02/12/24 16:22 Home Medications Medication Instructions Recorded Confirmed Type clopidogrel 75 mg tablet 75 mg PO QAM 05/24/19 02/12/24 History metoprolol succinate 25 mg 25 mg PO QAM 05/24/19 02/12/24 History tablet,extended release 24 hr atorvastatin 20 mg tablet 20 mg PO QAM 07/26/19 02/12/24 History pen needle, diabetic 31 gauge x #360 ea 12/24/19 02/12/24 Rx 1/" (Comfort EZ Pen [place]) levothyroxine 88 mcg tablet See Rx Instructions .Route 02/20/20 02/12/24 Rx .COMPLEX #100 tabs blood sugar diagnostic (OneTouch #10 ea 02/15/21 02/12/24 History Verio test strips) hydrochlorothiazide 12.5 mg tablet 12.5 mg PO QAM 02/15/21 02/12/24 History solifenacin 5 mg tablet 5 mg PO QAM 02/15/21 02/12/24 History omeprazole 20 mg capsule,delayed 20 mg PO QAM 07/31/22 02/12/24 History release biotin 1 mg capsule 1 mg PO TID 02/05/23 02/12/24 History cholecalciferol (vitamin D3) 25 25 mcg PO DAILY 02/05/23 02/12/24 History mcg (1,000 unit) tablet (Vitamin D3) donepezil 5 mg tablet (Aricept) 5 mg PO QAM 02/05/23 02/12/24 History dulaglutide 4.5 mg/0.5 mL 4.5 mg subcut WK 02/05/23 02/12/24 History subcutaneous pen injector (Trulicity) ferrous sulfate 325 mg (65 mg 325 mg PO DAILY 02/05/23 02/12/24 History iron) tablet (iron) insulin aspart U-100 100 unit/mL 1 sliding scale dose subcut 02/05/23 02/12/24 History (3 mL) subcutaneous pen (Novolog USEASDIRECTD PRN Hyperglycemia FlexPen U-100 Insulin aspart) magnesium oxide 400 mg PO QAM 02/05/23 02/12/24 History potassium bicarbonate-citric acid 10 meq PO DAILY 02/05/23 02/12/24 History 10 mEq effervescent tablet clobetasol 0.05 % topical cream 1 applic topical BID 02/12/24 02/12/24 History diclofenac sodium 1 % topical gel 4 g topical QID 02/12/24 02/12/24 History insulin glargine 100 unit/mL (3 15 unit subcut QPM 02/12/24 02/12/24 History mL) subcutaneous pen (Lantus Solostar U-100 Insulin) lisinopril 5 mg tablet 5 mg PO DAILY 02/12/24 02/12/24 History trazodone 50 mg tablet 50 mg PO HS 02/12/24 02/12/24 History Patient History Medical History Mild vascular dementia CVD (cerebrovascular disease) Polyneuropathy Obstructive sleep apnea Chronic cerebral ischemia Cervical radiculopathy at C5 Carpal tunnel syndrome Adult ADHD Restless leg syndrome Mild cognitive impairment Heartburn OCC WITH CERTAIN DIETARY INTAKE/DENIES REFLUX/NO MEDS On anticoagulant therapy on plavix Degenerative disc disease Fatty liver disease, nonalcoholic Lichen sclerosus Diabetes mellitus, type 2 Depression Hyperlipidemia Hypertension Alzheimer disease Surgical History History of colonoscopy with polypectomy History of colonoscopy History of tooth extraction all upper teeth History of left breast biopsy benign History of right breast biopsy BENIGN History of dilatation and curettage History of tooth extraction wisdom teeth History of carpal tunnel release bilt History of surgical procedure on eye proper using laser right and left History of bilateral cataract extraction Family History Father , age 80 Family history of diabetes mellitus Heart disease Brother Family history of diabetes mellitus 2 Mother , age 79 of a blood infection Family history of diabetes mellitus Family history of breast cancer Social History Smoking Status: Never smoker Tobacco Type: E-cigarettes / Vaping Age Quit Using Tobacco: 62; Cigarettes Per Day: 4; Second Hand Exposure: No; Do You Dip or Chew Tobacco: No; Hx Alcohol Use: No Hx Substance Use: No Preferred Language: Turkish Communication Ability: Effective Ruling Machine Operator Required: No Beliefs That Will Affect Care: None Current Living Situation: Family Current Living Situation Comment: lives with son current occupational status: retired 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 How many Children do You have: 1 Other Information That Helps Us Care for You: No Feels Safe at Home: Yes Safety Concerns: Feels Safe At This Time Assistive Devices: Glasses Physical Exam Constitutional: WD/WN, vitals as above no acute distress Eyes: PERRL, conjunctivae normal, anicteric sclerae ENMT: external ear and nose normal, oropharynx normal Respiratory: normal respiratory effort, lungs clear to auscultation Cardiovascular: Rate/Rhythm: regular rate and regular rhythm Vessels: normal peripheral pulses Extremities: no edema Gastrointestinal (Abdomen): Inspection/Auscultation: abdomen not distended Percussion/Palpation: abdomen soft; abdomen nontender 3 laparoscopic incisions noted, no surro unding erythema or drainage Musculoskeletal: no cyanosis or clubbing, extremities motor strength 5/5 Skin: no rashes, warm and dry Neurologic: PERRL, EOMI, accommodation nl, no face palsy, no dysarthria Psychiatric: A+Ox3, euthymic affect Results & Data Results & Data Vital Signs (Past 12 Hours) Vital Signs Temp Pulse Pulse Pulse Resp BP BP 02/12/24 17:50 97 H 17 118/60 02/12/24 17:41 36 C L 101 H 16 128/81 02/12/24 16:30 37.7 C H 97 H 16 103/55 L 02/12/24 15:25 103 H 14 88/53 L 02/12/24 14:19 100 H 02/12/24 13:58 02/12/24 13:58 22 02/12/24 13:58 36.9 C 98 H 18 123/63 Pulse Ox O2 Del Method O2 Flow Rate 02/12/24 17:50 98 Oxymask 4 02/12/24 17:41 97 Oxymask 6 02/12/24 16:30 99 Room Air 02/12/24 15:25 96 Room Air 02/12/24 14:19 02/12/24 13:58 Room Air 02/12/24 13:58 02/12/24 13:58 97 Room Air Laboratory Results Short CBC 02/12/24 Range/Units 13:55 WBC 13.97 H (4.8-10.8) K/ul Hgb 14.6 (12.0-16.0) g/dl Hct 41.4 (37.0-47.0) % Plt Count 272 (130-400) K/uL BMP 02/12/24 02/12/24 13:55 15:17 Sodium Cancelled 135 L Potassium Cancelled 4.7 Chloride Cancelled 100 Carbon Dioxide Cancelled 28 BUN Cancelled 18 Creatinine Cancelled 0.80 Glucose Cancelled 229 H Calcium Cancelled 9.6 Liver Function 02/12/24 02/12/24 Range/Units 13:55 15:17 Total Bilirubin Cancelled 0.9 AST Cancelled 18 ALT Cancelled 17 Alkaline Phosphatase Cancelled 111 H Albumin Cancelled 3.6 Diagnostic Findings Abdomen/Pelvis CT 02/12/24 13:46 CT abd pelvis IV con only CLINICAL HISTORY: abd pain TECHNIQUE: Helical axial images of the abdomen and pelvis were obtained and displayed. Automated dose lowering techniques and/or adjustment according to patient size were utilized for this exam. This exam was performed with intravenous contrast. CT DOSE: 903.12 mGy.cm COMPARISON: Comparison is made to CT abdomen pelvis 04/14/2021 FINDINGS: Lower chest: No acute abnormality. Liver: Unremarkable. No focal lesions are seen. Gallbladder and biliary tree: No calcified gallstones. Normal caliber wall. No intra- or extrahepatic biliary ductal dilation. Pancreas: Unremarkable, no focal lesions. Spleen: Unremarkable. Adrenals: Unremarkable. Kidneys and ureters: Unremarkable. Bladder: Unremarkable. Reproductive organs: Unremarkable. Bowel: Appendix is dilated to 15 mm with appendicolith noted. Lymph nodes Retroperitoneal: Unremarkable. Pelvic: Unremarkable. Mesenteric: Unremarkable. Peritoneum: Minimal fat stranding is seen about the pancreas. No fluid collection or pneumoperitoneum is seen. Vessels: Unremarkable. Abdominal wall: Unremarkable. Bones: Degenerative changes in the visualized spine. Minimal anterolisthesis of L4-L5 is again seen. IMPRESSION: Findings compatible with acute appendicitis without evidence of rupture or abscess formation. ACT 112: Negative or not required by law. Electronically signed by: Adrian Carrasco M.D. 02/12/2024 2:52 PM (1) Acute appendicitis Acute appendicitis type: with localized peritonitis Appendicitis abscess presence: unspecified whether abscess present Appendicitis gangrene presence: unspecified whether gangrene present Appendicitis perforation presence: unspecified whether perforation present Qualified Code(s): K35.30 - Acute appendicitis with localized peritonitis, without perforation or gangrene
[2024-02-12] MEDS ORDERED: PROMETHAZINE HCL 12.5 MG in SODIUM CHLORIDE 0.9% 50 ML IV PRN (18:39)
[2024-02-12] MEDS ORDERED: oxyCODONE/ACETAMINOPHEN 5mg/325mg TAB PO PRN ×2 (18:39)
[2024-02-12] MEDS ORDERED: MoRPHine SULFATE 2 MG/ML CARP IV PRN (18:39)
[2024-02-12] MEDS ORDERED: ONDANSETRON INJ 2 MG/ML 2 ML VIAL IV PRN (18:39)
[2024-02-12] MEDS ORDERED: diphenhydrAMINE Capsule 25 MG CAP PO PRN (18:39)
--- NOTE | 2024-02-12 18:42 | Anesthesiology Progress Note ---
Date of Service February 12, 2024 Anesthesia Post Procedure Vital Signs Vital Signs: Temp Pulse Pulse Pulse Pulse Resp BP 02/12/24 18:30 36.7 C 89 16 02/12/24 18:15 88 16 02/12/24 18:10 37.3 C 91 H 18 02/12/24 18:00 97 H 20 02/12/24 17:50 97 H 17 02/12/24 17:41 36 C L 101 H 16 02/12/24 16:30 37.7 C H 97 H 16 02/12/24 15:25 103 H 14 88/53 L 02/12/24 14:19 100 H 02/12/24 13:58 02/12/24 13:58 22 02/12/24 13:58 36.9 C 98 H 18 123/63 BP Pulse Ox O2 Del Method O2 Flow Rate 02/12/24 18:30 99/52 L 95 Nasal Cannula 2 02/12/24 18:15 96/45 L 95 Nasal Cannula 2 02/12/24 18:10 109/53 L 96 Nasal Cannula 2 02/12/24 18:00 113/59 L 90 Room Air 02/12/24 17:50 118/60 98 Oxymask 4 02/12/24 17:41 128/81 97 Oxymask 6 02/12/24 16:30 103/55 L 99 Room Air 02/12/24 15:25 96 Room Air 02/12/24 14:19 02/12/24 13:58 Room Air 02/12/24 13:58 02/12/24 13:58 97 Room Air Pain Intensity Right Lower Abdomen: Pain Intensity: 0 Transfer of Care Handoff Completed per policy Notes Mental Status: alert / awake / arousable and participated in evaluation Patient Amnestic to Procedure: Yes Nausea / Vomiting: adequately controlled Pain: adequately controlled Airway Patency, RR, SpO2: stable & adequate BP & HR: stable & adequate Hydration State: stable & adequate Anesthetic Complications: no major complications apparent
[2024-02-12] MEDS ORDERED: DEXTROSE 50% 50 ML SYRINGE IV PRN (19:40)
[2024-02-12] MEDS ORDERED: GLUCOSE 10 TAB/TUBE PO PRN (19:40)
[2024-02-12] MEDS ORDERED: CARBOHYDRATES FOR HYPOGLYCEMIA PO PRN (19:40)
[2024-02-12] MEDS ORDERED: GLUCOSE 40% GEL 15 GM TUBE PO PRN (19:40)
[2024-02-12] MEDS ORDERED: GLUCAGON FOR INJ 1 MG VIAL SQ PRN (19:40)
[2024-02-12] MEDS: SODIUM CHLORIDE 0.9% 500 ML IV ONE (20:59)
[2024-02-12] MEDS: LANTUS PER UNIT CHARGE SQ SCH (21:06)
[2024-02-12] MEDS: INSULIN ASPART PER UNIT CHARGE SC SCH (21:06)
[2024-02-12] MEDS: SODIUM CHLORIDE 0.9% 1,000 ML IV SCH ×2 (21:34→23:29)
[2024-02-12] MEDS: traZODone HCL 50 MG TAB PO SCH (21:35)
--- NOTE | 2024-02-12 22:15 | Communication Note ---
Date of Service: February 12, 2024 SBP 60s after fluid bolus given postop. Patient somewhat lethargic as per RN. Patient received 4 mg morphine at the ER prior to OR. Minimal response to Narcan administration Procalcitonin elevated Lactic acid 2.9 AP Hypotension secondary to hypovolemia, severe sepsis PCU transfer ([place] with Dr. Alvarez of ) CS, Zosyn Follow lactic acid response to IVF Hold BP meds for now Add Daptomycin to if without response to above intervention
[2024-02-12] MEDS: SODIUM CHLORIDE 0.9% 1,000 ML IV ONE (22:20)
[2024-02-12] MEDS: NALOXONE HCL 0.4 MG/1 ML VIAL/CARP IV STA (22:41)
[2024-02-12] MEDS: PIPERACILLIN/TAZOBACTAM 4.5 GM in DEXTROSE 5% MINI-B 100 ML IV ONE (22:46)
[2024-02-12 23:11] LABS: Hematocrit (blood only) 32.1 % (37.0-47.0); Hemoglobin 10.9 g/dl (12.0-16.0)
[2024-02-12 23:39] LABS: Calcium 8.2 mg/dl (8.6-10.3); Creatinine Clr Calc Pharmacy 45.6 ml/min; Est GFR (African American) 64.1 ml/min; Est GFR (Non-African American) 55.3 ml/min; Magnesium 1.6 mg/dl (1.7-2.4); Potassium 4.4 mmol/L (3.5-5.1)
[2024-02-13] MEDS: SODIUM CHLORIDE 0.9% 1,000 ML IV ONE ×2 (00:29→19:15)
[2024-02-13] MEDS: MAGNESIUM SULFATE / D5W 1 GM/100 ML BAG IV ONE (00:49)
[2024-02-13 00:52] LABS: Hematocrit (blood only) 32.1 % (37.0-47.0); Hemoglobin 10.9 g/dl (12.0-16.0)
[2024-02-13] MEDS: LACTATED RINGER'S 1,000 ML IV SCH (01:05)
[2024-02-13] MEDS: PIPER/TAZO 4.5g in D5W MINI-B 100 ML IV ONE (01:19)
[2024-02-13 01:56] LABS: Appearance Urine Clear (Clear); Bilirubin Urine Negative (Negative); Blood Urine Negative (Negative); Color Urine Yellow; Glucose Urine UA 1+ (Negative); Ketones Urine Trace (Negative); Leukocyte Esterase Urine Negative (Negative); Nitrite Urine Negative (Negative); Protein Urine Negative (Negative); Specific Gravity Urine > 1.045 (1.000-1.030); Urobilinogen Urine Negative (Negative); pH Urine 6.5 (4.5-7.5)
[2024-02-13] MEDS: LORATADINE 10 MG TAB PO ONE (02:49)
[2024-02-13] MEDS: DAPTOmycin 200 MG in SYRINGE 0 ML IV SCH (03:14)
[2024-02-13 05:58] LABS: BUN Creatinine Ratio 17.9 (10-20); Calcium 8.2 mg/dl (8.6-10.3); Est GFR (African American) 83.9 ml/min; Est GFR (Non-African American) 72.4 ml/min; Potassium 4.1 mmol/L (3.5-5.1)
[2024-02-13] MEDS: LACTATED RINGER'S 1,000 ML IV ONE (06:03)
[2024-02-13] MEDS: PIPERACILLIN/TAZOBACTAM 4.5 GM in DEXTROSE 5% MINI-B 100 ML IV SCH (06:10)
[2024-02-13] MEDS: LEVOTHYROXINE SODIUM 88 MCG TABLET PO SCH (06:11)
[2024-02-13 06:18] LABS: Hematocrit (blood only) 32.4 % (37.0-47.0); Hemoglobin 10.8 g/dl (12.0-16.0); Mean Corpuscular Hemoglobin 32.7 pg (25.0-34.0); Mean Corpuscular Hgb Conc 33.3 g/dL (32.0-36.0); Mean Corpuscular Volume 98.2 fL (80.0-100.0); Mean Platelet Volume 9.7 fL (9.4-12.4); Platelet Count 163 K/uL (130-400); RDW Coefficient of Variation 12.9 % (11.5-14.5); RDW Standard Deviation 45.8 fL (36.4-46.3); White Blood Count 11.79 K/ul (4.8-10.8)
[2024-02-13 06:58] LABS: Magnesium 1.8 mg/dl (1.7-2.4)
[2024-02-13] MEDS: MAGNESIUM OXIDE 400 MG TAB PO SCH (08:14)
[2024-02-13] MEDS: ENOXAPARIN INJ 40 MG/0.4 ML SYR SQ SCH (08:14)
[2024-02-13] MEDS: OXYBUTYNIN CHLORIDE XL 5 MG TABCR PO SCH (08:14)
[2024-02-13] MEDS: PANTOprazole 40 MG TAB PO SCH (08:14)
[2024-02-13] MEDS ORDERED: PHARMACY GLYCEMIC MGMT CONSULT PRN (08:26)
[2024-02-13] MEDS ORDERED: METOPROLOL SUCC 25MG EXT REL TAB PO SCH (09:00)
[2024-02-13] MEDS ORDERED: lisinopril 5 MG TAB PO SCH (09:00)
[2024-02-13] MEDS ORDERED: DONEPEZIL HCL 5 MG TAB PO SCH (09:00)
[2024-02-13] MEDS ORDERED: ENOXAPARIN INJ 40 MG/0.4 ML SYR SQ SCH (09:00)
[2024-02-13] MEDS ORDERED: hydroCHLOROthiazide 25 MG TAB PO SCH (09:00)
[2024-02-13] MEDS ORDERED: ATORVASTATIN 20 MG TAB PO SCH (09:00)
--- NOTE | 2024-02-13 10:57 | Surgery Progress Note ---
Date of Service February 13, 2024 Assessment & Plan (1) Acute appendicitis: (2) Hypotension due to hypovolemia: (3) Sepsis: Plan POD # 1 s/p laparoscopic appendectomy afebrile, hemodynamically stable, bp responsive to IV fluids lactic acid normalized leukocytosis improving minimal postop pain tolerating diet Plan: Continue pain management advance diet to diabetic diet for lunch incentive spirometry continue IV abx antiemetics as needed OOB to chair today PT/OT continue medical management Admission and Anticipated Discharge Date Admission Date: February 12, 2024 Subjective feeling better this am abdominal pain minimal, more soreness at incision sites, preop pain resolved no chest pain, sob, dizziness, lightheadedness this morning urinating on own, required catheterization last night tolerated clear liquids, no n,v Physical Exam Constitutional: WD/WN, vitals as above cooperative and comfortable; no acute distress and not ill appearing Respiratory: normal respiratory effort; no respiratory distress, no labored breathing and no retractions oxygen via nasal cannula Gastrointestinal (Abdomen): Inspection/Auscultation: abdomen normal to in spection and + abdominal surgical incision (c/d/i with dermabond); abdomen not distended Percussion/Palpation: + abdomen tender (mild at incision sites appropriate postop) and abdomen soft; no guarding, abdomen not rigid and abdomen not firm Skin: no rashes, warm and dry Psychiatric: Orientation: alert and oriented x 3 Results & Data Vital Signs (Past 12 Hours) Vital Signs Temp Pulse Pulse Resp BP BP Pulse Ox 02/13/24 10:35 92 02/13/24 09:43 02/13/24 08:00 77 02/13/24 07:49 36.6 C 78 14 103/64 95 02/13/24 06:16 77 92/53 L 02/13/24 06:00 72 96/60 L 02/13/24 05:32 81 94/53 L 02/13/24 05:02 73 92/55 L 02/13/24 04:32 73 90/57 L 02/13/24 04:02 71 86/55 L 02/13/24 03:39 89/55 L 02/13/24 03:09 37 C 79 18 91/57 L 97 02/13/24 02:41 77 92/51 L 02/13/24 02:24 74 76/47 L 02/13/24 01:00 02/12/24 23:43 78 85/47 L 02/12/24 23:31 77 84/45 L 02/12/24 23:18 36.6 C 86 18 100/59 L 97 02/12/24 22:55 84 O2 Del Method O2 Flow Rate 02/13/24 10:35 Room Air 02/13/24 09:43 Nasal Cannula 1 02/13/24 08:00 02/13/24 07:49 Nasal Cannula 2 02/13/24 06:16 02/13/24 06:00 02/13/24 05:32 02/13/24 05:02 02/13/24 04:32 02/13/24 04:02 02/13/24 03:39 02/13/24 03:09 Nasal Cannula 2 02/13/24 02:41 02/13/24 02:24 02/13/24 01:00 Nasal Cannula 2 02/12/24 23:43 02/12/24 23:31 02/12/24 23:18 Nasal Cannula 2 02/12/24 22:55 Laboratory Results 02/13/24 02/13/24 02/13/24 Range/Units 07:46 05:17 01:30 WBC 11.79 H (4.8-10.8) K/ul RBC 3.30 L (4.20-5.40) M/uL Hgb 10.8 L (12.0-16.0) g/dl POC Hgb (12.0-16.0) g/dl Hct 32.4 L (37.0-47.0) % POC Hct (37-47) % MCV 98.2 (80.0-100.0) fL MCH 32.7 (25.0-34.0) pg MCHC 33.3 (32.0-36.0) g/dL RDW Std Deviation 45.8 (36.4-46.3) fL RDW Coeff of Leny 12.9 (11.5-14.5) % Plt Count 163 (130-400) K/uL MPV 9.7 (9.4-12.4) fL Immature Gran % (Auto) % Neut % (Auto) % Lymph % (Auto) % Yates % (Auto) % Eos % (Auto) % Baso % (Auto) % Neut # (Auto) (1.40-6.50) K/uL Lymph # (Auto) (1.20-3.40) K/uL Yates # (Auto) (0.11-0.59) K/uL Eos # (Auto) (0.00-0.50) K/uL Baso # (Auto) (0.00-0.20) K/uL Immature Gran # (Auto) (0.01-0.20) K/uL POC Sodium (135-144) mmol/L Sodium 138 POC Potassium (3.3-5.0) mmol/L Potassium 4.1 POC Chloride (101-112) mmol/L Chloride 107 Carbon Dioxide 28 POC Total CO2 (24-31) mmol/L Anion Gap 3 POC Anion Gap (16-25) mmol/L POC BUN (7-18) mg/dl BUN 15 Creatinine 0.84 POC Creatinine (0.6-1.3) mg/dl Est Cr Clr Drug Dosing 57.0 Est GFR ( Amer) 83.9 Est GFR (Non-Af Amer) 72.4 BUN/Creatinine Ratio 17.9 Glucose 235 H POC Glucose 207 H (70-99) mg/dl POC Glucose (other) (70-99) mg/dl Lactate 1.7 (0.4-2.0) mmol/L Calcium 8.2 L POC Ioniz Calcium Angela (1.12-1.32) mmol/l Magnesium 1.8 (1.7-2.4) mg/dl Total Bilirubin AST ALT Alkaline Phosphatase Total Protein Albumin Globulin Albumin/Globulin Ratio Lipase Procalcitonin (0-0.5) ng/ml Urine Color Yellow Urine Appearance Clear (Clear) Urine pH 6.5 (4.5-7.5) Ur Specific [place] > 1.045 H (1.000-1.030) Urine Protein Negative (Negative) Urine Glucose (UA) 1+ H (Negative) Urine Ketones Trace H (Negative) Urine Blood Negative (Negative) Urine Nitrite Negative (Negative) Urine Bilirubin Negative (Negative) Urine Urobilinogen Negative (Negative) Ur Leukocyte Esterase Negative (Negative) Blood Type Antibody Screen 02/13/24 02/12/24 02/12/24 Range/Units 00:29 22:47 22:38 WBC (4.8-10.8) K/ul RBC (4.20-5.40) M/uL Hgb 10.9 L 10.9 L D (12.0-16.0) g/dl POC Hgb (12.0-16.0) g/dl Hct 32.1 L 32.1 L (37.0-47.0) % POC Hct (37-47) % MCV (80.0-100.0) fL MCH (25.0-34.0) pg MCHC (32.0-36.0) g/dL RDW Std Deviation (36.4-46.3) fL RDW Coeff of Leny (11.5-14.5) % Plt Count (130-400) K/uL MPV (9.4-12.4) fL Immature Gran % (Auto) % Neut % (Auto) % Lymph % (Auto) % Yates % (Auto) % Eos % (Auto) % Baso % (Auto) % Neut # (Auto) (1.40-6.50) K/uL Lymph # (Auto) (1.20-3.40) K/uL Yates # (Auto) (0.11-0.59) K/uL Eos # (Auto) (0.00-0.50) K/uL Baso # (Auto) (0.00-0.20) K/uL Immature Gran # (Auto) (0.01-0.20) K/uL POC Sodium (135-144) mmol/L Sodium 135 L POC Potassium (3.3-5.0) mmol/L Potassium 4.4 POC Chloride (101-112) mmol/L Chloride 103 Carbon Dioxide 27 POC Total CO2 (24-31) mmol/L Anion Gap 5 POC Anion Gap (16-25) mmol/L POC BUN (7-18) mg/dl BUN 20 Creatinine 1.05 POC Creatinine (0.6-1.3) mg/dl Est Cr Clr Drug Dosing 45.6 Est GFR ( Amer) 64.1 Est GFR (Non-Af Amer) 55.3 BUN/Creatinine Ratio 19.0 Glucose 304 H* POC Glucose (70-99) mg/dl POC Glucose (other) (70-99) mg/dl Lactate 2.9 H* 2.8 H* (0.4-2.0) mmol/L Calcium 8.2 L POC Ioniz Calcium Angela (1.12-1.32) mmol/l Magnesium 1.6 L (1.7-2.4) mg/dl Total Bilirubin AST ALT Alkaline Phosphatase Total Protein Albumin Globulin Albumin/Globulin Ratio Lipase Procalcitonin 1.67 H (0-0.5) ng/ml Urine Color Urine Appearance (Clear) Urine pH (4.5-7.5) Ur Specific [place] (1.000-1.030) Urine Protein (Negative) Urine Glucose (UA) (Negative) Urine Ketones (Negative) Urine Blood (Negative) Urine Nitrite (Negative) Urine Bilirubin (Negative) Urine Urobilinogen (Negative) Ur Leukocyte Esterase (Negative) Blood Type O Positive Antibody Screen NEGATIVE 02/12/24 02/12/24 02/12/24 Range/Units 20:28 18:50 17:45 WBC (4.8-10.8) K/ul RBC (4.20-5.40) M/uL Hgb (12.0-16.0) g/dl POC Hgb (12.0-16.0) g/dl Hct (37.0-47.0) % POC Hct (37-47) % MCV (80.0-100.0) fL MCH (25.0-34.0) pg MCHC (32.0-36.0) g/dL RDW Std Deviation (36.4-46.3) fL RDW Coeff of Leny (11.5-14.5) % Plt Count (130-400) K/uL MPV (9.4-12.4) fL Immature Gran % (Auto) % Neut % (Auto) % Lymph % (Auto) % Yates % (Auto) % Eos % (Auto) % Baso % (Auto) % Neut # (Auto) (1.40-6.50) K/uL Lymph # (Auto) (1.20-3.40) K/uL Yates # (Auto) (0.11-0.59) K/uL Eos # (Auto) (0.00-0.50) K/uL Baso # (Auto) (0.00-0.20) K/uL Immature Gran # (Auto) (0.01-0.20) K/uL POC Sodium (135-144) mmol/L Sodium POC Potassium (3.3-5.0) mmol/L Potassium POC Chloride (101-112) mmol/L Chloride Carbon Dioxide POC Total CO2 (24-31) mmol/L Anion Gap POC Anion Gap (16-25) mmol/L POC BUN (7-18) mg/dl BUN Creatinine POC Creatinine (0.6-1.3) mg/dl Est Cr Clr Drug Dosing Est GFR ( Amer) Est GFR (Non-Af Amer) BUN/Creatinine Ratio Glucose POC Glucose 334 H* 276 H 264 H (70-99) mg/dl POC Glucose (other) (70-99) mg/dl Lactate (0.4-2.0) mmol/L Calcium POC Ioniz Calcium Angela (1.12-1.32) mmol/l Magnesium (1.7-2.4) mg/dl Total Bilirubin AST ALT Alkaline Phosphatase Total Protein Albumin Globulin Albumin/Globulin Ratio Lipase Procalcitonin (0-0.5) ng/ml Urine Color Urine Appearance (Clear) Urine pH (4.5-7.5) Ur Specific [place] (1.000-1.030) Urine Protein (Negative) Urine Glucose (UA) (Negative) Urine Ketones (Negative) Urine Blood (Negative) Urine Nitrite (Negative) Urine Bilirubin (Negative) Urine Urobilinogen (Negative) Ur Leukocyte Esterase (Negative) Blood Type Antibody Screen 02/12/24 02/12/24 02/12/24 Range/Units 16:42 15:17 14:01 WBC (4.8-10.8) K/ul RBC (4.20-5.40) M/uL Hgb (12.0-16.0) g/dl POC Hgb 14.6 (12.0-16.0) g/dl Hct (37.0-47.0) % POC Hct 43 (37-47) % MCV (80.0-100.0) fL MCH (25.0-34.0) pg MCHC (32.0-36.0) g/dL RDW Std Deviation (36.4-46.3) fL RDW Coeff of Leny (11.5-14.5) % Plt Count (130-400) K/uL MPV (9.4-12.4) fL Immature Gran % (Auto) % Neut % (Auto) % Lymph % (Auto) % Yates % (Auto) % Eos % (Auto) % Baso % (Auto) % Neut # (Auto) (1.40-6.50) K/uL Lymph # (Auto) (1.20-3.40) K/uL Yates # (Auto) (0.11-0.59) K/uL Eos # (Auto) (0.00-0.50) K/uL Baso # (Auto) (0.00-0.20) K/uL Immature Gran # (Auto) (0.01-0.20) K/uL POC Sodium 136 (135-144) mmol/L Sodium 135 L POC Potassium 5.2 H (3.3-5.0) mmol/L Potassium 4.7 POC Chloride 100 L (101-112) mmol/L Chloride 100 Carbon Dioxide 28 POC Total CO2 27 (24-31) mmol/L Anion Gap 7 POC Anion Gap 15.0 L (16-25) mmol/L POC BUN 23 H (7-18) mg/dl BUN 18 Creatinine 0.80 POC Creatinine 0.7 (0.6-1.3) mg/dl Est Cr Clr Drug Dosing 59.8 Est GFR ( Amer) 89.0 Est GFR (Non-Af Amer) 76.8 BUN/Creatinine Ratio 22.5 H Glucose 229 H POC Glucose 256 H (70-99) mg/dl POC Glucose (other) 208 H (70-99) mg/dl Lactate (0.4-2.0) mmol/L Calcium 9.6 POC Ioniz Calcium Angela 1.13 (1.12-1.32) mmol/l Magnesium (1.7-2.4) mg/dl Total Bilirubin 0.9 AST 18 ALT 17 Alkaline Phosphatase 111 H Total Protein 6.6 Albumin 3.6 Globulin 3.0 Albumin/Globulin Ratio 1.2 Lipase 18 Procalcitonin (0-0.5) ng/ml Urine Color Urine Appearance (Clear) Urine pH (4.5-7.5) Ur Specific [place] (1.000-1.030) Urine Protein (Negative) Urine Glucose (UA) (Negative) Urine Ketones (Negative) Urine Blood (Negative) Urine Nitrite (Negative) Urine Bilirubin (Negative) Urine Urobilinogen (Negative) Ur Leukocyte Esterase (Negative) Blood Type Antibody Screen 02/12/24 Range/Units 13:55 WBC 13.97 H (4.8-10.8) K/ul RBC 4.40 (4.20-5.40) M/uL Hgb 14.6 (12.0-16.0) g/dl POC Hgb (12.0-16.0) g/dl Hct 41.4 (37.0-47.0) % POC Hct (37-47) % MCV 94.1 (80.0-100.0) fL MCH 33.2 (25.0-34.0) pg MCHC 35.3 (32.0-36.0) g/dL RDW Std Deviation 43.9 (36.4-46.3) fL RDW Coeff of Leny 12.9 (11.5-14.5) % Plt Count 272 (130-400) K/uL MPV 10.4 (9.4-12.4) fL Immature Gran % (Auto) 0.4 % Neut % (Auto) 85.4 % Lymph % (Auto) 6.0 % Yates % (Auto) 7.2 % Eos % (Auto) 0.6 % Baso % (Auto) 0.4 % Neut # (Auto) 11.93 H (1.40-6.50) K/uL Lymph # (Auto) 0.84 L (1.20-3.40) K/uL Yates # (Auto) 1.01 H (0.11-0.59) K/uL Eos # (Auto) 0.09 (0.00-0.50) K/uL Baso # (Auto) 0.05 (0.00-0.20) K/uL Immature Gran # (Auto) 0.05 (0.01-0.20) K/uL POC Sodium (135-144) mmol/L Sodium Cancelled POC Potassium (3.3-5.0) mmol/L Potassium Cancelled POC Chloride (101-112) mmol/L Chloride Cancelled Carbon Dioxide Cancelled POC Total CO2 (24-31) mmol/L Anion Gap Cancelled POC Anion Gap (16-25) mmol/L POC BUN (7-18) mg/dl BUN Cancelled Creatinine Cancelled POC Creatinine (0.6-1.3) mg/dl Est Cr Clr Drug Dosing Cancelled Est GFR ( Amer) Cancelled Est GFR (Non-Af Amer) Cancelled BUN/Creatinine Ratio Cancelled Glucose Cancelled POC Glucose (70-99) mg/dl POC Glucose (other) (70-99) mg/dl Lactate (0.4-2.0) mmol/L Calcium Cancelled POC Ioniz Calcium Angela (1.12-1.32) mmol/l Magnesium (1.7-2.4) mg/dl Total Bilirubin Cancelled AST Cancelled ALT Cancelled Alkaline Phosphatase Cancelled Total Protein Cancelled Albumin Cancelled Globulin Cancelled Albumin/Globulin Ratio Cancelled Lipase Cancelled Procalcitonin (0-0.5) ng/ml Urine Color Urine Appearance (Clear) Urine pH (4.5-7.5) Ur Specific [place] (1.000-1.030) Urine Protein (Negative) Urine Glucose (UA) (Negative) Urine Ketones (Negative) Urine Blood (Negative) Urine Nitrite (Negative) Urine Bilirubin (Negative) Urine Urobilinogen (Negative) Ur Leukocyte Esterase (Negative) Blood Type Antibody Screen (1) Acute appendicitis Acute appendicitis type: with localized peritonitis Appendicitis gangrene presence: without gangrene Appendicitis perforation presence: without perforation Appendicitis abscess presence: without abscess Qualified Code(s): K35.30 - Acute appendicitis with localized peritonitis, without perforation or gangrene
--- NOTE | 2024-02-13 14:44 | Pharmacy Report ---
Pharmacy Glycemic Short Note 2 - Date of Service February 13, 2024 - Glycemic Short BSG Results (Last 24 hours): 02/12/24 02/12/24 02/12/24 13:55 15:17 16:42 Glucose Cancelled 229 H POC Glucose 256 H 02/12/24 02/12/24 02/12/24 17:45 18:50 20:28 Glucose POC Glucose 264 H 276 H 334 H* 02/12/24 02/13/24 02/13/24 22:38 05:17 07:46 Glucose 304 H* 235 H POC Glucose 207 H 02/13/24 11:30 Glucose POC Glucose 211 H OUTPATIENT ANTIDIABETIC REGIMEN: * Lantus 15 units SQ qPM * Novolog SSI * Trulicity 4.5mg SQ weekly on * HbA1c: pending w/ AM labs ASSESSMENT: * Ms Mas is a 68yo diabetic F admitted last evening with acute appendicitis. She is now POD #1 appendectomy. * Pt received 8mg IV dexamethasone pre-operatively, which is likely contributing to patient's hyperglycemia since admission. * Will give her evening dose of Lantus early today. Novolog parameters have also been adjusted to provide additional prandial coverage. * Pharmacy will continue to follow and adjust regimen as indicated. PLAN FOR INPATIENT GLYCEMIC CONTROL: * Basal insulin * Lantus 15 units SQ qPM * Bolus insulin * NovoLog per scale ACHS or Q6hrs while NPO * Goal Range: Low 100 mg/dL - High 140 mg/dL * Correction Factor: 25 mg/dL/unit * Nutritional / Prandial insulin per carb ratio of 1 unit per 9 grams CHO consumed
--- NOTE | 2024-02-13 14:55 | Hospitalist Progress Note ---
Date of Service February 13, 2024 Assessment & Plan (1) Acute appendicitis: Plan: Presented with right lower quadrant abdominal pain x [address] ABD/pelvis demonstrated signs of acute appendicitis. Acute appendicitis Possible sepsis due to above -S/P Laparoscopic Appendectomy by Dr. Sandoval on 02/12/2024 -Blood cultures pending -Lactate levels normalized with IV fluids -Continue Zosyn, Dapto IV fluids as needed Appreciate surgery input Pain is controlled Titrate antibiotics as able Hyperlipidemia Hold statin while on daptomycin Hypomagnesemia Replete electrolytes as needed (2) Diabetes mellitus, type 2: Plan: HbA1C 7.8 01/2024 Lantus and Novolog per protocol while hospitalized Monitor BGs (3) CVD (cerebrovascular disease): Plan: Resume Plavix tmw Resume statin once off Dapto (4) Hypertension: Plan: Currently hypotensive Hold HCTZ, lisinopril monitor (5) Hypothyroidism: Plan: Continue levothyroxine (6) Mild vascular dementia: Plan: Continue donepezil DVT Px Lovenox SQ Admission and Anticipated Discharge Date Admission Date: February 12, 2024 Subjective Patient is seen and examined at bedside States feeling better today Abdominal pain is controlled Also states having some dyspnea today Denies any nausea, vomiting, chest pain, dizziness No other complaints +Flatus, No BM today Tolerating current diet Review of Systems Review of Systems: All systems reviewed & are unremarkable except as noted in Subjective Physical Exam Physical Exam: Physical Exam: Vitals signs as noted above General Appearance:Moderately built and nourished, no apparent distress Head: normocephalic, Atraumatic Eyes: normal inspection, EOMI Neck: supple, Trachea midline Respiratory/Chest: Normal breath sounds, CTA, No accessory muscle use Cardiovascular: S1, S2, No murmur Abdomen/GI:Soft, Non tender, Bowel sounds present, +Mild post surgical incisional tender Extremities/Musculoskeletal:normal inspection, no edema Neurologic/Psych:AAOX3, grossly no focal neurological deficits Skin: normal color, warm Results & Data Results & Data Vital Signs (Past 12 Hours) Vital Signs Temp Pulse Pulse Resp BP BP Pulse Ox 02/13/24 11:15 36.9 C 77 15 100/62 91 02/13/24 10:35 92 02/13/24 09:43 02/13/24 08:00 77 02/13/24 07:49 36.6 C 78 14 103/64 95 02/13/24 06:16 77 92/53 L 02/13/24 06:00 72 96/60 L 02/13/24 05:32 81 94/53 L 02/13/24 05:02 73 92/55 L 02/13/24 04:32 73 90/57 L 02/13/24 04:02 71 86/55 L 02/13/24 03:39 89/55 L 02/13/24 03:09 37 C 79 18 91/57 L 97 O2 Del Method O2 Flow Rate 02/13/24 11:15 Nasal Cannula 1 02/13/24 10:35 Room Air 02/13/24 09:43 Nasal Cannula 1 02/13/24 08:00 02/13/24 07:49 Nasal Cannula 2 02/13/24 06:16 02/13/24 06:00 02/13/24 05:32 02/13/24 05:02 02/13/24 04:32 02/13/24 04:02 02/13/24 03:39 02/13/24 03:09 Nasal Cannula 2 Laboratory Results Short CBC 02/12/24 02/13/24 02/13/24 Range/Units 22:38 00:29 05:17 WBC 11.79 H (4.8-10.8) K/ul Hgb 10.9 L D 10.9 L 10.8 L (12.0-16.0) g/dl Hct 32.1 L 32.1 L 32.4 L (37.0-47.0) % Plt Count 163 (130-400) K/uL BMP 02/12/24 02/12/24 02/12/24 13:55 15:17 22:38 Sodium Cancelled 135 L 135 L Potassium Cancelled 4.7 4.4 Chloride Cancelled 100 103 Carbon Dioxide Cancelled 28 27 BUN Cancelled 18 20 Creatinine Cancelled 0.80 1.05 Glucose Cancelled 229 H 304 H* Calcium Cancelled 9.6 8.2 L 02/13/24 05:17 Sodium 138 Potassium 4.1 Chloride 107 Carbon Dioxide 28 BUN 15 Creatinine 0.84 Glucose 235 H Calcium 8.2 L Liver Function 02/12/24 02/12/24 Range/Units 13:55 15:17 Total Bilirubin Cancelled 0.9 AST Cancelled 18 ALT Cancelled 17 Alkaline Phosphatase Cancelled 111 H Albumin Cancelled 3.6 Urine 02/13/24 Range/Units 01:30 Urine Color Yellow Urine Appearance Clear (Clear) Urine pH 6.5 (4.5-7.5) Ur Specific [place] > 1.045 H (1.000-1.030) Urine Protein Negative (Negative) Urine Glucose (UA) 1+ H (Negative) (1) Acute appendicitis Acute appendicitis type: with localized peritonitis Appendicitis abscess presence: unspecified whether abscess present Appendicitis gangrene presence: unspecified whether gangrene present Appendicitis perforation presence: unspecified whether perforation present Qualified Code(s): K35.30 - Acute appendicitis with localized peritonitis, without perforation or gangrene
[2024-02-13] MEDS: LANTUS PER UNIT CHARGE SQ SCH (16:57)
[2024-02-13] MEDS ORDERED: LANTUS PER UNIT CHARGE SQ SCH (21:00)
--- NOTE | 2024-02-14 03:24 | Surgery Progress Note ---
Date of Service February 14, 2024 Assessment & Plan (1) Acute appendicitis: (2) Hypotension due to hypovolemia: (3) Sepsis: Plan POD # 2 s/p laparoscopic appendectomy afebrile, hemodynamically stable leukocytosis improving minimal postop pain tolerating diet Plan: Continue pain management advance diet as tolerated incentive spirometry continue IV abx antiemetics as needed advance to ambulating in halls PT/OT continue medical management Admission and Anticipated Discharge Date Admission Date: February 12, 2024 Subjective Feeling much better today. Tolerating diet. No nausea or vomiting. Pain is better. Ambulating to bathroom. Physical Exam Physical Exam: NAD, A&O x 3 NCAT, AFVSS Abdomen: Soft, mild TTP at incisions Incisions C/D/I; Dermabond present minimal ecchymosis at left lower quadrant incision site Results & Data Vital Signs (Past 12 Hours) Vital Signs Temp Pulse Pulse Resp BP BP Pulse Ox 02/14/24 03:01 36.7 C 75 16 110/61 94 02/14/24 00:00 85 02/13/24 23:50 36.9 C 82 16 98/58 L 95 02/13/24 23:00 02/13/24 20:44 36.7 C 75 16 98/59 L 94 02/13/24 16:00 81 02/13/24 15:34 36.9 C 77 14 94/53 L 95 Pulse Ox O2 Del Method O2 Del Method O2 Flow Rate 02/14/24 03:01 Room Air 02/14/24 00:00 02/13/24 23:50 Room Air 02/13/24 23:00 94 Room Air 02/13/24 20:44 Room Air 02/13/24 16:00 02/13/24 15:34 Nasal Cannula 1 (1) Acute appendicitis Acute appendicitis type: with localized peritonitis Appendicitis gangrene presence: without gangrene Appendicitis perforation presence: without perforation Appendicitis abscess presence: without abscess Qualified Code(s): K35.30 - Acute appendicitis with localized peritonitis, without perforation or gangrene
[2024-02-14 06:53] LABS: Basophils # (auto) 0.05 K/uL (0.00-0.20); Basophils % (auto) 0.7 %; Eosinophils # (auto) 0.24 K/uL (0.00-0.50); Eosinophils % (auto) 3.2 %; Hematocrit (blood only) 35.8 % (37.0-47.0); Hemoglobin 12.2 g/dl (12.0-16.0); Immature Granulocytes # (auto) 0.02 K/uL (0.01-0.20); Immature Granulocytes % (auto) 0.3 %; Lymphocytes % (auto) 25.1 %; Mean Corpuscular Hemoglobin 32.8 pg (25.0-34.0); Mean Corpuscular Hgb Conc 34.1 g/dL (32.0-36.0); Mean Corpuscular Volume 96.2 fL (80.0-100.0); Mean Platelet Volume 10.1 fL (9.4-12.4); Monocytes # (auto) 0.53 K/uL (0.11-0.59); Neutrophils # (auto) 4.84 K/uL (1.40-6.50); Neutrophils % (auto) 63.7 %; Platelet Count 177 K/uL (130-400); RDW Coefficient of Variation 12.6 % (11.5-14.5); RDW Standard Deviation 43.7 fL (36.4-46.3); Red Blood Count 3.72 M/uL (4.20-5.40); White Blood Count 7.58 K/ul (4.8-10.8)
[2024-02-14 06:56] LABS: BUN Creatinine Ratio 11.1 (10-20); Calcium 8.7 mg/dl (8.6-10.3); Creatinine Clr Calc Pharmacy 66.5 ml/min; Est GFR (African American) 101.1 ml/min; Est GFR (Non-African American) 87.3 ml/min; Magnesium 1.7 mg/dl (1.7-2.4); Potassium 3.7 mmol/L (3.5-5.1)
[2024-02-14 07:39] LABS: Estimated Average Glucose 177 mg/dl; Hemoglobin A1C 7.8 % (4.5-5.6)
[2024-02-14] MEDS: CLOPIDOGREL BISULFATE 75 MG TAB PO SCH (08:28)
[2024-02-14] MEDS ORDERED: ACETAMINOPHEN 325 MG TAB PO PRN (13:50)
--- NOTE | 2024-02-14 14:38 | Hospitalist Progress Note ---
Date of Service February 14, 2024 Assessment & Plan (1) Acute appendicitis: (2) Diabetes mellitus, type 2: (3) CVD (cerebrovascular disease): (4) Hypertension: (5) Hypothyroidism: (6) Mild vascular dementia: Plan Ms. Mas admitted due to acute appendicitis and underwent appendectomy on 02/12/2024. Patient's post operative course with hypotension Medicine on consult for comanagement. #Acute appendicitis #Possible sepsis due to above *resolved -S/P Laparoscopic Appendectomy by Dr. Sandoval on 02/12/2024 -Blood cultures NGTD from 02/11 -Lactate levels normalized with IV fluids -Continue Zosyn, Dapto per primary service/surgery IV fluids as needed Pain is controlled Titrate antibiotics as able PT/OT Dispo per surgery #Hyperlipidemia Hold statin while on daptomycin #Hypomagnesemia Replete electrolytes as needed #DMTII HbA1C 7.8 01/2024 Lantus and Novolog per protocol while hospitalized Monitor BGs #CVD Resumed Plavix Resume statin once off Dapto #HTN Currently normotensive Hold HCTZ, lisinopril monitor #Hypothyroidism Continue levothyroxine #Dementia Continue donepezil DVT Px Lovenox SQ Admission and Anticipated Discharge Date Admission Date: February 12, 2024 Subjective NAEO Patient reports feeling well overall, eating well, passing stool, denies any acute pain--reports sore, but overall improved abdomen Hasn't ambulated yet, pending PT/OT eval Physical Exam Constitutional: WD/WN, vitals as above Respiratory: normal respiratory effort, lungs clear to auscultation Cardiovascular: RRR, no murmur, no edema Gastrointestinal (Abdomen): 3 well approximated incisions, nontender abdomen, no signs of superficial infection BS+ Results & Data Results & Data Vital Signs (Past 12 Hours) Vital Signs Temp Pulse Pulse Resp BP BP Pulse Ox 02/14/24 14:23 36.6 C 74 18 115/69 95 02/14/24 10:55 36.8 C 75 19 111/68 93 02/14/24 08:00 74 02/14/24 07:54 36.7 C 83 16 120/67 93 02/14/24 03:01 36.7 C 75 16 110/61 94 O2 Del Method 02/14/24 14:23 Room Air 02/14/24 10:55 Room Air 02/14/24 08:00 02/14/24 07:54 Room Air 02/14/24 03:01 Room Air Laboratory Results Short CBC 02/14/24 Range/Units 05:28 WBC 7.58 (4.8-10.8) K/ul Hgb 12.2 (12.0-16.0) g/dl Hct 35.8 L (37.0-47.0) % Plt Count 177 (130-400) K/uL BMP 02/14/24 05:28 Sodium 142 Potassium 3.7 Chloride 108 H Carbon Dioxide 29 BUN 8 Creatinine 0.72 Glucose 144 H Calcium 8.7 Medications Administered Home Medications Medication Instructions Recorded Confirmed Last Taken clopidogrel 75 mg tablet 75 mg PO QAM 05/24/19 02/12/24 Unknown metoprolol succinate 25 mg 25 mg PO QAM 05/24/19 02/12/24 Unknown tablet,extended release 24 hr atorvastatin 20 mg tablet 20 mg PO QAM 07/26/19 02/12/24 02/12/24 pen needle, diabetic 31 gauge x #360 ea 12/24/19 02/12/24 Unknown 09/28" (Comfort EZ Pen [place]) levothyroxine 88 mcg tablet See Rx Instructions .Route 02/20/20 02/12/24 02/12/24 .COMPLEX #100 tabs blood sugar diagnostic (OneTouch #10 ea 02/15/21 02/12/24 Unknown Verio test strips) hydrochlorothiazide 12.5 mg tablet 12.5 mg PO QAM 02/15/21 02/12/24 02/12/24 solifenacin 5 mg tablet 5 mg PO QA 02/15/21 02/12/24 Unknown omeprazole 20 mg capsule,delayed 20 mg PO QAM 07/31/22 02/12/24 Unknown release biotin 1 mg capsule 1 mg PO TID 02/05/23 02/12/24 02/12/24 08:00 cholecalciferol (vitamin D3) 25 25 mcg PO DAILY 02/05/23 02/12/24 Unknown mcg (1,000 unit) tablet (Vitamin D3) donepezil 5 mg tablet (Aricept) 5 mg PO QAM 02/05/23 02/12/24 02/12/24 dulaglutide 4.5 mg/0.5 mL 4.5 mg subcut WK 02/05/23 02/12/24 Unknown subcutaneous pen injector (Trulicity) ferrous sulfate 325 mg (65 mg 325 mg PO DAILY 02/05/23 02/12/24 Unknown iron) tablet (iron) insulin aspart U-100 100 unit/mL 1 sliding scale dose subcut 02/05/23 02/12/24 02/11/24 (3 mL) subcutaneous pen (Novolog USEASDIRECTD PRN Hyperglycemia FlexPen U-100 Insulin aspart) magnesium oxide 400 mg PO QAM 02/05/23 02/12/24 Unknown potassium bicarbonate-citric acid 10 meq PO DAILY 02/05/23 02/12/24 02/12/24 10 mEq effervescent tablet clobetasol 0.05 % topical cream 1 applic topical BID 02/12/24 02/12/24 Unknown diclofenac sodium 1 % topical gel 4 g topical QID 02/12/24 02/12/24 Unknown insulin glargine 100 unit/mL (3 15 unit subcut QPM 02/12/24 02/12/24 Unknown mL) subcutaneous pen (Lantus Solostar U-100 Insulin) lisinopril 5 mg tablet 5 mg PO DAILY 02/12/24 02/12/24 02/12/24 trazodone 50 mg tablet 50 mg PO HS 02/12/24 02/12/24 Unknown Active Medications Generic Name Dose Route Start Last Admin Trade Name Freq PRN Reason Stop Dose Admin Clopidogrel Bisulfate 75 mg 02/14/24 09:00 02/14/24 08:28 Clopidogrel Bisulfate 75 Mg Tab PO 03/15/24 08:59 75 mg QAM MARVIN Administration Enoxaparin Sodium 40 mg 02/13/24 09:00 02/14/24 08:28 Enoxaparin Inj 40 Mg/0.4 Ml Syr SQ 03/14/24 08:59 40 mg QAM MARVIN Administration Piperacillin Sod/Tazobactam 100 mls @ 25 mls/hr 02/13/24 06:00 02/14/24 14:30 Sod 4.5 gm/ Dextrose IV 02/14/24 18:00 25 mls/hr Q8H MARVIN Administration Protocol Daptomycin 200 mg/ Syringe 4 mls @ 2 mls/min 02/13/24 02:30 02/14/24 01:44 IV 02/15/24 02:29 2 mls/min Q24H MARVIN Administration Protocol Insulin Aspart 0 units 02/12/24 21:00 02/14/24 12:35 Insulin Aspart Per Unit Charge SC 03/13/24 20:59 5 units ACHS MARVIN Administration Insulin Glargine 15 units 02/13/24 16:30 02/13/24 16:57 Lantus Per Unit Charge SQ 03/14/24 16:29 15 units PM MARVIN Administration Levothyroxine Sodium 88 mcg 02/13/24 06:30 02/14/24 05:41 Levothyroxine Sodium 88 Mcg Tablet PO 03/14/24 06:29 88 mcg [id number] [facility] Administration Magnesium Oxide 400 mg 02/13/24 09:00 02/14/24 08:27 Magnesium Oxide 400 Mg Tab PO 03/14/24 08:59 400 mg QAM MARVIN Administration Oxybutynin Chloride 5 mg 02/13/24 09:00 02/14/24 08:27 Oxybutynin Chloride Xl 5 Mg Tabcr PO 03/14/24 08:59 5 mg QAM MARVIN Administration Pantoprazole Sodium 40 mg 02/13/24 09:00 02/14/24 08:27 Pantoprazole 40 Mg Tab PO 03/14/24 08:59 40 mg QAM MARVIN Administration (1) Acute appendicitis Acute appendicitis type: with localized peritonitis Appendicitis abscess presence: unspecified whether abscess present Appendicitis gangrene presence: unspecified whether gangrene present Appendicitis perforation presence: unspecified whether perforation present Qualified Code(s): K35.30 - Acute appendicitis with localized peritonitis, without perforation or gangrene
--- NOTE | 2024-02-15 10:04 | Surgery Progress Note ---
Date of Service February 15, 2024 Assessment & Plan (1) Acute appendicitis: (2) Hypotension due to hypovolemia: Plan: resolved (3) Sepsis: Plan: leukocytosis resolved Plan POD # 3 s/p laparoscopic appendectomy afebrile, hemodynamically stable minimal postop pain tolerating diet Plan: Possible discharge home today if ambulating on her own. Case management following PT/OT has not evaluated yet Admission and Anticipated Discharge Date Admission Date: February 14, 2024 Subjective feeling good minimal incisional pain no n,v tolerating diet no chest pain or shortness of breath ambulating hallway on her own urinating without difficulty passing gas and soft bowel movement without blood Physical Exam Constitutional: WD/WN, vitals as above no acute distress and not ill appearing Respiratory: normal respiratory effort; no respiratory distress, no labored breathing and no retractions Gastrointestinal (Abdomen): Inspection/Auscultation: abdomen normal to inspection and + abdominal surgical incision (c/d/i with dermabond); abdomen not distended Percussion/Palpation: abdomen soft; abdomen nontender, no guarding and abdomen not rigid Skin: no rashes, warm and dry Psychiatric: A+Ox3, euthymic affect Results & Data Vital Signs (Past 12 Hours) Vital Signs Temp Pulse Pulse Resp BP Pulse Ox Pulse Ox 02/15/24 07:26 36.6 C 76 19 121/62 94 02/15/24 03:33 36.8 C 67 16 127/74 95 02/15/24 00:00 74 02/14/24 23:00 95 02/14/24 23:00 37.1 C 73 18 104/60 93 O2 Del Method O2 Del Method 02/15/24 07:26 Room Air 02/15/24 03:33 Room Air 02/15/24 00:00 02/14/24 23:00 Room Air 02/14/24 23:00 Room Air Laboratory Results 02/15/24 02/15/24 02/14/24 Range/Units 11:31 07:24 20:36 POC Glucose 126 H 168 H 155 H (70-99) mg/dl 02/14/24 02/14/24 Range/Units 16:04 11:35 POC Glucose 125 H 128 H (70-99) mg/dl (1) Acute appendicitis Acute appendicitis type: with localized peritonitis Appendicitis gangrene presence: without gangrene Appendicitis perforation presence: without perforation Appendicitis abscess presence: without abscess Qualified Code(s): K35.30 - Acute appendicitis with localized peritonitis, without perforation or gangrene
--- NOTE | 2024-02-15 10:34 | Pharmacy Report ---
Pharmacy Glycemic Short Note 2 - Date of Service February 15, 2024 - Glycemic Short BSG Results (Last 24 hours): 02/14/24 02/14/24 02/14/24 11:35 16:04 20:36 POC Glucose 128 H 125 H 155 H 02/15/24 07:24 POC Glucose 168 H OUTPATIENT ANTIDIABETIC REGIMEN: * Lantus 15 units SQ qPM * Novolog SSI * Trulicity 4.5mg SQ weekly on * A1c 7.8% 02/13/23 ASSESSMENT: 02/14 * POD 3, antibiotics completed. * Patient received 34 units of insulin yesterday, euglycemic. Continue Lantus + NovoLog. 02/12 * Ms Mas is a 68yo diabetic F admitted last evening with acute appendicitis. She is now POD #1 appendectomy. * Pt received 8mg IV dexamethasone pre-operatively, which is likely contributing to patient's hyperglycemia since admission. * Will give her evening dose of Lantus early today. Novolog parameters have also been adjusted to provide additional prandial coverage. * Pharmacy will continue to follow and adjust regimen as indicated. PLAN FOR INPATIENT GLYCEMIC CONTROL: * Basal insulin * Lantus 15 units SQ qPM * Bolus insulin * NovoLog per scale ACHS or Q6hrs while NPO * Goal Range: Low 100 mg/dL - High 140 mg/dL * Correction Factor: 25 mg/dL/unit * Nutritional / Prandial insulin per carb ratio of 1 unit per 9 grams CHO consumed
--- NOTE | 2024-02-15 19:00 | Hospitalist Progress Note ---
Date of Service February 15, 2024 Assessment & Plan (1) Acute appendicitis: (2) Diabetes mellitus, type 2: (3) CVD (cerebrovascular disease): (4) Hypertension: (5) Hypothyroidism: (6) Mild vascular dementia: Plan Ms. Mas admitted due to acute appendicitis and underwent appendectomy on 02/12/2024. Patient's post operative course with hypotension Medicine on consult for comanagement. #Acute appendicitis #Possible sepsis due to above *resolved -S/P Laparoscopic Appendectomy by Dr. Sandoval on 02/12/2024 -Blood cultures NGTD from 02/11 -Lactate levels normalized with IV fluids -Continue Zosyn, Dapto per primary service/surgery; discontinued Pain is controlled Titrate antibiotics as able PT/OT:home Dispo per surgery #Hyperlipidemia resume statin #Hypomagnesemia Replete electrolytes as needed #DMTII HbA1C 7.8 01/2024 Lantus and Novolog per protocol while hospitalized Monitor BGs #CVD Resumed Plavix Resume statin once off Dapto #HTN Currently normotensive Hold HCTZ, lisinopril monitor #Hypothyroidism Continue levothyroxine #Dementia Continue donepezil DVT Px Lovenox SQ Dispo per surgery Admission and Anticipated Discharge Date Admission Date: February 14, 2024 Subjective doing well eager for dispo Physical Exam Constitutional: WD/WN, vitals as above Respiratory: normal respiratory effort, lungs clear to auscultation Gastrointestinal (Abdomen): normal bowel sounds, soft, nontender, no hepatosplenomegaly Results & Data Results & Data Vital Signs (Past 12 Hours) Vital Signs Temp Pulse Pulse Resp BP BP Pulse Ox 02/15/24 14:59 36.4 C L 77 19 114/67 96 02/15/24 14:59 36.6 C 76 18 117/67 115/69 96 02/15/24 10:39 36.6 C 76 18 117/67 96 02/15/24 08:00 77 02/15/24 07:26 36.6 C 76 19 121/62 94 O2 Del Method 02/15/24 14:59 Room Air 02/15/24 14:59 02/15/24 10:39 Room Air 02/15/24 08:00 02/15/24 07:26 Room Air Medications Administered Home Medications Medication Instructions Recorded Confirmed Last Taken clopidogrel 75 mg tablet 75 mg PO QAM 05/24/19 02/12/24 Unknown metoprolol succinate 25 mg 25 mg PO QAM 05/24/19 02/12/24 Unknown tablet,extended release 24 hr atorvastatin 20 mg tablet 20 mg PO QAM 07/26/19 02/12/24 02/12/24 pen needle, diabetic 31 gauge x #360 ea 12/24/19 02/12/24 Unknown 1/4" (Comfort EZ Pen [place]) levothyroxine 88 mcg tablet See Rx Instructions .Route 02/20/20 02/12/24 02/12/24 .COMPLEX #100 tabs blood sugar diagnostic (OneTouch #10 ea 02/15/21 02/12/24 Unknown Verio test strips) hydrochlorothiazide 12.5 mg tablet 12.5 mg PO QAM 02/15/21 02/12/24 02/12/24 solifenacin 5 mg tablet 5 mg PO QAM 02/15/21 02/12/24 Unknown omeprazole 20 mg capsule,delayed 20 mg PO QAM 07/31/22 02/12/24 Unknown release biotin 1 mg capsule 1 mg PO TID 02/05/23 02/12/24 02/12/24 08:00 cholecalciferol (vitamin D3) 25 25 mcg PO DAILY 02/05/23 02/12/24 Unknown mcg (1,000 unit) tablet (Vitamin D3) donepezil 5 mg tablet (Aricept) 5 mg PO QAM 02/05/23 02/12/24 02/12/24 dulaglutide 4.5 mg/0.5 mL 4.5 mg subcut WK 02/05/23 02/12/24 Unknown subcutaneous pen injector (Trulicity) ferrous sulfate 325 mg (65 mg 325 mg PO DAILY 02/05/23 02/12/24 Unknown iron) tablet (iron) insulin aspart U-100 100 unit/mL 1 sliding scale dose subcut 02/05/23 02/12/24 02/11/24 (3 mL) subcutaneous pen (Novolog USEASDIRECTD PRN Hyperglycemia FlexPen U-100 Insulin aspart) magnesium oxide 400 mg PO QAM 02/05/23 02/12/24 Unknown potassium bicarbonate-citric acid 10 meq PO DAILY 02/05/23 02/12/24 02/12/24 10 mEq effervescent tablet clobetasol 0.05 % topical cream 1 applic topical BID 02/12/24 02/12/24 Unknown diclofenac sodium 1 % topical gel 4 g topical QID 02/12/24 02/12/24 Unknown insulin glargine 100 unit/mL (3 15 unit subcut QPM 02/12/24 02/12/24 Unknown mL) subcutaneous pen (Lantus Solostar U-100 Insulin) lisinopril 5 mg tablet 5 mg PO DAILY 02/12/24 02/12/24 02/12/24 trazodone 50 mg tablet 50 mg PO HS 02/12/24 02/12/24 Unknown oxycodone-acetaminophen 5 mg-325 1 tab PO Q6H PRN pain #5 tabs 02/15/24 Unknown mg tablet (1) Acute appendicitis Acute appendicitis type: with localized peritonitis Appendicitis abscess presence: unspecified whether abscess present Appendicitis gangrene presence: unspecified whether gangrene present Appendicitis perforation presence: unspecified whether perforation present Qualified Code(s): K35.30 - Acute appendicitis with localized peritonitis, without perforation or gangrene
[2024-02-18] MEDS ORDERED: LEVOTHYROXINE SODIUM 88 MCG TABLET PO SCH (06:30)
== END 2024-02-15 16:46 | disposition home or self-care (01) | DRG 854 ==
LOC: ED 13:43 → OR 16:18 → 3N 16:18 → 2S 22:53
DX: Z79.4 Long term (current) use of insulin; K35.80 Unspecified acute appendicitis; I25.2 Old myocardial infarction; E86.1 Hypovolemia; E03.9 Hypothyroidism, unspecified; F90.9 Attention-deficit hyperactivity disorder, unspecified type; Z83.3 Family history of diabetes mellitus; R65.20 Severe sepsis without septic shock; I10 Essential (primary) hypertension; U07.0 Vaping-related disorder; E11.9 Type 2 diabetes mellitus without complications; Z79.02 Long term (current) use of antithrombotics/antiplatelets; A41.9 Sepsis, unspecified organism; F01.A0 Vascular dementia, mild, without behavioral disturbance, psychotic disturbance, mood disturbance, and anxiety; F17.290 Nicotine dependence, other tobacco product, uncomplicated